=== PATIENT | male | born 1960 | race Caucasian/White ===

== ENCOUNTER 2016-11-15 15:05 | Inpatient (IN) | payer BC ==
[~2016-11-15] VITALS: Ht 182.9 cm; Wt 81.5 kg
[2016-11-15] MEDS: PCA - TOTAL MG MORPHINE DELIVERED PER SHIFT SCH (00:55)
[~2016-11-15 15:05] MED LIST: CALTTAB PO; FINA5TAB2 PO; FLUC100T2 PO; LACT10SO PO; LACTATED RINGER'S 1000 ML INJ 1,000 ML IV ONE; LORA-373 PO; MORP1TAB25 PO; MORP1TAB26 PO; MSIR15 PO; MULT-135 PO; ONDANSETRON HCL 4 MG/2 ML VIAL IV PUSH ONE; POTA10TA2 PO; PRED10 PO; PROBCAP11 PO; PROPOFOL 200 MG/20 ML AMP IV ONE; SENO8.6T5 PO; TAMS0.4C4 PO; [UNRECOGNIZED DRUG - OTHER] PO
[2016-11-15] MEDS ORDERED: MIRTA15 PO (16:02)
[2016-11-15] MEDS ORDERED: OXYC1CAP PO (16:02)
[2016-11-15 16:13] VITALS: BP 121/82; PULSE 108; RESP 18; TEMP 99.1; O2SAT 100
[2016-11-15] MEDS ORDERED: METOPROLOL TARTRATE 25 MG TAB PO PRN (16:15)
[2016-11-15] MEDS ORDERED: LACTATED RINGER'S 1000 ML IV SCH (16:15)
[2016-11-15] MEDS ORDERED: INSULIN HUMAN REGULAR 1,000 UNITS/10 ML VIAL SQ PRN (16:15)
[2016-11-15] MEDS ORDERED: SODIUM CHLORID 0.9% 500 ML IV SCH (16:15)
[2016-11-15 16:26] LABS: AUTOMATED NEUTROPHIL # 3.1 TH/MM3 (1.8-7.7); BASOPHIL % 0.2 % (0.0-2.0); EOSINOPHIL % 0.9 % (0.0-4.0); HEMATOCRIT 32.6 % (39.0-51.0); HEMO FLAGS DIFF FINAL; LYMPH % 12.1 % (9.0-44.0); LYMPHOCYTE # 0.5 TH/MM3 (1.0-4.8); MEAN CELL VOLUME 88.3 FL (80.0-100.0); MEAN CORPUSCULAR HEMOGLOBIN 29.8 PG (27.0-34.0); MEAN CORPUSCULAR HGB CONC 33.8 % (32.0-36.0); MONO % 9.1 % (0.0-8.0); NEUT % 77.7 % (16.0-70.0); PLATELET COUNT 156 TH/MM3 (150-450); RED BLOOD COUNT 3.69 MIL/MM3 (4.50-5.90); RED CELL DISTRIBUTION WIDTH 17.3 % (11.6-17.2)
[2016-11-15 16:55] LABS: ALT (GPT) 57 U/L (12-78); ANION GAP 12 MEQ/L (5-15); AST (GOT) 38 U/L (15-37); BICARBONATE 23.3 MEQ/L (21.0-32.0); BLOOD UREA NITROGEN 7 MG/DL (7-18); CHLORIDE 103 MEQ/L (98-107); GLOMERULAR FILTRATION RATE 125 ML/MIN (>89); POTASSIUM 3.2 MEQ/L (3.5-5.1); SODIUM (NA) 138 MEQ/L (136-145)
[2016-11-15 16:57] LABS: ALKALINE PHOSPHATASE 125 U/L (45-117); TOTAL BILIRUBIN ADULT 0.5 MG/DL (0.2-1.0)
[2016-11-15] MEDS ORDERED: LIDOCAINE 1%/EPINEPHrine 1:100,000 SOLN 20 ML VIAL ONE (17:52)
[2016-11-15] MEDS ORDERED: BUPIVACAINE/EPINEPHRINE 0.5% 50 ML VIAL ONE ×2 (17:52→17:58)
[2016-11-15] MEDS ORDERED: LIDOCAINE 0.5%/EPINEPHrine 1:200,000 SOLN 50 ML VIAL ONE (17:52)
[2016-11-15] MEDS ORDERED: SUGAMMADEX SODIUM 200 MG/2 ML VIAL IV PUSH ONE ×2 (18:08)
[2016-11-15] MEDS ORDERED: HYDROmorphone HCL PF 2 MG/ML VIAL ONE (18:40)
[2016-11-15] MEDS ORDERED: fentaNYL CITRATE 250 MCG/5 ML AMP ONE (19:10)
[2016-11-15] MEDS ORDERED: MORPHINE SULFATE 8 MG/ML INJ ONE ×2 (19:13→19:26)
[2016-11-15] MEDS ORDERED: *MEPERIDINE 25 MG INJ VIAL PERIprocedural Use ONLY ONE (19:14)
--- NOTE | 2016-11-15 19:23 | MH ---
cc: TERRA,FLORENTIN NATARAJAN,CANDICE RAMEY DATE OF ADMISSION 11/15/2016 CHIEF COMPLAINT Rectal pain, possible ischiorectal abscess. HISTORY OF PRESENT ILLNESS This patient is well-known to me. I saw him originally in April of this past year, 2015. At that time he had a large bulky rectal cancer circumferential, quite low in the rectum, and we did a metastatic workup showing metastases in his bone and his liver. For this reason, we recommended radiation therapy, chemotherapy as palliation. Dr. Peerz has been following him from the oncology standpoint and Dr. Thor Wood from the radiation standpoint. He was given some radiation to his bone in the lumbar region which helped him with his increasing back pain. The patient has complained of intractable pain really since diagnosis of this rectal cancer. We offered initially to give him a diverting colostomy and he wanted to try to get through the chemo without the colostomy. Radiation was not given because it was felt that it was a palliative situation and radiation would not be helpful in the long run. Nevertheless, I did not hear from the patient again until Dr. Perez contacted me sometime I believe in late July or August of last year. He said the patient was having obstructive symptoms with his cancer and either needed diversion or radiation and I did not see the patient at that time. He did not come to my office. However, they began giving him radiation therapy to his rectum. I am not certain that anybody actually examined him at that time to see if there was any residual tumor. CT scan showed thickening of the rectum only. Nevertheless, he received radiation treatment and then he ended up in the hospital in early September of last year. I was consulted, but by the time I saw the patient he had been discharged from the hospital. He was admitted at that time with rectal pain. He then got readmitted with severe rectal pain and Dr. Perez called me and felt that he was obstructed and that he would require diversion. I saw him a couple of days before [place] and he had severe rectal pain. I saw him in the office. He was basically wailing with pain and I was able to do a rectal exam on him and the tumor was no longer palpable, although his rectum was fibrotic. I was able to do a flexible sigmoidoscopy and the tumor had shrunken away to where the rectum was wide open. I looked up into the sigmoid colon. There was a significant amount of stool present, certainly no abscess at that time, and I surmised that he was just simply having rectal pain and tenesmus from the tumor radiation and chemotherapy. I suggested that we give him a break and, at that time, we were considering a colostomy but decided since there was no obstructive symptoms that colostomy may or may not help his pain situation very much. He then apparently continued to have pain and it is now about 3 or [address] Perez called me and said he did a CT scan on him again showing some air around the left side of the anal canal consistent with an abscess. Rather than try to examine him in the office, I just admitted him to the hospital for exam under anesthesia and incision and drainage of any abscess that might be present as well as a sigmoidoscopy. I suspect that his tumor has eroded into his ischiorectal fossa. PAST MEDICAL HISTORY, SOCIAL HISTORY, FAMILY HISTORY AND REVIEW OF SYSTEMS Negative except for above. PHYSICAL EXAMINATION GENERAL: Well-developed, well-nourished male in acute distress with anal pain. SKIN: Warm and dry. HEENT: Extraocular muscles intact. NECK: Supple. CHEST: Clear. S1-S2 is heard. ABDOMEN: Soft, nontender. No masses. RECTAL: Exam was not done as we are going to examine him under anesthesia. EXTREMITIES: Range of motion within normal limits. NEUROLOGIC: Grossly normal. IMPRESSION 1. Previous low rectal cancer circumferential in nature, status post chemotherapy and then radiation starting in August. He has really had severe rectal pain all through his treatment and when I saw him in September, he was having severe rectal pain but was on large quantities of narcotics. For this reason, I urged and to wean off. I told that we would not divert him at that time at least because he was not obstructed, but we could try to divert him for pain purposes. He now comes in with this air around the perianal region consistent with an abscess. PLAN I am going to examine him under anesthesia, do a sigmoidoscopy examination and drain any abscess that may be present. MD JUN Chau/ /6:53 PM 7:07 PM
[2016-11-15] MEDS ORDERED: POTASSIUM CHLOR 20 MEQ PREMIX 100 ML IV PRN (19:30)
[2016-11-15] MEDS ORDERED: BENZOCAINE 6 MG/MENTHOL 10 MG LOZENGE SUCK-ON PRN (19:30)
[2016-11-15] MEDS ORDERED: NALOXONE HCL 0.4 MG/ML AMP IV PRN (19:30)
[2016-11-15] MEDS ORDERED: Post-op Orders (for Pharmacy) MISC XX ONE (19:30)
[2016-11-15] MEDS ORDERED: ENALAPRILAT 1.25 MG/ML VIAL IV PRN (19:30)
[2016-11-15] MEDS ORDERED: SODIUM CHLORIDE 0.9% FLUSH 5 ML FLUSH IVF PRN (19:30)
[2016-11-15] MEDS ORDERED: POTASSIUM CHLOR 40 MEQ PREMIX 100 ML IV PRN (19:30)
[2016-11-15] MEDS ORDERED: oxyCODONE/ACETAMINOPHEN 5 MG/325 MG TAB PO PRN ×2 (19:30)
[2016-11-15] MEDS ORDERED: *morphine SULFATE 8 MG/ML PERIprocedure ONLY ONE (19:56)
[2016-11-15] MEDS ORDERED: LEVOFLOXACIN 500 MG PREMIX INJ 100 ML IV SCH (20:00)
[2016-11-15] MEDS: D5-LR + KCL 20 MEQ INJ 1,000 ML IV SCH (20:00)
[2016-11-15] MEDS ORDERED: DO NOT ADM ANY ANTICOAGULANT DRUGS XX PRN (20:45)
[2016-11-15] MEDS ORDERED: metroNIDAZOLE 500 MG INJ 100 ML IV SCH (21:00)
[2016-11-15] MEDS: SODIUM CHLORIDE 0.9% FLUSH 5 ML FLUSH IVF SCH (21:00)
[2016-11-15] MEDS: MORPHINE SULFATE 30 MG/30 ML PCA IV SCH (21:42)
[2016-11-15] MEDS: metroNIDAZOLE 500 MG INJ 100 ML IV SCH (22:00)
[2016-11-15] MEDS: MIRTAZAPINE 15 MG TAB PO SCH (22:30)
[2016-11-15] MEDS: TAMSULOSIN HCL 0.4 MG CAP PO SCH (22:30)
[2016-11-15] MEDS: LEVOFLOXACIN 500 MG PREMIX INJ 100 ML IV SCH (23:33)
[2016-11-16] VITALS: BP_SYST 104; BP_SYST 120; BP_DIAS 64; BP_DIAS 65; PULSE 53; PULSE 99; RESP 18; TEMP 97; TEMP 97.5; O2SAT 96; O2SAT 99
[2016-11-16] MEDS: MORPHINE SULFATE 30 MG/30 ML PCA IV SCH ×5 (00:55→23:25)
[2016-11-16] MEDS: METOCLOPRAMIDE HCL 10 MG/2 ML VIAL IVS SCH ×5 (00:57→22:54)
[2016-11-16] MEDS: D5-LR + KCL 20 MEQ INJ 1,000 ML IV SCH ×2 (02:14→11:02)
[2016-11-16 04:00] VITALS: BP 149/68; PULSE 88; RESP 18; TEMP 98.2; O2SAT 94
[2016-11-16] MEDS: metroNIDAZOLE 500 MG INJ 100 ML IV SCH ×4 (05:03→21:42)
[2016-11-16 05:45] LABS: AUTOMATED NEUTROPHIL # 2.3 TH/MM3 (1.8-7.7); BASOPHIL % 0.2 % (0.0-2.0); EOSINOPHIL % 1.1 % (0.0-4.0); HEMATOCRIT 24.7 % (39.0-51.0); HEMO FLAGS DIFF FINAL; LYMPH % 9.5 % (9.0-44.0); LYMPHOCYTE # 0.3 TH/MM3 (1.0-4.8); MEAN CELL VOLUME 88.3 FL (80.0-100.0); MEAN CORPUSCULAR HEMOGLOBIN 30.5 PG (27.0-34.0); MEAN CORPUSCULAR HGB CONC 34.5 % (32.0-36.0); MONO % 12.7 % (0.0-8.0); NEUT % 76.5 % (16.0-70.0); PLATELET COUNT 118 TH/MM3 (150-450); RED CELL DISTRIBUTION WIDTH 17.4 % (11.6-17.2); WHITE BLOOD COUNT 3.1 TH/MM3 (4.0-11.0)
[2016-11-16] MEDS: PCA - TOTAL MG MORPHINE DELIVERED PER SHIFT SCH ×3 (06:00→21:42)
[2016-11-16 06:11] LABS: BICARBONATE 25.9 MEQ/L (21.0-32.0); POTASSIUM 3.3 MEQ/L (3.5-5.1)
--- NOTE | 2016-11-16 08:55 | HHI.PR ---
Subjective Remarks Pt says pain much improved post drainage but he is on a large dose IV Morphine. Objective Vital Signs Date Time Temp Pulse Resp B/P Pulse Ox O2 Delivery O2 Flow Rate FiO2 11/16/16 06:29 16 11/16/16 06:00 16 11/16/16 04:00 98.2 88 18 149/68 94 11/16/16 00:55 14 11/16/16 00:00 97.5 99 18 104/64 96 11/15/16 23:00 99.2 92 14 109/72 99 Nasal Cannula 3 11/15/16 22:00 95 14 126/72 99 Nasal Cannula 3 11/15/16 21:42 14 11/15/16 21:00 103 15 125/71 95 Nasal Cannula 3 11/15/16 20:30 100 16 131/76 96 Nasal Cannula 3 11/15/16 20:00 99.5 109 14 140/82 99 Nasal Cannula 3 11/15/16 19:35 108 15 140/85 99 Nasal Cannula 3 11/15/16 19:05 100.6 120 12 154/89 98 Nasal Cannula 3 11/15/16 16:13 99.1 108 18 121/82 100 I/O 11/15/16 11/15/16 11/15/16 11/16/16 11/16/16 11/16/16 07:00 15:00 23:00 07:00 15:00 23:00 Intake Total 1000 ml 2670 ml Output Total 50 ml 600 ml Balance 950 ml 2070 ml Intake Oral 0 ml 360 ml IV Total 1810 ml Autotransfusion 0 ml 0 ml Other 1000 ml 500 ml Output Urine Total 600 ml Estimated Blood Loss 50 ml 0 ml Result Diagram: 11/16/16 0455 11/16/16 0455 Objective Remarks VS-S Abd: benign Rectal: dressing dry Labs and I&Os - OK Assessment and Plan Assessment and Plan POD#1-Abscess drainage. D/W pt and his . Option for diverting colostomy to relieve pain from stool passing through rectum. Other option is for APR if Colostomy alone is unsuccessful in relieving pain. Can address liver met at that time. Will plan diverting colostomy tomorrow afternoon. Clyde Gannon MD Nov 16, 2016 08:55
[2016-11-16 09:00] VITALS: BP 111/75; PULSE 85; RESP 18; TEMP 97; O2SAT 100
[2016-11-16] MEDS: FINASTERIDE 5 MG TAB PO SCH (09:24)
[2016-11-16] MEDS: PANTOPRAZOLE SODIUM 40 MG VIAL IVP SCH (09:24)
[2016-11-16] MEDS: FLUCONAZOLE 100 MG TAB PO SCH (09:24)
[2016-11-16] MEDS: SODIUM CHLORIDE 0.9% FLUSH 5 ML FLUSH IVF SCH ×2 (09:25→21:00)
[2016-11-16 13:00] VITALS: BP 113/65; PULSE 84; RESP 20; TEMP 99.4; O2SAT 99
[2016-11-16] MEDS: ONDANSETRON HCL 4 MG/2 ML VIAL IV PRN (16:54)
[2016-11-16 17:29] VITALS: O2SAT 99
[2016-11-16 20:00] VITALS: BP 119/67; PULSE 107; RESP 18; TEMP 100.5; O2SAT 97
--- NOTE | 2016-11-16 21:15 | EKG ---
Date Performed: 11/15/2016 Time Performed: 15:35:54 PTAGE: 56 years EKG: SINUS TACHYCARDIA ABNORMAL RHYTHM ECG PREVIOUS TRACING : 06/29/2010 17.27 DOCTOR: Vic Childress Interpretating Date/Time 11/16/2016 21:07:21
[2016-11-16] MEDS: MIRTAZAPINE 15 MG TAB PO SCH (21:36)
[2016-11-16] MEDS: TAMSULOSIN HCL 0.4 MG CAP PO SCH (21:36)
--- NOTE | 2016-11-16 22:06 | MB ---
cc: CANDICE BRADY MD Corrected Copy: 11/17/16 DATE OF CONSULTATION 11/16/16 DATE OF 1960 REASON FOR CONSULTATION The patient with a history of stage IV rectal adenocarcinoma who presents with perianal pain, has rectal abscess. CHIEF COMPLAINT Rectal pain. HISTORY OF PRESENT ILLNESS Mr. Mckeon is a 55-year-old gentleman who has a diagnosis of stage IV colon adenocarcinoma. He was diagnosed with this cancer in April of 2016. He has stage IV disease and was found to have metastatic disease to his liver as well as to the bone at diagnosis. He began treatment with FOLFOX chemotherapy up front. He also received two cycles of bevacizumab. He developed severe lower back pain corresponding to the sites of metastatic disease in the L5 area. Additionally he had metastatic disease to the T2 vertebral body. He has received radiation treatment to the vertebral lesion. Most recently he was getting treatments to the rectal mass. He has ongoing issues with significant pain. The patient is somewhat noncompliant to the instructions being given to him during his clinic visits. He has abruptly started and stopped his pain medication as well as other medications including antidepressants that were prescribed to him in the past. Most recently he presented to my clinic with exacerbation of his rectal pain. Additionally there was new perirectal pain and on physical exam his perirectal area was exquisitely tender. An MRI of the left hip for the pain which revealed a left perianal soft tissue enhancement concerning for perianal fistula abscess. The collection was approximately 4.2 x 1.7 cm. The case was discussed with Dr. Gannon and the patient was admitted. The patient has undergone surgery for drainage of the abscess by Dr. Gannon postoperative day #1. The patient is extremely drowsy at this time. He has a morphine pump. He is requiring a lot morphine to control his pain. His is present at bedside. I had a long conversation with his . She is frustrated and she states that all she wants is to have her be comfortable. I have also discussed this case with Dr. Gannon. He is planning to do a diverting colostomy tomorrow morning. This case was also discussed with Dr. Mcrae. REVIEW OF SYSTEMS The patient is very drowsy. He is comfortable at this time. He is not able to answer questions and appears to be very sleepy. PAST MEDICAL HISTORY stage IV rectal adenocarcinoma, chronic pain. PAST SURGICAL HISTORY 1. Colonoscopy in 2016 2. biopsy of the colon mass in 2016. MEDICATIONS 1. Pantoprazole 40 mg daily 2. Proscar 5 mg one tablet p.o. daily 3. Diflucan 100 mg p.o. daily, 4. Reglan 10 mg IV q.6 h, 5. Levofloxacin q.24 h 6. Flagyl q.6 h 7. Mirtazapine 15 mg p.o. q.h.s. 8. Tamsulosin 0.4 mg p.o. q.h.s. 9. Percocet 5/325 1 tablet p.o. q.4 h p.r.n. 10. Zofran 4 mg IV q.6 h p.r.n. 11. Ambien 5 mg one tablet p.o. q.h.s. 12. Currently on morphine 13. Ativan 0.5 mg 1 tablet p.o. q.8 h p.r.n. ALLERGIES He does not have any known drug allergies. FAMILY HISTORY Reviewed is noncontributory to this admission. SOCIAL HISTORY . He does not smoke cigarettes. He does not drink alcohol. No illicit drug use. VSS--Reviewed GEN: sleepy, nad HEENT: op clear NECK: supple, no JVD CARDIAC: S1/s2, rrr CHEST: CTAB ABDO: soft/nt/nd/bs present EXT: no e//e/c SKIN: no lesions PSYCH: sleepu NEURO: no focal deficits NO LAD PORT CLEAN/no erythema/discharge/non-tender LABORATORY DATA WBC 3.1, hemoglobin is 8.5, MCV is 88.3, platelet count is 118. Serum chemistries show sodium of 139, potassium 3.3, chloride 103, BUN five, creatinine is 0.57, GFR 148, glucose is 113, calcium 7.8, total bilirubin is 0.5, AST 38, ALT is 57, alk phos is 125. IMAGING STUDIES Reviewed. ASSESSMENT/PLAN This is a 55-year-old male with a diagnosis of stage IV colon adenocarcinoma who has received FOLFOX chemotherapy treatments. He has also received radiation treatments to the vertebral spine and also to the rectal mass. He was admitted with perirectal pain and, on imaging, he was found to have a rectal abscess. He has undergone drainage of the rectal abscess. 1. Rectal pain/rectal abscess. The patient is postoperative day #1 after surgical drainage of the rectal abscess. I have discussed this case with Dr. Gannon. I think it would be reasonable to proceed with a diverting colostomy since this patient has been in significant amount of pain and this might help benefit him from a palliative standpoint. He may end up requiring an extensive surgery such as an APR. In that case, it would be reasonable to resect his residual liver lesion. I had a long conversation with the patient's . I explained to her that his pain is related to his cancer and that he will require some form of pain medication to control his pain in the [facility]. She is very concerned about him being addicted to the pain medications. I explained to her that generally this is not an issue for patients with cancer related pain. I also discussed the results of his most recent scan which shows significant reduction in the disease. His liver lesion is 0.7 cm. Based on my conversation with Dr. Gannon as well as review of the imaging his rectal mass has mostly disappeared. There is some rectal thickening in the area. The patient is currently on morphine TPA requiring significant amount of morphine. There are plans for surgery tomorrow a.m. 2. Stage IV rectal adenocarcinoma. As stated above. I have discussed this case with Dr. Mcrae as well. We will stop further radiation treatments at this point. Further treatment with chemotherapy will be undertaken outpatient once the patient has recovered from his surgery. This will be discussed further with the patient in the outpatient setting. 3. Anemia. I agree with packed red blood cell blood transfusion. Thank you for allowing me to participate in the care of this patient. I will continue to follow this patient along. MD MOHAN Acosta/ /8:26 PM /8:57 AM CHIP
[2016-11-16] MEDS: LEVOFLOXACIN 500 MG PREMIX INJ 100 ML IV SCH (22:52)
[2016-11-17] VITALS: BP 104/56; PULSE 115; RESP 17; TEMP 99.6; O2SAT 97
[2016-11-17 04:00] VITALS: BP 115/72; PULSE 106; RESP 18; TEMP 97.8; O2SAT 97
[2016-11-17] MEDS: MORPHINE SULFATE 30 MG/30 ML PCA IV SCH ×3 (05:02→23:42)
[2016-11-17] MEDS: METOCLOPRAMIDE HCL 10 MG/2 ML VIAL IVS SCH ×4 (05:02→23:20)
[2016-11-17] MEDS: metroNIDAZOLE 500 MG INJ 100 ML IV SCH ×4 (05:03→22:16)
[2016-11-17] MEDS: D5-LR + KCL 20 MEQ INJ 1,000 ML IV SCH ×2 (05:09→16:00)
[2016-11-17] MEDS: PCA - TOTAL MG MORPHINE DELIVERED PER SHIFT SCH ×3 (05:10→22:00)
[2016-11-17 05:58] LABS: AUTOMATED NEUTROPHIL # 2.3 TH/MM3 (1.8-7.7); BASOPHIL % 0.2 % (0.0-2.0); EOSINOPHIL % 1.4 % (0.0-4.0); HEMATOCRIT 26.2 % (39.0-51.0); HEMO FLAGS DIFF FINAL; LYMPH % 12.7 % (9.0-44.0); LYMPHOCYTE # 0.4 TH/MM3 (1.0-4.8); MEAN CELL VOLUME 88.8 FL (80.0-100.0); MEAN CORPUSCULAR HEMOGLOBIN 30.4 PG (27.0-34.0); MEAN CORPUSCULAR HGB CONC 34.3 % (32.0-36.0); MONO % 15.1 % (0.0-8.0); NEUT % 70.6 % (16.0-70.0); PLATELET COUNT 115 TH/MM3 (150-450); RED BLOOD COUNT 2.95 MIL/MM3 (4.50-5.90); RED CELL DISTRIBUTION WIDTH 17.4 % (11.6-17.2); WHITE BLOOD COUNT 3.2 TH/MM3 (4.0-11.0)
[2016-11-17 06:22] LABS: BICARBONATE 26.7 MEQ/L (21.0-32.0); POTASSIUM 3.4 MEQ/L (3.5-5.1)
[2016-11-17 07:30] VITALS: BP 112/68; PULSE 97; RESP 20; TEMP 99.5; O2SAT 95
[2016-11-17] MEDS: FINASTERIDE 5 MG TAB PO SCH (09:00)
[2016-11-17] MEDS: FLUCONAZOLE 100 MG TAB PO SCH (09:00)
[2016-11-17] MEDS: SODIUM CHLORIDE 0.9% FLUSH 5 ML FLUSH IVF SCH ×2 (09:00→20:05)
[2016-11-17] MEDS: PANTOPRAZOLE SODIUM 40 MG VIAL IVP SCH (10:36)
[2016-11-17 11:00] VITALS: BP 117/64; PULSE 90; RESP 20; TEMP 98.9; O2SAT 95
[2016-11-17] MEDS ORDERED: LACTATED RINGER'S 1000 ML INJ 2,000 ML IV ONE (12:00)
[2016-11-17] MEDS ORDERED: NEOSTIGMINE 3 MG/3 ML SYR IV ONE (12:00)
[2016-11-17] MEDS ORDERED: PROPOFOL 200 MG/20 ML AMP IV ONE (12:00)
[2016-11-17] MEDS ORDERED: ONDANSETRON HCL 4 MG/2 ML VIAL IV PUSH ONE (12:00)
--- NOTE | 2016-11-17 12:41 | PD.ONC.PN ---
Subjective Subjective Remarks Tmax 100.5 overnight. patient states he is comfortable on pain pump. Pain improved with pain pump. States he is hungry, as he is NPO for surgery this afternoon. Objective Data Date Time Temp Pulse Resp B/P Pulse Ox O2 Delivery O2 Flow Rate FiO2 11/17/16 07:30 99.5 97 20 112/68 95 11/17/16 05:57 20 11/17/16 05:10 20 11/17/16 05:02 20 11/17/16 04:00 97.8 106 18 115/72 97 11/17/16 00:00 99.6 115 17 104/56 97 11/16/16 23:25 20 11/16/16 21:42 20 11/16/16 20:00 100.5 107 18 119/67 97 11/16/16 19:18 16 11/16/16 17:29 99 21 11/16/16 14:09 14 11/16/16 13:00 99.4 84 20 113/65 99 11/17/16 11/17/16 11/17/16 07:00 15:00 23:00 Intake Total 645 ml Output Total 450 ml Balance 195 ml Result Diagram: 11/17/16 0510 11/17/16 0510 Laboratory Results Laboratory Tests Test 11/16/16 11/16/16 11/17/16 13:36 15:24 05:10 Blood Type O POSITIVE O POSITIVE Antibody Screen NEGATIVE Crossmatch Leukocyte-Reduced Red Blood Cells Blood Bank Comment White Blood Count 3.2 TH/MM3 Red Blood Count 2.95 MIL/MM3 Hemoglobin 9.0 GM/DL Hematocrit 26.2 % Mean Corpuscular Volume 88.8 FL Mean Corpuscular Hemoglobin 30.4 PG Mean Corpuscular Hemoglobin 34.3 % Concent Red Cell Distribution Width 17.4 % Platelet Count 115 TH/MM3 Mean Platelet Volume 7.7 FL Neutrophils (%) (Auto) 70.6 % Lymphocytes (%) (Auto) 12.7 % Monocytes (%) (Auto) 15.1 % Eosinophils (%) (Auto) 1.4 % Basophils (%) (Auto) 0.2 % Neutrophils # (Auto) 2.3 TH/MM3 Lymphocytes # (Auto) 0.4 TH/MM3 Monocytes # (Auto) 0.5 TH/MM3 Eosinophils # (Auto) 0.0 TH/MM3 Basophils # (Auto) 0.0 TH/MM3 CBC Comment DIFF FINAL Differential Comment Sodium Level 139 MEQ/L Potassium Level 3.4 MEQ/L Chloride Level 103 MEQ/L Carbon Dioxide Level 26.7 MEQ/L Anion Gap 9 MEQ/L Blood Urea Nitrogen 4 MG/DL Creatinine 0.59 MG/DL Estimat Glomerular Filtration 142 ML/MIN Rate Random Glucose 89 MG/DL Calcium Level 7.6 MG/DL Administered Medications Medications (Trade) Dose Ordered Sig/Jason Route PRN Reason Start Time Stop Time Status Last Admin Dose Admin Potassium Cl/ Dextrose/Lact Ringer's (D5-Lr + KCl 20 Meq Inj) 1,000 ml @ 50 mls/hr Q20H IV 11/15/16 19:19 11/17/16 05:09 IV Flush (NS Flush) 2 ml BID IVF 11/15/16 21:00 11/16/16 09:25 Pantoprazole Sodium (Protonix Inj) 40 mg DAILY IVP 11/16/16 09:00 11/17/16 10:36 Metoclopramide HCl (Reglan Inj) 10 mg Q6HR IVS 11/16/16 00:00 11/17/16 05:02 Ondansetron HCl (Zofran Inj) 4 mg Q6H PRN IV NAUSEA 11/15/16 19:30 11/16/16 16:54 Morphine Sulfate (Morphine 1 Mg/ ml ACCOUNTING AUDITOR) 30 mg UNSCH IV 11/15/16 19:30 11/17/16 05:02 ACCOUNTING AUDITOR Dosage Infused (Pha) 1 Q8HR .XX 11/15/16 22:00 11/17/16 05:10 Finasteride (Proscar) 5 mg DAILY PO 11/16/16 09:00 11/16/16 09:24 Fluconazole (Diflucan) 100 mg DAILY PO 11/16/16 09:00 11/16/16 09:24 Mirtazapine (Remeron) 15 mg HS PO 11/15/16 21:00 11/16/16 21:36 Tamsulosin HCl 0.4 mg 0.4 mg HS PO 11/15/16 21:00 11/16/16 21:36 Metronidazole 100 ml @ 100 mls/hr Q6H IV 11/15/16 22:00 11/17/16 10:35 Levofloxacin/ Dextrose (Levaquin 500 Mg Premix Inj) 100 ml @ 100 mls/hr Q24H IV 11/16/16 00:00 11/16/16 22:52 Objective Remarks GENERAL: Middle aged male, lying in bed, watching TV. SKIN: Warm and dry. HEAD: Normocephalic. EYES: No injection or drainage. NECK: Supple, trachea midline. CARDIOVASCULAR: Regular rate and rhythm RESPIRATORY: Breath sounds equal bilaterally. No accessory muscle use. GASTROINTESTINAL: Abdomen soft, mildly tender to palpation, nondistended. EXTREMITIES: No cyanosis NEUROLOGICAL: No obvious focal deficit. Awake, alert, and oriented x3. Assessment/Plan Problem List: (1) Rectal cancer metastasized to bone Status: Acute Plan: plan for outpatient follow up upon discharge to resume chemotherapy once recovered from surgery --s/p FOLFOX chemotherapy treatments. --s/p radiation treatments to the vertebral spine and also to the rectal mass. --will stop further radiation treatments at this point. Further treatment with chemotherapy will be undertaken outpatient once the patient has recovered from his surgery. (2) Rectal abscess Status: Acute Plan: --s/p drainage of rectal abscess --POD #2. --Jagdeep plans diverting colostomy this afternoon (3) Normocytic anemia Status: Acute Plan: --monitor and transfuse as needed Assessment 55y/o male with stage IV colon cancer, adenocarcinoma type, admitted for rectal pain/abscess + anemia. Plan 1. monitor CBC 2. diverting colostomy this afternoon with Dr. Gannon 3. continue Morphine ACCOUNTING AUDITOR for pain. Attending Statement The exam, history, and the medical decision-making described in the above note were completed with the assistance of the mid-level provider. I reviewed and agree with the findings presented. I attest that I had a [id number] encounter with the patient on the same day, and personally performed and documented my assessment and findings in the medical record. Paige Serrano Nov 17, 2016 12:41 El Perez MD Nov 18, 2016 01:07
[2016-11-17] MEDS ORDERED: MIDAZOLAM HCL 2 MG/2 ML VIAL ONE (14:09)
[2016-11-17] MEDS ORDERED: HYDROmorphone HCL PF 2 MG/ML VIAL ONE (14:09)
[2016-11-17] MEDS ORDERED: FAMOTIDINE 20 MG/2 ML VIAL ONE (14:14)
[2016-11-17] MEDS ORDERED: NALOXONE HCL 0.4 MG/ML AMP IV PRN (15:30)
[2016-11-17] MEDS ORDERED: POTASSIUM CHLOR 20 MEQ PREMIX 100 ML IV PRN (15:30)
[2016-11-17] MEDS ORDERED: POTASSIUM CHLOR 40 MEQ PREMIX 100 ML IV PRN (15:30)
[2016-11-17] MEDS ORDERED: Post-op Orders (for Pharmacy) MISC XX ONE (15:30)
[2016-11-17] MEDS ORDERED: DO NOT ADM ANY ANTICOAGULANT DRUGS XX PRN (15:35)
[2016-11-17] MEDS ORDERED: fentaNYL CITRATE 250 MCG/5 ML AMP ONE (15:48)
[2016-11-17] MEDS ORDERED: MORPHINE SULFATE 8 MG/ML INJ ONE (15:53)
[2016-11-17] MEDS ORDERED: *morphine SULFATE 8 MG/ML PERIprocedure ONLY ONE ×2 (15:57→16:02)
[2016-11-17] MEDS ORDERED: *HYDROmorphone PF 1 MG VIAL PERIprocedural Use ONLY ONE ×2 (16:13→16:23)
[2016-11-17 16:14] LABS: AUTOMATED NEUTROPHIL # 1.6 TH/MM3 (1.8-7.7); BASOPHIL % 0.2 % (0.0-2.0); EOSINOPHIL % 1.6 % (0.0-4.0); HEMATOCRIT 26.1 % (39.0-51.0); LYMPH % 24.4 % (9.0-44.0); LYMPHOCYTE # 0.7 TH/MM3 (1.0-4.8); MEAN CELL VOLUME 89.6 FL (80.0-100.0); MEAN CORPUSCULAR HEMOGLOBIN 30.2 PG (27.0-34.0); MEAN CORPUSCULAR HGB CONC 33.7 % (32.0-36.0); MONO % 15.9 % (0.0-8.0); NEUT % 57.9 % (16.0-70.0); PLATELET COUNT 97 TH/MM3 (150-450); RED BLOOD COUNT 2.91 MIL/MM3 (4.50-5.90); RED CELL DISTRIBUTION WIDTH 17.5 % (11.6-17.2); WHITE BLOOD COUNT 2.8 TH/MM3 (4.0-11.0)
[2016-11-17 16:30] VITALS: BP 116/70; PULSE 70; RESP 20; TEMP 96.8; O2SAT 100
[2016-11-17 16:35] LABS: BICARBONATE 24.2 MEQ/L (21.0-32.0); POTASSIUM 3.4 MEQ/L (3.5-5.1)
[2016-11-17 16:46] LABS: HEMO FLAGS AUTO DIFF
[2016-11-17 20:00] VITALS: BP 108/65; PULSE 81; RESP 18; TEMP 97.4; O2SAT 99
[2016-11-17] MEDS: TAMSULOSIN HCL 0.4 MG CAP PO SCH (20:04)
[2016-11-17] MEDS: MIRTAZAPINE 15 MG TAB PO SCH (20:04)
[2016-11-17 20:57] LABS: PLATELET ESTIMATE SMEAR LOW (NORMAL); SCAN/DIFF AUTO DIFF CONFIRMED
[2016-11-17] MEDS: LEVOFLOXACIN 500 MG PREMIX INJ 100 ML IV SCH (23:20)
[2016-11-18] VITALS (7 sets, daily range): BP systolic 101–121; BP diastolic 61–71; PULSE 84–100; RESP 16–20; TEMP 97.6–98.7; O2SAT 94–100
[2016-11-18] MEDS: D5-LR + KCL 20 MEQ INJ 1,000 ML IV SCH ×2 (02:00→21:49)
[2016-11-18] MEDS: METOCLOPRAMIDE HCL 10 MG/2 ML VIAL IVS SCH ×3 (04:20→18:46)
[2016-11-18] MEDS: metroNIDAZOLE 500 MG INJ 100 ML IV SCH ×4 (04:21→21:53)
[2016-11-18] MEDS: MORPHINE SULFATE 30 MG/30 ML PCA IV SCH ×3 (04:32→19:50)
[2016-11-18] MEDS: PCA - TOTAL MG MORPHINE DELIVERED PER SHIFT SCH ×3 (06:00→21:53)
[2016-11-18 06:34] LABS: BICARBONATE 26.8 MEQ/L (21.0-32.0); POTASSIUM 3.5 MEQ/L (3.5-5.1)
[2016-11-18 08:06] LABS: AUTOMATED NEUTROPHIL # 1.9 TH/MM3 (1.8-7.7); BASOPHIL % 0.4 % (0.0-2.0); EOSINOPHIL # 0.1 TH/MM3 (0-0.4); EOSINOPHIL % 2.1 % (0.0-4.0); HEMATOCRIT 26.4 % (39.0-51.0); HEMO FLAGS DIFF FINAL; LYMPH % 11.8 % (9.0-44.0); LYMPHOCYTE # 0.3 TH/MM3 (1.0-4.8); MEAN CELL VOLUME 89.7 FL (80.0-100.0); MEAN CORPUSCULAR HEMOGLOBIN 30.2 PG (27.0-34.0); MEAN CORPUSCULAR HGB CONC 33.7 % (32.0-36.0); MONO % 14.2 % (0.0-8.0); NEUT % 71.5 % (16.0-70.0); PLATELET COUNT 107 TH/MM3 (150-450); RED BLOOD COUNT 2.94 MIL/MM3 (4.50-5.90); RED CELL DISTRIBUTION WIDTH 17.7 % (11.6-17.2); WHITE BLOOD COUNT 2.7 TH/MM3 (4.0-11.0)
--- NOTE | 2016-11-18 09:02 | HHI.PR ---
Subjective Remarks POD#1 s/p diverting colostomy reports pain, no nausea Objective Vital Signs Date Time Temp Pulse Resp B/P Pulse Ox O2 Delivery O2 Flow Rate FiO2 11/18/16 06:00 18 11/18/16 04:59 19 11/18/16 04:32 19 11/18/16 04:00 98.6 92 17 111/71 97 11/18/16 00:28 94 Nasal Cannula 11/18/16 00:00 97.6 84 17 104/66 100 11/17/16 23:42 18 11/17/16 22:00 19 11/17/16 20:00 97.4 81 18 108/65 99 11/17/16 17:36 16 11/17/16 16:30 96.8 70 20 116/70 100 11/17/16 16:15 77 14 125/73 95 Nasal Cannula 4 11/17/16 16:00 82 14 127/70 96 Nasal Cannula 4 11/17/16 15:45 87 14 134/76 94 Nasal Cannula 4 11/17/16 15:36 97.7 95 14 131/76 99 Nasal Cannula 4 11/17/16 13:44 18 11/17/16 11:00 98.9 90 20 117/64 95 I/O 11/17/16 11/17/16 11/17/16 11/18/16 11/18/16 11/18/16 07:00 15:00 23:00 07:00 15:00 23:00 Intake Total 645 ml 0 ml 4477 ml 716 ml Output Total 450 ml 350 ml 975 ml Balance 195 ml -350 ml 3502 ml 716 ml Intake Oral 240 ml 0 ml 240 ml IV Total 405 ml 1437 ml 716 ml Other 2800 ml Output Urine Total 450 ml 350 ml 700 ml Estimated Blood Loss 25 ml Other 250 ml # Bowel Movements 0 0 Result Diagram: 11/18/16 04311/18/16 043 Objective Remarks Abdomen soft, mild distension Colostomy pink, mild edema Joy Cueva MD Nov 18, 2016 09:02
[2016-11-18] MEDS: FINASTERIDE 5 MG TAB PO SCH (09:22)
[2016-11-18] MEDS: FLUCONAZOLE 100 MG TAB PO SCH (09:22)
[2016-11-18] MEDS: PANTOPRAZOLE SODIUM 40 MG VIAL IVP SCH (09:22)
[2016-11-18] MEDS: SODIUM CHLORIDE 0.9% FLUSH 5 ML FLUSH IVF SCH ×2 (09:23→21:00)
[2016-11-18] MEDS: ONDANSETRON HCL 4 MG/2 ML VIAL IV PRN (10:29)
--- NOTE | 2016-11-18 14:59 | PD.ONC.PN ---
Subjective Subjective Remarks Afebrile overnight. Patient states he feels like he is doing well. He has a minimal amount of pain that is controlled with his morphine MILK DELIVERER pump. He denies shortness of breath. He had some nausea this morning after eating yogurt. Objective Data Date Time Temp Pulse Resp B/P Pulse Ox O2 Delivery O2 Flow Rate FiO2 11/18/16 14:31 16 11/18/16 14:29 16 11/18/16 12:00 98.3 94 20 102/70 97 11/18/16 08:00 98.6 100 16 121/67 96 11/18/16 06:00 18 11/18/16 04:59 19 11/18/16 04:32 19 11/18/16 04:00 98.6 92 17 111/71 97 11/18/16 00:28 94 Nasal Cannula 11/18/16 00:00 97.6 84 17 104/66 100 11/17/16 23:42 18 11/17/16 22:00 19 11/17/16 20:00 97.4 81 18 108/65 99 11/17/16 17:36 16 11/17/16 16:30 96.8 70 20 116/70 100 11/17/16 16:15 77 14 125/73 95 Nasal Cannula 4 11/17/16 16:00 82 14 127/70 96 Nasal Cannula 4 11/17/16 15:45 87 14 134/76 94 Nasal Cannula 4 11/17/16 15:36 97.7 95 14 131/76 99 Nasal Cannula 4 11/18/16 11/18/16 11/18/16 07:00 15:00 23:00 Intake Total 716 ml 480 ml Output Total 1750 ml Balance 716 ml -1270 ml Result Diagram: 11/18/16 0430 11/18/16 0430 Laboratory Results Laboratory Tests Test 11/17/16 11/18/16 15:50 04:30 White Blood Count 2.8 TH/MM3 2.7 TH/MM3 Red Blood Count 2.91 MIL/MM3 2.94 MIL/MM3 Hemoglobin 8.8 GM/DL 8.9 GM/DL Hematocrit 26.1 % 26.4 % Mean Corpuscular Volume 89.6 FL 89.7 FL Mean Corpuscular Hemoglobin 30.2 PG 30.2 PG Mean Corpuscular Hemoglobin 33.7 % 33.7 % Concent Red Cell Distribution Width 17.5 % 17.7 % Platelet Count 97 TH/MM3 107 TH/MM3 Mean Platelet Volume 8.3 FL 8.2 FL Neutrophils (%) (Auto) 57.9 % 71.5 % Lymphocytes (%) (Auto) 24.4 % 11.8 % Monocytes (%) (Auto) 15.9 % 14.2 % Eosinophils (%) (Auto) 1.6 % 2.1 % Basophils (%) (Auto) 0.2 % 0.4 % Neutrophils # (Auto) 1.6 TH/MM3 1.9 TH/MM3 Lymphocytes # (Auto) 0.7 TH/MM3 0.3 TH/MM3 Monocytes # (Auto) 0.5 TH/MM3 0.4 TH/MM3 Eosinophils # (Auto) 0.0 TH/MM3 0.1 TH/MM3 Basophils # (Auto) 0.0 TH/MM3 0.0 TH/MM3 CBC Comment AUTO DIFF DIFF FINAL Differential Comment AUTO DIFF CONFIRMED Platelet Estimate LOW Sodium Level 137 MEQ/L 137 MEQ/L Potassium Level 3.4 MEQ/L 3.5 MEQ/L Chloride Level 104 MEQ/L 104 MEQ/L Carbon Dioxide Level 24.2 MEQ/L 26.8 MEQ/L Anion Gap 9 MEQ/L 6 MEQ/L Blood Urea Nitrogen 3 MG/DL 2 MG/DL Creatinine 0.52 MG/DL 0.44 MG/DL Estimat Glomerular Filtration 164 ML/MIN 199 ML/MIN Rate Random Glucose 95 MG/DL 104 MG/DL Calcium Level 7.7 MG/DL 7.9 MG/DL Administered Medications Medications (Trade) Dose Ordered Sig/Jason Route PRN Reason Start Time Stop Time Status Last Admin Dose Admin Pantoprazole Sodium (Protonix Inj) 40 mg DAILY IVP 11/16/16 09:00 11/18/16 09:22 Metoclopramide HCl (Reglan Inj) 10 mg Q6HR IVS 11/16/16 00:00 11/18/16 12:00 Ondansetron HCl (Zofran Inj) 4 mg Q6H PRN IV NAUSEA 11/15/16 19:30 11/18/16 10:29 Morphine Sulfate (Morphine 1 Mg/ ml MILK DELIVERER) 30 mg UNSCH IV 11/15/16 19:30 11/18/16 14:29 Finasteride (Proscar) 5 mg DAILY PO 11/16/16 09:00 11/18/16 09:22 Fluconazole (Diflucan) 100 mg DAILY PO 11/16/16 09:00 11/18/16 09:22 Mirtazapine (Remeron) 15 mg HS PO 11/15/16 21:00 11/17/16 20:04 Tamsulosin HCl 0.4 mg 0.4 mg HS PO 11/15/16 21:00 11/17/16 20:04 Metronidazole 100 ml @ 100 mls/hr Q6H IV 11/15/16 22:00 11/18/16 09:23 Levofloxacin/ Dextrose 100 ml @ 100 mls/hr Q24H IV 11/16/16 00:00 11/17/16 23:20 Potassium Cl/ Dextrose/Lact Ringer's (D5-Lr + KCl 20 Meq Inj) 1,000 ml @ 70 mls/hr [id number] IV 11/17/16 16:00 11/18/16 02:00 IV Flush (NS Flush) 2 ml BID IVF 11/17/16 21:00 11/18/16 09:23 MILK DELIVERER Dosage Infused (Pha) 1 Q8HR .XX 11/17/16 22:00 11/18/16 14:31 Objective Remarks GENERAL: Middle aged male, lying in bed, watching TV. SKIN: Warm and dry. HEAD: Normocephalic. EYES: No injection or drainage. NECK: Supple, trachea midline. CARDIOVASCULAR: Regular rate and rhythm RESPIRATORY: Breath sounds equal bilaterally. No accessory muscle use. GASTROINTESTINAL: New colostomy bag in place to left side of abdomen. No bleeding. EXTREMITIES: No cyanosis NEUROLOGICAL: No obvious focal deficit. Awake, alert, and oriented x3. Assessment/Plan Problem List: (1) Rectal cancer metastasized to bone Status: Acute Plan: plan for outpatient follow up upon discharge to resume chemotherapy once recovered from surgery --s/p FOLFOX chemotherapy treatments. --s/p radiation treatments to the vertebral spine and also to the rectal mass. --will stop further radiation treatments at this point. Further treatment with chemotherapy will be undertaken outpatient once the patient has recovered from his surgery. (2) Rectal abscess Status: Acute Plan: --s/p drainage of rectal abscess --POD #2. --Jagdeep plans diverting colostomy this afternoon (3) Normocytic anemia Status: Acute Plan: --monitor and transfuse as needed Assessment 55y/o male with stage IV colon cancer, adenocarcinoma type, admitted for rectal pain/abscess + anemia. Plan 1. monitor CBC 2. Colostomy site without bleeding. 3. continue Morphine MILK DELIVERER for pain. 4. Physical therapy to work with patient. 5. He will follow-up as an outpatient once discharged. Attending Statement The exam, history, and the medical decision-making described in the above note were completed with the assistance of the mid-level provider. I reviewed and agree with the findings presented. I attest that I had a [id number] encounter with the patient on the same day, and personally performed and documented my assessment and findings in the medical record. s/p diverting colostomy. pain under control. On Morphine MILK DELIVERER. On clear liquids, diet slowly advanced. PT in AM Mild leukopenia-- will continue to monitor Acute Post op Anemia--Will transfuse pRBC if Hb <8 Mild thrombocytopenia--continue to monitor Tina Brambila Nov 18, 2016 14:59 El Perez MD Nov 19, 2016 00:32
[2016-11-18] MEDS: TAMSULOSIN HCL 0.4 MG CAP PO SCH (19:47)
[2016-11-18] MEDS: MIRTAZAPINE 15 MG TAB PO SCH (21:51)
[2016-11-19] VITALS (7 sets, daily range): BP systolic 101–116; BP diastolic 64–79; PULSE 88–111; RESP 16–20; TEMP 96.9–98.9; O2SAT 96–99
[2016-11-19] MEDS: LEVOFLOXACIN 500 MG PREMIX INJ 100 ML IV SCH (00:01)
[2016-11-19] MEDS: METOCLOPRAMIDE HCL 10 MG/2 ML VIAL IVS SCH ×5 (00:01→23:57)
[2016-11-19] MEDS: metroNIDAZOLE 500 MG INJ 100 ML IV SCH ×4 (05:42→21:18)
[2016-11-19] MEDS: PCA - TOTAL MG MORPHINE DELIVERED PER SHIFT SCH (05:57)
[2016-11-19 06:42] LABS: POTASSIUM 3.5 MEQ/L (3.5-5.1)
[2016-11-19 06:52] LABS: AUTOMATED NEUTROPHIL # 0.8 TH/MM3 (1.8-7.7); BASOPHIL % 0.2 % (0.0-2.0); EOSINOPHIL # 0.1 TH/MM3 (0-0.4); EOSINOPHIL % 4.8 % (0.0-4.0); HEMATOCRIT 26.3 % (39.0-51.0); LYMPH % 17.8 % (9.0-44.0); LYMPHOCYTE # 0.3 TH/MM3 (1.0-4.8); MEAN CELL VOLUME 89.5 FL (80.0-100.0); MEAN CORPUSCULAR HGB CONC 33.5 % (32.0-36.0); MONO % 27.4 % (0.0-8.0); NEUT % 49.8 % (16.0-70.0); PLATELET COUNT 99 TH/MM3 (150-450); RED BLOOD COUNT 2.94 MIL/MM3 (4.50-5.90); RED CELL DISTRIBUTION WIDTH 16.9 % (11.6-17.2); WHITE BLOOD COUNT 1.6 TH/MM3 (4.0-11.0)
[2016-11-19 06:54] LABS: HEMO FLAGS AUTO DIFF
[2016-11-19 09:08] LABS: BANDS 2 % (0-6); EOSINOPHILS 4 % (0-4); OVALOCYTES 1+ (NORMAL); PLATELET ESTIMATE SMEAR LOW (NORMAL); PLATELET MORPHOLOGY NORMAL (NORMAL); POLYS (SEG NEUTROPHILS) 60 % (16-70); SCAN/DIFF FINAL DIFF MANUAL; TEARDROP RBCS 1+ (NORMAL); WBC DIFF SAMPLE 100
[2016-11-19] MEDS: FLUCONAZOLE 100 MG TAB PO SCH (09:24)
[2016-11-19] MEDS: FINASTERIDE 5 MG TAB PO SCH (09:24)
[2016-11-19] MEDS: SODIUM CHLORIDE 0.9% FLUSH 5 ML FLUSH IVF SCH ×2 (09:24→21:10)
[2016-11-19] MEDS: PANTOPRAZOLE SODIUM 40 MG VIAL IVP SCH (09:24)
--- NOTE | 2016-11-19 11:52 | PD.ONC.PN ---
Subjective Subjective Remarks Afebrile overnight. Patient resting in bed with eyes closed. He awakens to verbal stimuli. He states he feels really "out of it" today. He describes this as feeling weak and he just wants to sleep. He has not used his CLASSIFIED ADVERTISING MANAGER pump since early am. He describes his pain as a /10. He has no headache, SOB or chest pain. Objective Data Date Time Temp Pulse Resp B/P Pulse Ox O2 Delivery O2 Flow Rate FiO2 11/19/16 10:53 88 106/76 11/19/16 08:00 96.9 90 20 115/75 96 11/19/16 06:00 98.0 91 17 108/68 98 11/19/16 05:57 19 11/19/16 00:00 98.6 96 17 101/64 96 11/18/16 21:53 19 11/18/16 20:00 20 11/18/16 19:50 19 11/18/16 19:24 97.9 99 18 109/68 100 11/18/16 16:00 98.7 88 20 101/61 97 11/18/16 14:31 16 11/18/16 14:29 16 11/18/16 12:00 98.3 94 20 102/70 97 Result Diagram: 11/19/16 0550 11/19/16 0550 Laboratory Results Laboratory Tests Test 11/19/16 05:50 White Blood Count 1.6 TH/MM3 Red Blood Count 2.94 MIL/MM3 Hemoglobin 8.8 GM/DL Hematocrit 26.3 % Mean Corpuscular Volume 89.5 FL Mean Corpuscular Hemoglobin 30.0 PG Mean Corpuscular Hemoglobin 33.5 % Concent Red Cell Distribution Width 16.9 % Platelet Count 99 TH/MM3 Mean Platelet Volume 7.7 FL Neutrophils (%) (Auto) 49.8 % Lymphocytes (%) (Auto) 17.8 % Monocytes (%) (Auto) 27.4 % Eosinophils (%) (Auto) 4.8 % Basophils (%) (Auto) 0.2 % Neutrophils # (Auto) 0.8 TH/MM3 Lymphocytes # (Auto) 0.3 TH/MM3 Monocytes # (Auto) 0.5 TH/MM3 Eosinophils # (Auto) 0.1 TH/MM3 Basophils # (Auto) 0.0 TH/MM3 CBC Comment AUTO DIFF Differential Total Cells 100 Counted Neutrophils % (Manual) 60 % Band Neutrophils % 2 % Lymphocytes % 14 % Monocytes % 20 % Eosinophils % 4 % Neutrophils # (Manual) 1.0 TH/MM3 Differential Comment FINAL DIFF MANUAL Platelet Estimate LOW Platelet Morphology Comment NORMAL Tear Drop Cells 1+ Ovalocytes 1+ Sodium Level 139 MEQ/L Potassium Level 3.5 MEQ/L Chloride Level 106 MEQ/L Carbon Dioxide Level 27.0 MEQ/L Anion Gap 6 MEQ/L Blood Urea Nitrogen 1 MG/DL Creatinine 0.51 MG/DL Estimat Glomerular Filtration 168 ML/MIN Rate Random Glucose 102 MG/DL Calcium Level 7.7 MG/DL Administered Medications Medications (Trade) Dose Ordered Sig/Jason Route PRN Reason Start Time Stop Time Status Last Admin Dose Admin Pantoprazole Sodium (Protonix Inj) 40 mg DAILY IVP 11/16/16 09:00 11/19/16 09:24 Metoclopramide HCl (Reglan Inj) 10 mg Q6HR IVS 11/16/16 00:00 11/19/16 05:44 Ondansetron HCl (Zofran Inj) 4 mg Q6H PRN IV NAUSEA 11/15/16 19:30 11/18/16 10:29 Morphine Sulfate (Morphine 1 Mg/ ml CLASSIFIED ADVERTISING MANAGER) 30 mg UNSCH IV 11/15/16 19:30 11/18/16 19:50 Finasteride (Proscar) 5 mg DAILY PO 11/16/16 09:00 11/19/16 09:24 Fluconazole (Diflucan) 100 mg DAILY PO 11/16/16 09:00 11/19/16 09:24 Mirtazapine (Remeron) 15 mg HS PO 11/15/16 21:00 11/18/16 21:51 Tamsulosin HCl 0.4 mg 0.4 mg HS PO 11/15/16 21:00 11/18/16 19:47 Metronidazole 100 ml @ 100 mls/hr Q6H IV 11/15/16 22:00 11/19/16 09:24 Levofloxacin/ Dextrose 100 ml @ 100 mls/hr Q24H IV 11/16/16 00:00 11/19/16 00:01 Potassium Cl/ Dextrose/Lact Ringer's (D5-Lr + KCl 20 Meq Inj) 1,000 ml @ 70 mls/hr [id number] IV 11/17/16 16:00 11/18/16 21:49 IV Flush (NS Flush) 2 ml BID IVF 11/17/16 21:00 11/19/16 09:24 CLASSIFIED ADVERTISING MANAGER Dosage Infused (Pha) 1 Q8HR .XX 11/17/16 22:00 11/19/16 05:57 Objective Remarks GENERAL: Middle aged male, lying in bed. Easily arousable but sleepy. SKIN: Warm and dry. HEAD: Normocephalic. EYES: No injection or drainage. NECK: Supple, trachea midline. CARDIOVASCULAR: Regular rate and rhythm without murmurs. RESPIRATORY: Breath sounds equal bilaterally. No accessory muscle use. GASTROINTESTINAL: Abdomen soft, non-tender. Colostomy in place to L abdomen. EXTREMITIES: No edema. MUSCULOSKELETAL: Generalized weakness. NEUROLOGICAL: Awake but sleepy. Equal director of dance strengths. PERRLA. Oriented x3. Assessment/Plan Problem List: (1) Rectal cancer metastasized to bone Status: Acute Plan: plan for outpatient follow up upon discharge to resume chemotherapy once recovered from surgery --s/p FOLFOX chemotherapy treatments. --s/p radiation treatments to the vertebral spine and also to the rectal mass. --will stop further radiation treatments at this point. Further treatment with chemotherapy will be undertaken outpatient once the patient has recovered from his surgery. (2) Rectal abscess Status: Acute Plan: --s/p drainage of rectal abscess --POD #3. --Dr Gannon placed diverting colostomy. (3) Normocytic anemia Status: Acute Plan: --monitor and transfuse as needed Assessment 55y/o male with stage IV colon cancer, adenocarcinoma type, admitted for rectal pain/abscess + anemia. Plan 1. Neutrophil count today is 1000 per manual count. Monitor CBC closely. 2. Colostomy site without bleeding. 3. Pt drowsy today. CLASSIFIED ADVERTISING MANAGER disconnected for now as he has minimal pain to see if he becomes more alert. Complete neuro exam intact. 4. PT seeing pt. 5. He will follow-up as an outpatient once discharged. Attending Statement The exam, history, and the medical decision-making described in the above note were completed with the assistance of the mid-level provider. I reviewed and agree with the findings presented. I attest that I had a [id number] encounter with the patient on the same day, and personally performed and documented my assessment and findings in the medical record. Denies any pain. Not using the Morphine CLASSIFIED ADVERTISING MANAGER D/C CLASSIFIED ADVERTISING MANAGER pump Leukopenic. ANC still >1000 check CBC with diff in AM discussed future treatment plans with patient. Had numerous questions about further chemotherapy. I will hold off any treatment for at-least 3-4 weeks to give time for recovery. No further XRT at this Explained to patient and his that all interventions are palliative in nature. He has stage IV disease and there is no curative option. Goals of the treatment is to control disease and bring it to some sort of remission. Minimize treatment toxicity and preserve quality of life. Spent approximately 40 minutes with the patient and his discussed with Tina Nuno Nov 19, 2016 11:52 El Perez MD Nov 20, 2016 00:17
--- NOTE | 2016-11-19 13:18 | HHI.PR ---
Subjective Remarks POD#2 s/p diverting colostomy fairly comfortable Objective Vital Signs Date Time Temp Pulse Resp B/P Pulse Ox O2 Delivery O2 Flow Rate FiO2 11/19/16 10:53 88 106/76 11/19/16 08:00 96.9 90 20 115/75 96 11/19/16 06:00 98.0 91 17 108/68 98 11/19/16 05:57 19 11/19/16 00:00 98.6 96 17 101/64 96 11/18/16 21:53 19 11/18/16 20:00 20 11/18/16 19:50 19 11/18/16 19:24 97.9 99 18 109/68 100 11/18/16 16:00 98.7 88 20 101/61 97 11/18/16 14:31 16 11/18/16 14:29 16 I/O 11/18/16 11/18/16 11/18/16 11/19/16 11/19/16 11/19/16 07:00 15:00 23:00 07:00 15:00 23:00 Intake Total 716 ml 480 ml 1432 ml 603 ml Output Total 1750 ml 600 ml 850 ml Balance 716 ml -1270 ml 832 ml -247 ml Intake Oral 480 ml 240 ml IV Total 716 ml 1192 ml 603 ml Output Urine Total 1750 ml 600 ml 850 ml # Bowel Movements 0 Result Diagram: 11/19/16 0550 11/19/16 0550 Objective Remarks Abdomen soft, mild distension Colostomy pink, mild edema Assessment and Plan Assessment and Plan Advance diet HL IV D/C MACHINE CAGE MAKER Joy Cueva MD Nov 19, 2016 13:18
[2016-11-19] MEDS: TAMSULOSIN HCL 0.4 MG CAP PO SCH (21:09)
[2016-11-19] MEDS: MIRTAZAPINE 15 MG TAB PO SCH (21:10)
[2016-11-19] MEDS: ZOLPIDEM TARTRATE 5 MG TAB PO PRN (21:12)
[2016-11-20] VITALS: BP 116/79; PULSE 110; RESP 18; TEMP 97; O2SAT 98
[2016-11-20] MEDS: SODIUM CHLORIDE 0.9% FLUSH 5 ML FLUSH IVF PRN ×2 (00:01→03:48)
[2016-11-20] MEDS: LEVOFLOXACIN 500 MG PREMIX INJ 100 ML IV SCH (00:02)
[2016-11-20] MEDS: metroNIDAZOLE 500 MG INJ 100 ML IV SCH ×4 (03:47→21:09)
[2016-11-20 04:00] VITALS: BP 116/72; PULSE 102; RESP 18; TEMP 98.1; O2SAT 98
[2016-11-20] MEDS ORDERED: Infusaport/Implanted VAD PRN NS Lock Flush IVF (04:15)
[2016-11-20] MEDS: METOCLOPRAMIDE HCL 10 MG/2 ML VIAL IVS SCH ×3 (05:21→17:31)
[2016-11-20 06:17] LABS: AUTOMATED NEUTROPHIL # 0.6 TH/MM3 (1.8-7.7); BASOPHIL % 0.3 % (0.0-2.0); EOSINOPHIL # 0.1 TH/MM3 (0-0.4); EOSINOPHIL % 4.1 % (0.0-4.0); HEMATOCRIT 27.7 % (39.0-51.0); LYMPH % 22.2 % (9.0-44.0); LYMPHOCYTE # 0.3 TH/MM3 (1.0-4.8); MEAN CELL VOLUME 88.5 FL (80.0-100.0); MEAN CORPUSCULAR HEMOGLOBIN 30.2 PG (27.0-34.0); MEAN CORPUSCULAR HGB CONC 34.2 % (32.0-36.0); MONO % 30.6 % (0.0-8.0); NEUT % 42.8 % (16.0-70.0); PLATELET COUNT 113 TH/MM3 (150-450); RED BLOOD COUNT 3.14 MIL/MM3 (4.50-5.90); RED CELL DISTRIBUTION WIDTH 17.5 % (11.6-17.2); WHITE BLOOD COUNT 1.5 TH/MM3 (4.0-11.0)
[2016-11-20 06:29] LABS: HEMO FLAGS AUTO DIFF
[2016-11-20 06:38] LABS: ANION GAP 7 MEQ/L (5-15); BLOOD UREA NITROGEN 3 MG/DL (7-18); CHLORIDE 109 MEQ/L (98-107); GLOMERULAR FILTRATION RATE 157 ML/MIN (>89); POTASSIUM 3.5 MEQ/L (3.5-5.1); SODIUM (NA) 142 MEQ/L (136-145); TRANSFERRIN IRON PROFILE 158 MG/DL (200-360)
[2016-11-20 07:58] LABS: EOSINOPHILS 5 % (0-4); NEUTROPHIL # MANUAL DIFF 0.8 TH/MM3 (1.8-7.7); PLATELET ESTIMATE SMEAR LOW (NORMAL); POLYS (SEG NEUTROPHILS) 51 % (16-70); WBC DIFF SAMPLE 100
[2016-11-20 07:59] LABS: OVALOCYTES 1+ (NORMAL); PLATELET MORPHOLOGY NORMAL (NORMAL); SCAN/DIFF FINAL DIFF MANUAL
[2016-11-20 08:00] VITALS: BP 126/78; PULSE 98; RESP 18; TEMP 97.8; O2SAT 97
--- NOTE | 2016-11-20 09:28 | HHI.FF ---
Face to Face Verification Diagnosis: (1) Colon cancer (2) Rectal cancer metastasized to bone Home Health Nursing Order: Medical education Signs/symptoms of disease process Wound care and dressing changes Nursing assessment with vital signs Instructions: ostomy care I have seen patient Kayode Mckeon on 11/20/16. My clinical findings support the need for the requested home health care services because: Ltd mobility - disease progression Limited ability to care for self I certify that my clinical findings support that this patient is homebound because: Post-op weakness Paige Serrano Nov 20, 2016 09:28 El Perez MD Nov 29, 2016 00:51
[2016-11-20] MEDS: SODIUM CHLORIDE 0.9% FLUSH 5 ML FLUSH IVF SCH ×2 (10:19→21:00)
[2016-11-20] MEDS: PANTOPRAZOLE SODIUM 40 MG VIAL IVP SCH (10:23)
--- NOTE | 2016-11-20 10:59 | HHI.PR ---
Subjective Remarks Pt is comfortable. Walked in hallway yesterday.Tolerating diet. Flatus in bag. Small stool. No pain. No pain med use for 1 day. Objective Vital Signs Date Time Temp Pulse Resp B/P Pulse Ox O2 Delivery O2 Flow Rate FiO2 11/20/16 08:00 97.8 98 18 126/78 97 11/20/16 04:00 98.1 102 18 116/72 98 11/20/16 00:00 97.0 110 18 116/79 98 11/19/16 20:00 98.4 111 17 116/79 97 11/19/16 16:00 98.9 107 16 109/72 99 11/19/16 12:00 97.9 94 18 112/78 97 11/19/16 10:53 88 106/76 I/O 11/19/16 11/19/16 11/19/16 11/20/16 11/20/16 11/20/16 07:00 15:00 23:00 07:00 15:00 23:00 Intake Total 603 ml 480 ml 1410 ml Output Total 850 ml 600 ml 300 ml Balance -247 ml -120 ml 1110 ml Intake Oral 480 ml 240 ml IV Total 603 ml 1170 ml Output Urine Total 850 ml 600 ml 300 ml Result Diagram: 11/20/16 0340 11/20/16 0340 Objective Remarks VS-S Abd: benign,stoma pink,large flatus.Small stool. WBC still decreasing.- 1,500 this AM Assessment and Plan Assessment and Plan POD#5-Abscess drainage.POD#3-Diverting colostomy/rectal washout Denies pain Plan: Needs D/C planning and Colostomy teaching. Colostomy bar to be removed in 1 more week. Await resolution Leukopenia before D/C Clyde Gannon MD Nov 20, 2016 10:59
[2016-11-20 12:00] VITALS: BP 112/75; PULSE 110; RESP 18; TEMP 98.9; O2SAT 97
[2016-11-20] MEDS: FLUCONAZOLE 100 MG TAB PO SCH (13:03)
[2016-11-20] MEDS: FINASTERIDE 5 MG TAB PO SCH (13:03)
[2016-11-20] MEDS: LORazepam 0.5 MG TAB PO PRN (14:27)
--- NOTE | 2016-11-20 14:50 | PD.ONC.PN ---
Subjective Subjective Remarks Afebrile overnight. Feeling fatigued. Pain controlled. Objective Data Date Time Temp Pulse Resp B/P Pulse Ox O2 Delivery O2 Flow Rate FiO2 11/20/16 12:00 98.9 110 18 112/75 97 11/20/16 08:00 97.8 98 18 126/78 97 11/20/16 04:00 98.1 102 18 116/72 98 11/20/16 00:00 97.0 110 18 116/79 98 11/19/16 20:00 98.4 111 17 116/79 97 11/19/16 16:00 98.9 107 16 109/72 99 Result Diagram: 11/20/16 0340 11/20/16 0340 Laboratory Results Laboratory Tests Test 11/20/16 03:40 White Blood Count 1.5 TH/MM3 Red Blood Count 3.14 MIL/MM3 Hemoglobin 9.5 GM/DL Hematocrit 27.7 % Mean Corpuscular Volume 88.5 FL Mean Corpuscular Hemoglobin 30.2 PG Mean Corpuscular Hemoglobin 34.2 % Concent Red Cell Distribution Width 17.5 % Platelet Count 113 TH/MM3 Mean Platelet Volume 8.7 FL Neutrophils (%) (Auto) 42.8 % Lymphocytes (%) (Auto) 22.2 % Monocytes (%) (Auto) 30.6 % Eosinophils (%) (Auto) 4.1 % Basophils (%) (Auto) 0.3 % Neutrophils # (Auto) 0.6 TH/MM3 Lymphocytes # (Auto) 0.3 TH/MM3 Monocytes # (Auto) 0.4 TH/MM3 Eosinophils # (Auto) 0.1 TH/MM3 Basophils # (Auto) 0.0 TH/MM3 CBC Comment AUTO DIFF Differential Total Cells 100 Counted Neutrophils % (Manual) 51 % Lymphocytes % 20 % Monocytes % 24 % Eosinophils % 5 % Neutrophils # (Manual) 0.8 TH/MM3 Differential Comment FINAL DIFF MANUAL Platelet Estimate LOW Platelet Morphology Comment NORMAL Ovalocytes 1+ Sodium Level 142 MEQ/L Potassium Level 3.5 MEQ/L Chloride Level 109 MEQ/L Carbon Dioxide Level 26.0 MEQ/L Anion Gap 7 MEQ/L Blood Urea Nitrogen 3 MG/DL Creatinine 0.54 MG/DL Estimat Glomerular Filtration 157 ML/MIN Rate Random Glucose 105 MG/DL Calcium Level 8.0 MG/DL Iron Level 67 MCG/DL Total Iron Binding Capacity 221 MCG/DL Percent Iron Saturation 30.3 % Transferrin 158 MG/DL Vitamin B12 Level 543 PG/ML Administered Medications Medications (Trade) Dose Ordered Sig/Jason Route PRN Reason Start Time Stop Time Status Last Admin Dose Admin Pantoprazole Sodium (Protonix Inj) 40 mg DAILY IVP 11/16/16 09:00 11/20/16 10:23 Metoclopramide HCl (Reglan Inj) 10 mg Q6HR IVS 11/16/16 00:00 11/20/16 13:03 Ondansetron HCl (Zofran Inj) 4 mg Q6H PRN IV NAUSEA 11/15/16 19:30 11/18/16 10:29 Zolpidem Tartrate (Ambien) 5 mg HS PRN PO INSOMNIA 11/15/16 19:30 11/19/16 21:12 Finasteride (Proscar) 5 mg DAILY PO 11/16/16 09:00 11/20/16 13:03 Fluconazole (Diflucan) 100 mg DAILY PO 11/16/16 09:00 11/20/16 13:03 Lorazepam (Ativan) 0.5 mg Q8H PRN PO ANXIETY 11/15/16 19:30 11/20/16 14:27 Mirtazapine (Remeron) 15 mg HS PO 11/15/16 21:00 11/19/16 21:10 Tamsulosin HCl 0.4 mg 0.4 mg HS PO 11/15/16 21:00 11/19/16 21:09 Metronidazole 100 ml @ 100 mls/hr Q6H IV 11/15/16 22:00 11/20/16 10:17 Levofloxacin/ Dextrose (Levaquin 500 Mg Premix Inj) 100 ml @ 100 mls/hr Q24H IV 11/16/16 00:00 11/20/16 00:02 IV Flush (NS Flush) 2 ml UNSCH PRN IVF FLUSH AFTER USING IV ACCESS 11/17/16 15:30 11/20/16 03:48 IV Flush (NS Flush) 2 ml BID IVF 11/17/16 21:00 11/20/16 10:19 Objective Remarks GENERAL: Middle aged male, sitting up in bed in nad. SKIN: Warm and dry. HEAD: Normocephalic. EYES: No injection or drainage. NECK: Supple, trachea midline. CARDIOVASCULAR: Regular rate and rhythm without murmurs. RESPIRATORY: Breath sounds equal bilaterally. No accessory muscle use. GASTROINTESTINAL: Abdomen soft, non-tender. Colostomy in place to L abdomen. EXTREMITIES: No edema. MUSCULOSKELETAL: Generalized weakness. NEUROLOGICAL: awake and alert. normal speech Assessment/Plan Problem List: (1) Rectal cancer metastasized to bone Status: Acute Plan: outpatient follow up upon discharge to resume chemotherapy once recovered from surgery --s/p FOLFOX chemotherapy treatments. --s/p radiation treatments to the vertebral spine and also to the rectal mass. --will stop further radiation treatments at this point. Further treatment with chemotherapy will be undertaken outpatient once the patient has recovered from his surgery. (2) Rectal abscess Status: Acute Plan: --s/p drainage of rectal abscess --Dr Gannon placed diverting colostomy. (3) Pancytopenia Status: Acute Assessment 55y/o male with stage IV colon cancer, adenocarcinoma type, admitted for rectal pain/abscess + anemia. Plan 1. face to face documented so CM can arrange for colostomy care at home 2. monitor counts 3. no transfusion today Attending Statement The exam, history, and the medical decision-making described in the above note were completed with the assistance of the mid-level provider. I reviewed and agree with the findings presented. I attest that I had a [id number] encounter with the patient on the same day, and personally performed and documented my assessment and findings in the medical record. Leukopenic but ANC > 500. continue to monitor. Will need blood cultures if spikes a fever. No need for Neupogen at this time unless ANC falls below 500. continue PT/supportive care Paige Serrano Nov 20, 2016 14:50 El Perez MD Nov 20, 2016 23:08
[2016-11-20 16:00] VITALS: BP 115/72; PULSE 109; RESP 16; TEMP 98.5; O2SAT 99
[2016-11-20 20:00] VITALS: BP 116/83; PULSE 109; RESP 18; TEMP 97.9; O2SAT 98
[2016-11-20] MEDS: ZOLPIDEM TARTRATE 5 MG TAB PO PRN (20:58)
[2016-11-20] MEDS: TAMSULOSIN HCL 0.4 MG CAP PO SCH (20:58)
[2016-11-20] MEDS: MIRTAZAPINE 15 MG TAB PO SCH (20:58)
[2016-11-21] VITALS: BP 117/78; PULSE 99; RESP 18; TEMP 97.9; O2SAT 98
[2016-11-21] MEDS: LORazepam 0.5 MG TAB PO PRN ×2 (00:11→20:22)
[2016-11-21] MEDS: METOCLOPRAMIDE HCL 10 MG/2 ML VIAL IVS SCH ×4 (00:12→17:47)
[2016-11-21] MEDS: LEVOFLOXACIN 500 MG PREMIX INJ 100 ML IV SCH (00:13)
[2016-11-21] MEDS: SODIUM CHLORIDE 0.9% FLUSH 5 ML FLUSH IVF PRN (03:38)
[2016-11-21] MEDS: metroNIDAZOLE 500 MG INJ 100 ML IV SCH ×3 (03:45→16:34)
[2016-11-21 04:00] VITALS: BP 110/67; PULSE 93; RESP 16; TEMP 97.7; O2SAT 98
[2016-11-21 04:17] LABS: AUTOMATED NEUTROPHIL # 0.6 TH/MM3 (1.8-7.7); BASOPHIL % 0.3 % (0.0-2.0); EOSINOPHIL # 0.1 TH/MM3 (0-0.4); EOSINOPHIL % 3.9 % (0.0-4.0); HEMATOCRIT 27.2 % (39.0-51.0); LYMPH % 25.8 % (9.0-44.0); LYMPHOCYTE # 0.4 TH/MM3 (1.0-4.8); MEAN CELL VOLUME 88.9 FL (80.0-100.0); MEAN CORPUSCULAR HGB CONC 33.7 % (32.0-36.0); PLATELET COUNT 122 TH/MM3 (150-450); RED BLOOD COUNT 3.06 MIL/MM3 (4.50-5.90); RED CELL DISTRIBUTION WIDTH 18.1 % (11.6-17.2); WHITE BLOOD COUNT 1.5 TH/MM3 (4.0-11.0)
[2016-11-21 04:31] LABS: BICARBONATE 25.7 MEQ/L (21.0-32.0); POTASSIUM 3.5 MEQ/L (3.5-5.1)
[2016-11-21 04:33] LABS: HEMO FLAGS AUTO DIFF
[2016-11-21 08:00] VITALS: BP 119/78; PULSE 94; RESP 20; TEMP 96.4; O2SAT 96
[2016-11-21 08:38] LABS: BANDS 1 % (0-6); EOSINOPHILS 4 % (0-4); MYELOCYTES 1 % (0-0); POLYS (SEG NEUTROPHILS) 29 % (16-70); WBC DIFF SAMPLE 100
[2016-11-21 08:39] LABS: NEUTROPHIL # MANUAL DIFF 0.5 TH/MM3 (1.8-7.7)
[2016-11-21 08:40] LABS: KERATOCYTES OCC (NORMAL); OVALOCYTES 1+ (NORMAL); PLATELET ESTIMATE SMEAR LOW (NORMAL); PLATELET MORPHOLOGY NORMAL (NORMAL); SCAN/DIFF FINAL DIFF MANUAL; TEARDROP RBCS 1+ (NORMAL)
[2016-11-21] MEDS: SODIUM CHLORIDE 0.9% FLUSH 5 ML FLUSH IVF SCH ×2 (10:16→20:28)
[2016-11-21] MEDS: PANTOPRAZOLE SODIUM 40 MG VIAL IVP SCH (10:16)
[2016-11-21] MEDS: FLUCONAZOLE 100 MG TAB PO SCH (10:22)
[2016-11-21] MEDS: FINASTERIDE 5 MG TAB PO SCH (10:22)
[2016-11-21 12:00] VITALS: BP 115/81; PULSE 99; RESP 20; TEMP 96.9; O2SAT 95
--- NOTE | 2016-11-21 15:22 | PD.ONC.PN ---
Subjective Subjective Remarks Afebrile overnight. Patient resting comfortably without complaint. Denies cough. Passing flatus. Objective Data Date Time Temp Pulse Resp B/P Pulse Ox O2 Delivery O2 Flow Rate FiO2 11/21/16 14:35 16 11/21/16 12:00 96.9 99 20 115/81 95 11/21/16 08:00 96.4 94 20 119/78 96 11/21/16 04:00 97.7 93 16 110/67 98 11/21/16 00:00 97.9 99 18 117/78 98 11/20/16 20:00 97.9 109 18 116/83 98 11/20/16 19:38 16 11/20/16 16:00 98.5 109 16 115/72 99 11/21/16 11/21/16 11/21/16 07:00 15:00 23:00 Intake Total 360 ml Output Total 200 ml Balance 160 ml Result Diagram: 11/21/16 0340 11/21/16 0340 Laboratory Results Laboratory Tests Test 11/21/16 03:40 White Blood Count 1.5 TH/MM3 Red Blood Count 3.06 MIL/MM3 Hemoglobin 9.2 GM/DL Hematocrit 27.2 % Mean Corpuscular Volume 88.9 FL Mean Corpuscular Hemoglobin 30.0 PG Mean Corpuscular Hemoglobin 33.7 % Concent Red Cell Distribution Width 18.1 % Platelet Count 122 TH/MM3 Mean Platelet Volume 8.8 FL Neutrophils (%) (Auto) 38.0 % Lymphocytes (%) (Auto) 25.8 % Monocytes (%) (Auto) 32.0 % Eosinophils (%) (Auto) 3.9 % Basophils (%) (Auto) 0.3 % Neutrophils # (Auto) 0.6 TH/MM3 Lymphocytes # (Auto) 0.4 TH/MM3 Monocytes # (Auto) 0.5 TH/MM3 Eosinophils # (Auto) 0.1 TH/MM3 Basophils # (Auto) 0.0 TH/MM3 CBC Comment AUTO DIFF Differential Total Cells 100 Counted Neutrophils % (Manual) 29 % Band Neutrophils % 1 % Lymphocytes % 32 % Monocytes % 33 % Eosinophils % 4 % Neutrophils # (Manual) 0.5 TH/MM3 Myelocytes 1 % Differential Comment FINAL DIFF MANUAL Platelet Estimate LOW Platelet Morphology Comment NORMAL Tear Drop Cells 1+ Ovalocytes 1+ Keratocytes OCC Sodium Level 143 MEQ/L Potassium Level 3.5 MEQ/L Chloride Level 110 MEQ/L Carbon Dioxide Level 25.7 MEQ/L Anion Gap 7 MEQ/L Blood Urea Nitrogen 3 MG/DL Creatinine 0.53 MG/DL Estimat Glomerular Filtration 161 ML/MIN Rate Random Glucose 93 MG/DL Calcium Level 8.0 MG/DL Administered Medications Medications (Trade) Dose Ordered Sig/Jason Route PRN Reason Start Time Stop Time Status Last Admin Dose Admin Oxycodone/ Acetaminophen (Percocet 5-325 Mg) 1 tab Q4H PRN PO PAIN SCALE 1 TO 5 11/15/16 19:30 11/20/16 18:35 Oxycodone/ Acetaminophen (Percocet 5-325 Mg) 2 tab Q6H PRN PO PAIN SCALE 6 TO 10 11/15/16 19:30 11/21/16 12:40 Pantoprazole Sodium (Protonix Inj) 40 mg DAILY IVP 11/16/16 09:00 11/21/16 10:16 Metoclopramide HCl (Reglan Inj) 10 mg Q6HR IVS 11/16/16 00:00 11/21/16 12:40 Ondansetron HCl (Zofran Inj) 4 mg Q6H PRN IV NAUSEA 11/15/16 19:30 11/18/16 10:29 Zolpidem Tartrate (Ambien) 5 mg HS PRN PO INSOMNIA 11/15/16 19:30 11/20/16 20:58 Finasteride (Proscar) 5 mg DAILY PO 11/16/16 09:00 11/21/16 10:22 Fluconazole (Diflucan) 100 mg DAILY PO 11/16/16 09:00 11/21/16 10:22 Lorazepam (Ativan) 0.5 mg Q8H PRN PO ANXIETY 11/15/16 19:30 11/21/16 00:11 Mirtazapine (Remeron) 15 mg HS PO 11/15/16 21:00 11/20/16 20:58 Tamsulosin HCl 0.4 mg 0.4 mg HS PO 11/15/16 21:00 11/20/16 20:58 Metronidazole 100 ml @ 100 mls/hr Q6H IV 11/15/16 22:00 11/21/16 10:16 Levofloxacin/ Dextrose (Levaquin 500 Mg Premix Inj) 100 ml @ 100 mls/hr Q24H IV 11/16/16 00:00 11/21/16 00:13 IV Flush (NS Flush) 2 ml UNSCH PRN IVF FLUSH AFTER USING IV ACCESS 11/17/16 15:30 11/21/16 03:38 IV Flush (NS Flush) 2 ml BID IVF 11/17/16 21:00 11/21/16 10:16 IV Flush (NS Flush) 5 ml UNSCH PRN IVF SEE PROTOCOL TABLE 11/20/16 04:15 11/21/16 03:38 Objective Remarks GENERAL: Middle aged male, lying in bed, at bedside. SKIN: Warm and dry. HEAD: Normocephalic. EYES: No injection or drainage. NECK: Supple, trachea midline. CARDIOVASCULAR: Regular rate and rhythm without murmurs. RESPIRATORY: Breath sounds equal bilaterally. No accessory muscle use. GASTROINTESTINAL: Abdomen soft, non-tender. Colostomy bag, L abdomen. EXTREMITIES: No edema. NEUROLOGICAL: AO x 3. normal speech. moving all extremities. Assessment/Plan Problem List: (1) Rectal cancer metastasized to bone Status: Acute Plan: --s/p FOLFOX chemotherapy treatments. --s/p radiation treatments to the vertebral spine and also to the rectal mass. --will stop further radiation treatments at this point. Further treatment with chemotherapy will be undertaken outpatient once the patient has recovered from his surgery. (2) Rectal abscess Status: Acute Plan: --s/p drainage of rectal abscess --Dr Gannon placed diverting colostomy. (3) Pancytopenia Status: Acute Assessment 55y/o male with stage IV colon cancer, adenocarcinoma type, admitted for rectal pain/abscess + anemia. Plan 1. monitor CBC, start Neupogen 2. monitor for fever Attending Statement The exam, history, and the medical decision-making described in the above note were completed with the assistance of the mid-level provider. I reviewed and agree with the findings presented. I attest that I had a [id number] encounter with the patient on the same day, and personally performed and documented my assessment and findings in the medical record. ANC approx 500 today. Start Neupogen. No fevers or evidence of infection. Will see tomorrow trend of neutrophils, if going up the he can be discharged home with oral cipro. Will check labs on Sunday in clinic . Follow-up with me in clinic next week. Discussed with patient in detail. He complains of grade 1 neuropathy on b/l feet. mostly tingling and increased pressure sensation. Will start gabapentin 100mg PO TID. Paige Serrano Nov 21, 2016 15:22 El Perez MD Nov 21, 2016 22:11
[2016-11-21] MEDS ORDERED: FILGRASTIM 480 MCG/1.6 ML VIAL SQ ONE (17:00)
--- NOTE | 2016-11-21 17:33 | MP ---
cc: FLORENTIN ELLISON MD,YVES NASCIMENTO M.D. DATE OF SURGERY 11/15/2016 PREOPERATIVE DIAGNOSES 1. Previous rectal cancer status post treatment with radiation therapy, chemotherapy. 2. Intractable rectal pain. 3. Possible ischiorectal abscess. POSTOPERATIVE DIAGNOSES 1. Previously drained ischiorectal abscess. 2. Previous rectal cancer. SURGEON Dr. Gannon ANESTHESIA General endotracheal. ESTIMATED BLOOD LOSS Minimal. OPERATIVE FINDINGS This patient has a long history starting in April being diagnosed with a bulky circumferential rectal cancer that was quite low. He was having a lot of pain at that time but the cancer was not obstructing and he was found to have metastatic disease in his bone and his liver and therefore underwent chemotherapy with Dr. Perez. All during that time apparently the patient had a lot of pain and was treated with high-dose narcotics up. Sometime in September he was admitted to the hospital with pain. I was asked to see him but he was discharged before I saw him in the hospital. He then came to my office in late September after Dr. Perez called me saying that he felt that he might be obstructed and would need diversion. The patient was started on radiation therapy sometime in September for the same reasons, although it is not clear whether he actually had any cancer still present at that time. Nevertheless, when I saw him in September I did a flexible sigmoidoscopy in the office and the tumor had shrunken away markedly and I really could not see any lesion. I could do a gentle digital exam at that time but he was squirming with a lot of pain and all I could feel was fibrosis with no definite carcinoma. He was admitted to the hospital today with a CAT scan that showed air around the rectum, 3 cm in size on the left side. At surgery he was found to have a very distal previously self-drained abscess in the left anterior position just below the dentate line anteriorly and on the left side. There was a large amount of stool in this. It was about 3-4 cm in diameter. As I said, it was really self-drained; it was just a pocket where he had an abscess from perforation of this previous cancer. Of note, digital exam revealed only fibrosis of the rectum and no definite cancer, although I would assume that there is still cancer in the wall of the bowel. Rigid sigmoidoscopy was done. I was able to easily go through this fibrotic area, up into the sigmoid colon and no obvious carcinoma was seen. He certainly is not obstructed. He had diarrheal stool coming down through his colon and through his rectum. I went ahead and further opened this abscess cavity anteriorly on the skin to allow for adequate drainage. OPERATIVE TECHNIQUE The patient was placed on the table in the prone position after adequate general endotracheal anesthesia and the buttocks was taped apart. He was prepped and draped in the usual manner and a digital exam was done demonstrating fibrosis of his rectum but it was opened, non-obstructing but somewhat scarred and rigid. Anteriorly on the left side he had a pocket of an abscess that had gotten under the skin right at the dentate line in the anoderm region. This is clearly an abscess that occurred and drained on its own. Stool was accumulated in there; it was about 3-4 cm in diameter. I went ahead and used the electrocautery and opened the roof of this to fully allow this thing to stay drained so it did not pocket any stool. The left ischiorectal fossa region all appeared normal. I did not break into that area and I did do a rigid sigmoidoscopy examination first and I was easily able to go through the rectum with the rigid sigmoidoscope. The rectum was fibrotic but there was no obvious carcinoma, although I would presume that there is carcinoma in the wall of the bowel since it was a large bulky lesion and is quite scarred. This area where the abscess was form appeared to be ischemic or due to radiation therapy anteriorly with ulceration anteriorly. Once the area was unroofed, the area was packed loosely with 4x4 gauzes and dressing was applied. Sponge, needle and a counts were reported as correct. Estimated blood loss was minimal. The patient tolerated the procedure well and left the operating room in good condition. MD JUN Chau/SHIVA /7:00 PM /5:22 PM
--- NOTE | 2016-11-21 17:50 | HHI.PR ---
Subjective . Pt seen earlier today. Feels well. Not much pain. Drainage from rectum. Objective . VS-S Abd: soft,flat. Stoma pink WBC-1500 Assessment/Plan . Stable. Leulopenia Possible D/C tomorrow. Clyde Gannon MD Nov 21, 2016 17:50
[2016-11-21] MEDS: GABAPENTIN 100 MG CAP PO SCH (18:46)
[2016-11-21 20:00] VITALS: BP 130/80; PULSE 110; RESP 18; TEMP 98.1; O2SAT 98
[2016-11-21] MEDS: MIRTAZAPINE 15 MG TAB PO SCH (20:18)
[2016-11-21] MEDS: TAMSULOSIN HCL 0.4 MG CAP PO SCH (20:18)
[2016-11-21] MEDS: ZOLPIDEM TARTRATE 5 MG TAB PO PRN (20:19)
[2016-11-22 05:00] VITALS: BP 132/76; PULSE 93; RESP 16; TEMP 97.7; O2SAT 97
[2016-11-22] MEDS: METOCLOPRAMIDE HCL 10 MG/2 ML VIAL IVS SCH ×3 (05:57→12:41)
--- NOTE | 2016-11-22 08:21 | MP ---
cc: FLORENTIN ELLISON MD,YVES NASCIMENTO M.D. DATE OF SURGERY: 11/17/2016 PREOPERATIVE DIAGNOSIS Rectal cancer with perirectal abscess and intractable pain. POSTOPERATIVE DIAGNOSIS Rectal cancer with perirectal abscess and intractable pain. PROCEDURE Diverting loop sigmoid colostomy with rectal washout. ANESTHESIA General endotracheal. SURGEON Dr. Gannon ESTIMATED BLOOD LOSS Minimal. OPERATIVE FINDINGS This patient had a large bulky rectal cancer right down to his dentate line. He suffered with intractable pain for six months. He has received chemotherapy and radiation therapy and has no obstructive symptoms. He then developed an abscess recently in the perianal region. Because of all this pain, fecal diversion was recommended and we planned a diverting loop sigmoid colostomy and this was done with full diversion and rectal washout. OPERATIVE TECHNIQUE The patient was placed on the table in the supine position. After adequate general endotracheal anesthesia the legs were placed in the perineal lithotomy position and the abdomen and perineum were prepped and draped in the usual manner. A circular skin incision was made in the left lower quadrant in the midportion of the rectus muscle and the anterior fascia was incised and the rectus muscle was split. The posterior fascia was opened and the peritoneal cavity was entered with the above-mentioned findings. The sigmoid colon was readily identified and was able to be brought up to the wound without too much difficulty. The lateral reflection was incised slightly and the mesentery was opened under the sigmoid colon. I was pretty certain which side was distal but the assistant professor of art nurse did proctosigmoidoscopy insufflation of the rectum with air in the distal rectum. The distal rectum was stapled closed on the distal end of the colostomy site with a TX 60 blue staple height stapler. Next, the 70 mm bar was placed under the sigmoid colon and the colostomy was matured with interrupted 3-0 Vicryl sutures. Next, a 70 mm appliance was applied. The rectum was then the washed out from below with a red rubber catheter irrigating out very little amount of stool. Sponge, needle and instrument counts were reported as correct. The estimated blood loss was minimal. The patient procedure well the procedure well and left the operating room in good condition. MD JUN Chau/JUSTO /4:05 PM /8:06 AM
[2016-11-22] MEDS: FINASTERIDE 5 MG TAB PO SCH (09:02)
[2016-11-22] MEDS: PANTOPRAZOLE SODIUM 40 MG VIAL IVP SCH (09:02)
[2016-11-22] MEDS: FLUCONAZOLE 100 MG TAB PO SCH (09:02)
[2016-11-22] MEDS: GABAPENTIN 100 MG CAP PO SCH ×2 (09:02→12:42)
[2016-11-22] MEDS: SODIUM CHLORIDE 0.9% FLUSH 5 ML FLUSH IVF SCH (09:04)
--- NOTE | 2016-11-22 09:04 | HHI.PR ---
Subjective . Much less pain without stooling. No N or V. Having large BMs thru colostomy. Objective . VS-S Abd: Flat,soft, cannot see stoma but large stool and flatus Rectal: Wound clean and open. Labs pending Assessment/Plan . Stable. Await resolution leukopenia. D/C anytime. Colostomy bar to be removed by [facility] nurses anytime between 11/24 and 11/27/16 when changing appliance. Appt with me in about 2 weeks. Clyde Gannon MD Nov 22, 2016 09:04
[2016-11-22] MEDS ORDERED: ALTEPLASE RECOMBINANT 2 MG VIAL INTRACATH ONE (12:00)
[2016-11-22 12:14] LABS: HEMATOCRIT 32.8 % (39.0-51.0); MEAN CELL VOLUME 90.1 FL (80.0-100.0); MEAN CORPUSCULAR HEMOGLOBIN 29.7 PG (27.0-34.0); PLATELET COUNT 158 TH/MM3 (150-450); RED BLOOD COUNT 3.64 MIL/MM3 (4.50-5.90); RED CELL DISTRIBUTION WIDTH 18.8 % (11.6-17.2); REVIEW FLAG FINAL; WHITE BLOOD COUNT 5.3 TH/MM3 (4.0-11.0)
[2016-11-22 12:25] LABS: ALT (GPT) 26 U/L (12-78); ANION GAP 10 MEQ/L (5-15); AST (GOT) 31 U/L (15-37); BICARBONATE 22.9 MEQ/L (21.0-32.0); BLOOD UREA NITROGEN 4 MG/DL (7-18); CHLORIDE 110 MEQ/L (98-107); GLOMERULAR FILTRATION RATE 121 ML/MIN (>89); POTASSIUM 3.8 MEQ/L (3.5-5.1); SODIUM (NA) 143 MEQ/L (136-145)
[2016-11-22 12:28] LABS: ALKALINE PHOSPHATASE 82 U/L (45-117); TOTAL BILIRUBIN ADULT 0.3 MG/DL (0.2-1.0)
[2016-11-22 12:57] VITALS: BP 117/73; PULSE 98; RESP 18; TEMP 97; O2SAT 98
[2016-11-22] MEDS ORDERED: FILGRASTIM 480 MCG/1.6 ML VIAL SQ SCH (14:00)
--- NOTE | 2016-12-24 08:07 | MD ---
cc: CANDICE PEREZ JOHN T. M.D. ALVAREZ-FARINETTI, ALVARO ADMISSION DATE: 11/16/2016 DISCHARGE DATE: 11/22/2016 ADMISSION DIAGNOSIS Rectal pain, possible ischiorectal abscess. DISCHARGE DIAGNOSIS Rectal pain due to large rectal cancer with previous partially drained ischiorectal abscess. OPERATIVE PROCEDURE 11/16/2016 Examination under anesthesia with further incision and drainage of rectal abscess. 11/17/2016 Diverting loop sigmoid colostomy with rectal washout. HISTORY: This patient was well-known to me. I saw him originally in April 2016. At that time he had a large bulky rectal cancer which was circumferential quite low in the rectum and we did a metastatic workup showing metastasis in his bone and his liver. For this reason we recommended radiation therapy and chemotherapy as palliation, and Dr. Candice Perez has been following him from the oncology standpoint, and Dr. Garcia from the radiation oncology standpoint. He was given some radiation to his bone in the lumbar region which helped him with his increasing back pain. The patient is complaining of intractable pain really since his diagnosis of his rectal cancer. We offered initially to give him a diverting colostomy and he wanted to try to get through the chemotherapy without the colostomy. Radiation was not given because it was felt that it was a palliative situation and radiation would not be helpful in the long run. Nevertheless I did not hear from the patient again until Dr. Perez contacted me sometime I believe in late July or August of last year. He said the patient was having obstructive symptoms with his cancer and needed diversion of radiation. I did not see the patient at that time. He was discharged from the hospital prior to me seeing him. He did not come to my office, however, they began giving him radiation therapy to his rectum around that time period. I am not certain that anybody actually saw his rectum at that time, so I do not know the amount of residual tumor that was present then. CT scan showed thickening of the rectum only. Nevertheless he received radiation treatment and then ended up in the hospital in early September of last year. Dr. Perez contacted me and felt that he was obstructed and would require diversion. I saw him a couple of days before [place] in 2015. At that time he had severe rectal pain. I saw him in the office. At that time I was able to do a rectal exam on him and the tumor was no longer palpable although his rectum was scarred and fibrotic, I was able to do a flexible sigmoidoscopy and the tumor had shrunken away to where the rectum was wide open. There was no obstruction present. I did look up in the sigmoid colon at that time. There was a significant amount of stool present, certainly no abscess at that time and I surmise he was simply having rectal pain and tenesmus from the tumor, the radiation and the chemotherapy. I suggested at that time that we give him a break and since he had no obstructive symptoms we did not do a diverting colostomy. He then apparently continued to have a lot of pain and at this time Dr. Perez called me and said that he did a CT scan on him again showing some air around the left side of the anal canal consistent with a possible abscess. Rather than try to examine the patient in the office, I just admitted him to the hospital for examination under anesthesia, and incision and drainage of the abscess, and possible diverting colostomy. HOSPITAL COURSE: The patient was admitted to the hospital and examination under anesthesia was done. A rigid sigmoidoscopy was done showing that the rectum was not obstructed but he did have a lot of fibrosis consistent with this previous radiation and chemotherapy. He did have a previously drained abscess and I unroofed further to improve the drainage and discomfort of the patient. Postoperatively the patient felt better with this, however, still had a lot of rectal pain. For this reason we discussed the diversion once again as well as abdominal perineal resection which I counseled against given the amount of disease that the patient has had and the metastatic disease in the bone. We went ahead and proceeded with a diverting loop sigmoid colostomy on November 17 and the patient did quite well postoperatively with very little in the way of rectal pain after that. Of course he has a normal postoperative incisional pain from the limited colostomy incision, however, he was able to advance his diet readily and was discharged from the hospital on 11/22/2016 with instructions to follow up with me in the office in about one weeks' time and to call me with any problems. MD JUN Chau/CHRISTIANO /9:13 AM 7:47 AM
== END 2016-11-22 16:14 | disposition home or self-care (01) | DRG 330 ==
LOC: HSDC 15:05 → HOCB 11-16 00:15
PROVIDERS: ADMIT Colon & Rectal Surgery; ATTEND Colon & Rectal Surgery
PROC: 0D9P3ZZ Drainage of Rectum, Percutaneous Approach (ICD-10-PCS; 2016-11-15)
PROC: 0DJD8ZZ Inspection of Lower Intestinal Tract, Via Natural or Artificial Opening Endoscopic (ICD-10-PCS; 2016-11-15)
PROC: 3E1H78Z Irrigation of Lower GI using Irrigating Substance, Via Natural or Artificial Opening (ICD-10-PCS; 2016-11-17)
PROC: 0DJD8ZZ Inspection of Lower Intestinal Tract, Via Natural or Artificial Opening Endoscopic (ICD-10-PCS; 2016-11-17)
PROC: 0D1N0Z4 Bypass Sigmoid Colon to Cutaneous, Open Approach (ICD-10-PCS; principal; 2016-11-17 14:28)
DX: K61.3 Ischiorectal abscess (principal); C20 Malignant neoplasm of rectum; D61.818 Other pancytopenia; C79.51 Secondary malignant neoplasm of bone; C78.7 Secondary malignant neoplasm of liver and intrahepatic bile duct; K62.89 Other specified diseases of anus and rectum; K21.9 Gastro-esophageal reflux disease without esophagitis; Z92.3 Personal history of irradiation; Z87.891 Personal history of nicotine dependence; Z91.19 Patient's noncompliance with other medical treatment and regimen; Z92.21 Personal history of antineoplastic chemotherapy
CPT/HCPCS: 80048; 80053; 82607; 82747; 83540; 83550; 84466; 85007; 85025; 85027; 86850; 86900; 86901; 86920; 93005; 94150; C9113; J1170; J1442; J1956; J2175; J2250; J2270; J2405; J2710; J2765; J2997; J3010; J3480; J7120

== ENCOUNTER 2017-09-13 13:09 | Inpatient (IN) | payer BC ==
[~2017-09-13] VITALS: Ht 182.9 cm; Wt 112.1 kg
[~2017-09-13 13:09] MED LIST changes: -CALTTAB PO; -FINA5TAB2 PO; -FLUC100T2 PO; -LACT10SO PO; -LACTATED RINGER'S 1000 ML INJ 1,000 ML IV ONE; -LORA-373 PO; -MORP1TAB25 PO; -MORP1TAB26 PO; -MSIR15 PO; -MULT-135 PO; -ONDANSETRON HCL 4 MG/2 ML VIAL IV PUSH ONE; -POTA10TA2 PO; -PRED10 PO; -PROBCAP11 PO; -PROPOFOL 200 MG/20 ML AMP IV ONE; -SENO8.6T5 PO; -[UNRECOGNIZED DRUG - OTHER] PO
[2017-09-13 13:19] VITALS: BP 134/76; PULSE 67; RESP 18; TEMP 98.2; O2SAT 97
--- NOTE | 2017-09-13 13:51 | PD ---
HPI Chief Complaint: Headache Time Seen by Provider: 13:36 Travel History International Travel<30 days: No Contact w/Intl Traveler<30days: No Traveled to known affect area: No History of Present Illness HPI Patient is a 56-year-old male with a history of adenocarcinoma of the colon with metastases presents emergency Department with intractable headaches for about the last week. Apparently he was about to have a resection of tumor of his belly today but because of the headaches he was sent for an MRI yesterday and was found to have new mass in the skull as well as suprasellar area. Patient is been complaining of headache since then he did receive a dose of Dilaudid prior to coming over to the emergency department, he also complaints of double vision particularly worse in his right eye. Denies any fever denies any bloody stool denies any head injury. PFSH Past Medical History Cancer: Yes (SPINAL L4-L5, RECTAL, LIVER) Cardiovascular Problems: No Chemotherapy: Yes Diabetes: No Diminished Hearing: No Endocrine: No Genitourinary: Yes (urinary retention BPH) Hepatitis: No Hiatal Hernia: No Immune Disorder: No Musculoskeletal: No Neurologic: No Psychiatric: No Reproductive: No Respiratory: No Radiation Therapy: Yes Thyroid Disease: No Past Surgical History Abdominal Surgery: No AICD: No Body Medical Devices: INFUSA PORT TO RIGHT UPPER CHEST Cardiac Surgery: No Ear Surgery: No Endocrine Surgery: No Eye Surgery: No Genitourinary Surgery: Yes Gynecologic Surgery: No Joint Replacement: No Neurologic Surgery: No Oral Surgery: No Pacemaker: No Thoracic Surgery: No Other Surgery: Yes (implanted port) Social History Alcohol Use: No Tobacco Use: No Substance Use: No Allergies-Medications (Allergen,Severity, Reaction): Coded Allergies: No Known Allergies (Verified , 11/15/16) Reported Meds & Prescriptions Reported Meds & Active Scripts Active Reported Tylenol-Codeine #3 (Acetaminophen-Codeine) 300-30 mg Tab 1 Tab PO Q4H PRN Tamsulosin (Tamsulosin HCl) 0.4 Mg Cap 0.4 Mg PO HS Review of Systems Except as stated in HPI: all other systems reviewed are Neg Physical Exam Narrative GENERAL: Well-developed well-nourished, uncomfortable appearance. SKIN: Focused skin assessment warm/dry. HEAD: Atraumatic. Normocephalic. EYES: Pupils equal and round. No scleral icterus. No injection or drainage. ENT: No nasal bleeding or discharge. Mucous membranes pink and moist. NECK: Trachea midline. No JVD. CARDIOVASCULAR: Regular rate and rhythm. No murmur appreciated. RESPIRATORY: No accessory muscle use. Clear to auscultation. Breath sounds equal bilaterally. GASTROINTESTINAL: Abdomen soft, non-tender, nondistended. Hepatic and splenic margins not palpable. There is left-sided colostomy bag. Abdomen is benign otherwise. MUSCULOSKELETAL: No obvious deformities. No clubbing. No cyanosis. No edema. NEUROLOGICAL: Awake and alert. No cranial nerves II-12 are grossly intact and nonfocal, 5 out of 5 strength in all 4 extremity's, extra ocular movements normal, pupils equal round and reactive to light and accommodation.. PSYCHIATRIC: Appropriate mood and affect; insight and judgment normal. Data Data Last Documented VS Vital Signs Date Time Temp Pulse Resp B/P (MAP) Pulse Ox O2 Delivery O2 Flow Rate FiO2 09/13/17 16:36 73 18 145/77 (99) 98 Room Air 09/13/17 14:23 98.2 Orders Orders Basic Metabolic Panel (Bmp) (09/13/17 13:50) Complete Blood Count With Diff (09/13/17 13:50) Iv Access Insert/Monitor (09/13/17 13:50) Ecg Monitoring (09/13/17 13:50) Oximetry (09/13/17 13:50) Sodium Chloride 0.9% Flush (Ns Flush) (09/13/17 14:00) Hydromorphone Pf Inj (Dilaudid Pf Inj) (09/13/17 14:00) Thyroid Stimulating Hormone (09/13/17 14:35) Free T3 (09/13/17 14:35) Free Thyroxine (T4) (09/13/17 14:35) Consult Neurosurgery (09/13/17 ) Consult Colorectal Surgery (09/13/17 ) Hydromorphone Pf Inj (Dilaudid Pf Inj) (09/13/17 16:30) Admit Order (Ed Use Only) (09/13/17 ) Labs Laboratory Tests Test 09/13/17 14:31 White Blood Count 6.4 TH/MM3 Red Blood Count 4.39 MIL/MM3 Hemoglobin 14.1 GM/DL Hematocrit 40.7 % Mean Corpuscular Volume 92.8 FL Mean Corpuscular Hemoglobin 32.1 PG Mean Corpuscular Hemoglobin Concent 34.6 % Red Cell Distribution Width 14.0 % Platelet Count 195 TH/MM3 Mean Platelet Volume 8.8 FL Neutrophils (%) (Auto) 59.4 % Lymphocytes (%) (Auto) 14.9 % Monocytes (%) (Auto) 9.9 % Eosinophils (%) (Auto) 15.3 % Basophils (%) (Auto) 0.5 % Neutrophils # (Auto) 3.8 TH/MM3 Lymphocytes # (Auto) 0.9 TH/MM3 Monocytes # (Auto) 0.6 TH/MM3 Eosinophils # (Auto) 1.0 TH/MM3 Basophils # (Auto) 0.0 TH/MM3 CBC Comment DIFF FINAL Differential Comment Blood Urea Nitrogen 9 MG/DL Creatinine 0.69 MG/DL Random Glucose 88 MG/DL Calcium Level 8.4 MG/DL Sodium Level 142 MEQ/L Potassium Level 3.8 MEQ/L Chloride Level 108 MEQ/L Carbon Dioxide Level 26.2 MEQ/L Anion Gap 8 MEQ/L Estimat Glomerular Filtration Rate 119 ML/MIN [facility] Medical Decision Making Medical Screen Exam Complete: Yes Emergency Medical Condition: Yes Differential Diagnosis Brain mass, metastatic disease, intractable headache. Narrative Course Patient was discussed with Dr. Colbert who recommends admission to the hospital for intractable headache as well as neurosurgery consultation and colorectal surgery consultation. Apparently the patient also had a rectal abscess they were going to drain today. Patient's colorectal surgeon was Dr. Loco Patient was also discussed with Dr. Potter of neurosurgery who has reviewed the imaging studies and states the patient may benefit more from radiation therapy and from surgery. Diagnosis Primary Impression: Intractable pain Additional Impressions: Headache Colon cancer Rectal abscess Admitting Information Admitting Physician Requests: Observation Condition: Stable Ronald Proctor MD Sep 13, 2017 13:50
[2017-09-13] MEDS ORDERED: HYDROmorphone HCL PF 1 MG/ML VIAL IVS ONE (14:00)
[2017-09-13] MEDS ORDERED: SODIUM CHLORIDE 0.9% FLUSH 10 ML FLUSH IV FLUSH PRN ×2 (14:00→17:15)
[2017-09-13] MEDS ORDERED: TYLETAB34 PO (14:15)
[2017-09-13 14:23] VITALS: BP 138/80; PULSE 66; RESP 18; TEMP 98.2; O2SAT 95; O2SAT 96
[2017-09-13 14:41] LABS: AUTOMATED NEUTROPHIL # 3.8 TH/MM3 (1.8-7.7); BASOPHIL % 0.5 % (0.0-2.0); EOSINOPHIL % 15.3 % (0.0-4.0); HEMATOCRIT 40.7 % (39.0-51.0); HEMO FLAGS DIFF FINAL; LYMPH % 14.9 % (9.0-44.0); LYMPHOCYTE # 0.9 TH/MM3 (1.0-4.8); MEAN CELL VOLUME 92.8 FL (80.0-100.0); MEAN CORPUSCULAR HEMOGLOBIN 32.1 PG (27.0-34.0); MEAN CORPUSCULAR HGB CONC 34.6 % (32.0-36.0); MONO % 9.9 % (0.0-8.0); NEUT % 59.4 % (16.0-70.0); PLATELET COUNT 195 TH/MM3 (150-450); RED BLOOD COUNT 4.39 MIL/MM3 (4.50-5.90); WHITE BLOOD COUNT 6.4 TH/MM3 (4.0-11.0)
[2017-09-13 15:10] LABS: BICARBONATE 26.2 MEQ/L (21.0-32.0); POTASSIUM 3.8 MEQ/L (3.5-5.1)
[2017-09-13] MEDS ORDERED: HYDROmorphone HCL PF 2 MG/ML VIAL IV PUSH ONE (16:30)
[2017-09-13 16:36] VITALS: BP 145/77; PULSE 73; RESP 18; O2SAT 98
[2017-09-13] MEDS ORDERED: NALOXONE HCL 0.4 MG/ML AMP IV PUSH PRN (17:15)
[2017-09-13] MEDS ORDERED: MAGNESIUM HYDROXIDE SUSP 30 ML CUP PO PRN (17:15)
[2017-09-13] MEDS ORDERED: SENNOSIDES 8.6 MG TAB PO PRN (17:15)
[2017-09-13] MEDS ORDERED: LACTULOSE SYRUP 20 GM/30 ML CUP PO PRN (17:15)
[2017-09-13] MEDS ORDERED: BISACODYL 10 MG SUPP RECTAL PRN (17:15)
--- NOTE | 2017-09-13 17:28 | HHI.HP ---
HPI Service [facility] Primary Care Physician No Primary Care Physician Admission Diagnosis Intractible Headache, Brain mass Diagnoses: Chief Complaint: headache and outpatient MRI showed Travel History International Travel<30 Days: No Contact w/Intl Traveler <30 Da: No Traveled to Known Affected Are: No History of Present Illness Written by Maria Luisa Whaley, acting as scribe for Dr. Mix on 09/13/17 at 17:49. Mr. 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 Patient follows with Dr. Perez for oncology chemotherapy is currently on hold for pending colorectal surgery. Patient follows with Dr. Gannon colorectal surgery and was planning to have surgery today for resection of tumor which was put on hold due to headache and outpatient MRI which showed new mass in the skull as well as suprasellar area. Patient reports double vision and severe global headache worsening over 1 week. Patient also reports rectal pain similar to when he had rectal abscess in the past. Patient endorses rectal pain, rectal bleeding, rectal leakage and has been unable to sit due to the rectal pain. Patient denies N/V, fevers, chills, chest pain or shortness fo breath. 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 Past Surgical History Colonoscopy in 2015 Port placement in 2015 Vasectomy in 1988 Knee surgery right in 1986 Tonsillectomy in 1963 Reported Medications Tylenol-Codeine #3 (Acetaminophen-Codeine) 300-30 mg Tab 1 Tab PO Q4H PRN Tamsulosin (Tamsulosin HCl) 0.4 Mg Cap 0.4 Mg PO HS Allergies: Coded Allergies: No Known Allergies (Verified , 11/15/16) Active Ordered Medications Current Medications Medications (Trade) Dose Ordered Sig/Jason Route Start Time Stop Time Status Last Admin (NS Flush) 2 ml UNSCH PRN IV FLUSH 09/13/17 14:00 (NS Flush) 2 ml UNSCH PRN IV FLUSH 09/13/17 17:15 UNV (NS Flush) 2 ml BID IV FLUSH 09/13/17 21:00 UNV (Zofran Inj) 4 mg Q6H PRN IVP 09/13/17 17:15 UNV (Narcan Inj) 0.4 mg UNSCH PRN IV PUSH 09/13/17 17:15 UNV (Mendy-Colace) 1 tab BID PO 09/13/17 21:00 UNV (Milk Of Magnesia Liq) 30 ml Q12H PRN PO 09/13/17 17:15 UNV (Senokot) 17.2 mg Q12H PRN PO 09/13/17 17:15 UNV (Dulcolax Supp) 10 mg DAILY PRN RECTAL 09/13/17 17:15 UNV (Lactulose Liq) 30 ml DAILY PRN PO 09/13/17 17:15 UNV (Percocet 10-325 Mg) 1 tab Q4H PRN PO 09/13/17 17:30 UNV (Percocet 5-325 Mg) 1 tab Q4H PRN PO 09/13/17 17:30 UNV (Dilaudid Pf Inj) 0.5 mg Q4H PRN IV PUSH 09/13/17 17:30 UNV (Decadron Inj) 10 mg ONCE ONCE IM 09/13/17 17:30 09/13/17 17:31 UNV (Decadron Inj) 4 mg Q6HR IV PUSH 09/13/17 18:00 UNV (Lovenox Inj) 40 mg Q24H SQ 09/13/17 17:30 UNV Family History Mother had lung Ca Social History Quit smoking 23 years ago denies ETOH use Physical Exam Vital Signs Vital Signs Date Time Temp Pulse Resp B/P (MAP) Pulse Ox O2 Delivery O2 Flow Rate FiO2 09/13/17 16:36 73 18 145/77 (99) 98 Room Air 09/13/17 14:23 68 18 95 Room Air 09/13/17 14:23 98.2 66 18 138/80 (99) 96 Room Air 09/13/17 14:23 18 95 Room Air 09/13/17 13:19 98.2 67 18 134/76 (95) 97 Physical Exam GENERAL: This is a well-nourished, well-developed patient drowsy after receiving Dilaudid SKIN: No rashes, ecchymoses or lesions. Cool and dry. HEAD: Atraumatic. Normocephalic. No temporal or scalp tenderness. EYES: Extraocular motions intact. No scleral icterus. No injection or drainage. CARDIOVASCULAR: Regular rate and rhythm without murmurs, gallops, or rubs. RESPIRATORY: Clear to auscultation. Breath sounds equal bilaterally. No wheezes , rales, or rhonchi. GASTROINTESTINAL: Abdomen soft, non-tender, nondistended. colostomy present MUSCULOSKELETAL: Extremities without clubbing, cyanosis, or edema. No joint tenderness, effusion, or edema noted. No calf tenderness. Negative Homans sign bilaterally. NEUROLOGICAL: Drowsy able to awake. Motor and sensory grossly within normal limits. Five out of 5 muscle strength in all muscle groups. Normal speech. Laboratory Laboratory Tests Test 09/13/17 14:31 White Blood Count 6.4 Red Blood Count 4.39 Hemoglobin 14.1 Hematocrit 40.7 Mean Corpuscular Volume 92.8 Mean Corpuscular Hemoglobin 32.1 Mean Corpuscular Hemoglobin Concent 34.6 Red Cell Distribution Width 14.0 Platelet Count 195 Mean Platelet Volume 8.8 Neutrophils (%) (Auto) 59.4 Lymphocytes (%) (Auto) 14.9 Monocytes (%) (Auto) 9.9 Eosinophils (%) (Auto) 15.3 Basophils (%) (Auto) 0.5 Neutrophils # (Auto) 3.8 Lymphocytes # (Auto) 0.9 Monocytes # (Auto) 0.6 Eosinophils # (Auto) 1.0 Basophils # (Auto) 0.0 CBC Comment DIFF FINAL Differential Comment Blood Urea Nitrogen 9 Creatinine 0.69 Random Glucose 88 Calcium Level 8.4 Sodium Level 142 Potassium Level 3.8 Chloride Level 108 Carbon Dioxide Level 26.2 Anion Gap 8 Estimat Glomerular Filtration Rate 119 Result Diagram: 09/13/17 1431 09/13/17 1431 Caprini VTE Risk Assessment Caprini VTE Risk Assessment: Mod/High Risk (score >= 2) Caprini Risk Assessment Model Point Value = 1 Point Value = 2 Point Value = 3 Point Value = 5 Age 41-60 Minor surgery BMI > 25 kg/m2 Swollen legs Varicose veins or History of unexplained or recurrent spontaneous Oral contraceptives or hormone replacement Sepsis (< 1 month) Serious lung disease, including pneumonia (< 1 month) Abnormal pulmonary function Acute myocardial infarction Congestive heart failure (< 1 month) History of inflammatory bowel disease Medical patient at bed rest Age 61-74 Arthroscopic surgery Major open surgery (> 45 min) Laparoscopic surgery (> 45 min) Malignancy Confined to bed (> 72 hours) Immobilizing plaster cast Central venous access Age >= 75 History of VTE Family history of VTE Factor V Leiden Prothrombin [id number] Lupus anticoagulant Anticardiolipin antibodies Elevated serum homocysteine Heparin-induced thrombocytopenia Other congenital or acquired thrombophilia Stroke (< 1 month) Elective arthroplasty Hip, pelvis, or leg fracture Acute spinal cord injury (< 1 month) Prophylaxis Regimen Total Risk Factor Score Risk Level Prophylaxis Regimen 0-1 Low Early ambulation 2 Moderate Order ONE of the following: *Sequential Compression Device (SCD) *Heparin 5000 units SQ BID 3-4 Higher Order ONE of the following medications: *Heparin 5000 units SQ TID *Enoxaparin/Lovenox 40 mg SQ daily (WT < 150 kg, CrCl > 30 mL/min) *Enoxaparin/Lovenox 30 mg SQ daily (WT < 150 kg, CrCl > 10-29 mL/min) *Enoxaparin/Lovenox 30 mg SQ BID (WT < 150 kg, CrCl > 30 mL/min) AND/OR *Sequential Compression Device (SCD) 5 or more Highest Order ONE of the following medications: *Heparin 5000 units SQ TID (Preferred with Epidurals) *Enoxaparin/Lovenox 40 mg SQ daily (WT < 150 kg, CrCl > 30 mL/min) *Enoxaparin/Lovenox 30 mg SQ daily (WT < 150 kg, CrCl > 10-29 mL/min) *Enoxaparin/Lovenox 30 mg SQ BID (WT < 150 kg, CrCl > 30 mL/min) AND *Sequential Compression Device (SCD) Assessment and Plan Problem List: (1) Headache ICD Code: R51 - Headache (2) Colon cancer ICD Code: C18.9 - Malignant neoplasm of colon, unspecified Status: Acute (3) Intractable pain ICD Code: R52 - Pain, unspecified Status: Acute Assessment and Plan Mr. 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 Patient follows with Dr. Perez for oncology chemotherapy is currently on hold for pending colorectal surgery. Patient follows with Dr. Gannon colorectal surgery and was planning to have surgery today which was put on hold due to headache and outpatient MRI which showed possible metastatic disease. Patient reports double vision and severe global headache worsening over 1 week. Headache intractable pain outpatient MRI revealed mass in brain concern for mets Decadron Percocet and IV Dilaudid neurosurgery consultation placed, they mentioned radiation therapy as chosen treatment for now consult palliative care Colorectal cancer with mets rectal abscess Chemo therapy on hold Consult to colorectal surgery, I discussed with Dr. Camarena the colorectal surgeon, he recommended Painting catheter for possible urinary retention due to the mass, and starting broad-spectrum antibiotics for the rectal abscess, he don 't think he will go with any surgical intervention at this point, he recommended a palliative care consult. DCT prophylaxis with Lovenox Discussed Condition With Patient patient, ED physician, and and daughter, and the colorectal surgeon Physician Certification 2 Midnight Certification Type: Admission for Inpatient Services Order for Inpatient Services The services are ordered in accordance with Medicare regulations or non- Medicare payer requirements, as applicable. In the case of services not specified as inpatient-only, they are appropriately provided as inpatient services in accordance with the 2-midnight benchmark. Estimated LOS (days): 3 days is the estimated time the patient will need to remain in the hospital, assuming treatment plan goals are met and no additional complications. Post-Hospital Plan: Not yet determined Maria Luisa Whaley Sep 13, 2017 17:28 Hanny Mix MD Sep 13, 2017 17:30
[2017-09-13] MEDS ORDERED: oxyCODONE/ACETAMINOPHEN 5 MG/325 MG TAB PO PRN (17:30)
[2017-09-13 17:59] VITALS: PULSE 86
--- NOTE | 2017-09-13 18:06 | PD.CONS ---
Consult Service Palliative Care . Consult Requested By Dr. Mix . Primary Care Physician No Primary Care Physician . Reason for Consultation a. To assist with evaluation and management of symptoms including: Pain, weakness b. To assist medical decision maker(s) with: better understanding of current medical conditions; weighing benefits/burdens of medical treatment options; making medical treatment decisions. . HPI History of Present Illness Mr. Jimenez is a 56 -year-old male with a diagnosis of stage IV colorectal adenocarcinoma with bony metastatic disease status post chemotherapy and radiation. Based on a recent sigmoidoscopy in May,, the patient has residual disease in his colon. The family states the patient was scheduled for an abdominoperineal resection today, but this surgery was put on hold due to severe headaches that started several weeks ago. An outpatient MRI showed a mass in the skull concerning for metastatic disease. The patient reported double vision and severe global headaches that had progressively worsened 1 week. Patient complains of rectal pain, rectal bleeding, rectal leakage and pain that is similar to the pain he experienced when he had a rectal abscess in the past. The patient is unable to sit secondary to see rectal pain. WBC: 6.4, hemoglobin 14.1, hematocrit 40.7, platelets 195, neutrophils 59.4% Sodium: 142, potassium 3.8, chloride 108, carbon dioxide 26.2, glucose 88, calcium 8.4 BUN: 9, creatinine 0.69, GFR 119 Patient was discussed with Dr. Perez, oncology who recommended the patient be admitted secondary to intractable pain. Neurosurgery and colorectal surgery has been consulted. Dr. Potter (neurosurgery) reviewed previous imaging and feels the patient may benefit from further radiation therapy and surgery. Palliative Care was consulted to assist with symptom management and to discuss with the family the benefits and burdens of her current illnesses and the options regarding future care. . Function/Cognitive Trajectory Patient is a 56-year-old who was first diagnosed with colorectal cancer and 2015 status post diverting colostomy in October,. Patient has received radiation treatments to the spine as well as cecal lesion in the past; he continues to receive chemotherapy. Patient continues to work. His appetite is good and he has gained weight. His ECOG performance status is 0. . Review of Systems ROS Limitations: Clinical Condition Constitutional: COMPLAINS OF: Pain (rectal pain), DENIES: Fever Eyes: COMPLAINS OF: Diplopia Respiratory: DENIES: Shortness of breath Cardiovascular: DENIES: Chest pain Gastrointestinal: COMPLAINS OF: Bloody stools (rectal bleeding), DENIES: Nausea , Vomiting Neurologic: COMPLAINS OF: Headache Past Family Social History Coded Allergies: No Known Allergies (Verified , 11/15/16) Past Medical History Rectal adenocarcinoma Colon cancer in 2016 Hemorrhoids Erectile dysfunction . Past Surgical History Colonoscopy in 2016 Vasectomy - 1988 Knee surgery - 1986 Tonsillectomy - 1963 . Reported Medications Tylenol-Codeine #3 (Acetaminophen-Codeine) 300-30 mg Tab 1 Tab PO Q4H PRN Tamsulosin (Tamsulosin HCl) 0.4 Mg Cap 0.4 Mg PO HS . Current Medications Medications (Trade) Dose Ordered Sig/Jason Route Start Time Stop Time Status Last Admin (NS Flush) 2 ml UNSCH PRN IV FLUSH 09/13/17 14:00 (NS Flush) 2 ml UNSCH PRN IV FLUSH 09/13/17 17:15 UNV (NS Flush) 2 ml BID IV FLUSH 09/13/17 21:00 UNV (Zofran Inj) 4 mg Q6H PRN IVP 09/13/17 17:15 UNV (Narcan Inj) 0.4 mg UNSCH PRN IV PUSH 09/13/17 17:15 UNV (Mendy-Colace) 1 tab BID PO 09/13/17 21:00 UNV (Milk Of Magnesia Liq) 30 ml Q12H PRN PO 09/13/17 17:15 UNV (Senokot) 17.2 mg Q12H PRN PO 09/13/17 17:15 UNV (Dulcolax Supp) 10 mg DAILY PRN RECTAL 09/13/17 17:15 UNV (Lactulose Liq) 30 ml DAILY PRN PO 09/13/17 17:15 UNV (Percocet 10-325 Mg) 1 tab Q4H PRN PO 09/13/17 17:30 UNV (Percocet 5-325 Mg) 1 tab Q4H PRN PO 09/13/17 17:30 UNV (Dilaudid Pf Inj) 0.5 mg Q4H PRN IV PUSH 09/13/17 17:30 UNV (Decadron Inj) 10 mg ONCE ONCE IM 09/13/17 17:30 09/13/17 17:31 UNV (Decadron Inj) 4 mg Q6HR IV PUSH 09/13/17 18:00 UNV (Lovenox Inj) 40 mg Q24H SQ 09/13/17 17:30 UNV . Family History Mother at the age of 76 from lung cancer. Father is alive with diabetes and dementia. Mr. Mckeon's maternal grandmother had dementia; paternal grandfather from cancer. . Substance Use Tobacco: Previous smoker; quit 23 years ago Alcohol: Denies EtOH consumption Prescription med abuse: None known Illicits: None known . Psychosocial History Patient is originally from [place]. He has been to his (Colleen ) for a "long time". This is a second marriage for both of them. The patient has a son and daughter who live in [place] but they are estranged. The patient's has 2 daughters (Katiana and Raisa). Raisa lives in [place]. Katiana lives locally. 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 . Spiritual/Cultural Factors Anabaptist alok-embalmer apprentice visit requested . Health Care Surrogate: Copy in medical record Durable Power of Geographic Analyst: Copy in medical record Date completed: 08/14/2016 . Health Care Surrogate(s): Patient's , Linn Mckeon, is designated as the patient's health care surrogate decision maker. Daughter, Katiana Jade, is designated as the alternate health care surrogate. . Documented care wishes: Dural of DURABLE POWER OF METAL TRADES INSTRUCTOR and healthcare surrogate designation were completed 08/14/2016 . Today's verbally stated goals: Current goals remain aggressive . Family/friends goals: Current goals remain aggressive . Ethical and Legal Issues No known ethical legal issues at this time. . Physical Exam Vital Signs Date Time Temp Pulse Resp B/P (MAP) Pulse Ox O2 Delivery O2 Flow Rate FiO2 09/13/17 16:36 73 18 145/77 (99) 98 Room Air 09/13/17 14:23 68 18 95 Room Air 09/13/17 14:23 98.2 66 18 138/80 (99) 96 Room Air 09/13/17 14:23 18 95 Room Air 09/13/17 13:19 98.2 67 18 134/76 (95) 97 . Exam CONSTITUTIONAL/GENERAL: This is an adequately nourished patient who appears to be in moderate pain TUBES/LINES/DRAINS: Colostomy, [id number] SKIN: No jaundice, rashes, or lesions. No wounds seen anteriorly. Skin temperature appropriate. Not diaphoretic. HEAD: Atraumatic. Normocephalic. EYES: Extraocular motions intact. No scleral icterus. No injection or drainage. Fundi not examined. ENT: Hearing grossly normal. Nose without bleeding or purulent drainage. Throat without visible erythema, exudates, masses, or lesions. NECK: Trachea midline. Supple, nontender. No palpable thyroid enlargement or nodularity. CARDIOVASCULAR: Regular rate and rhythm without murmurs, gallops, or rubs. No JVD. Peripheral pulses symmetric. RESPIRATORY/CHEST: Symmetric, unlabored respirations. Clear to auscultation. Breath sounds equal bilaterally. No wheezes, rales, or rhonchi. GASTROINTESTINAL: Abdomen soft, non-tender, nondistended. Colostomy present GENITOURINARY: Without palpable bladder distension. MUSCULOSKELETAL: Extremities without clubbing, cyanosis, or edema. No mottling or clubbing. No obvious deformities NEUROLOGICAL: Arouses to verbal stimuli. Normal speech. Follows commands. Cognitively sharp. PSYCHIATRIC: No obvious anxiety/depression. no apparent hallucinations or other psychotic thought process. . Diagnostic Tests Laboratory Laboratory Tests Test 09/13/17 14:31 White Blood Count 6.4 TH/MM3 (4.0-11.0) Red Blood Count 4.39 MIL/MM3 (4.50-5.90) Hemoglobin 14.1 GM/DL (13.0-17.0) Hematocrit 40.7 % (39.0-51.0) Mean Corpuscular Volume 92.8 FL (80.0-100.0) Mean Corpuscular Hemoglobin 32.1 PG (27.0-34.0) Mean Corpuscular Hemoglobin Concent 34.6 % (32.0-36.0) Red Cell Distribution Width 14.0 % (11.6-17.2) Platelet Count 195 TH/MM3 (150-450) Mean Platelet Volume 8.8 FL (7.0-11.0) Neutrophils (%) (Auto) 59.4 % (16.0-70.0) Lymphocytes (%) (Auto) 14.9 % (9.0-44.0) Monocytes (%) (Auto) 9.9 % (0.0-8.0) Eosinophils (%) (Auto) 15.3 % (0.0-4.0) Basophils (%) (Auto) 0.5 % (0.0-2.0) Neutrophils # (Auto) 3.8 TH/MM3 (1.8-7.7) Lymphocytes # (Auto) 0.9 TH/MM3 (1.0-4.8) Monocytes # (Auto) 0.6 TH/MM3 (0-0.9) Eosinophils # (Auto) 1.0 TH/MM3 (0-0.4) Basophils # (Auto) 0.0 TH/MM3 (0-0.2) CBC Comment DIFF FINAL Differential Comment Blood Urea Nitrogen 9 MG/DL (7-18) Creatinine 0.69 MG/DL (0.60-1.30) Random Glucose 88 MG/DL (74-106) Calcium Level 8.4 MG/DL (8.5-10.1) Sodium Level 142 MEQ/L (136-145) Potassium Level 3.8 MEQ/L (3.5-5.1) Chloride Level 108 MEQ/L (98-107) Carbon Dioxide Level 26.2 MEQ/L (21.0-32.0) Anion Gap 8 MEQ/L (5-15) Estimat Glomerular Filtration Rate 119 ML/MIN (>89) . Result Diagram: 09/13/17 1431 09/13/17 1431 Patient/Family Conference Present at Family Conference: Met with patient's (Colleen) and daughter (Katiana) at bedside. . Family Conference Location: Bedside Issues Discussed: * Palliative care role, purpose, approach * Additional medical, psychosocial, and spiritual history * Patients general health, functional status, and cognitive changes in the months leading up to the current hospitalization * Patient/family understanding of the current medical problems * Patient/family understanding of prognosis * Patients goals of care as best understood from advance directives and/or conversations and/or values * Current medical treatment options and benefits/burdens of those options * Likely scenarios comparing ongoing aggressive care with a transition to comfort measures only * Questions answered to the best of my ability * Palliative care contact information provided . Assessment and Plan Disease Oriented Problem List: (1) Rectal cancer metastasized to bone (2) Headache (3) Rectal abscess (4) Intractable pain Symptom Scale: (1) Pain (2) Weakness Pertinent Non-Medical Issues Psychosocial: Patient is originally from [place]. He has been to his (Colleen) for a "long time". This is a second marriage for both of them. The patient has a son and daughter who live in [place] but they are estranged. The patient's has 2 daughters (Katiana and Raisa). Raisa lives in [place]. Katiana lives locally. 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 Daughter, Katiana Jade, is designated as the alternate health care surrogate. Ethical issues impacting care: No known ethical issues impacting care at this time. . Important Contacts Colleen Mckeon, : [phone] Katiana Jade, daughter: [phone] . Prognosis Mr. lee is a 56-year-old male with a diagnosis of stage IV colorectal adenocarcinoma with metastatic disease and there is no curative options. All offered treatments such as surgery, radiation and chemotherapy are palliative. Overall prognosis is poor. . Plan * FULL CODE * Decision-making: Patient currently has good insight and judgment related to his current medical condition and various treatment options. His , Apla Mckeon, is the designated as the patient's health care surrogate decision maker. Daughter, Katiana Jade, is designated as the alternate health care surrogate. * AGGRESSIVE GOALS * Symptom management-pain: Is reporting rectal pain and severe global headaches that had progressively worsened 1 week. A recent outpatient MRI showed a mass in the skull concerning for metastatic disease. Patient received a total of 3 mg Dilaudid while in the ED. PRN Dilaudid and Percocet are available. Patient is also on on dexamethasone 4 mg IV every 6 hours. Will need to monitor PRN requirements and make adjustments as appropriate. * Marine Scientist consult pending * Palliative care contact information provided to the patient's . * Of care will continue to follow this patient throughout his hospitalization to establish trust, assist with symptom management and clarification of medical treatment goals. . Thank you for the opportunity to participate in the care of Mr. Mckeon. Brina Catalan Sep 13, 2017 18:06
[2017-09-13] MEDS: ONDANSETRON HCL 4 MG/2 ML VIAL IVP PRN (18:23)
[2017-09-13] MEDS ORDERED: DEXAMETHASONE SOD PHOS 20 MG/5 ML VIAL IV ONE (18:30)
[2017-09-13] MEDS: ENOXAPARIN SODIUM 40 MG/0.4 ML SYRINGE SQ SCH (18:55)
[2017-09-13] MEDS ORDERED: DEXAMETHASONE INJ 10 MG in SODIUM CHLORIDE 0.9% INJ 50 ML IV ONE ×2 (19:00)
[2017-09-13] MEDS: PIPERACIL-TAZO 4.5 GM PREMIX 100 ML IV SCH (19:16)
[2017-09-13] MEDS: DOCUSATE SODIUM 50 MG/SENNA 8.6 MG TAB PO SCH (20:10)
[2017-09-13] MEDS: SODIUM CHLORIDE 0.9% FLUSH 10 ML FLUSH IV FLUSH SCH (20:14)
--- NOTE | 2017-09-13 20:23 | MB ---
cc: YVES NATARAJAN M.D. DATE OF CONSULTATION 09/13/17 CHIEF COMPLAINT Headache and rectal pain. HISTORY OF PRESENT ILLNESS This patient is well-known to me. About a year and a half ago he developed a rectal cancer and was referred for radiation therapy/chemotherapy. All during the radiation therapy/chemotherapy he had a lot of rectal pain, had very minimal shrinkage of his rectal cancer. The rectal cancer was quite large at the end of last year. For this reason, he was brought into the hospital and a diverting loop colostomy was done giving him pain relief. At that time, he was also found to have an abscess around his rectal cancer and ischiorectal drainage was done. Since that time, he has been on chemotherapy for about a year and has had very good response to both the primary cancer and the metastatic lesions he had in his bone and his hip and lumbar region. The rectal cancer continued to shrink on the chemotherapy and his lumen was much more open. While there was still residual rectal cancer present, although the metastatic disease seemed to be controlled. For this reason Dr. Perez sent him back to me for evaluation of abdominal perineal resection. I saw him a month ago and scheduled him for surgery for today. However, he developed some headaches apparently over the past several weeks and Dr. Perez ordered an MRI of the brain and it showed what appeared to be metastasis in the clivus bone. He also has a lesion near the jakob. This appeared to be metastatic disease so certainly we cancelled the surgery for today. In talking to him last night and cancelling the surgery, he said he has been having more and more rectal pain over the last week or so. He says he is having more liquid drainage. Because of his headaches, he was instructed to come to the emergency department today and he is being admitted now for evaluation with neurosurgery, oncology. The patient says that his headaches have become more intense and his rectal pain is also present, but it is not as severe as his headaches. PAST MEDICAL HISTORY significant as above. PHYSICAL EXAMINATION GENERAL: A well-developed, well-nourished male who has gained a fair amount of weight with his treatment over the last year. SKIN: Warm and dry. HEENT: Extraocular muscles intact. NECK: Supple. ABDOMEN: Soft, nontender. No masses. He does have a left lower quadrant loop colostomy. However, the loop is fully diverting and the distal end is stapled closed RECTAL: Inspection is within normal limits. There is no ischiorectal abscess, but his lumen is almost closed. I cannot do a full digital rectal examination because of the bulky tumor nearly closing his lumen. IMPRESSION 1. Rectal pain and urinary retention due to increasing size of bulky rectal tumor. 2. 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 We will put him on antibiotics for his rectum in case he has an impending abscess and he may require exam under anesthesia and dilation of this rectal tumor in order to decompress his distal sigmoid and rectum. If need be, and he can undergo the procedure, we can probably open his distal limb of his colostomy in order to allow mucous to egress proximally out of this distal limb. I will follow along with you. MD JUN Chau/ /6:07 PM /8:14 PM MTDKareen
[2017-09-13 21:26] VITALS: BP 143/70; PULSE 65; RESP 18; TEMP 98; O2SAT 99
[2017-09-13 22:13] VITALS: PULSE 73
[2017-09-13 23:43] LABS: FREE T3 2.39 PG/ML (2.18-3.98); FREE T4 0.73 NG/DL (0.76-1.46)
[2017-09-14] VITALS (7 sets, daily range): BP systolic 114–137; BP diastolic 55–78; PULSE 68–78; RESP 18–20; TEMP 97.3–98.7; O2SAT 95–98
[2017-09-14] MEDS: ONDANSETRON HCL 4 MG/2 ML VIAL IVP PRN (00:22)
[2017-09-14] MEDS: PIPERACIL-TAZO 4.5 GM PREMIX 100 ML IV SCH ×4 (00:23→18:46)
[2017-09-14] MEDS: oxyCODONE/ACETAMINOPHEN 10 MG/325 MG TAB PO PRN ×6 (00:23→19:53)
[2017-09-14 07:31] LABS: BASOPHIL % 0.2 % (0.0-2.0); EOSINOPHIL % 0.2 % (0.0-4.0); HEMATOCRIT 39.8 % (39.0-51.0); HEMO FLAGS DIFF FINAL; LYMPH % 4.9 % (9.0-44.0); LYMPHOCYTE # 0.4 TH/MM3 (1.0-4.8); MEAN CORPUSCULAR HEMOGLOBIN 32.1 PG (27.0-34.0); MEAN CORPUSCULAR HGB CONC 34.8 % (32.0-36.0); MONO % 2.6 % (0.0-8.0); NEUT % 92.1 % (16.0-70.0); PLATELET COUNT 217 TH/MM3 (150-450); RED BLOOD COUNT 4.32 MIL/MM3 (4.50-5.90); RED CELL DISTRIBUTION WIDTH 13.6 % (11.6-17.2); WHITE BLOOD COUNT 7.6 TH/MM3 (4.0-11.0)
--- NOTE | 2017-09-14 08:02 | HHI.PR ---
Subjective Remarks Still with double vision and headache this AM. Still has copious mucous drainage from rectum. Objective Vital Signs Date Time Temp Pulse Resp B/P (MAP) Pulse Ox O2 Delivery O2 Flow Rate FiO2 09/14/17 06:10 98.0 78 18 114/55 (74) 98 09/14/17 01:18 97.3 71 18 137/78 (97) 98 09/13/17 22:13 73 09/13/17 21:26 98.0 65 18 143/70 (94) 99 09/13/17 20:10 Room Air 09/13/17 16:36 73 18 145/77 (99) 98 Room Air 09/13/17 14:23 68 18 95 Room Air 09/13/17 14:23 98.2 66 18 138/80 (99) 96 Room Air 09/13/17 14:23 18 95 Room Air 09/13/17 13:19 98.2 67 18 134/76 (95) 97 I/O 09/13/17 09/13/17 09/13/17 09/14/17 09/14/17 09/14/17 07:00 15:00 23:00 07:00 15:00 23:00 Intake Total 152.5 ml 100 ml Balance 152.5 ml 100 ml Intake IV Total 152.5 ml 100 ml Result Diagram: 09/14/17 0645 09/13/17 1431 Objective Remarks VS-S Abd: benign Assessment and Plan Assessment and Plan Rectal pain with increased size of rectal cancer and obstruction. Colostomy proximal to cancer is closed. Plan: observe for now and start tx for cranial metastasis and maybe chemo will again shrink Rectal Cancer. May need dilation or flex sig eventually Clyde Gannon MD Sep 14, 2017 08:02
[2017-09-14] MEDS: DEXAMETHASONE SOD PHOS 4 MG/ML VIAL IV PUSH SCH ×3 (08:10→19:54)
[2017-09-14] MEDS: DOCUSATE SODIUM 50 MG/SENNA 8.6 MG TAB PO SCH ×2 (08:11→21:00)
[2017-09-14] MEDS: SODIUM CHLORIDE 0.9% FLUSH 10 ML FLUSH IV FLUSH SCH ×2 (08:11→21:00)
[2017-09-14 08:37] LABS: BICARBONATE 20.5 MEQ/L (21.0-32.0); POTASSIUM 3.1 MEQ/L (3.5-5.1)
[2017-09-14 09:13] LABS: CALCIUM-PROTEIN CORRECTED 7.1 MG/DL (8.5-10.1)
[2017-09-14] MEDS ORDERED: POTASSIUM CHLORIDE 10 MEQ CONTROLLED RELEASE TAB PO ONE (09:15)
--- NOTE | 2017-09-14 09:17 | HHI.PR ---
Subjective Remarks In some distress due to headaches, no improvements patient deficits on his left eye. Was nauseated last night however did not vomit. Not eating much. Denies fever or chills. Feels very tired. No nausea, vomiting, diarrhea or constipation at this time. no rectal pain. Has mucous discharge. Objective Vitals Vital Signs Date Time Temp Pulse Resp B/P (MAP) Pulse Ox O2 Delivery O2 Flow Rate FiO2 09/14/17 06:10 98.0 78 18 114/55 (74) 98 09/14/17 01:18 97.3 71 18 137/78 (97) 98 09/13/17 22:13 73 09/13/17 21:26 98.0 65 18 143/70 (94) 99 09/13/17 20:10 Room Air 09/13/17 16:36 73 18 145/77 (99) 98 Room Air 09/13/17 14:23 68 18 95 Room Air 09/13/17 14:23 98.2 66 18 138/80 (99) 96 Room Air 09/13/17 14:23 18 95 Room Air 09/13/17 13:19 98.2 67 18 134/76 (95) 97 I/O 09/13/17 09/13/17 09/13/17 09/14/17 09/14/17 09/14/17 07:00 15:00 23:00 07:00 15:00 23:00 Intake Total 152.5 ml 100 ml Balance 152.5 ml 100 ml Intake IV Total 152.5 ml 100 ml Result Diagram: 09/14/17 0645 09/14/17 0645 Objective Remarks GENERAL: This is a well-nourished, well-developed patient drowsy after receiving Dilaudid CARDIOVASCULAR: Regular rate and rhythm without murmurs, gallops, or rubs. RESPIRATORY: Clear to auscultation. Breath sounds equal bilaterally. No wheezes , rales, or rhonchi. GASTROINTESTINAL: Abdomen soft, non-tender, nondistended. colostomy present MUSCULOSKELETAL: Extremities without clubbing, cyanosis, or edema. No joint tenderness, effusion, or edema noted. No calf tenderness. Negative Homans sign bilaterally. NEUROLOGICAL: Drowsy able to awake. Motor and sensory grossly within normal limits. Five out of 5 muscle strength in all muscle groups. Normal speech. A/P Problem List: (1) Headache ICD Code: R51 - Headache (2) Colon cancer ICD Code: C18.9 - Malignant neoplasm of colon, unspecified Status: Acute (3) Intractable pain ICD Code: R52 - Pain, unspecified Status: Acute Assessment and Plan Mr. 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 Patient follows with Dr. Perez for oncology chemotherapy is currently on hold for pending colorectal surgery. Patient follows with Dr. Gannon colorectal surgery and was planning to have surgery today which was put on hold due to headache and outpatient MRI which showed possible metastatic disease. Patient reports double vision and severe global headache worsening over 1 week. Headache Intractable pain Outpatient MRI revealed mass in brain concern for mets Decadron Percocet and IV Dilaudid neurosurgery consultation placed, they mentioned radiation therapy as chosen treatment for now consult palliative care Colorectal cancer with mets Rectal abscess Chemo therapy on hold Consult to colorectal surgery, per Dr. Camarena the colorectal surgeon, he recommended Painting catheter for possible urinary retention due to the mass, and starting broad-spectrum antibiotics for the rectal abscess. Plan to start tx for cranial metastasis and maybe chemo again to shrink Rectal Cancer. May need dilation or flex sig eventually he recommended a palliative care consult. Consult palliative care, ff DCT prophylaxis with Lovenox Discussed Condition With Patient, nurse, family at bedside Lesa Hurley MD Sep 14, 2017 09:17
[2017-09-14] MEDS ORDERED: POTASSIUM BICARBONATE 25 MEQ EFFERVESCENT TAB PO ONE (10:00)
[2017-09-14] MEDS ORDERED: CALCIUM GLUCONATE INJ 2 GM in DEXTROSE 5% IN WATER 100ML INJ 100 ML IV ONE ×2 (10:30)
--- NOTE | 2017-09-14 10:48 | HHI.HCPN ---
Reason for visit a. To assist with evaluation and management of symptoms including: Pain, weakness b. To assist medical decision maker(s) with: better understanding of current medical conditions; weighing benefits/burdens of medical treatment options; making medical treatment decisions. . Subjective/Interval History INTERVAL NOTE: The patient continues to complain about head pain, but he says that the Percocet does help. He has basically been receiving the Percocet 10/325 every 4 -5 hours. He prefers to lie with his eyes covered because he says the light causes more pain. He does note diplopia if he tries to look to the left. He denies other pain at this time, and the patient and have not noticed any confusion. . Family/friend interactions Patient's is present in the room. I was also present for a visit from Dr. Mcrae and for the first part of the visit from Dr. Potter. . Advance Directives Health Care Surrogate: Copy in medical record Durable Power of Load Haul Dump Operator: Copy in medical record Advance Directive Specifics Date completed: 08/14/2016 . Health Care Surrogate(s): Patient's , Linn Mckeon, is designated as the patient's health care surrogate decision maker. Daughter, Katiana Jade, is designated as the alternate health care surrogate. . Documented care wishes: Dural of DURABLE POWER OF HUMAN SERVICE TECHNICIAN and healthcare surrogate designation were completed 08/14/2016 . Objective Vital Signs Date Time Temp Pulse Resp B/P (MAP) Pulse Ox O2 Delivery O2 Flow Rate FiO2 09/14/17 08:00 98.2 76 18 128/67 (87) 97 09/14/17 06:10 98.0 78 18 114/55 (74) 98 09/14/17 01:18 97.3 71 18 137/78 (97) 98 09/13/17 22:13 73 09/13/17 21:26 98.0 65 18 143/70 (94) 99 09/13/17 20:10 Room Air 09/13/17 16:36 73 18 145/77 (99) 98 Room Air 09/13/17 14:23 68 18 95 Room Air 09/13/17 14:23 98.2 66 18 138/80 (99) 96 Room Air 09/13/17 14:23 18 95 Room Air 09/13/17 13:19 98.2 67 18 134/76 (95) 97 Intake & Output 09/14/17 09/14/17 07:00 19:00 Intake Total 252.5 ml Balance 252.5 ml Intake IV Total 252.5 ml Physical Exam CONSTITUTIONAL/GENERAL: This is an adequately nourished patient who still appears to be in some pain TUBES/LINES/DRAINS: Colostomy, [id number]-b-[id number] EYES: Extraocular motions intact, and I do not see any disconjugate gaze ENT: Hearing grossly normal. Nose without bleeding or purulent drainage. Throat without visible erythema, exudates, masses, or lesions. CARDIOVASCULAR: Regular rate and rhythm without murmurs, gallops, or rubs. No JVD. Peripheral pulses symmetric. RESPIRATORY/CHEST: Symmetric, unlabored respirations. Clear to auscultation. Breath sounds equal bilaterally. No wheezes, rales, or rhonchi. GASTROINTESTINAL: Abdomen soft, non-tender, nondistended. Colostomy present MUSCULOSKELETAL: Extremities without clubbing, cyanosis, or edema. No mottling or clubbing. No obvious deformities NEUROLOGICAL: Awake and alert. Normal speech. Follows commands. Cognitively sharp. PSYCHIATRIC: No obvious anxiety/depression. no apparent hallucinations or other psychotic thought process. . Diagnostic Tests Laboratory Laboratory Tests Test 09/13/17 14:31 09/14/17 06:45 White Blood Count 6.4 TH/MM3 (4.0-11.0) 7.6 TH/MM3 (4.0-11.0) Red Blood Count 4.39 MIL/MM3 (4.50-5.90) 4.32 MIL/MM3 (4.50-5.90) Hemoglobin 14.1 GM/DL (13.0-17.0) 13.9 GM/DL (13.0-17.0) Hematocrit 40.7 % (39.0-51.0) 39.8 % (39.0-51.0) Mean Corpuscular Volume 92.8 FL (80.0-100.0) 92.0 FL (80.0-100.0) Mean Corpuscular Hemoglobin 32.1 PG (27.0-34.0) 32.1 PG (27.0-34.0) Mean Corpuscular Hemoglobin Concent 34.6 % (32.0-36.0) 34.8 % (32.0-36.0) Red Cell Distribution Width 14.0 % (11.6-17.2) 13.6 % (11.6-17.2) Platelet Count 195 TH/MM3 (150-450) 217 TH/MM3 (150-450) Mean Platelet Volume 8.8 FL (7.0-11.0) 9.3 FL (7.0-11.0) Neutrophils (%) (Auto) 59.4 % (16.0-70.0) 92.1 % (16.0-70.0) Lymphocytes (%) (Auto) 14.9 % (9.0-44.0) 4.9 % (9.0-44.0) Monocytes (%) (Auto) 9.9 % (0.0-8.0) 2.6 % (0.0-8.0) Eosinophils (%) (Auto) 15.3 % (0.0-4.0) 0.2 % (0.0-4.0) Basophils (%) (Auto) 0.5 % (0.0-2.0) 0.2 % (0.0-2.0) Neutrophils # (Auto) 3.8 TH/MM3 (1.8-7.7) 7.0 TH/MM3 (1.8-7.7) Lymphocytes # (Auto) 0.9 TH/MM3 (1.0-4.8) 0.4 TH/MM3 (1.0-4.8) Monocytes # (Auto) 0.6 TH/MM3 (0-0.9) 0.2 TH/MM3 (0-0.9) Eosinophils # (Auto) 1.0 TH/MM3 (0-0.4) 0.0 TH/MM3 (0-0.4) Basophils # (Auto) 0.0 TH/MM3 (0-0.2) 0.0 TH/MM3 (0-0.2) CBC Comment DIFF FINAL DIFF FINAL Differential Comment Blood Urea Nitrogen 9 MG/DL (7-18) 8 MG/DL (7-18) Creatinine 0.69 MG/DL (0.60-1.30) 0.54 MG/DL (0.60-1.30) Random Glucose 88 MG/DL (74-106) 99 MG/DL (74-106) Calcium Level 8.4 MG/DL (8.5-10.1) 6.2 MG/DL (8.5-10.1) Sodium Level 142 MEQ/L (136-145) 145 MEQ/L (136-145) Potassium Level 3.8 MEQ/L (3.5-5.1) 3.1 MEQ/L (3.5-5.1) Chloride Level 108 MEQ/L (98-107) 116 MEQ/L (98-107) Carbon Dioxide Level 26.2 MEQ/L (21.0-32.0) 20.5 MEQ/L (21.0-32.0) Anion Gap 8 MEQ/L (5-15) 9 MEQ/L (5-15) Estimat Glomerular Filtration Rate 119 ML/MIN (>89) 157 ML/MIN (>89) Free Thyroxine 0.73 NG/DL (0.76-1.46) Free Triiodothyronine (T3) pg/dL 2.39 PG/ML (2.18-3.98) Thyroid Stimulating Hormone 3rd Gen 0.997 uIU/ML (0.358-3.740) Total Protein 5.1 GM/DL (6.4-8.2) Protein Corrected Calcium 7.1 MG/DL (8.5-10.1) Result Diagram: 09/14/1764409/14/17644 Assessment and Plan Disease Oriented Problem List: (1) Rectal cancer metastasized to bone (2) Headache Comment: Secondary to metastatic disease to the clivus and some surrounding soft tissue (3) Rectal abscess Comment: In association with large tumor mass (4) Intractable pain Symptom Scale: (1) Pain 0-10 Scale: 2 (still a level II after Percocet) (2) Weakness 0-10 Scale: 1 Pertinent Non-Medical Issues Psychosocial: Patient is originally from [place]. He has been to his (Colleen) for a "long time". This is a second marriage for both of them. The patient has a son and daughter who live in [place] but they are estranged. The patient's has 2 daughters (Katiana and Raisa). Raisa lives in [place]. Katiana lives locally. 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 Spiritual: Mandaen alok Legal:Patient's , Linn Mckeon, is designated as the patient's health care surrogate decision maker. Daughter, Katiana Jade, is designated as the alternate health care surrogate. Ethical issues impacting care: No known ethical issues impacting care at this time. . Important Contacts Colleen Mckeon, : [phone] Katiana Jade, daughter: [phone] . Prognosis Mr. lee is a 56-year-old male with a diagnosis of stage IV colorectal adenocarcinoma with metastatic disease and there is no curative options. All offered treatments such as surgery, radiation and chemotherapy are palliative. Overall prognosis is poor. . Code Status: Full Code Plan * FULL CODE * DECISION-MAKING: Patient currently has good insight and judgment related to his current medical condition and various treatment options. His , Colleen Mckeon, is designated as the patient's health care surrogate decision maker. Daughter, Katiana Jade, is designated as the alternate health care surrogate. * GOALS: The goals continue to be aggressive, and now radiation is planned to begin later today for the newly discovered metastatic disease, with a high likelihood of improving the patient's pain situation. * SYMPTOMS: pain: Is reporting rectal pain and severe global headaches that had progressively worsened 2 weeks. 5 doses of radiation are planned to begin today. Will need to monitor PRN requirements and make adjustments as appropriate. Hopefully, the Decadron and Percocet8 the pain tolerable as the radiation is given a chance to help. * Palliative Care will continue to follow the patient during this hospitalization. . Time Spent Total Floor Time (mins): 41 Face to Face Time (mins): 32 >50% Counseling/Coord of Care: Yes Attestation To help prompt me to consider important information that might be impacting today's encounter and assessment, information from prior notes written by myself or my colleagues may have been "brought forward" into today's note. My signature on this note, however, is an attestation that I personally performed the exam, history, and/or decision-making noted today, and, unless otherwise indicated, the interactions with patient, family, and staff as well as the review of records all occurred today. I also attest that the listed assessment and stated plan reflect my best clinical judgment today based on the combination of historical information, prior notes, and today's exam/ interactions. When time spent is documented, it refers only to time spent today by the signer, or if indicated, combined time spent today by collaborating physician/nurse practitioner. Megan Brunner MD Sep 14, 2017 10:48
[2017-09-14] MEDS ORDERED: MAGNESIUM OXIDE 400 MG TAB PO ONE (12:00)
[2017-09-14] MEDS ORDERED: DIATRIZOATE MEGLUM/DIATRIZOATE SOD 9 ML CUP PO ONE (12:30)
--- NOTE | 2017-09-14 15:17 | MB ---
cc: FLORENTIN ELLISON MD, ROHIT K. M.D. KHAN, AWAIS TOLLAND, JOHN T. M.D. DATE OF CONSULTATION: 09/14/2017 REASON FOR CONSULTATION: Sellar, clivus mass. HISTORY OF PRESENT ILLNESS 56-year-old gentleman with a history of stage IV colon adenocarcinoma with metastasis to the bone and liver. He has had a diverting colostomy for his colorectal cancer along with ongoing chemotherapy. He relates that the chemotherapy has lead to numbness in his hands and feet from peripheral neuropathy. For the past four months he has had intermittent headaches along with some double and blurred vision which has progressed over the last week or two. He also noted some urinary retention and but with this initiation of Flomax. He says this has resolved. Complains of rectal pain and was scheduled to have colorectal surgery and possible drainage of rectal abscess but given his complaints of headaches and further workup with an MRI scan of the brain obtained prior to this admission the outpatient setting revealing call sellar mass as well as involving the clivus he was sent to the emergency room for further management. I reviewed the MRI scan with and without contrast from 09/12/2017 reveals sellar mass with some suprasellar extension and involvement of the clivus and invasion of the left cavernous sinus on the lateral aspect of the internal carotid artery. Maximum size is about 1.9 cm. There is there is no compression on the optic chiasm although does appear to be approaching it. There is also involvement of the clivus from what appears be metastases. PAST MEDICAL HISTORY 1. Stage IV colon wall colon adenocarcinoma with metastasis bone and liver. 2. Status post diverting colostomy 3. Rectal abscess 4. Wjbxlw-L-[id number] placement 5. Chemotherapy 6. peripheral neuropathy in the upper and lower extremities. 7. Right knee surgery. 8. Tonsillectomy. 9. Vasectomy. MEDICATIONS PRIOR TO ADMISSION Include 1. Tylenol with codeine q.4 h p.r.n. 2. Flovent. 3. Flomax 0.4 mg q.h.s. ALLERGIES NO KNOWN DRUG ALLERGIES. SOCIAL HISTORY He is she is . His is here with him. He is car cell span is a former smoker. Denies alcohol use. FAMILY HISTORY Positive for lung cancer in his mother. REVIEW OF SYSTEMS Pertinent positives as mentioned a history present illness otherwise negative. LABORATORY FINDINGS White blood cell count 7.6, hemoglobin 13.9, platelet count 217, sodium 145, potassium 3.1, BUN is 88 creatinine 0.54, glucose 99. EXAMINATION VITAL SIGNS: Temperature 98.2, pulse is 76, respiratory rate 15 blood pressure 128/67, oxygen saturation 97% on room air. IN GENERAL: This is a middle-aged gentleman who is lying in bed, in mild distress related to his headache and rectal pain. HEAD: Normocephalic, atraumatic with no Weir's or raccoon sign. NECK: He has good range of motion with no guarding or rigidity EYES: No injection or icterus although he does complain of bright light sensitive to bright light and double vision on left lateral gaze. CHEST: Clear to incision bilaterally. HEART: Regular rate rhythm, normal S9-S2. No murmurs. ABDOMEN: Soft, nontender. Positive bowel sounds. No guarding or rigidity. He has a colostomy in place. SKIN: No rashes or ecchymosis or breakdown. MUSCULOSKELETAL: No deformities, clubbing or cyanosis or edema. NEUROLOGIC: He is awake, alert. Pupils equal, reactive. Extraocular muscles are intact although he does complain of diplopia left lateral gaze. Face is symmetric tongue is midline. Motor strength in upper lower extremities 5/5. Negative Babinski. Light touch sensation intact. Speech is fluent. IMPRESSION 1. Sellar / suprasellar mass with and invasion of the clivus consistent with a metastasis. 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 He does have invasion of the left cavernous sinus and likely diplopia associated with this although no visual deficits are noted. 2. Colorectal cancer with diverting colostomy and metastasis. 3. Peripheral neuropathy from chemotherapy. PLAN At this time best treatment for his clivus and sellar mass or invasion of left cavernous sinus as radiation therapy and I have discussed this with a radiation oncologist who is planning on initiating this today. Would recommend pain control and symptomatic to management as well as Decadron along with gastrointestinal stress ulcer prophylaxis and DVT prophylaxis. Recommend that his diet and activity status be increased as tolerated. The sellar / suprasellar mass continues to grow despite to radiation treatment and if symptoms progress with may need to entertain surgical intervention. Possibly through a transforaminal approach, but the resection of the cavernous sinus would not be very feasible given high risk for cranial nerve injuries and or nerve or vascular injury. I have discussed with the patient and his who at this time would prefer nonsurgical management also. Accordingly, we will defer further treatment of the radiation and medical oncologist and be available if needed in the future. MD DERRICK [place]/sharad /1:28 PM /2:41 PM
[2017-09-14] MEDS ORDERED: LORazepam 2 MG TAB PO ONE (16:30)
[2017-09-14] MEDS ORDERED: LORazepam 2 MG/ML VIAL IV ONE (16:30)
[2017-09-14] MEDS: ENOXAPARIN SODIUM 40 MG/0.4 ML SYRINGE SQ SCH (16:50)
[2017-09-14] MEDS ORDERED: LORazepam 2 MG/ML VIAL IV PUSH PRN (17:00)
[2017-09-14] MEDS ORDERED: IOHEXOL 350 MG/ML 10 ML VIAL (for RAD DIAG) IVCONTRAST ONE (20:50)
--- NOTE | 2017-09-14 22:15 | RADRPT ---
EXAM DATE/TIME: 09/14/2017 20:43 [facility] COMPARISON: CT ABDOMEN & PELVIS W CONTRAST, October 03, 2016, 21:40. INDICATIONS : Brain mass; evaluate for metastases. IV CONTRAST: 100 cc Omnipaque 350 (iohexol) IV ; Cumulative dose for multiple exams. ORAL CONTRAST: No oral contrast ingested. RADIATION DOSE: 19.29 CTDIvol (mGy) ; Combined studies - Thorax/Abdomen/Pelvis MEDICAL HISTORY : Carcinoma, colon. spine and liver metastatic disease SURGICAL HISTORY : Colon resection. ENCOUNTER: Initial ACUITY: 1 day PAIN SCALE: 0/10 LOCATION: abdomen TECHNIQUE: Volumetric scanning of the abdomen and pelvis was performed. Using automated exposure control and ad justment of the mA and/or kV according to patient size, radiation dose was kept as low as reasonably achievable to obtain optimal diagnostic quality images. DICOM format image data is available electro nically for review and comparison. FINDINGS: LOWER LUNGS: The visualized lower lungs are clear. LIVER: There is decreased density to the liver. There is a enhancing mass at the posterior aspect of the rig ht lobe of the liver measuring 1.4 cm likely related to a hemangioma although it is nonspecific. Smal l calcifications are seen the gallbladder likely representing small gallstones. SPLEEN: Normal size without lesion. PANCREAS: Within normal limits. KIDNEYS: There is cystic change in the central left kidney likely related to parapelvic cysts versus a moderat austen dilated collecting system. Both kidneys demonstrate normal enhancement. No renal stones are seen. ADRENAL GLANDS: Within normal limits. VASCULAR: There is no aortic aneurysm. BOWEL/MESENTERY: There is a colostomy in the left lower quadrant. There some minimal induration in the fat in the left lower quadrant. The appendix is normal. There is diffuse thickening of the lower rectum and anus. ABDOMINAL WALL: Within normal limits. RETROPERITONEUM: There is no lymphadenopathy. BLADDER: No wall thickening or mass. REPRODUCTIVE: Within normal limits. INGUINAL: There is no lymphadenopathy or hernia. MUSCULOSKELETAL: There are multiple sclerotic bone lesions including at the posterior right T12 vertebral body, the T4 vertebral body, and the iliac bones bilaterally. The these were present previously. CONCLUSION: 1. Left diverting colostomy with some minimal surrounding induration. 2. Hepatic steatosis. 3. Multiple sclerotic bone lesions. 4. Persistent circumferential thickening of the inferior rectum and anus. 5. Small gallstones. 6. Cystic change in the central left kidney representing parapelvic cysts or moderate dilatation of t he collecting system. Clyde Kelly MD on September 14, 2017 at 22:02 Board Certified Radiologist. This report was verified electronically.
--- NOTE | 2017-09-14 22:20 | RADRPT ---
EXAM DATE/TIME: 09/14/2017 20:43 [facility] COMPARISON: No previous studies available for comparison. INDICATIONS : Brain mass; rule out lung metastatic disease. IV CONTRAST: 100 cc Omnipaque 350 (iohexol) IV ; Cumulative dose for multiple exams. RADIATION DOSE: 19.29 CTDIvol (mGy) ; Combined studies - Thorax/Abdomen/Pelvis MEDICAL HISTORY : Carcinoma, colon. liver and spine metastatic disease SURGICAL HISTORY : Colon resection. ENCOUNTER: Initial ACUITY: 1 day PAIN SCALE: 0/10 LOCATION: chest TECHNIQUE: Volumetric scanning of the chest was performed. Using automated exposure control and adjustment of t he mA and/or kV according to patient size, radiation dose was kept as low as reasonably achievable to obtain optimal diagnostic quality images. DICOM format image data is available electronically for review and comparison. Follow-up recommendations for detected pulmonary nodules are based at a minimum on nodule size and pa tient risk factors according to Fleischner Society Guidelines. FINDINGS: LUNGS: There is a calcified granuloma in the left upper lung. PLEURA: There is no pleural thickening or pleural effusion. MEDIASTINUM: The heart and great vessels demonstrate no acute abnormality. There is no mediastinal or hilar lymph adenopathy. The left vertebral artery arises directly from the aortic arch. This is a normal variant. There is a right-sided [id number] in place. AXILLAE: Within normal limits. No lymphadenopathy. SKELETAL: There is a focal sclerotic bone lesion at the posterior right lateral T12 vertebral body. MISCELLANEOUS: The patient is to have a CT of the abdomen and pelvis to follow. CONCLUSION: 1. Sclerotic lesion at T12. 2. Calcified granuloma left upper lobe. Clyde Kelly MD on September 14, 2017 at 22:14 Board Certified Radiologist. This report was verified electronically.
--- NOTE | 2017-09-14 22:53 | RC ---
cc: WILI KHALIL M.D., AWAIS ALVAREZ-FARINETTI,FLORENTIN NATARAJAN,YVES Ling M.D. DATE OF SERVICE: 09/14/2017. DIAGNOSIS: Metastatic colon carcinoma. STAGE: Stage IV CHIEF COMPLAINT: Intractable headaches, double vision. REASON FOR VISIT: The patient is being evaluated for palliative radiotherapeutic treatment options. HISTORY OF PRESENT ILLNESS: This is a 56-year white male known to me as I treated him with concomitant chemoradiotherapy to the pelvis for a rectal mass. The patient also has been treated for palliation of pain in the lumbar spine. The patient states that for a few weeks he has started to have headaches, which have been increasing in nature. It got to the point that he could not take them any more and he came to the hospital. Imaging studies were performed which had detected a clivus mass. There was also some soft tissue component. As a result of this, Dr. Perez called me to see if I could evaluate the patient for palliative treatment options. I discussed this case today with Dr. Perez as well as with Dr. Khalil, who stated that there are no surgical options for the patient at the present time. Also, I have discussed this case with Dr. Brunner from hospice care. He was present in the room during my discussion with the patient and the family. PAST MEDICAL HISTORY: 1. History of pelvic surgery. 2. History of knee surgery in 1986. 3. Tonsillectomy in 1963. 4. Vasectomy in 1988. 5. Finger surgery in 1994. MEDICATIONS: 1. Magnesium oxide. 2. Potassium bicarbonate. 3. Dexamethasone. 4. Sodium chloride. 5. Senna. 6. Piperacillin. 7. Hydromorphone. 8. Oxycodone. 9. Acetaminophen. 10. Naloxone. 11. Ondansetron. ALLERGIES: NO KNOWN DRUG ALLERGIES. FAMILY HISTORY: Family history is as recorded in the electronic medical record. SOCIAL HISTORY: As previous recorded in the electronic medical record. REVIEW OF SYSTEMS: CONSTITUTIONAL: The patient states that he has no decrease in appetite or loss of weight. He just has general malaise due to the present condition and he is very uncomfortable. ALLERGIES: The patient has not had a major allergic reaction recently. EYES: Double vision on the right. Pain in the right eye. ENT: Unremarkable. NECK: Unremarkable. INTEGUMENTARY: Unremarkable. CARDIOVASCULAR: Unremarkable. The patient denies any chest pain. RESPIRATORY: Unremarkable. The patient denies any hemoptysis. GASTROINTESTINAL: Unremarkable. The patient denies any bleeding. GENITOURINARY: Unremarkable. The patient denies any hematuria or painful urination. MUSCULOSKELETAL: The patient denies any muscle pain. He admits to pain in the head, which is intolerable. PSYCHIATRIC: Unremarkable. ENDOCRINE: Unremarkable. HEMATOLOGIC: Unremarkable. DERMATOLOGIC: Unremarkable. PHYSICAL EXAMINATION: GENERAL: The patient is oriented times three and in distress and discomfort due to his present condition. PAIN SCALE: The patient rates his pain as a 10/10. VITAL SIGNS: Temperature 98.2, pulse is 76, respiratory rate 18, blood pressure 128/67, pulse oximetry 97% on room air. BACK: To deep palpation and percussion of the posterior back, no pain was elicited. LUNGS: Bilateral lungs were clear to auscultation with appropriate ventilatory respiratory effort. HEART: Regular in rate and rhythm. No murmurs. NECK: Palpation of the neck and bilateral supraclavicular areas are free. EYES: There is photophobia. The patient also has double vision in the right eye. Ocular movements are intact. ABDOMEN: To palpation of the abdominal cavity there is no hepatosplenomegaly and no pain elicited. EXTREMITIES: Negative. NEUROLOGIC: Double vision, otherwise no motor function deficits. No cognitive function deficits. No other positive findings. IMAGING STUDIES: MRI of the brain 09/12/2017, IMPRESSION: Abnormal marrow most characteristic of metastatic bone disease. There may be some extension of tumor into the soft tissues posterior and superior to the clivus and anterior to the jakob but without compression. Abnormal soft tissue mass measuring 1.5 x 1.1 x 1.5 cm. The differential diagnosis includes metastasis of the entire mass. MRI of the pelvis on 07/23/2017, IMPRESSION: Multiple scattered bony lesions in the pelvis indicating bony metastatic disease. No significant interval change since 11/14/2015. PET scan 07/18/2017, IMPRESSION: Sclerotic lesions in the left iliac bone and L4 vertebral body highly suspicious for metastatic disease even though they did not demonstrate any abnormal FDG uptake, could be further characterized with whole body scan or pelvic/lumbar MRI with intravenous contrast if indicated clinically. ASSESSMENT: A 56-year-old white male diagnosed with metastatic colon carcinoma. The patient now with metastasis to the clivus with double vision and symptomatic. The patient is being evaluated for palliative radiotherapeutic treatment options. PLAN: As above. I discussed this case today with Dr. Potter and Dr. Khalil from neurosurgery as well as the palliative physician. I have reviewed Dr. Perez's note from 09/06/2017. I have advised the patient of doing palliative radiation therapy to his clivus and soft tissue component. I would prefer to have used radiosurgery but this will take at least two weeks before I can deliver the radiation therapy and he is in a lot of discomfort at this point is not time so I do not think it would be appropriate to wait. In this case, I have recommended for the patient to consider radiation therapy for palliation to the clivus using pulsed laterals. He understands that this might prevent me from coming back or hinder the ability of coming back and doing more radiation therapy if I need to in the future. At this point, I think it is appropriate due to the discomfort and the symptoms that the patient is having. I advised him of the side effects and complications of treatment to include but not be limited to weakness and fatigue, decreased blood counts, edema of the skin, necrosis of the skin, loss of hair which may be permanent, decreased vision, loss of vision, difficulty and pain with swallowing, nausea and vomiting. After a thorough discussion, he understood everything that was explained. He wants to move forward with treatment so the patient is to return today for simulation and treatment today. He will continue treatments on Sunday and hopefully complete it by Sunday. The patient is to come down for consent. All of his questions were answered. The patient was advised that if I can be of any further assistance to please let me know otherwise we will proceed as above. Dr. Perez, thank you very much for placing this consult and for allowing me to participate in this patient's care. Should you have any further questions or concerns, please do not hesitate to contact me. Florentin Garcia MD Radiation Oncologist KACY/AURELIANO /10:43 AM /10:23 PM
--- NOTE | 2017-09-14 23:17 | MB ---
cc: CANDICE BRADY DATE OF CONSULTATION 09/14/17 DATE OF 1960. REASON FOR CONSULTATION Patient with a diagnosis of stage IV colon colorectal adenocarcinoma who is being admitted with severe headaches. HISTORY OF PRESENT ILLNESS Mr. Mckeon is a 56-year-old male who has a past medical history of colorectal adenocarcinoma which was diagnosed in May of 2017. He had presented with GI symptoms and he underwent sigmoidoscopy. He was having abdominal pain and rectal bleeding. Colonoscopy revealed a 7 cm long circumferential mass in the lower cecum starting at the dentate line. Biopsy confirmed invasive adenocarcinoma. Unfortunately, the patient had metastatic disease on presentation. There were two lesions in the right lower lobe of the liver. CT scan confirmed a focal lesion in the right lobe of the liver which was hypermetabolic with an SUV of 15.3. He also had increased activity in the lower sacral area in the distal sigmoid colon which was hypermetabolic and there was also diffuse metabolic activity along the spine in the right ischium. He underwent MRI of his lumbar spine which showed intense activity at the lateral aspect of the T2 and the posterior aspect of the L4-5 vertebral body. He has received radiation treatments to the spine as well as to the cecal lesion. The patient has undergone multiple lines of treatment including initial treatment with FOLFOX followed by Xeloda and irinotecan and then he was on single-agent swollen. He developed side effects from Xeloda including lower extremity swelling and he preferred to be treated with single-agent 5-FU infusions instead. He was on 5-FU infusions for some time. The patient was also being followed by Dr. Gannon. He had good treatment response with resolution of his lesions in the liver as well as no evidence of hypermetabolic lesions in the spine. He underwent sigmoidoscopy and there was an area of inflammation in the sigmoid colon. This was biopsied which was confirmed to be adenocarcinoma. Since he had limited disease and he was having symptoms of rectal pain an APR resection was planned. However, he developed severe headache and MRI of the brain was obtained which unfortunately shows metastatic disease to the clivus bone. There is also a mass in the sella. The patient has been having excruciating headaches and he had double vision in his left eye. He was sent to the emergency room and has been admitted to the hospital. He has been started on IV steroids and pain control. His pain has been controlled with Percocet. He has been seen by Dr. Gannon. The patient has been having significant rectal pain. There has been more liquid drainage. There is concern for impending abscess. He has been starting on antibiotics. The plans are to decompress his distal sigmoid and rectum for palliative reasons. His ECOG performance status is zero. REVIEW OF SYSTEMS A comprehensive 14-point review of systems was completed which is negative except as described in the HPI. PAST MEDICAL HISTORY 1. Colorectal cancer, 2. Benign prostatic hypertrophy 3. Peripheral neuropathy. 4. Intermittent bilateral lower extremity swelling. PAST SURGICAL HISTORY 1. Multiple colonoscopies and sigmoidoscopies 2. Biopsy of the colon lesion 3. Diverting colostomy. MEDICATIONS 1. Ativan p.r.n. 2. Dexamethasone 4 mg IV q.6 h 3. Senna Docusate 1 tablet p.o. b.i.d. 4. Zosyn q.6 h IV 5. Dilaudid 0.5 mg IV q.4 h p.r.n. 6. Lovenox 40 mg subcu 24 hours 7. Percocet 10/325 1 tablet p.o. q.4 h p.r.n. 8. Zofran 4 mg IV q.6 h p.r.n. 9. Milk of magnesia 10. Senna 11. 12. Lactulose ALLERGIES No allergies FAMILY HISTORY Noncontributory to this admission. SOCIAL HISTORY He is . He does not smoke cigarettes. He does not drink alcohol. No illicit drug use. PHYSICAL EXAMINATION VITAL SIGNS: Blood pressure is 128/67, pulse is in the 70s, temperature is 98.2. GENERAL: Well-developed, well-nourished male who appears to be in mild distress. He is photophobic. His eyes are covered. HEENT: Pupils are equal, round, reactive to light. EOMI. No thrush. No oral lesions. NECK: Supple. No JVD, no bruits. No lymphadenopathy. CHEST: Clear to auscultation bilaterally. CARDIAC: S1-S2 regular rate and rhythm. ABDOMEN: Soft, nontender, nondistended. Bowel sounds are present. EXTREMITIES: Without any edema, erythema or cyanosis. SKIN: Without any petechiae, lesion or bruises. NEUROLOGIC: No focal deficits. PSYCHIATRIC: Mood and affect is appropriate. LABORATORY DATA WBC is 7.6, hemoglobin is 13.9, platelet count is 217. Serum chemistries show sodium of 145, potassium 3.1, chloride 116, CO2 20.5, anion gap is nine, BUN is 8, creatinine is 0.54, GFR is 157, calcium is 6.2, total protein is 5.1, TSH is normal at 0.997. Coags - PT is 11.4, INR 1.1, PTT 30.7. IMAGING STUDIES Brain MRI was reviewed. ASSESSMENT AND PLAN This is a 56-year-old male who has a diagnosis of stage IV colorectal cancer who presents to the emergency department with severe headaches. 1. 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 There is also a sellar/suprasellar mass. The clivus bone lesions appear to be metastatic cancer with likely primary colon. The sellar lesion does not appear to be atypical colon cancer mats. 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 I have discussed this case with Dr. Mcrae, radiation oncology. We will consider SRS treatments to the clivus bone. I has also asked Dr. Potter with neurosurgery to see this patient. I do not think the clivus bone lesions are resectable, but if the pituitary adenoma is causing the headaches, we would ask neurosurgery opinion about possible resection. I agree with continued IV steroids, pain control, antiemetics and IV hydration. 2. Hypokalemia, replace potassium. 3. Hypocalcemia. Replace calcium. 4. Stage IV colorectal cancer with possible rectal abscess. Dr. Gannon plans to perform surgery next week for palliative reasons and to drain the possible abscess. I will discuss further systemic therapy outpatient. 5. Continue supportive care over the weekend. Thank you for allowing me to participate in the care of this patient. I will continue to follow this patient along. MD MOHAN Acosta/ /10:12 PM /10:43 PM
[2017-09-15] VITALS (9 sets, daily range): BP systolic 107–152; BP diastolic 53–72; PULSE 62–77; RESP 18–20; TEMP 97.3–98.5; O2SAT 93–97
[2017-09-15] MEDS: oxyCODONE/ACETAMINOPHEN 10 MG/325 MG TAB PO PRN ×6 (03:52→20:18)
[2017-09-15] MEDS: DEXAMETHASONE SOD PHOS 4 MG/ML VIAL IV PUSH SCH ×4 (03:53→20:15)
[2017-09-15] MEDS: PIPERACIL-TAZO 4.5 GM PREMIX 100 ML IV SCH ×4 (06:14→17:45)
[2017-09-15] MEDS: SODIUM CHLORIDE 0.9% FLUSH 10 ML FLUSH IV FLUSH SCH ×2 (08:19→21:00)
[2017-09-15] MEDS: DOCUSATE SODIUM 50 MG/SENNA 8.6 MG TAB PO SCH ×2 (08:23→21:00)
--- NOTE | 2017-09-15 09:18 | HHI.PR ---
Subjective Remarks Still with headaches and patient deficit. No fever or chills. No focal deficit. Has rectal discharge, says at times he has some bleeding. Associated at times however tolerating full. Objective Vitals Vital Signs Date Time Temp Pulse Resp B/P (MAP) Pulse Ox O2 Delivery O2 Flow Rate FiO2 09/15/17 04:19 98.1 75 20 121/67 (85) 97 09/15/17 00:42 98.3 77 20 113/58 (76) 95 09/14/17 21:25 77 09/14/17 20:41 98.1 69 20 127/72 (90) 95 09/14/17 19:50 Room Air 09/14/17 16:00 98.7 76 18 131/60 (83) 98 09/14/17 14:31 68 I/O 09/14/17 09/14/17 09/14/17 09/15/17 09/15/17 09/15/17 07:00 15:00 23:00 07:00 15:00 23:00 Intake Total 100 ml 100 ml Output Total 350 ml 875 ml 700 ml Balance 100 ml -250 ml -875 ml -700 ml Intake IV Total 100 ml 100 ml Output Urine Total 350 ml 875 ml 700 ml Result Diagram: 09/14/17 0645 09/14/17 0645 Imaging Last Impressions Chest CT 09/14/17 0000 Signed Impressions: Service Date/Time: Thursday, September 14, 2017 20:43 - CONCLUSION: 1. Sclerotic lesion at T12. 2. Calcified granuloma left upper lobe. Clyde Kelly MD Abdomen/Pelvis CT 09/14/17 0000 Signed Impressions: Service Date/Time: Thursday, September 14, 2017 20:43 - CONCLUSION: 1. Left diverting colostomy with some minimal surrounding induration. 2. Hepatic steatosis. 3. Multiple sclerotic bone lesions. 4. Persistent circumferential thickening of the inferior rectum and anus. 5. Small gallstones. 6. Cystic change in the central left kidney representing parapelvic cysts or moderate dilatation of the collecting system. Clyde Kelly MD Objective Remarks GENERAL: This is a well-nourished, well-developed patient drowsy after receiving Dilaudid CARDIOVASCULAR: Regular rate and rhythm without murmurs, gallops, or rubs. RESPIRATORY: Clear to auscultation. Breath sounds equal bilaterally. No wheezes , rales, or rhonchi. GASTROINTESTINAL: Abdomen soft, non-tender, nondistended. colostomy present MUSCULOSKELETAL: Extremities without clubbing, cyanosis, or edema. No joint tenderness, effusion, or edema noted. No calf tenderness. Negative Homans sign bilaterally. NEUROLOGICAL: Drowsy able to awake. Motor and sensory grossly within normal limits. Five out of 5 muscle strength in all muscle groups. Normal speech. A/P Problem List: (1) Headache ICD Code: R51 - Headache (2) Colon cancer ICD Code: C18.9 - Malignant neoplasm of colon, unspecified Status: Acute (3) Intractable pain ICD Code: R52 - Pain, unspecified Status: Acute Assessment and Plan Mr. 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 Patient follows with Dr. Perez for oncology chemotherapy is currently on hold for pending colorectal surgery. Patient follows with Dr. Gannon colorectal surgery and was planning to have surgery today which was put on hold due to headache and outpatient MRI which showed possible metastatic disease. Patient reports double vision and severe global headache worsening over 1 week. Headache Intractable pain Outpatient MRI revealed mass in brain concern for mets Decadron Percocet and IV Dilaudid for pain management. Monitor VS closely while on narcotics. neurosurgery consultation, appreciate recommendations, patient to have radiation therapy as chosen treatment for now, might consider surgical intervention however with risk Radiation oncology following with radiation treatment will probably finish radiation treatment on Sunday09/19/17 consult palliative care ff Colorectal cancer with mets Rectal abscess Chemo therapy on hold Consult to colorectal surgery, per Dr. Camarena the colorectal surgeon, he recommended Painting catheter for possible urinary retention due to the mass, and starting broad-spectrum antibiotics for the rectal abscess. Starte Rx for cranial metastasis and chemo again to shrink Rectal Cancer. May need dilation or flex sig eventually by Dr Gannon Also recommended consult palliative care, ff. Patient/family wants aggressive Rx at this time DCT prophylaxis with Lovenox Discussed Condition With Patient, nurse, family at bedside Lesa Hurley MD Sep 15, 2017 09:18
[2017-09-15] MEDS ORDERED: ACETAMINOPHEN 325 MG TAB PO PRN (14:15)
[2017-09-15] MEDS: ENOXAPARIN SODIUM 40 MG/0.4 ML SYRINGE SQ SCH (17:44)
[2017-09-15 18:45] LABS: BICARBONATE 28.2 MEQ/L (21.0-32.0); POTASSIUM 3.9 MEQ/L (3.5-5.1)
[2017-09-16] MEDS: oxyCODONE/ACETAMINOPHEN 10 MG/325 MG TAB PO PRN ×6 (00:23→20:30)
[2017-09-16] MEDS: PIPERACIL-TAZO 4.5 GM PREMIX 100 ML IV SCH ×4 (00:30→18:16)
[2017-09-16 04:00] VITALS: BP 131/70; PULSE 50; RESP 20; TEMP 97.6; O2SAT 98
[2017-09-16] MEDS: DEXAMETHASONE SOD PHOS 4 MG/ML VIAL IV PUSH SCH ×4 (04:37→20:34)
[2017-09-16 07:13] LABS: AUTOMATED NEUTROPHIL # 8.7 TH/MM3 (1.8-7.7); BASOPHIL % 0.1 % (0.0-2.0); HEMATOCRIT 39.9 % (39.0-51.0); HEMO FLAGS DIFF FINAL; LYMPH % 4.4 % (9.0-44.0); LYMPHOCYTE # 0.4 TH/MM3 (1.0-4.8); MEAN CELL VOLUME 92.5 FL (80.0-100.0); MEAN CORPUSCULAR HEMOGLOBIN 31.7 PG (27.0-34.0); MEAN CORPUSCULAR HGB CONC 34.3 % (32.0-36.0); NEUT % 89.5 % (16.0-70.0); PLATELET COUNT 219 TH/MM3 (150-450); RED BLOOD COUNT 4.32 MIL/MM3 (4.50-5.90); RED CELL DISTRIBUTION WIDTH 13.4 % (11.6-17.2); WHITE BLOOD COUNT 9.7 TH/MM3 (4.0-11.0)
[2017-09-16 08:00] VITALS: BP 123/66; PULSE 55; RESP 18; TEMP 98.2; O2SAT 98
[2017-09-16] MEDS: DOCUSATE SODIUM 50 MG/SENNA 8.6 MG TAB PO SCH ×2 (08:36→20:33)
[2017-09-16] MEDS: SODIUM CHLORIDE 0.9% FLUSH 10 ML FLUSH IV FLUSH SCH ×2 (08:39→20:34)
--- NOTE | 2017-09-16 10:26 | HHI.PR ---
Subjective Remarks In bed appears in distress due to headaches. With vision deficit. Had projectile vomiting last night. Was not able to eat much in the morning. Plan for MRI today. No new motor deficit. Objective Vitals Vital Signs Date Time Temp Pulse Resp B/P (MAP) Pulse Ox O2 Delivery O2 Flow Rate FiO2 09/16/17 08:00 98.2 55 18 123/66 (85) 98 09/16/17 04:00 97.6 50 20 131/70 (90) 98 09/15/17 23:58 98.3 62 20 112/55 (74) 97 09/15/17 21:25 68 09/15/17 20:22 Room Air 09/15/17 20:00 98.3 67 20 118/60 (79) 97 09/15/17 16:00 97.7 66 18 137/72 (93) 96 09/15/17 12:00 98.5 67 18 107/53 (71) 97 I/O 09/15/17 09/15/17 09/15/17 09/16/17 09/16/17 09/16/17 07:00 15:00 23:00 07:00 15:00 23:00 Intake Total 100 ml 240 ml Output Total 700 ml Balance -700 ml 100 ml 240 ml Intake Oral 240 ml IV Total 100 ml Output Urine Total 700 ml # Voids 1 1 Result Diagram: 09/16/17 0630 09/16/17 0630 Imaging Last Impressions Chest CT 09/14/17 0000 Signed Impressions: Service Date/Time: Thursday, September 14, 2017 20:43 - CONCLUSION: 1. Sclerotic lesion at T12. 2. Calcified granuloma left upper lobe. Clyde Kelly MD Abdomen/Pelvis CT 09/14/17 0000 Signed Impressions: Service Date/Time: Thursday, September 14, 2017 20:43 - CONCLUSION: 1. Left diverting colostomy with some minimal surrounding induration. 2. Hepatic steatosis. 3. Multiple sclerotic bone lesions. 4. Persistent circumferential thickening of the inferior rectum and anus. 5. Small gallstones. 6. Cystic change in the central left kidney representing parapelvic cysts or moderate dilatation of the collecting system. Clyde Kelly MD Objective Remarks GENERAL: This is a well-nourished, well-developed patient drowsy after receiving Dilaudid CARDIOVASCULAR: Regular rate and rhythm without murmurs, gallops, or rubs. RESPIRATORY: Clear to auscultation. Breath sounds equal bilaterally. No wheezes , rales, or rhonchi. GASTROINTESTINAL: Abdomen soft, non-tender, nondistended. colostomy present MUSCULOSKELETAL: Extremities without clubbing, cyanosis, or edema. No joint tenderness, effusion, or edema noted. No calf tenderness. Negative Homans sign bilaterally. NEUROLOGICAL: Drowsy able to awake. Motor and sensory grossly within normal limits. Five out of 5 muscle strength in all muscle groups. Normal speech. A/P Problem List: (1) Headache ICD Code: R51 - Headache (2) Colon cancer ICD Code: C18.9 - Malignant neoplasm of colon, unspecified Status: Acute (3) Intractable pain ICD Code: R52 - Pain, unspecified Status: Acute Assessment and Plan Mr. 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 Patient follows with Dr. Perez for oncology chemotherapy is currently on hold for pending colorectal surgery. Patient follows with Dr. Gannon colorectal surgery and was planning to have surgery today which was put on hold due to headache and outpatient MRI which showed possible metastatic disease. Patient reports double vision and severe global headache worsening over 1 week. Headache Intractable pain Outpatient MRI revealed mass in brain concern for mets Decadron Percocet and IV Dilaudid for pain management. Monitor VS closely while on narcotics. neurosurgery consultation, appreciate recommendations, patient to have radiation therapy as chosen treatment for now, might consider surgical intervention however with risk Radiation oncology following with radiation treatment will probably finish radiation treatment on Sunday09/19/17 consult palliative care ff Colorectal adenocarcinoma with mets Rectal abscess Chemo therapy on hold Consult to colorectal surgery, per Dr. Camarena the colorectal surgeon, he recommended Painting catheter for possible urinary retention due to the mass, and starting broad-spectrum antibiotics for the rectal abscess. Starte Rx for cranial metastasis and chemo again to shrink Rectal Cancer. May need dilation or flex sig eventually by Dr Gannon Also recommended consult palliative care, ff. Patient/family wants aggressive Rx at this time Plan for MRI spine/pelvic today. Plan for simulation 09/17 DCT prophylaxis with Lovenox Discussed Condition With Patient, nurse, family at bedside Lesa Hurley MD Sep 16, 2017 10:26
--- NOTE | 2017-09-16 10:38 | PD.ONC.PN ---
Subjective Subjective Remarks Afebrile overnight. Patient resting in bed. Continues to have pain in eyes with light, so he has been keeping a cloth over his eyes. Also complaining of back pain present for the last several weeks. Yesterday he had some "hallucinations" out of the corner of his left eye for a few hours. Objective Data Date Time Temp Pulse Resp B/P (MAP) Pulse Ox O2 Delivery O2 Flow Rate FiO2 09/16/17 08:00 98.2 55 18 123/66 (85) 98 09/16/17 04:00 97.6 50 20 131/70 (90) 98 09/15/17 23:58 98.3 62 20 112/55 (74) 97 09/15/17 21:25 68 09/15/17 20:22 Room Air 09/15/17 20:00 98.3 67 20 118/60 (79) 97 09/15/17 16:00 97.7 66 18 137/72 (93) 96 09/15/17 12:00 98.5 67 18 107/53 (71) 97 Result Diagram: 09/16/17 0630 09/16/17 0630 Laboratory Results Laboratory Tests Test 09/15/17 18:15 09/16/17 06:30 Blood Urea Nitrogen 16 MG/DL 16 MG/DL Creatinine 0.98 MG/DL 0.94 MG/DL Random Glucose 135 MG/DL 103 MG/DL Calcium Level 8.8 MG/DL 8.5 MG/DL Sodium Level 141 MEQ/L 139 MEQ/L Potassium Level 3.9 MEQ/L 4.0 MEQ/L Chloride Level 104 MEQ/L 105 MEQ/L Carbon Dioxide Level 28.2 MEQ/L 27.0 MEQ/L Anion Gap 9 MEQ/L 7 MEQ/L Estimat Glomerular Filtration Rate 79 ML/MIN 83 ML/MIN White Blood Count 9.7 TH/MM3 Red Blood Count 4.32 MIL/MM3 Hemoglobin 13.7 GM/DL Hematocrit 39.9 % Mean Corpuscular Volume 92.5 FL Mean Corpuscular Hemoglobin 31.7 PG Mean Corpuscular Hemoglobin Concent 34.3 % Red Cell Distribution Width 13.4 % Platelet Count 219 TH/MM3 Mean Platelet Volume 9.0 FL Neutrophils (%) (Auto) 89.5 % Lymphocytes (%) (Auto) 4.4 % Monocytes (%) (Auto) 6.0 % Eosinophils (%) (Auto) 0.0 % Basophils (%) (Auto) 0.1 % Neutrophils # (Auto) 8.7 TH/MM3 Lymphocytes # (Auto) 0.4 TH/MM3 Monocytes # (Auto) 0.6 TH/MM3 Eosinophils # (Auto) 0.0 TH/MM3 Basophils # (Auto) 0.0 TH/MM3 CBC Comment DIFF FINAL Differential Comment Administered Medications Medications (Trade) Dose Ordered Sig/Ajson Route PRN Reason Start Time Stop Time Status Last Admin Dose Admin Sodium Chloride (NS Flush) 2 ml BID IV FLUSH 09/13/17 21:00 09/16/17 08:39 Ondansetron HCl (Zofran Inj) 4 mg Q6H PRN IVP NAUSEA OR VOMITING 09/13/17 17:15 09/14/17 00:22 Senna/Docusate Sodium (Mendy-Colace) 1 tab BID PO 09/13/17 21:00 09/13/17 20:10 Oxycodone/ Acetaminophen (Percocet 10-325 Mg) 1 tab Q4H PRN PO pain 6-10 09/13/17 17:30 09/16/17 08:34 Dexamethasone Sodium Phosphate (Decadron Inj) 4 mg Q6H IV PUSH 09/14/17 09:00 09/16/17 08:35 Enoxaparin Sodium (Lovenox Inj) 40 mg Q24H SQ 09/13/17 18:00 09/15/17 17:44 Piperacillin Sod/ Tazobactam Sod 100 ml @ 200 mls/hr Q6H IV 09/13/17 18:45 09/16/17 06:32 Acetaminophen (Tylenol) 650 mg Q4H PRN PO FEVER/HEADACHE/PAIN 1-2 09/15/17 14:15 09/15/17 15:02 Objective Remarks GENERAL: Chronically ill appearing male supine in bed with cloth over his eyes in a dark room. SKIN: Warm and dry. HEAD: Normocephalic. EYES: No injection or drainage. NECK: Supple, trachea midline. CARDIOVASCULAR: Regular rate and rhythm RESPIRATORY: anterior narayan clear. GASTROINTESTINAL: Abdomen distended. ostomy bag in place, empty. EXTREMITIES: No cyanosis NEUROLOGICAL: awake and alert, normal speech. Assessment/Plan Problem List: (1) Brain metastases ICD Codes: C79.31 - Secondary malignant neoplasm of brain Plan: ++Metastatic disease to the brain involving the clivus bone. There is also a sellar/suprasellar mass. The clivus bone lesions appear to be metastatic cancer with likely primary colon. The sellar lesion does not appear to be atypical colon cancer mats. --radiation oncology following and plans to simulate next week. (2) Colon cancer ICD Codes: C18.9 - Malignant neoplasm of colon, unspecified Status: Acute Plan: History: --diagnosed in May of 2017. presented with GI symptoms and he underwent sigmoidoscopy revealed a 7 cm long circumferential mass in the lower cecum starting at the dentate line. Biopsy confirmed invasive adenocarcinoma. Unfortunately, the patient had metastatic disease on presentation.++two lesions in the right lower lobe of the liver. also had increased activity in the lower sacral area in the distal sigmoid colon which was hypermetabolic and there was also diffuse metabolic activity along the spine in the right ischium. --MRI of his lumbar spine showed intense activity at the lateral aspect of the T2 and the posterior aspect of the L4-5 vertebral body. --has received radiation treatments to the spine as well as to the cecal lesion. --has undergone multiple lines of treatment including initial treatment with FOLFOX followed by Xeloda and irinotecan and then he was on single-agent xeloda , then single-agent 5-FU --had good treatment response with resolution of his lesions in the liver as well as no evidence of hypermetabolic lesions in the spine. --underwent sigmoidoscopy and there was an area of inflammation in the sigmoid colon. This was biopsied which was confirmed to be adenocarcinoma. --Since he had limited disease and he was having symptoms of rectal pain an APR resection was planned. However, he developed severe headache and MRI of the brain was obtained which unfortunately shows metastatic disease to the clivus bone. There is also a mass in the sella. The patient has been having excruciating headaches and he had double vision in his left eye. (3) Rectal abscess ICD Codes: K61.1 - Rectal abscess Status: Acute Plan: --has been increased liquid drainage. --concern for impending abscess. --on antibiotics. --The plans are to decompress his distal sigmoid and rectum for palliative reasons. Assessment 56y/o male with stage IV colon colorectal adenocarcinoma who is being admitted with severe headaches. Plan 1. obtain MRI T, L, Sacrum spine re: pain, mets 2. simulation tomorrow 3. continue antibiotics, supportive care. Attending Statement The exam, history, and the medical decision-making described in the above note were completed with the assistance of the mid-level provider. I reviewed and agree with the findings presented. I attest that I had a teyx-dw-haes encounter with the patient on the same day, and personally performed and documented my assessment and findings in the medical record. Pleasant man, covering eyes to avoid the visual impulses. Now resolved. s/p MRI, pending results. Comfortable, family members at bedside. No new complaints. Paige Serrano Sep 16, 2017 10:38 Anne Marie Lawler MD Sep 16, 2017 14:36
[2017-09-16 11:07] VITALS: O2SAT 98
[2017-09-16 12:00] VITALS: BP 128/67; PULSE 62; RESP 18; TEMP 98.4; O2SAT 98
[2017-09-16] MEDS ORDERED: ACETAMINOPHEN/HYDROcodone 325 MG/5 MG TAB PO ONE (13:00)
[2017-09-16] MEDS ORDERED: GADODIAMIDE PF 287 MG/ML 20 ML VIAL (for RAD MRI) IVCONTRAST ONE (13:36)
--- NOTE | 2017-09-16 14:51 | RADRPT ---
EXAM DATE/TIME: 09/16/2017 13:04 [facility] COMPARISON: No previous studies available for comparison. INDICATIONS : Metastatic disease. CONTRAST: 20 cc Omniscan (gadodiamide) IV MEDICAL HISTORY : Metastatic, liver. Carcinoma, colon. Metastatic, bone. SURGICAL HISTORY : Colon resection. Orthopedic. ENCOUNTER: Initial ACUITY: 1 month PAIN SCORE: 5/10 LOCATION: [facility] TECHNIQUE: Screening MRI of the entire spinal axis was performed in the sagittal and axial planes. FINDINGS: Numerous scattered rounded foci of bone marrow signal abnormality are seen throughout the cervical, t horacic, and lumbar spine, also involving the sacrum. The abnormalities involve every level of the sp ine. Vertebral body height and shape within normal limits. No evidence of fracture. Left-sided disc osteophyte complex at C6-7 resulting in mild central canal narrowing with effacement of the CSF anteriorly. Posteriorly CSF remains visible. Left lateral disc protrusion at C3-4 resultin g in moderate left neural foraminal narrowing. Central canal diameter is within normal limits at all other levels. Spinal cord signal within normal limits. CONCLUSION: 1. Diffuse bony metastatic disease of the spine. No extension of metastatic disease into the central canal identified. 2. Degenerative findings of the cervical spine at C3-4 and C6-7 with mild central canal narrowing at C6-7. Moderate left neural foraminal narrowing at C3-4. Robbi Chavez MD on September 16, 2017 at 14:44 Board Certified Radiologist. This report was verified electronically.
[2017-09-16 16:00] VITALS: BP 132/69; PULSE 61; RESP 18; TEMP 98.4; O2SAT 96
[2017-09-16] MEDS: ENOXAPARIN SODIUM 40 MG/0.4 ML SYRINGE SQ SCH (18:05)
[2017-09-16 20:00] VITALS: BP 122/59; PULSE 62; RESP 20; TEMP 97.9; O2SAT 97
[2017-09-17] VITALS (8 sets, daily range): BP systolic 113–150; BP diastolic 56–84; PULSE 60–90; RESP 18–20; TEMP 97.8–98.5; O2SAT 96–98
[2017-09-17] MEDS: oxyCODONE/ACETAMINOPHEN 10 MG/325 MG TAB PO PRN ×6 (00:40→21:51)
[2017-09-17] MEDS: PIPERACIL-TAZO 4.5 GM PREMIX 100 ML IV SCH ×3 (00:40→11:30)
[2017-09-17] MEDS: DEXAMETHASONE SOD PHOS 4 MG/ML VIAL IV PUSH SCH ×3 (04:27→13:12)
[2017-09-17] MEDS: LORazepam 2 MG TAB PO PRN ×3 (07:28→21:50)
[2017-09-17] MEDS: SODIUM CHLORIDE 0.9% FLUSH 10 ML FLUSH IV FLUSH SCH ×2 (07:29→21:50)
[2017-09-17] MEDS: DOCUSATE SODIUM 50 MG/SENNA 8.6 MG TAB PO SCH ×2 (07:33→21:00)
--- NOTE | 2017-09-17 11:09 | HHI.PR ---
Subjective Remarks Patient sleeping at this time. The patient was sen later. He did not have a good night sleep. However he is more awake, family and daughters at bedside. Patient appears happy and has a tremendous family support. Discussed MRI findings. Patient says she has headache and he is anxious. However he is refusing any other pain meds says he feels nauseated with dilaudid. Discussed with Palliative care will also give ativan for anxiety. Patient also complaints of back pain. No more nausea, able to tolerate food. Objective Vitals Vital Signs Date Time Temp Pulse Resp B/P (MAP) Pulse Ox O2 Delivery O2 Flow Rate FiO2 09/17/17 09:31 97 09/17/17 09:02 98.2 64 18 113/62 (79) 97 09/17/17 08:49 18 09/17/17 08:00 90 09/17/17 07:00 97 Room Air 09/17/17 04:00 97.8 83 20 136/56 (82) 98 09/16/17 20:00 97.9 62 20 122/59 (80) 97 09/16/17 20:00 96 Room Air 09/16/17 16:00 98.4 61 18 132/69 (90) 96 09/16/17 12:00 98.4 62 18 128/67 (87) 98 I/O 09/16/17 09/16/17 09/16/17 09/17/17 09/17/17 09/17/17 07:00 15:00 23:00 07:00 15:00 23:00 Intake Total 100 ml 100 ml Balance 100 ml 100 ml IV Total 100 ml 100 ml # Voids 1 1 Result Diagram: 09/16/17 0630 09/16/17 0630 Imaging Last Impressions Entire Spine MRI 09/16/17 0000 Signed Impressions: Service Date/Time: Saturday, September 16, 2017 13:04 - CONCLUSION: 1. Diffuse bony metastatic disease of the spine. No extension of metastatic disease into the central canal identified. 2. Degenerative findings of the cervical spine at C3-4 and C6-7 with mild central canal narrowing at C6-7. Moderate left neural foraminal narrowing at C3-4. Robbi Chavez MD Chest CT 09/14/17 0000 Signed Impressions: Service Date/Time: Thursday, September 14, 2017 20:43 - CONCLUSION: 1. Sclerotic lesion at T12. 2. Calcified granuloma left upper lobe. Clyde Kelly MD Abdomen/Pelvis CT 09/14/17 0000 Signed Impressions: Service Date/Time: Thursday, September 14, 2017 20:43 - CONCLUSION: 1. Left diverting colostomy with some minimal surrounding induration. 2. Hepatic steatosis. 3. Multiple sclerotic bone lesions. 4. Persistent circumferential thickening of the inferior rectum and anus. 5. Small gallstones. 6. Cystic change in the central left kidney representing parapelvic cysts or moderate dilatation of the collecting system. Clyde Kelly MD Objective Remarks GENERAL: This is a well-nourished, well-developed patient drowsy after receiving Dilaudid CARDIOVASCULAR: Regular rate and rhythm without murmurs, gallops, or rubs. RESPIRATORY: Clear to auscultation. Breath sounds equal bilaterally. No wheezes , rales, or rhonchi. GASTROINTESTINAL: Abdomen soft, non-tender, nondistended. colostomy present MUSCULOSKELETAL: Extremities without clubbing, cyanosis, or edema. No joint tenderness, effusion, or edema noted. No calf tenderness. Negative Homans sign bilaterally. NEUROLOGICAL: Drowsy able to awake. Motor and sensory grossly within normal limits. Five out of 5 muscle strength in all muscle groups. Normal speech. A/P Problem List: (1) Headache ICD Code: R51 - Headache (2) Colon cancer ICD Code: C18.9 - Malignant neoplasm of colon, unspecified Status: Acute (3) Intractable pain ICD Code: R52 - Pain, unspecified Status: Acute Assessment and Plan Mr. 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 Patient follows with Dr. Perez for oncology chemotherapy is currently on hold for pending colorectal surgery. Patient follows with Dr. Gannon colorectal surgery and was planning to have surgery today which was put on hold due to headache and outpatient MRI which showed possible metastatic disease. Patient reports double vision and severe global headache worsening over 1 week. Headache Intractable pain Outpatient MRI revealed mass in brain concern for mets Decadron Percocet and IV Dilaudid for pain management. Add ativan for anxiety. Monitor VS closely while on narcotics. neurosurgery consultation, appreciate recommendations, patient to have radiation therapy as chosen treatment for now, might consider surgical intervention however with risk Radiation oncology following with radiation treatment will probably finish radiation treatment on Sunday09/19/17 consult palliative care ff Colorectal adenocarcinoma with mets Rectal abscess Chemo therapy on hold Consult to colorectal surgery, per Dr. Camarena the colorectal surgeon, he recommended Painting catheter for possible urinary retention due to the mass, and starting broad-spectrum antibiotics for the rectal abscess. Starte Rx for cranial metastasis and chemo again to shrink Rectal Cancer. May need dilation or flex sig eventually by Dr Gannon Also recommended consult palliative care, ff. Patient/family wants aggressive Rx at this time MRI spine/pelvic reviewed with mets. Plan for simulation 09/17 DCT prophylaxis with Lovenox Discussed Condition With Patient, nurse, family at bedside Lesa Hurley MD Sep 17, 2017 11:09
--- NOTE | 2017-09-17 11:50 | HHI.PR ---
Subjective Remarks Pt in darkened room with eye covering due to photophobia. Wondering about MRI findings of Spine. Has not seen his other MDs today yet. CT shows no rectal abscess just infiltration of tumor probably accounting for pain. Objective Vital Signs Date Time Temp Pulse Resp B/P (MAP) Pulse Ox O2 Delivery O2 Flow Rate FiO2 09/17/17 09:31 97 09/17/17 09:02 98.2 64 18 113/62 (79) 97 09/17/17 08:49 18 09/17/17 08:00 90 09/17/17 07:00 97 Room Air 09/17/17 04:00 97.8 83 20 136/56 (82) 98 09/16/17 20:00 97.9 62 20 122/59 (80) 97 09/16/17 20:00 96 Room Air 09/16/17 16:00 98.4 61 18 132/69 (90) 96 09/16/17 12:00 98.4 62 18 128/67 (87) 98 I/O 09/16/17 09/16/17 09/16/17 09/17/17 09/17/17 09/17/17 07:00 15:00 23:00 07:00 15:00 23:00 Intake Total 100 ml 100 ml Balance 100 ml 100 ml IV Total 100 ml 100 ml # Voids 1 1 Result Diagram: 09/16/1762909/16/17 0630 Objective Remarks VS-S Abd: benign,stoma working Assessment and Plan Assessment and Plan Rectal pain severe with increased size of rectal cancer Plan: Discussed with Dr El Perez. He will plan on restarting chemo at some point. I will do EUA,Flex sig under MAC in GI lab on Sunday AM. Doubt if it will be revealing other than already noted significant enlargement of Rectal cancer over last 4-6 weeks while off Chemo. Clyde Gannon MD Sep 17, 2017 11:50
--- NOTE | 2017-09-17 14:14 | PD.ONC.PN ---
Subjective Subjective Remarks Afebrile overnight. Patient resting in bed, very fatigued today. Did not sleep well last night and has been more fatigued since XRT was started. Still having pain in tailbone/low back area. Improved with percocet. Objective Data Date Time Temp Pulse Resp B/P (MAP) Pulse Ox O2 Delivery O2 Flow Rate FiO2 09/17/17 13:06 98.1 71 18 135/66 (89) 97 09/17/17 12:36 16 09/17/17 09:31 97 09/17/17 09:02 98.2 64 18 113/62 (79) 97 09/17/17 08:00 90 09/17/17 07:00 97 Room Air 09/17/17 04:00 97.8 83 20 136/56 (82) 98 09/16/17 20:00 97.9 62 20 122/59 (80) 97 09/16/17 20:00 96 Room Air 09/16/17 16:00 98.4 61 18 132/69 (90) 96 09/17/17 09/17/17 09/17/17 07:00 15:00 23:00 Intake Total 100 ml Balance 100 ml Result Diagram: 09/16/17 0630 09/16/17 0630 Administered Medications Medications (Trade) Dose Ordered Sig/Jason Route PRN Reason Start Time Stop Time Status Last Admin Dose Admin Sodium Chloride (NS Flush) 2 ml BID IV FLUSH 09/13/17 21:00 09/17/17 07:29 Ondansetron HCl (Zofran Inj) 4 mg Q6H PRN IVP NAUSEA OR VOMITING 09/13/17 17:15 09/14/17 00:22 Senna/Docusate Sodium (Mendy-Colace) 1 tab BID PO 09/13/17 21:00 09/13/17 20:10 Oxycodone/ Acetaminophen (Percocet 10-325 Mg) 1 tab Q4H PRN PO pain 6-10 09/13/17 17:30 09/17/17 11:30 Dexamethasone Sodium Phosphate (Decadron Inj) 4 mg Q6H IV PUSH 09/14/17 09:00 09/17/17 13:12 Enoxaparin Sodium (Lovenox Inj) 40 mg Q24H SQ 09/13/17 18:00 09/16/17 18:05 Lorazepam (Ativan) 2 mg UNSCH PRN PO SEE LABEL COMMENTS 09/14/17 17:00 09/17/17 07:28 Acetaminophen (Tylenol) 650 mg Q4H PRN PO FEVER/HEADACHE/PAIN 1-2 09/15/17 14:15 09/15/17 15:02 Objective Remarks GENERAL: Middle aged male lying in bed sleeping on approach. SKIN: Warm and dry. HEAD: Normocephalic. EYES: No injection or drainage. NECK: Supple, trachea midline. CARDIOVASCULAR: Regular rate and rhythm RESPIRATORY: Breath sounds equal bilaterally. No accessory muscle use. GASTROINTESTINAL: Abdomen soft, non-tender, nondistended. +ostomy bag in place. EXTREMITIES: No cyanosis NEUROLOGICAL: fatigued. awakens to gentle physical touch. alert and oriented to self, place and time. able to move extremities. Assessment/Plan Problem List: (1) Brain metastases ICD Codes: C79.31 - Secondary malignant neoplasm of brain Plan: ++Metastatic disease to the brain involving the clivus bone. There is also a sellar/suprasellar mass. The clivus bone lesions appear to be metastatic cancer with likely primary colon. The sellar lesion does not appear to be atypical colon cancer mats. --radiation oncology following, receiving XRT. (2) Colon cancer ICD Codes: C18.9 - Malignant neoplasm of colon, unspecified Status: Acute Plan: --plan for further chemotherapy outpatient --screening MRI shows widespread bony disease History: --diagnosed in May of 2017. presented with GI symptoms and he underwent sigmoidoscopy revealed a 7 cm long circumferential mass in the lower cecum starting at the dentate line. Biopsy confirmed invasive adenocarcinoma. Unfortunately, the patient had metastatic disease on presentation.++two lesions in the right lower lobe of the liver. also had increased activity in the lower sacral area in the distal sigmoid colon which was hypermetabolic and there was also diffuse metabolic activity along the spine in the right ischium. --MRI of his lumbar spine showed intense activity at the lateral aspect of the T2 and the posterior aspect of the L4-5 vertebral body. --has received radiation treatments to the spine as well as to the cecal lesion. --has undergone multiple lines of treatment including initial treatment with FOLFOX followed by Xeloda and irinotecan and then he was on single-agent xeloda , then single-agent 5-FU --had good treatment response with resolution of his lesions in the liver as well as no evidence of hypermetabolic lesions in the spine. --underwent sigmoidoscopy and there was an area of inflammation in the sigmoid colon. This was biopsied which was confirmed to be adenocarcinoma. --Since he had limited disease and he was having symptoms of rectal pain an APR resection was planned. However, he developed severe headache and MRI of the brain was obtained which unfortunately shows metastatic disease to the clivus bone. There is also a mass in the sella. The patient has been having excruciating headaches and he had double vision in his left eye. (3) Rectal abscess ICD Codes: K61.1 - Rectal abscess Status: Acute Plan: --has been increased liquid drainage. --Dr. Gannon planning to do EUA,Flex sig under MAC in GI lab on Sunday AM Assessment 56y/o male with stage IV colon colorectal adenocarcinoma who is being admitted with severe headaches. Plan 1. continue pain management, supportive care 2. He is hoping to be home for [facility]-->once completed radiation and cleared by Dr. Gannon patient could be discharged. He will need to follow up in clinic next week. 3. will transition steroids to PO. Attending Statement The exam, history, and the medical decision-making described in the above note were completed with the assistance of the mid-level provider. I reviewed and agree with the findings presented. I attest that I had a [id number] encounter with the patient on the same day, and personally performed and documented my assessment and findings in the medical record MRI spine reviewed with the patient has diffused mets He has been resistant to continued chemotherapy in the past Disease progressed after he insisted to be off therapy before surgery KRAS wild type tumor. He will benefit from Panitumumab. Will likely give irinotecan with it He can also benefit from anti-VEGF treatment in the future Will continue to receive bone directed treatments Long discussion with the patient his daughter was present during the conversation continue pain control XRT treatments to brain lesions ongoing Dr. Gannon to take him to OR on Sunday--discussed with him any palliative measures would be okay--even consideration of resection if needed Patient has good PFS and many lines of treatment options are available. Very likely that patient will be alive beyond one year. d/w rn o/n events reviewed Paige Serrano Sep 17, 2017 14:14 El Perez MD Sep 17, 2017 21:27
[2017-09-17] MEDS: PANTOPRAZOLE SOD 20 MG DELAYED RELEASE TAB PO SCH (14:54)
--- NOTE | 2017-09-17 16:51 | HHI.HCPN ---
Reason for visit a. To assist with evaluation and management of symptoms including: Pain, weakness, anxiety b. To assist medical decision maker(s) with: better understanding of current medical conditions; weighing benefits/burdens of medical treatment options; making medical treatment decisions. . Subjective/Interval History Follow up visit for symptom management and clarification of goals. Patient seen in his room status post radiation treatment; his eyes are covered and the room is darkened secondary to photophobia. Also present (Colleen) and daughter (Raisa); daughter ( Katiana) and grand-daughter later arrived. Patient follows Dr. Perez (oncology); they decided to put chemotherapy an hold pending colorectal surgery with Dr. Gannon on 09/14/17. However, the surgery had to be cancelled when an outpatient MRI showed possible metastatic disease. Inpatient MRI of the spine on 09/16/17 showed numerous scattered rounded foci of bone marrow signal abnormality were seen throughout the cervical, thoracic and lumbar spine, as involving the sacrum. The abnormalities involve every level of the spine. The patient reports rectal pain and global headaches that have progressively worsened. The pain is described as severe aching and pressure with associated restlessness. The patient states he feels anxious and is having difficulty sleeping at night because there is "so much talk in my head." PRN Dilaudid IV and oxycodone/acetaminophen are available every 4 hours for breakthrough pain. Patient has 6 doses of oxycodone/acetaminophen (10-326mg tablet) over the past 24 hours. Lorazepam 2mg IV is available PRN prior to radiation treatment. Patient/ states the pain has been poorly managed over the past 24 hours. We discussed various treatment options but the patient did not want to make any changes to his current orders; he was agreeable to scheduling a small dose of scheduled lorazepam for anxiety and insomnia. Initiated 5 doses of palliative radiation on 09/14/17 for the newly discovered metastatic disease with a high likelihood of improving the patient's severe pain. . Advance Directives Health Care Surrogate: Copy in medical record Durable Power of Environmental Services Floor Tech: Copy in medical record Advance Directive Specifics Date completed: 08/14/2016 . Health Care Surrogate(s): Patient's , Linn Mckeon, is designated as the patient's health care surrogate decision maker. Daughter, Katiana Jade, is designated as the alternate health care surrogate. . Documented care wishes: Dural of DURABLE POWER OF FILTER TANK TENDER and healthcare surrogate designation were completed 08/14/2016 . Objective Vital Signs Date Time Temp Pulse Resp B/P (MAP) Pulse Ox O2 Delivery O2 Flow Rate FiO2 09/17/17 13:06 98.1 71 18 135/66 (89) 97 09/17/17 12:36 16 09/17/17 09:31 97 09/17/17 09:02 98.2 64 18 113/62 (79) 97 09/17/17 08:00 90 09/17/17 07:00 97 Room Air 09/17/17 04:00 97.8 83 20 136/56 (82) 98 09/16/17 20:00 97.9 62 20 122/59 (80) 97 09/16/17 20:00 96 Room Air Intake & Output 09/17/17 09/17/17 07:00 19:00 Intake Total 100 ml Balance 100 ml IV Total 100 ml # Voids 1 . Physical Exam CONSTITUTIONAL/GENERAL: This is an adequately nourished patient with a washcloth on his face in a darkened room secondary to photophobia. TUBES/LINES/DRAINS: Colostomy, [id number] EYES: Extraocular motions intact, and I do not see any disconjugate gaze ENT: Hearing grossly normal. Nose without bleeding or purulent drainage. CARDIOVASCULAR: Regular rate and rhythm without murmurs, gallops, or rubs. No JVD. Peripheral pulses symmetric. RESPIRATORY/CHEST: Symmetric, unlabored respirations. Lungs CTA. No wheezes, rales, or rhonchi. GASTROINTESTINAL: Abdomen soft, non-tender, nondistended. Ostomy bag in place MUSCULOSKELETAL: Extremities without clubbing, cyanosis, or edema. NEUROLOGICAL: Fatigue. Patient arouses to verbal stimuli and gentle touch. He is able to answer questions, follow commands. PSYCHIATRIC: No obvious anxiety/depression. No apparent hallucinations or other psychotic thought process. . Diagnostic Tests Laboratory Laboratory Tests Test 09/15/17 06:15 09/15/17 18:15 09/16/17 06:30 Carcinoembryonic Antigen 14.0 NG/ML (0.2-5.0) Blood Urea Nitrogen 16 MG/DL (7-18) 16 MG/DL (7-18) Creatinine 0.98 MG/DL (0.60-1.30) 0.94 MG/DL (0.60-1.30) Random Glucose 135 MG/DL (74-106) 103 MG/DL (74-106) Calcium Level 8.8 MG/DL (8.5-10.1) 8.5 MG/DL (8.5-10.1) Sodium Level 141 MEQ/L (136-145) 139 MEQ/L (136-145) Potassium Level 3.9 MEQ/L (3.5-5.1) 4.0 MEQ/L (3.5-5.1) Chloride Level 104 MEQ/L (98-107) 105 MEQ/L (98-107) Carbon Dioxide Level 28.2 MEQ/L (21.0-32.0) 27.0 MEQ/L (21.0-32.0) Anion Gap 9 MEQ/L (5-15) 7 MEQ/L (5-15) Estimat Glomerular Filtration Rate 79 ML/MIN (>89) 83 ML/MIN (>89) White Blood Count 9.7 TH/MM3 (4.0-11.0) Red Blood Count 4.32 MIL/MM3 (4.50-5.90) Hemoglobin 13.7 GM/DL (13.0-17.0) Hematocrit 39.9 % (39.0-51.0) Mean Corpuscular Volume 92.5 FL (80.0-100.0) Mean Corpuscular Hemoglobin 31.7 PG (27.0-34.0) Mean Corpuscular Hemoglobin Concent 34.3 % (32.0-36.0) Red Cell Distribution Width 13.4 % (11.6-17.2) Platelet Count 219 TH/MM3 (150-450) Mean Platelet Volume 9.0 FL (7.0-11.0) Neutrophils (%) (Auto) 89.5 % (16.0-70.0) Lymphocytes (%) (Auto) 4.4 % (9.0-44.0) Monocytes (%) (Auto) 6.0 % (0.0-8.0) Eosinophils (%) (Auto) 0.0 % (0.0-4.0) Basophils (%) (Auto) 0.1 % (0.0-2.0) Neutrophils # (Auto) 8.7 TH/MM3 (1.8-7.7) Lymphocytes # (Auto) 0.4 TH/MM3 (1.0-4.8) Monocytes # (Auto) 0.6 TH/MM3 (0-0.9) Eosinophils # (Auto) 0.0 TH/MM3 (0-0.4) Basophils # (Auto) 0.0 TH/MM3 (0-0.2) CBC Comment DIFF FINAL Differential Comment . Result Diagram: 09/16/17 0630 09/16/17 0630 Imaging Last 72 hours Impressions Entire Spine MRI 09/16/17 0000 Signed Impressions: Service Date/Time: Saturday, September 16, 2017 13:04 - CONCLUSION: 1. Diffuse bony metastatic disease of the spine. No extension of metastatic disease into the central canal identified. 2. Degenerative findings of the cervical spine at C3-4 and C6-7 with mild central canal narrowing at C6-7. Moderate left neural foraminal narrowing at C3-4. Robbi Chavez MD . 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 He has been to his (Colleen) for a "long time". This is a second marriage for both of them. The patient has a son and daughter who live in [place] but they are estranged. The patient's has 2 daughters (Katiana and Raisa). Raisa lives in [place]. Katiana lives locally. 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 Spiritual: Anabaptist alok Legal:Patient's , Linn Mckeon, is designated as the patient's health care surrogate decision maker. Daughter, Katiana Jade, is designated as the alternate health care surrogate. Ethical issues impacting care: No known ethical issues impacting care at this time. . Important Contacts Colleen Mckeon, : [phone] Katiana Jade, daughter: [phone] . Prognosis Mr. lee is a 56-year-old male with a diagnosis of stage IV colorectal adenocarcinoma with metastatic disease and there is no curative options. All offered treatments such as surgery, radiation and chemotherapy are palliative. Overall prognosis is poor. . Code Status: Full Code Plan * FULL CODE * DECISION-MAKING: Patient currently has good insight and judgment related to his current medical condition and various treatment options. His , Colleen Mckeon, is designated as the patient's health care surrogate decision maker. Daughter, Katiana Jade, is designated as the alternate health care surrogate. * GOALS: The goals continue to be aggressive, initiated on 5 doses of palliative radiation for the newly discovered metastatic disease with a high likelihood of improving the patient's severe pain. * Discussed with patient's nurse in Dr. Hurley * SYMPTOMS: ==Pain: Patient reporting rectal pain and severe global headaches that had progressively worsened 2 weeks; having palliative radiation. The pain is described as severe aching and pressure with associated restlessness. PRN Dilaudid IV and oxycodone/acetaminophen are available every 4 hours for breakthrough pain. Patient has 6 doses of oxycodone/acetaminophen (10 -326mg tablet) over the past 24 hours. Lorazepam 2mg IV is available PRN prior to radiation treatment. Patient/ states the pain has been poorly managed over the past 24 hours. We discussed various treatment options but the patient did not want to make any changes to his current orders. == Anxiety: The patient states he feels anxious and is having difficulty sleeping at night because there is "so much talk in my head." He was agreeable to ordering PRN lorazepam 1mg q6 hours for anxiety and insomnia. * Palliative Care will continue to follow the patient during this hospitalization. . Attestation To help prompt me to consider important information that might be impacting today's encounter and assessment, information from prior notes written by myself or my colleagues may have been "brought forward" into today's note. My signature on this note, however, is an attestation that I personally performed the exam, history, and/or decision-making noted today, and, unless otherwise indicated, the interactions with patient, family, and staff as well as the review of records all occurred today. I also attest that the listed assessment and stated plan reflect my best clinical judgment today based on the combination of historical information, prior notes, and today's exam/ interactions. When time spent is documented, it refers only to time spent today by the signer, or if indicated, combined time spent today by collaborating physician/nurse practitioner. . Brina Catalan Sep 17, 2017 16:51
[2017-09-17] MEDS: DEXAMETHASONE 4 MG TAB PO SCH (17:11)
[2017-09-17] MEDS: ENOXAPARIN SODIUM 40 MG/0.4 ML SYRINGE SQ SCH (17:11)
[2017-09-18] VITALS (8 sets, daily range): BP systolic 130–157; BP diastolic 62–81; PULSE 62–85; RESP 20; TEMP 97.5–98.4; O2SAT 96–98
[2017-09-18] MEDS: DEXAMETHASONE 4 MG TAB PO SCH ×4 (00:45→17:27)
[2017-09-18] MEDS: oxyCODONE/ACETAMINOPHEN 10 MG/325 MG TAB PO PRN ×5 (02:06→18:24)
[2017-09-18] MEDS: DOCUSATE SODIUM 50 MG/SENNA 8.6 MG TAB PO SCH ×2 (07:17→20:46)
[2017-09-18] MEDS: PANTOPRAZOLE SOD 20 MG DELAYED RELEASE TAB PO SCH (07:41)
[2017-09-18] MEDS: SODIUM CHLORIDE 0.9% FLUSH 10 ML FLUSH IV FLUSH SCH ×2 (07:41→20:46)
[2017-09-18] MEDS: LORazepam 2 MG TAB PO PRN (09:20)
[2017-09-18] MEDS ORDERED: DO NOT ADM ANY ANTICOAGULANT DRUGS PRN (13:02)
--- NOTE | 2017-09-18 13:45 | HHI.PR ---
Subjective Remarks He is in bed appears in distress with photophobia, and headaches. He also complains of back pain. No more nausea or vomiting. Able to tolerate some food. No diarrhea or constipation. Denies fever or chills. Zosyn discontinued. Plan for radiation today and colonoscopy tomorrow. Objective Vitals Vital Signs Date Time Temp Pulse Resp B/P (MAP) Pulse Ox O2 Delivery O2 Flow Rate FiO2 09/18/17 13:07 97.0 68 16 138/73 (94) 97 09/18/17 12:20 98.4 73 20 130/69 (89) 97 09/18/17 08:00 98.0 74 20 149/81 (103) 97 09/18/17 07:34 63 09/18/17 04:00 97.5 62 20 157/77 (103) 97 09/18/17 00:00 98.4 77 20 137/66 (89) 96 09/17/17 20:00 98.5 60 20 150/77 (101) 96 09/17/17 19:11 18 09/17/17 19:00 Room Air 09/17/17 16:59 97.9 75 20 146/84 (104) 96 I/O 09/17/17 09/17/17 09/17/17 09/18/17 09/18/17 09/18/17 07:00 15:00 23:00 07:00 15:00 23:00 Intake Total 100 ml 480 ml 240 ml 550 ml Output Total 200 ml Balance 100 ml 480 ml 240 ml 350 ml Intake Oral 480 ml 240 ml IV Total 100 ml Other 550 ml Output Urine Total 200 ml # Voids 1 1 Result Diagram: 09/16/17 0630 09/16/17 0630 Imaging Last Impressions Entire Spine MRI 09/16/17 0000 Signed Impressions: Service Date/Time: Saturday, September 16, 2017 13:04 - CONCLUSION: 1. Diffuse bony metastatic disease of the spine. No extension of metastatic disease into the central canal identified. 2. Degenerative findings of the cervical spine at C3-4 and C6-7 with mild central canal narrowing at C6-7. Moderate left neural foraminal narrowing at C3-4. Robbi Chavez MD Chest CT 09/14/17 0000 Signed Impressions: Service Date/Time: Thursday, September 14, 2017 20:43 - CONCLUSION: 1. Sclerotic lesion at T12. 2. Calcified granuloma left upper lobe. Clyde Kelly MD Abdomen/Pelvis CT 09/14/17 0000 Signed Impressions: Service Date/Time: Thursday, September 14, 2017 20:43 - CONCLUSION: 1. Left diverting colostomy with some minimal surrounding induration. 2. Hepatic steatosis. 3. Multiple sclerotic bone lesions. 4. Persistent circumferential thickening of the inferior rectum and anus. 5. Small gallstones. 6. Cystic change in the central left kidney representing parapelvic cysts or moderate dilatation of the collecting system. Clyde Kelly MD Objective Remarks GENERAL: This is a well-nourished, well-developed patient drowsy after receiving Dilaudid CARDIOVASCULAR: Regular rate and rhythm without murmurs, gallops, or rubs. RESPIRATORY: Clear to auscultation. Breath sounds equal bilaterally. No wheezes , rales, or rhonchi. GASTROINTESTINAL: Abdomen soft, non-tender, nondistended. colostomy present MUSCULOSKELETAL: Extremities without clubbing, cyanosis, or edema. No joint tenderness, effusion, or edema noted. No calf tenderness. Negative Homans sign bilaterally. NEUROLOGICAL: Drowsy able to awake. Motor and sensory grossly within normal limits. Five out of 5 muscle strength in all muscle groups. Normal speech. A/P Problem List: (1) Headache ICD Code: R51 - Headache (2) Colon cancer ICD Code: C18.9 - Malignant neoplasm of colon, unspecified Status: Acute (3) Intractable pain ICD Code: R52 - Pain, unspecified Status: Acute Assessment and Plan Mr. 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 Patient follows with Dr. Perez for oncology chemotherapy is currently on hold for pending colorectal surgery. Patient follows with Dr. Gannon colorectal surgery and was planning to have surgery today which was put on hold due to headache and outpatient MRI which showed possible metastatic disease. Patient reports double vision and severe global headache worsening over 1 week. Headache Intractable pain Outpatient MRI revealed mass in brain concern for mets Decadron Percocet and IV Dilaudid for pain management. Add ativan for anxiety. Monitor VS closely while on narcotics. neurosurgery consultation, appreciate recommendations, patient to have radiation therapy as chosen treatment for now, might consider surgical intervention however with risk Radiation oncology following with radiation treatment will probably finish radiation treatment on Sunday09/19/17 consult palliative care ff Colorectal adenocarcinoma with mets Rectal abscess Chemo therapy on hold Consult to colorectal surgery, per Dr. Camarena the colorectal surgeon, he recommended Painting catheter for possible urinary retention due to the mass, and starting broad-spectrum antibiotics for the rectal abscess. Starte Rx for cranial metastasis and chemo again to shrink Rectal Cancer. May need dilation or flex sig eventually by Dr Gannon Also recommended consult palliative care, ff. Patient/family wants aggressive Rx at this time MRI spine/pelvic reviewed with mets. Went for simulation 09/17 Plan for EUA,Flex sig under MAC in GI lab on Sunday AM per Dr Shannon colorectal surgery DCT prophylaxis with Lovenox Discussed Condition With Patient, nurse, family at bedside Lesa Hurley MD Sep 18, 2017 13:45
[2017-09-18] MEDS: LORazepam 2 MG/ML VIAL IV PUSH PRN ×2 (13:48→22:28)
--- NOTE | 2017-09-18 14:04 | PD.ONC.PN ---
Subjective Subjective Remarks Afebrile overnight Patient reports his headache is somewhere between the same and slightly improved Going down for procedure with Dr. Gannon today. One more radiation treatment to go Objective Data Date Time Temp Pulse Resp B/P (MAP) Pulse Ox O2 Delivery O2 Flow Rate FiO2 09/18/17 13:07 97.0 68 16 138/73 (94) 97 09/18/17 12:20 98.4 73 20 130/69 (89) 97 09/18/17 08:00 98.0 74 20 149/81 (103) 97 09/18/17 07:34 63 09/18/17 04:00 97.5 62 20 157/77 (103) 97 09/18/17 00:00 98.4 77 20 137/66 (89) 96 09/17/17 20:00 98.5 60 20 150/77 (101) 96 09/17/17 19:11 18 09/17/17 19:00 Room Air 09/17/17 16:59 97.9 75 20 146/84 (104) 96 09/18/17 09/18/17 09/18/17 07:00 15:00 23:00 Intake Total 550 ml Output Total 200 ml Balance 350 ml Result Diagram: 09/16/1730 09/16/17 0630 Administered Medications Medications (Trade) Dose Ordered Sig/Jason Route PRN Reason Start Time Stop Time Status Last Admin Dose Admin Sodium Chloride (NS Flush) 2 ml BID IV FLUSH 09/13/17 21:00 09/18/17 07:41 Ondansetron HCl (Zofran Inj) 4 mg Q6H PRN IVP NAUSEA OR VOMITING 09/13/17 17:15 09/14/17 00:22 Senna/Docusate Sodium (Mendy-Colace) 1 tab BID PO 09/13/17 21:00 09/13/17 20:10 Oxycodone/ Acetaminophen (Percocet 10-325 Mg) 1 tab Q4H PRN PO pain 6-10 09/13/17 17:30 09/18/17 05:44 Enoxaparin Sodium (Lovenox Inj) 40 mg Q24H SQ 09/13/17 18:00 09/17/17 17:11 Lorazepam (Ativan) 2 mg UNSCH PRN PO SEE LABEL COMMENTS 09/14/17 17:00 09/18/17 09:20 Acetaminophen (Tylenol) 650 mg Q4H PRN PO FEVER/HEADACHE/PAIN 1-2 09/15/17 14:15 09/15/17 15:02 Dexamethasone (Decadron) 4 mg Q6HR PO 09/17/17 18:00 09/18/17 05:43 Pantoprazole Sodium (Protonix) 20 mg DAILY PO 09/17/17 15:00 09/18/17 07:41 Lorazepam (Ativan Inj) 1 mg Q6H PRN IV PUSH ANXIETY AND/OR INSOMNIA 09/17/17 16:15 09/18/17 13:48 Objective Remarks GENERAL: Middle aged male lying on stretcher getting ready to go for procedure SKIN: Warm and dry. HEAD: Normocephalic. EYES: No injection or drainage. NECK: Supple, trachea midline. CARDIOVASCULAR: Regular rate and rhythm RESPIRATORY: Breath sounds equal bilaterally. No accessory muscle use. GASTROINTESTINAL: Abdomen soft, non-tender, nondistended. +ostomy bag in place. EXTREMITIES: No cyanosis. No edema. NEUROLOGICAL: Normal speech. Moving all extremities. Complaining of headache Assessment/Plan Problem List: (1) Brain metastases ICD Codes: C79.31 - Secondary malignant neoplasm of brain Plan: ++Metastatic disease to the brain involving the clivus bone. There is also a sellar/suprasellar mass. The clivus bone lesions appear to be metastatic cancer with likely primary colon. The sellar lesion does not appear to be atypical colon cancer mats. --radiation oncology following, receiving XRT. (2) Colon cancer ICD Codes: C18.9 - Malignant neoplasm of colon, unspecified Status: Acute Plan: --plan for further chemotherapy outpatient --screening MRI shows widespread bony disease History: --diagnosed in May of 2017. presented with GI symptoms and he underwent sigmoidoscopy revealed a 7 cm long circumferential mass in the lower cecum starting at the dentate line. Biopsy confirmed invasive adenocarcinoma. Unfortunately, the patient had metastatic disease on presentation.++two lesions in the right lower lobe of the liver. also had increased activity in the lower sacral area in the distal sigmoid colon which was hypermetabolic and there was also diffuse metabolic activity along the spine in the right ischium. --MRI of his lumbar spine showed intense activity at the lateral aspect of the T2 and the posterior aspect of the L4-5 vertebral body. --has received radiation treatments to the spine as well as to the cecal lesion. --has undergone multiple lines of treatment including initial treatment with FOLFOX followed by Xeloda and irinotecan and then he was on single-agent xeloda , then single-agent 5-FU --had good treatment response with resolution of his lesions in the liver as well as no evidence of hypermetabolic lesions in the spine. --underwent sigmoidoscopy and there was an area of inflammation in the sigmoid colon. This was biopsied which was confirmed to be adenocarcinoma. --Since he had limited disease and he was having symptoms of rectal pain an APR resection was planned. However, he developed severe headache and MRI of the brain was obtained which unfortunately shows metastatic disease to the clivus bone. There is also a mass in the sella. The patient has been having excruciating headaches and he had double vision in his left eye. (3) Rectal abscess ICD Codes: K61.1 - Rectal abscess Status: Acute Plan: --has been increased liquid drainage. --Dr. Gannon planning to do EUA,Flex sig under MAC in GI lab on Sunday AM Assessment 56y/o male with stage IV colon colorectal adenocarcinoma who is being admitted with severe headaches. Plan 1. Headache slightly improved; continue Decadron. 2. Having EUA and flexible sigmoidoscopy with Dr Gannon today. 3. OK for discharge tomorrow after last day of XRT. 4. Supportive care; followup in clinic next week. Attending Statement The exam, history, and the medical decision-making described in the above note were completed with the assistance of the mid-level provider. I reviewed and agree with the findings presented. I attest that I had a [id number] encounter with the patient on the same day, and personally performed and documented my assessment and findings in the medical record no significant obstruction per Dr. Gannon able to pass stools tumor likely pushing on the prostate Tamsulosin started says that he was able to urinate twice in the past 4-5 hours if he is able to void tomorrow then should be able to go home last XRT to brain tomorrow pain better controlled wants to go home tomorrow discussed with Dr. Gannon d/w rn o/n events reviewed Patient's and daughter was present during this conversation Tina Brambila Sep 18, 2017 14:04 El Perez MD Sep 18, 2017 23:03
[2017-09-18] MEDS: TAMSULOSIN HCL 0.4 MG CAP PO SCH (14:16)
[2017-09-18] MEDS: ENOXAPARIN SODIUM 40 MG/0.4 ML SYRINGE SQ SCH (14:50)
--- NOTE | 2017-09-18 16:19 | HHI.HCPN ---
Reason for visit a. To assist with evaluation and management of symptoms including: Pain, weakness, anxiety b. To assist medical decision maker(s) with: better understanding of current medical conditions; weighing benefits/burdens of medical treatment options; making medical treatment decisions. . Subjective/Interval History Mr. Mckeon is a 56 year old male with stage IV metastatic colorectal adenocarcinoma who was admitted for symptom management of severe headaches after an outpatient MRI of the brain showed metastatic disease to clivus bone and a mass in sella. Follow up visit for symptom management and clarification of goals. Patient seen in his room status post EUA and sigmoidoscopy with Dr. Gannon. Patient was tearful and anxious upon returning to his room. Received 1mg PRN lorazepam with positive effect. Patient continues to report ongoing rectal pain and global headaches. He states the severity of his headaches are relatively the same, possibly slightly improved. He continues to have photophobia, keeping the room dark and covering his eyes with a cloth. Patient remains on dexamethasone 4mg by mouth 4 times a day. PRN Dilaudid IV and oxycodone/acetaminophen are available every 4 hours for breakthrough pain and PRN lorazepam 1 mg IV is available every 6 hours for anxiety/insomnia. Lorazepam 2mg IV is available PRN prior to radiation treatment. Patient continues to require significant PRN medication for pain. He has had 5 doses of oxycodone/acetaminophen (10-326mg tablet) over the past 24 hours and one dose of lorazepam. We discussed the risks vs.benefits of using opioids and benzodiazepines for symptom management. Patient states he does not like the way the pain medication makes him feel. He indicates he would rather tolerate some degree of pain than increase his pain meds, but he did not identify at tolerable pain level. Palliative radiation was initiated on 09/14/17 for the newly discovered metastatic disease in an attempt to prove his severe pain. Patient has one more radiation treatment tomorrow and he can be discharged home per oncology. Plan for follow-up in the clinical sometime next week. . Advance Directives Health Care Surrogate: Copy in medical record Durable Power of Forensic Analyst: Copy in medical record Advance Directive Specifics Date completed: 08/14/2016 . Health Care Surrogate(s): Patient's , Linn Mckeon, is designated as the patient's health care surrogate decision maker. Daughter, Katiana Jade, is designated as the alternate health care surrogate. . Documented care wishes: Dural of DURABLE POWER OF [employer]UCK [employer]IVER and healthcare surrogate designation were completed 08/14/2016 . Objective Vital Signs Date Time Temp Pulse Resp B/P (MAP) Pulse Ox O2 Delivery O2 Flow Rate FiO2 09/18/17 13:07 97.0 68 16 138/73 (94) 97 09/18/17 12:20 98.4 73 20 130/69 (89) 97 09/18/17 08:00 98.0 74 20 149/81 (103) 97 09/18/17 07:34 63 09/18/17 04:00 97.5 62 20 157/77 (103) 97 09/18/17 00:00 98.4 77 20 137/66 (89) 96 09/17/17 20:00 98.5 60 20 150/77 (101) 96 09/17/17 19:11 18 09/17/17 19:00 Room Air 09/17/17 16:59 97.9 75 20 146/84 (104) 96 Intake & Output 09/18/17 09/18/17 07:00 19:00 Intake Total 240 ml 550 ml Output Total 200 ml Balance 240 ml 350 ml Intake Oral 240 ml Other 550 ml Output Urine Total 200 ml # Voids 2 Physical Exam CONSTITUTIONAL/GENERAL: This is an adequately nourished patient with a washcloth on his face in a darkened room secondary to photophobia. TUBES/LINES/DRAINS: Colostomy, [id number]-[id number] EYES: Extraocular motions intact. No scleral icterus. No injection or drainage. ENT: Hearing grossly normal. Nose without bleeding or purulent drainage. CARDIOVASCULAR: Regular rate and rhythm without murmurs, gallops, or rubs. No JVD. Peripheral pulses symmetric. RESPIRATORY/CHEST: Symmetric, unlabored respirations. Lungs CTA. No wheezes, rales, or rhonchi. GASTROINTESTINAL: Abdomen soft, non-tender, nondistended. Ostomy bag in place MUSCULOSKELETAL: Extremities without clubbing, cyanosis, or edema. NEUROLOGICAL: Fatigue. Patient arouses to verbal stimuli and gentle touch. He is able to answer questions, follow commands. PSYCHIATRIC: + Anxiety. No apparent hallucinations or other psychotic thought process. . Diagnostic Tests Laboratory Laboratory Tests Test 09/15/17 18:15 11/19/17 06:30 Blood Urea Nitrogen 16 MG/DL (7-18) 16 MG/DL (7-18) Creatinine 0.98 MG/DL (0.60-1.30) 0.94 MG/DL (0.60-1.30) Random Glucose 135 MG/DL (74-106) 103 MG/DL (74-106) Calcium Level 8.8 MG/DL (8.5-10.1) 8.5 MG/DL (8.5-10.1) Sodium Level 141 MEQ/L (136-145) 139 MEQ/L (136-145) Potassium Level 3.9 MEQ/L (3.5-5.1) 4.0 MEQ/L (3.5-5.1) Chloride Level 104 MEQ/L (98-107) 105 MEQ/L (98-107) Carbon Dioxide Level 28.2 MEQ/L (21.0-32.0) 27.0 MEQ/L (21.0-32.0) Anion Gap 9 MEQ/L (5-15) 7 MEQ/L (5-15) Estimat Glomerular Filtration Rate 79 ML/MIN (>89) 83 ML/MIN (>89) White Blood Count 9.7 TH/MM3 (4.0-11.0) Red Blood Count 4.32 MIL/MM3 (4.50-5.90) Hemoglobin 13.7 GM/DL (13.0-17.0) Hematocrit 39.9 % (39.0-51.0) Mean Corpuscular Volume 92.5 FL (80.0-100.0) Mean Corpuscular Hemoglobin 31.7 PG (27.0-34.0) Mean Corpuscular Hemoglobin Concent 34.3 % (32.0-36.0) Red Cell Distribution Width 13.4 % (11.6-17.2) Platelet Count 219 TH/MM3 (150-450) Mean Platelet Volume 9.0 FL (7.0-11.0) Neutrophils (%) (Auto) 89.5 % (16.0-70.0) Lymphocytes (%) (Auto) 4.4 % (9.0-44.0) Monocytes (%) (Auto) 6.0 % (0.0-8.0) Eosinophils (%) (Auto) 0.0 % (0.0-4.0) Basophils (%) (Auto) 0.1 % (0.0-2.0) Neutrophils # (Auto) 8.7 TH/MM3 (1.8-7.7) Lymphocytes # (Auto) 0.4 TH/MM3 (1.0-4.8) Monocytes # (Auto) 0.6 TH/MM3 (0-0.9) Eosinophils # (Auto) 0.0 TH/MM3 (0-0.4) Basophils # (Auto) 0.0 TH/MM3 (0-0.2) CBC Comment DIFF FINAL Differential Comment Result Diagram: 09/16/1762909/16/17629 Assessment and Plan Disease Oriented Problem List: (1) 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 He has been to his (Colleen) for a "long time". This is a second marriage for both of them. The patient has a son and daughter who live in [place] but they are estranged. The patient's has 2 daughters (Katiana and Raisa). Raisa lives in [place]. Katiana lives locally. 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 Spiritual: Cong[employer] alok Legal:Patient's , Linn Mckeon, is designated as the patient's health care surrogate decision maker. Daughter, Katiana Jade, is designated as the alternate health care surrogate. Ethical issues impacting care: No known ethical issues impacting care at this time. . Important Contacts Colleen Mckeon, : [phone] Katiana Jade, daughter: [phone] . Prognosis Mr. lee is a 56-year-old male with a diagnosis of stage IV colorectal adenocarcinoma with metastatic disease and there is no curative options. All offered treatments such as surgery, radiation and chemotherapy are palliative. Overall prognosis is poor. . Code Status: Full Code Plan * FULL CODE * DECISION-MAKING: Patient currently has good insight and judgment related to his current medical condition and various treatment options. His , Colleen Mckeon, is designated as the patient's health care surrogate decision maker. Daughter, Katiana Jade, is designated as the alternate health care surrogate. * AGGRESSIVE GOALS. Palliative radiation was initiated on 09/14/17 for the newly discovered metastatic disease in an attempt to prove his severe pain. Patient has one more radiation treatment tomorrow and he can be discharged home per oncology. Plan for follow-up in the clinical sometime next week. * SYMPTOMS: ==Pain:Patient continues to report ongoing rectal pain and global headaches. He states the severity of his headaches are relatively the same, possibly slightly improved. He continues to have photophobia, keeping the room dark and covering his eyes with a cloth. Patient remains on dexamethasone 4mg by mouth 4 times a day. PRN Dilaudid IV and oxycodone/ acetaminophen are available every 4 hours for breakthrough pain and PRN lorazepam 1 mg IV is available every 6 hours for anxiety/insomnia. Lorazepam 2mg IV is available PRN prior to radiation treatment. Patient continues to require significant PRN medication for pain. He has had 5 doses of oxycodone/ acetaminophen (10-326mg tablet) over the past 24 hours and one dose of lorazepam. We discussed the risks vs.benefits of using opioids and benzodiazepines for symptom management. Patient states he does not like the way the pain medication makes him feel. He indicates he would rather tolerate some degree of pain than increase his pain meds, but he did not identify at tolerable pain level.We discussed various treatment options but the patient did not want to make any changes to his current orders. == Anxiety: The patient states he feels anxious and is having difficulty sleeping at night because there is "so much talk in my head." PRN lorazepam 1mg q6 hours for anxiety and insomnia was started on 09/17/17. Patient seen in his room status post EUA and sigmoidoscopy with Dr. Gannon. Patient was tearful and anxious upon returning to his room. Received 1mg PRN lorazepam with positive effect. * Palliative Care will continue to follow the patient during this hospitalization to establish trust, assist with symptom management and clarification of medical treatment goals. . Attestation To help prompt me to consider important information that might be impacting today's encounter and assessment, information from prior notes written by myself or my colleagues may have been "brought forward" into today's note. My signature on this note, however, is an attestation that I personally performed the exam, history, and/or decision-making noted today, and, unless otherwise indicated, the interactions with patient, family, and staff as well as the review of records all occurred today. I also attest that the listed assessment and stated plan reflect my best clinical judgment today based on the combination of historical information, prior notes, and today's exam/ interactions. When time spent is documented, it refers only to time spent today by the signer, or if indicated, combined time spent today by collaborating physician/nurse practitioner. . Brina Catalan Sep 18, 2017 16:19
--- NOTE | 2017-09-18 17:56 | MR ---
cc: NATALIE BAER MIRELA MD KHAN,CANDICE GANNON,REYNALDO SEBASTIAN,CARRILLO Reinoso M.D. DATE: 09/18/2017 PREOPERATIVE DIAGNOSIS: Anal and rectal pain in a patient with large rectal cancer. POSTOPERATIVE DIAGNOSIS: Anal and rectal pain in a patient with large rectal cancer. PROCEDURE: Flexible sigmoidoscopy. ANESTHESIA Monitored anesthesia care SURGEON Dr. Gannon OPERATIVE FINDINGS This patient is well-known to me. About a year ago he was diagnosed with a large rectal cancer, underwent radiation therapy, chemotherapy, eventually underwent a colostomy diversion for pain and difficulty moving his bowels. The patient's cancer shrunk markedly with chemotherapy as did his bone metastases in his lumbar spine, iliac and liver. He has been off his chemo for about six weeks and he has noted over the last two weeks he is having a lot more pain in the rectal area and drainage. On attempt at digital rectal examination, when he was admitted, I really could not do one because of his severe stenosis due to this cancer. He has a metastasis in his clivus bone, in his skull and he is having radiation therapy for that for headaches and photophobia. We planned on doing a sigmoidoscopy to ensure that he had no evidence of any abscess or true obstruction since he has a fully diverting colostomy with the colostomy being closed above. At sigmoidoscopy he had a very stenotic rectal cancer that has closed down markedly over the last four weeks since I saw him last. It is a circumferential lesion. I went ahead and did a digital examination and dilated the rectal cancer. I was able to put the flexible sigmoidoscope up through the area into the sigmoid colon and that all appeared normal. I believe that this is simply an infiltrative process as seen on the CT scan recently. OPERATIVE TECHNIQUE The patient was placed on the table in the left lateral position, given intravenous monitored anesthesia care and the digital exam was done as described above and then the flexible sigmoidoscope was placed in the rectum and taken up into the sigmoid about 25 cm. It was normal above the very narrowed circumferential rectal cancer. At the termination of the procedure there was some oozing from the rectal cancer, some gauzes were placed in the buttocks region and the scope had been previously removed. The patient tolerated the procedure well and left the GI lab in good condition. MD JUN Chau/CHRISTIANO /1:06 PM /5:37 PM
[2017-09-18] MEDS: ONDANSETRON HCL 4 MG/2 ML VIAL IVP PRN (20:45)
[2017-09-18] MEDS: HYDROmorphone HCL PF 0.5 MG/0.5 ML SYRINGE IV PUSH PRN (20:46)
[2017-09-19] VITALS: BP 129/72; PULSE 76; RESP 20; TEMP 98.6; O2SAT 98
[2017-09-19] MEDS: oxyCODONE/ACETAMINOPHEN 10 MG/325 MG TAB PO PRN ×4 (00:11→13:42)
[2017-09-19] MEDS: DEXAMETHASONE 4 MG TAB PO SCH ×3 (00:11→11:56)
[2017-09-19] MEDS: ONDANSETRON HCL 4 MG/2 ML VIAL IVP PRN (02:27)
[2017-09-19] MEDS: HYDROmorphone HCL PF 0.5 MG/0.5 ML SYRINGE IV PUSH PRN (02:27)
[2017-09-19 03:01] VITALS: PULSE 77
[2017-09-19 04:00] VITALS: BP 141/76; PULSE 64; RESP 20; TEMP 98.2; O2SAT 97
[2017-09-19] MEDS: LORazepam 2 MG TAB PO PRN (07:45)
[2017-09-19] MEDS: DOCUSATE SODIUM 50 MG/SENNA 8.6 MG TAB PO SCH (07:45)
[2017-09-19] MEDS: PANTOPRAZOLE SOD 20 MG DELAYED RELEASE TAB PO SCH (07:45)
[2017-09-19] MEDS: TAMSULOSIN HCL 0.4 MG CAP PO SCH (07:45)
[2017-09-19] MEDS: SODIUM CHLORIDE 0.9% FLUSH 10 ML FLUSH IV FLUSH SCH (07:46)
--- NOTE | 2017-09-19 08:16 | HHI.PR ---
Subjective Remarks Pt not in room this AM. D/W Dr Ophelia Perez last evening. No rectal obstruction or abscess. Pain is from enlarging infiltrative Rectal cancer. Stable from CRS standpoint. Restart Chemo when able. I will see in 6 weeks or PRN Objective Vital Signs Date Time Temp Pulse Resp B/P (MAP) Pulse Ox O2 Delivery O2 Flow Rate FiO2 09/19/17 04:00 98.2 64 20 141/76 (97) 97 09/19/17 03:01 77 09/19/17 00:00 98.6 76 20 129/72 (91) 98 09/18/17 22:34 98 09/18/17 20:00 98.1 78 20 142/74 (96) 97 09/18/17 16:45 97.6 85 20 133/62 (85) 97 09/18/17 13:07 97.0 68 16 138/73 (94) 97 09/18/17 12:20 98.4 73 20 130/69 (89) 97 I/O 09/18/17 09/18/17 09/18/17 09/19/17 09/19/17 09/19/17 07:00 15:00 23:00 07:00 15:00 23:00 Intake Total 550 ml 720 ml Output Total 200 ml Balance 350 ml 720 ml Intake Oral 720 ml Other 550 ml Output Urine Total 200 ml # Voids 1 2 4 # Bowel Movements 1 Result Diagram: 09/16/1762909/16/17629 Clyde Gannon MD Sep 19, 2017 08:16
[2017-09-19 08:48] VITALS: PULSE 64
--- NOTE | 2017-09-19 09:07 | HHI.PR ---
Subjective Remarks Going for radiation. Had colonoscopy yesterday. 30 cc improving. Patient improved some. No new motor deficits and placed to the bathroom. No chest pain or shortness of breath. No nausea or vomiting no diarrhea or constipation. Has some mucus discharge. No bleeding. Cleared by consultants was discharged to be follow-up as outpatient Objective Vitals Vital Signs Date Time Temp Pulse Resp B/P (MAP) Pulse Ox O2 Delivery O2 Flow Rate FiO2 09/19/17 08:48 64 09/19/17 04:00 98.2 64 20 141/76 (97) 97 09/19/17 03:01 77 09/19/17 00:00 98.6 76 20 129/72 (91) 98 09/18/17 22:34 98 09/18/17 20:00 98.1 78 20 142/74 (96) 97 09/18/17 16:45 97.6 85 20 133/62 (85) 97 09/18/17 13:07 97.0 68 16 138/73 (94) 97 09/18/17 12:20 98.4 73 20 130/69 (89) 97 I/O 09/18/17 09/18/17 09/18/17 09/19/17 09/19/17 09/19/17 07:00 15:00 23:00 07:00 15:00 23:00 Intake Total 550 ml 720 ml Output Total 200 ml Balance 350 ml 720 ml Intake Oral 720 ml Other 550 ml Output Urine Total 200 ml # Voids 1 2 4 # Bowel Movements 1 Result Diagram: 09/16/17 0630 09/16/17 0630 Imaging Last Impressions Entire Spine MRI 09/16/17 0000 Signed Impressions: Service Date/Time: Saturday, September 16, 2017 13:04 - CONCLUSION: 1. Diffuse bony metastatic disease of the spine. No extension of metastatic disease into the central canal identified. 2. Degenerative findings of the cervical spine at C3-4 and C6-7 with mild central canal narrowing at C6-7. Moderate left neural foraminal narrowing at C3-4. Robbi Chavez MD Chest CT 09/14/17 0000 Signed Impressions: Service Date/Time: Thursday, September 14, 2017 20:43 - CONCLUSION: 1. Sclerotic lesion at T12. 2. Calcified granuloma left upper lobe. Clyde Kelly MD Abdomen/Pelvis CT 09/14/17 0000 Signed Impressions: Service Date/Time: Thursday, September 14, 2017 20:43 - CONCLUSION: 1. Left diverting colostomy with some minimal surrounding induration. 2. Hepatic steatosis. 3. Multiple sclerotic bone lesions. 4. Persistent circumferential thickening of the inferior rectum and anus. 5. Small gallstones. 6. Cystic change in the central left kidney representing parapelvic cysts or moderate dilatation of the collecting system. Clyde Kelly MD Objective Remarks GENERAL: This is a well-nourished, well-developed patient drowsy after receiving Dilaudid CARDIOVASCULAR: Regular rate and rhythm without murmurs, gallops, or rubs. RESPIRATORY: Clear to auscultation. Breath sounds equal bilaterally. No wheezes , rales, or rhonchi. GASTROINTESTINAL: Abdomen soft, non-tender, nondistended. colostomy present MUSCULOSKELETAL: Extremities without clubbing, cyanosis, or edema. No joint tenderness, effusion, or edema noted. No calf tenderness. Negative Homans sign bilaterally. NEUROLOGICAL: Drowsy able to awake. Motor and sensory grossly within normal limits. Five out of 5 muscle strength in all muscle groups. Normal speech. A/P Problem List: (1) Headache ICD Code: R51 - Headache (2) Colon cancer ICD Code: C18.9 - Malignant neoplasm of colon, unspecified Status: Acute (3) Intractable pain ICD Code: R52 - Pain, unspecified Status: Acute Assessment and Plan Mr. 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 Patient follows with Dr. Perez for oncology chemotherapy is currently on hold for pending colorectal surgery. Patient follows with Dr. Gannon colorectal surgery and was planning to have surgery today which was put on hold due to headache and outpatient MRI which showed possible metastatic disease. Patient reports double vision and severe global headache worsening over 1 week prior to admission. Outpatient MRI revealed mass in brain concern for mets. Palliative care was consulted, family / patient wants aggressive measures. Patient was evaluated bu Dr Potter neurosurgery, Dr Gannon colorectal surgery and hem/onc Dr Perez, radiation oncology. Patient was started on steroids, pain meds, radiation while inpatient , plan for chemo by Dr Perez oncology as OP. Has a colonoscopy by Dr Gannon while inpatient. Headache improved. Cleared by consultants for DC To follow up as OP with PCP and consultants. Headache Intractable pain Outpatient MRI revealed mass in brain concern for mets Decadron Percocet and IV Dilaudid for pain management. Patient wants only percocet. Refused dilaudid or other pain meds. . Add ativan for anxiety. Monitor VS closely while on narcotics. neurosurgery consultation, appreciate recommendations, patient to have radiation therapy as chosen treatment for now, might consider surgical intervention however with risk Radiation oncology following with radiation treatment will probably finish radiation treatment on Sunday09/19/17 Consult palliative care ff Colorectal adenocarcinoma with mets Rectal abscess Chemo therapy on hold, to resume chemo as OP with Dr Perez oncology. Has a follow up on Sunday. Consult to colorectal surgery, per Dr. Camarena the colorectal surgeon, he recommended Painting catheter for possible urinary retention due to the mass, and starting broad-spectrum antibiotics for the rectal abscess. initially. DC antibiotics. Started Rx for cranial metastasis and chemo again to shrink Rectal Cancer. Had colonoscopy by Dr Gannon Also recommended consult palliative care, ff. Patient/family wants aggressive Rx at this time MRI spine/pelvic reviewed with mets. Went for simulation 09/[address] Shannon colorectal surgery. BPH: continue flomax. DCT prophylaxis with Lovenox Discussed Condition With Patient, nurse, family at bedside Discharge plan. Cleared by consultants for discharge today to follow-up as outpatient with physical consultants. Lesa Hurlye MD Sep 19, 2017 09:06
[2017-09-19 10:53] VITALS: BP 114/58; PULSE 58; RESP 16; TEMP 97.7; O2SAT 94
--- NOTE | 2017-09-19 13:34 | PD.ONC.PN ---
Subjective Subjective Remarks Afebrile Pt headaches much improved Hoping to go home today Tolerated colonoscopy OK yesterday No problem with urination Objective Data Date Time Temp Pulse Resp B/P (MAP) Pulse Ox O2 Delivery O2 Flow Rate FiO2 09/19/17 10:53 97.7 58 16 114/58 (76) 94 09/19/17 08:48 64 09/19/17 04:00 98.2 64 20 141/76 (97) 97 09/19/17 03:01 77 09/19/17 00:00 98.6 76 20 129/72 (91) 98 09/18/17 22:34 98 09/18/17 20:00 98.1 78 20 142/74 (96) 97 09/18/17 16:45 97.6 85 20 133/62 (85) 97 09/19/17 09/19/17 09/19/17 07:00 15:00 23:00 Intake Total 720 ml Balance 720 ml Result Diagram: 09/16/1762909/16/17 0630 Administered Medications Medications (Trade) Dose Ordered Sig/Jason Route PRN Reason Start Time Stop Time Status Last Admin Dose Admin Sodium Chloride (NS Flush) 2 ml BID IV FLUSH 09/13/17 21:00 09/19/17 07:46 Ondansetron HCl (Zofran Inj) 4 mg Q6H PRN IVP NAUSEA OR VOMITING 09/13/17 17:15 09/19/17 02:27 Senna/Docusate Sodium (Mendy-Colace) 1 tab BID PO 09/13/17 21:00 09/13/17 20:10 Oxycodone/ Acetaminophen (Percocet 10-325 Mg) 1 tab Q4H PRN PO pain 6-10 09/13/17 17:30 09/19/17 09:40 Hydromorphone HCl (Dilaudid Pf Inj) 0.5 mg Q4H PRN IV PUSH BREAKTHROUGH PAIN 09/13/17 18:30 09/19/17 02:27 Enoxaparin Sodium (Lovenox Inj) 40 mg Q24H SQ 09/13/17 18:00 Future Hold 09/17/17 17:11 Lorazepam (Ativan) 2 mg UNSCH PRN PO SEE LABEL COMMENTS 09/14/17 17:00 09/19/17 07:45 Acetaminophen (Tylenol) 650 mg Q4H PRN PO FEVER/HEADACHE/PAIN 1-2 09/15/17 14:15 09/15/17 15:02 Dexamethasone (Decadron) 4 mg Q6HR PO 09/17/17 18:00 09/19/17 11:56 Pantoprazole Sodium (Protonix) 20 mg DAILY PO 09/17/17 15:00 09/19/17 07:45 Lorazepam (Ativan Inj) 1 mg Q6H PRN IV PUSH ANXIETY AND/OR INSOMNIA 09/17/17 16:15 09/18/17 22:28 Tamsulosin HCl (Flomax) 0.4 mg DAILY PO 09/18/17 14:00 09/19/17 07:45 Objective Remarks GENERAL: Middle aged male asleep in bed in no acute distress SKIN: Warm and dry. HEAD: Normocephalic. EYES: No injection or drainage. Diplopia NECK: Supple, trachea midline. CARDIOVASCULAR: Regular rate and rhythm RESPIRATORY: Breath sounds equal bilaterally. No accessory muscle use. GASTROINTESTINAL: Abdomen soft, non-tender, nondistended. +ostomy bag in place. EXTREMITIES: No cyanosis. No edema. NEUROLOGICAL: Moving all extremities. Headache improved. Still with some diplopia. Assessment/Plan Problem List: (1) Brain metastases ICD Codes: C79.31 - Secondary malignant neoplasm of brain Plan: ++Metastatic disease to the brain involving the clivus bone. There is also a sellar/suprasellar mass. The clivus bone lesions appear to be metastatic cancer with likely primary colon. The sellar lesion does not appear to be atypical colon cancer mats. --radiation oncology following, receiving XRT. (2) Colon cancer ICD Codes: C18.9 - Malignant neoplasm of colon, unspecified Status: Acute Plan: --plan for further chemotherapy outpatient --screening MRI shows widespread bony disease History: --diagnosed in May of 2017. presented with GI symptoms and he underwent sigmoidoscopy revealed a 7 cm long circumferential mass in the lower cecum starting at the dentate line. Biopsy confirmed invasive adenocarcinoma. Unfortunately, the patient had metastatic disease on presentation.++two lesions in the right lower lobe of the liver. also had increased activity in the lower sacral area in the distal sigmoid colon which was hypermetabolic and there was also diffuse metabolic activity along the spine in the right ischium. --MRI of his lumbar spine showed intense activity at the lateral aspect of the T2 and the posterior aspect of the L4-5 vertebral body. --has received radiation treatments to the spine as well as to the cecal lesion. --has undergone multiple lines of treatment including initial treatment with FOLFOX followed by Xeloda and irinotecan and then he was on single-agent xeloda , then single-agent 5-FU --had good treatment response with resolution of his lesions in the liver as well as no evidence of hypermetabolic lesions in the spine. --underwent sigmoidoscopy and there was an area of inflammation in the sigmoid colon. This was biopsied which was confirmed to be adenocarcinoma. --Since he had limited disease and he was having symptoms of rectal pain an APR resection was planned. However, he developed severe headache and MRI of the brain was obtained which unfortunately shows metastatic disease to the clivus bone. There is also a mass in the sella. The patient has been having excruciating headaches and he had double vision in his left eye. (3) Rectal abscess ICD Codes: K61.1 - Rectal abscess Status: Acute Plan: --has been increased liquid drainage. --Dr. Gannon did EUA,Flex sig under MAC in GI lab yesterday Assessment 56y/o male with stage IV colon colorectal adenocarcinoma who is being admitted with severe headaches. Plan 1. OK for discharge from oncology standpoint 2. Finished XRT this morning. Will slowly wean off steroids. 3. Pt has an appt on Sunday in clinic for followup. 4. Supportive care. Discussed with Dr Hurley Attending Statement The exam, history, and the medical decision-making described in the above note were completed with the assistance of the mid-level provider. I reviewed and agree with the findings presented. I attest that I had a [id number] encounter with the patient on the same day, and personally performed and documented my assessment and findings in the medical record Tina Brambila Sep 19, 2017 13:34 El Perez MD Sep 19, 2017 23:44
--- NOTE | 2017-09-19 14:26 | HHI.DS ---
Discharge Summary Admission Date Sep 13, 2017 at 17:17 Discharge Date: Sep 19, 2017 Admitting Diagnosis Intractible Headache, Brain mass (1) Headache ICD Code: R51 - Headache (2) Colon cancer ICD Code: C18.9 - Malignant neoplasm of colon, unspecified Status: Acute (3) Intractable pain ICD Code: R52 - Pain, unspecified Status: Acute Procedures flex sig by Dr Gannon 09/18/17 Brief History - From Admission Written by Maria Luisa Whaley, acting as scribe for Dr. Mix on 09/13/17 at 17:49. Mr. 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 Patient follows with Dr. Perez for oncology chemotherapy is currently on hold for pending colorectal surgery. Patient follows with Dr. Gannon colorectal surgery and was planning to have surgery today for resection of tumor which was put on hold due to headache and outpatient MRI which showed new mass in the skull as well as suprasellar area. Patient reports double vision and severe global headache worsening over 1 week. Patient also reports rectal pain similar to when he had rectal abscess in the past. Patient endorses rectal pain, rectal bleeding, rectal leakage and has been unable to sit due to the rectal pain. Patient denies N/V, fevers, chills, chest pain or shortness fo breath. CBC/BMP: 09/16/17 0630 09/16/17 0630 Imaging Last Impressions Entire Spine MRI 09/16/17 0000 Signed Impressions: Service Date/Time: Saturday, September 16, 2017 13:04 - CONCLUSION: 1. Diffuse bony metastatic disease of the spine. No extension of metastatic disease into the central canal identified. 2. Degenerative findings of the cervical spine at C3-4 and C6-7 with mild central canal narrowing at C6-7. Moderate left neural foraminal narrowing at C3-4. Robbi Chavez MD Chest CT 09/14/17 0000 Signed Impressions: Service Date/Time: Thursday, September 14, 2017 20:43 - CONCLUSION: 1. Sclerotic lesion at T12. 2. Calcified granuloma left upper lobe. Clyde Kelly MD Abdomen/Pelvis CT 09/14/17 0000 Signed Impressions: Service Date/Time: Thursday, September 14, 2017 20:43 - CONCLUSION: 1. Left diverting colostomy with some minimal surrounding induration. 2. Hepatic steatosis. 3. Multiple sclerotic bone lesions. 4. Persistent circumferential thickening of the inferior rectum and anus. 5. Small gallstones. 6. Cystic change in the central left kidney representing parapelvic cysts or moderate dilatation of the collecting system. Clyde Kelly MD PE at Discharge GENERAL: This is a well-nourished, well-developed patient drowsy after receiving Dilaudid CARDIOVASCULAR: Regular rate and rhythm without murmurs, gallops, or rubs. RESPIRATORY: Clear to auscultation. Breath sounds equal bilaterally. No wheezes , rales, or rhonchi. GASTROINTESTINAL: Abdomen soft, non-tender, nondistended. colostomy present MUSCULOSKELETAL: Extremities without clubbing, cyanosis, or edema. No joint tenderness, effusion, or edema noted. No calf tenderness. Negative Homans sign bilaterally. NEUROLOGICAL: Drowsy able to awake. Motor and sensory grossly within normal limits. Five out of 5 muscle strength in all muscle groups. Normal speech. Hospital Course Mr. 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 Patient follows with Dr. Perez for oncology chemotherapy is currently on hold for pending colorectal surgery. Patient follows with Dr. Gannon colorectal surgery and was planning to have surgery today which was put on hold due to headache and outpatient MRI which showed possible metastatic disease. Patient reports double vision and severe global headache worsening over 1 week prior to admission. Outpatient MRI revealed mass in brain concern for mets. Palliative care was consulted, family / patient wants aggressive measures. Patient was evaluated bu Dr Potter neurosurgery, Dr Gannon colorectal surgery and hem/onc Dr Perez, radiation oncology. Patient was started on steroids, pain meds, radiation while inpatient , plan for chemo by Dr Perez oncology as OP. Has a colonoscopy by Dr Gannon while inpatient. Headache improved. Cleared by consultants for DC To follow up as OP with PCP and consultants. Headache Intractable pain Outpatient MRI revealed mass in brain concern for mets Decadron Percocet and IV Dilaudid for pain management. Patient wants only percocet. Refused dilaudid or other pain meds. . Add ativan for anxiety. Monitor VS closely while on narcotics. neurosurgery consultation, appreciate recommendations, patient to have radiation therapy as chosen treatment for now, might consider surgical intervention however with risk Radiation oncology following with radiation treatment will probably finish radiation treatment on Sunday09/19/17 Consult palliative care ff Colorectal adenocarcinoma with mets Rectal abscess Chemo therapy on hold, to resume chemo as OP with Dr Perez oncology. Has a follow up on Sunday. Consult to colorectal surgery, per Dr. Camarena the colorectal surgeon, he recommended Painting catheter for possible urinary retention due to the mass, and starting broad-spectrum antibiotics for the rectal abscess. initially. DC antibiotics. Started Rx for cranial metastasis and chemo again to shrink Rectal Cancer. Had colonoscopy by Dr Gannon Also recommended consult palliative care, ff. Patient/family wants aggressive Rx at this time MRI spine/pelvic reviewed with mets. Went for simulation 09/[address] Shannon colorectal surgery. BPH: continue flomax. DCT prophylaxis with Lovenox Discussed Condition With Patient, nurse, family at bedside Discharge plan. Cleared by consultants for discharge today to follow-up as outpatient with physical consultants. Pt Condition on Discharge: Stable Discharge Disposition: Disch w/ Home Health Serv Discharge Time: > 30 minutes Discharge Instructions DIET: Follow Instructions for: Heart Healthy Diet Activities you can perform: Regular-No Restrictions Follow up Referrals: Colorectal Surgery - 1 Week with Clyde Gannon MD Neurosurgery - 1 Week with Eduard Potter MD PCP Follow-up - 2-3 Days PCP Follow-up Surgical New Medications: Dexamethasone (Dexamethasone) 4 Mg Tab 4 MG PO Q8HR for headache, #30 TAB Lorazepam (Ativan) 2 Mg Tab 2 MG PO Q8HR PRN for SEE LABEL COMMENTS, #60 TAB Oxycodone HCl/Acetaminophen (Oxycodone-Acetaminophen 10-325) 10 Mg-325 Mg Tablet 1 TAB PO Q4H PRN for pain 6-10, #60 MG Pantoprazole (Protonix) 20 Mg Tab 20 MG PO DAILY for Dyspepsia, #30 TAB Sennosides-Docusate Sodium (Gnp Senna Plus 8.6-50 mg) 8.6 Mg-50 Mg Tab 1 TAB PO BID for Constipation, #60 TAB Continued Medications: Acetaminophen-Codeine (Tylenol-Codeine #3) 300-30 mg Tab 1 TAB PO Q4H PRN for PAIN, TAB 0 Refills Tamsulosin (Tamsulosin) 0.4 Mg Cap 0.4 MG PO HS for Manage Prostate Problems, #30 CAP 0 Refills (This prescription has been renewed) Lesa Hurley MD Sep 19, 2017 14:26
--- NOTE | 2017-09-19 14:27 | HHI.FF ---
Face to Face Verification Diagnosis: (1) Brain metastases (2) Rectal cancer metastasized to bone (3) Weakness (4) Intractable pain (5) Rectal abscess (6) Colon cancer (7) Headache Physical Therapy Order: Evaluate and Treat Home Health Nursing Order: Medical education Signs/symptoms of disease process Medication education-adverse effect Nursing assessment with vital signs I have seen patient Kayode Mckeon on 09/19/17. My clinical findings support the need for the requested home health care services because: Ltd mobility - disease progression I certify that my clinical findings support that this patient is homebound because: Post-op weakness Unsteady gait/balance Lesa Hurley MD Sep 19, 2017 14:27
[2017-09-19] MEDS ORDERED: PERI PO (14:49)
[2017-09-19] MEDS ORDERED: TAMS0.4C4 PO (14:49)
[2017-09-19] MEDS ORDERED: DEXA4TAB PO (14:49)
[2017-09-19] MEDS ORDERED: OXYC1TAB36 PO (14:49)
[2017-09-19] MEDS ORDERED: LORA-475 PO (14:49)
[2017-09-19] MEDS ORDERED: PANT20 PO (14:49)
--- NOTE | 2017-09-20 15:28 | PQ ---
Physician Query Response Document PATIENT: ELLA ARCOS : 1960 ADMIT DATE: 09/13/2017 5:17 PM DISCH DATE: 09/19/2017 4:14 PM RESPONDING PROVIDER #: suman QUERY TEXT: Acuity Specificity Based on your medical judgment, can you further clarify which, if any, of the following this condit ion is intended to indicate: ? Brain Herniation ? Compression of the brain ? Cerebral edema ? Other (*please specify) ? Unable to determine (*please explain) The patient's Clinical Indicators include: Documentation indicates headache and outpatient MRI which showed possible metastatic disease. Patien t reports double vision and severe global headache worsening over 1 week. Treatment with Decadron Query created by: Annabella Trejo on 09/19/2017 12:00 AM RESPONSE TEXT: Acute brain herniation patient with severe headache as well Electronically signed by: Lesa Hurley MD 09/20/2017 3:25 PM
== END 2017-09-19 16:14 | disposition home health service (06) | DRG 542 ==
LOC: NEPC 13:09 → NEDA 16:38 → OBSVTOIN 17:17 → N05A 18:20
PROVIDERS: ADMIT Hospitalist; ATTEND Hospitalist
PROC: DPY Radiation Therapy, Musculoskeletal System, Other Radiation (ICD-10-PCS; 2017-09-14)
PROC: 0DJD8ZZ Inspection of Lower Intestinal Tract, Via Natural or Artificial Opening Endoscopic (ICD-10-PCS; principal; 2017-09-18 12:37)
DX: C79.51 Secondary malignant neoplasm of bone (principal); G93.5 Compression of brain; C78.7 Secondary malignant neoplasm of liver and intrahepatic bile duct; E83.51 Hypocalcemia; C79.31 Secondary malignant neoplasm of brain; K61.1 Rectal abscess; C19 Malignant neoplasm of rectosigmoid junction; G62.0 Drug-induced polyneuropathy; G89.3 Neoplasm related pain (acute) (chronic); H53.2 Diplopia; K64.9 Unspecified hemorrhoids; R33.8 Other retention of urine; N40.1 Benign prostatic hyperplasia with lower urinary tract symptoms; E87.6 Hypokalemia; T45.1X5A Adverse effect of antineoplastic and immunosuppressive drugs, initial encounter; D35.2 Benign neoplasm of pituitary gland; R11.12 Projectile vomiting; R44.1 Visual hallucinations; N52.9 Male erectile dysfunction, unspecified; F41.9 Anxiety disorder, unspecified; Z53.09 Procedure and treatment not carried out because of other contraindication; Z80.1 Family history of malignant neoplasm of trachea, bronchus and lung; Z85.048 Personal history of other malignant neoplasm of rectum, rectosigmoid junction, and anus; Z87.891 Personal history of nicotine dependence; Z92.3 Personal history of irradiation; Z93.3 Colostomy status
CPT/HCPCS: 71260; 72156; 72158; 74177; 77295; 77300; 77334; 77336; 77387; 77412; 77427; 80048; 82378; 82948; 84155; 84439; 84443; 84481; 85025; 96374; 96376; J1170; A9579; J0610; J1100; J1642; J1650; J2060; J2405; J2543; J8540; Q9963; Q9967

== ENCOUNTER 2017-10-18 07:49 | Day surgery (SDC) | payer BC ==
[~2017-10-18] VITALS: Ht 182.9 cm; Wt 106.8 kg
[~2017-10-18 07:49] MED LIST changes: +DEXA4TAB PO; +LORA-475 PO; +OXYC1TAB36 PO; +PANT20 PO; +PERI PO; +TYLETAB34 PO
[2017-10-18 08:21] VITALS: BP 126/103; PULSE 113; RESP 20; TEMP 98.3; O2SAT 98
[2017-10-18] MEDS ORDERED: FINA5TAB2 PO (08:39)
[2017-10-18] MEDS ORDERED: MORP1TAB25 PO (08:39)
[2017-10-18 09:15] LABS: AUTOMATED NEUTROPHIL # 1.4 TH/MM3 (1.8-7.7); BASOPHIL % 0.6 % (0.0-2.0); EOSINOPHIL # 0.1 TH/MM3 (0-0.4); EOSINOPHIL % 3.9 % (0.0-4.0); HEMATOCRIT 38.1 % (39.0-51.0); HEMO FLAGS DIFF FINAL; LYMPH % 10.3 % (9.0-44.0); LYMPHOCYTE # 0.2 TH/MM3 (1.0-4.8); MEAN CELL VOLUME 88.9 FL (80.0-100.0); MEAN CORPUSCULAR HEMOGLOBIN 30.6 PG (27.0-34.0); MEAN CORPUSCULAR HGB CONC 34.5 % (32.0-36.0); MONO % 19.2 % (0.0-8.0); PLATELET COUNT 200 TH/MM3 (150-450); RED BLOOD COUNT 4.28 MIL/MM3 (4.50-5.90); RED CELL DISTRIBUTION WIDTH 13.9 % (11.6-17.2); WHITE BLOOD COUNT 2.1 TH/MM3 (4.0-11.0)
[2017-10-18 09:23] LABS: APTT (PATIENT) 29.3 SEC (24.3-30.1); INTERNATIONAL NORMALIZED RATIO 1.1 RATIO; PROTHROMBIN TIME - PATIENT 11.6 SEC (9.8-11.6)
[2017-10-18] MEDS ORDERED: SODIUM CHLORIDE 0.9% FLUSH 10 ML FLUSH IV FLUSH PRN (10:00)
[2017-10-18] MEDS ORDERED: ALCOHOL, DEHYDRATED (ABSOLUTE) 5 ML VIAL ONE (11:45)
[2017-10-18] MEDS ORDERED: LIDOCAINE HCL 1% 20 ML VIAL ONE (11:47)
[2017-10-18] MEDS ORDERED: BUPIVACAINE HCL PF 0.75% 10 ML VIAL ONE (12:02)
[2017-10-18] MEDS ORDERED: HYDROmorphone HCL PF 2 MG/ML VIAL ONE (12:17)
--- NOTE | 2017-10-18 12:33 | PD.RAD ---
Post CT Procedure Prog Note Pre Procedure Diagnosis: (1) Colon cancer (2) Pain Post Procedure Diagnosis: (1) Pain (2) Colon cancer Procedure Date: Oct 18, 2017 Supervising Radiologist: Tc Andrade Anesthesia: Local Plan of Activity Patient to Unit: [facility] Patient Condition: Good See PACS Report for procedural detail/treatment Tc Andrade MD Oct 18, 2017 12:33
[2017-10-18 12:40] VITALS: BP 137/89; PULSE 98; RESP 20; TEMP 98.6; O2SAT 97
[2017-10-18 12:55] VITALS: BP 142/88; PULSE 99; RESP 20; O2SAT 98
[2017-10-18 13:25] VITALS: BP 156/86; PULSE 99; RESP 20; O2SAT 96
[2017-10-18 13:55] VITALS: BP 149/89; PULSE 110; RESP 18; O2SAT 95
--- NOTE | 2017-10-18 14:45 | RADRPT ---
EXAM DATE/TIME: 10/18/2017 11:55 [facility] COMPARISON: No previous studies available for comparison. INDICATIONS : 57-year-old male with history of colorectal CA and debilitating persistent rectal pain the requiring escalating significant narcotic medication or with persistent breakthrough pain. Patient presents for Impar ganglion block. DEVICE(S): 1.) 20 gauge Chiba needle RESPONSE: Pre-procedure pain level was 10 Pre-procedure pain level was 3 MEDICAL HISTORY : Carcinoma, colon. Metastatic, brain. Metastatic, bone. SURGICAL HISTORY : Right port placed, vasectomy. ENCOUNTER: Initial ACUITY: 1 day PAIN SCORE: 3/10 LOCATION: pelvis PROCEDURE : CT guided Impar ganglion block The risks, benefits and alternatives to the procedure were explained and verbal and written consent w as obtained. Using automated exposure control and adjustment of the mA and/or kV according to patien t size, radiation dose was kept as low as reasonably achievable to obtain optimal diagnostic quality images. The site was prepped in sterile fashion. Full sterile technique was used, including cap, ma sk, sterile gloves and gown and a large sterile sheet. Hand hygiene and 2% chlorhexidine and/or beta dine/alcohol prep was utilized per protocol for cutaneous antisepsis. The skin and subcutaneous tiss ues were infiltrated with local anesthetic solution. DICOM format image data is available electronic ally for review and comparison. Two 20 gauge Chiba needles were advanced under careful CT guidance just anterior to the sacrococcygea l junction. Position was confirmed with small amount of dilute contrast injection. There is no eviden ce of extravasation or other abnormality. Therefore, a test injection containing 2 cc of bupivacaine was injected through each needle. Patient reported pain relief without other symptoms. Therefore, a s olution containing 1 mL bupivacaine and 3 mL alcohol was injected through each needle and the needles were removed. Post procedural CT exam demonstrated no hematoma or other complication. Patient experienced significant pain relief following the procedure CONCLUSION: Uncomplicated CT-guided Impar Ganglion black, as above. Tc Andrade MD on October 18, 2017 at 14:37 Board Certified Radiologist. This report was verified electronically.
== END 2017-10-18 14:20 | disposition home or self-care (01) ==
LOC: HRAD 07:49 → HRIP 07:50 → HRAD 14:20
PROVIDERS: ATTEND Internal Medicine
DX: K62.89 Other specified diseases of anus and rectum (principal); G89.3 Neoplasm related pain (acute) (chronic); C79.51 Secondary malignant neoplasm of bone; C18.9 Malignant neoplasm of colon, unspecified; Z01.818 Encounter for other preprocedural examination
CPT/HCPCS: 62323; 77012; 85025; 85610; 85730; J1170; J1642

== ENCOUNTER 2017-11-27 11:03 | Emergency (ER) | payer BC ==
[~2017-11-27] VITALS: Ht 182.9 cm; Wt 98.0 kg
[~2017-11-27 11:03] MED LIST changes: -DEXA4TAB PO; +FINA5TAB2 PO; +MORP1TAB25 PO; -PANT20 PO; -PERI PO; -TYLETAB34 PO
[2017-11-27 11:09] VITALS: BP 118/64; PULSE 106; RESP 18; O2SAT 100
[2017-11-27 11:12] VITALS: TEMP 97.4
[2017-11-27] MEDS ORDERED: DILA2TAB4 PO (11:18)
[2017-11-27] MEDS ORDERED: LORazepam 2 MG/ML VIAL IV PUSH ONE (11:30)
[2017-11-27] MEDS ORDERED: SODIUM CHLOR 0.9% 1000 ML INJ 1,000 ML IV ONE ×3 (11:30→13:45)
[2017-11-27 12:06] LABS: AUTOMATED NEUTROPHIL # 1.7 TH/MM3 (1.8-7.7); BASOPHIL % 0.8 % (0.0-2.0); EOSINOPHIL # 0.1 TH/MM3 (0-0.4); EOSINOPHIL % 2.6 % (0.0-4.0); HEMATOCRIT 33.6 % (39.0-51.0); HEMOGLOBIN 11.3 GM/DL (13.0-17.0); LYMPH % 15.6 % (9.0-44.0); LYMPHOCYTE # 0.4 TH/MM3 (1.0-4.8); MEAN CELL VOLUME 85.7 FL (80.0-100.0); MEAN CORPUSCULAR HEMOGLOBIN 28.8 PG (27.0-34.0); MEAN CORPUSCULAR HGB CONC 33.6 % (32.0-36.0); MONO % 11.4 % (0.0-8.0); MONOCYTE # 0.3 TH/MM3 (0-0.9); NEUT % 69.6 % (16.0-70.0); PLATELET COUNT 269 TH/MM3 (150-450); RED BLOOD COUNT 3.92 MIL/MM3 (4.50-5.90); RED CELL DISTRIBUTION WIDTH 16.2 % (11.6-17.2); WHITE BLOOD COUNT 2.5 TH/MM3 (4.0-11.0)
[2017-11-27 12:25] LABS: ALT (GPT) 60 U/L (12-78); AST (GOT) 37 U/L (15-37); BICARBONATE 21.7 MEQ/L (21.0-32.0); BLOOD UREA NITROGEN 6 MG/DL (7-18); CALCIUM 8.2 MG/DL (8.5-10.1); CHLORIDE 101 MEQ/L (98-107); CREATININE 0.93 MG/DL (0.60-1.30); GLOMERULAR FILTRATION RATE 84 ML/MIN (>89); GLUCOSE,RANDOM 127 MG/DL (74-106); SODIUM (NA) 135 MEQ/L (136-145)
[2017-11-27 12:27] LABS: ALKALINE PHOSPHATASE 112 U/L (45-117); TOTAL BILIRUBIN ADULT 0.5 MG/DL (0.2-1.0); TOTAL PROTEIN 6.8 GM/DL (6.4-8.2)
[2017-11-27 12:36] LABS: OVALOCYTES 1+ (NORMAL)
[2017-11-27 12:37] LABS: TEARDROP RBCS 1+ (NORMAL)
[2017-11-27] MEDS ORDERED: PROMETHAZINE INJ 25 MG/ML VIAL IM ONE (14:30)
[2017-11-27] MEDS ORDERED: PROM25TA10 PO (15:55)
--- NOTE | 2017-11-27 15:55 | PD ---
HPI Chief Complaint: Pain: Acute or Chronic Time Seen by Provider: 11:14 Travel History International Travel<30 days: No Contact w/Intl Traveler<30days: No Traveled to known affect area: No History of Present Illness HPI Patient is a 57-year-old male with history of colorectal cancer, who comes in complaining of nausea vomiting and dehydration. Her , he has been vomiting for the past 3 weeks with the chemo. They have tried Zofran and Compazine without relief. Per , he only gets relief from Ativan. He is not complaining of any pain. They tried to go to the oncologist office today, but they did not have a bed for him to be hydrated in, and is too painful for him to sit due to the cancer. He has not had any fever or chills. He has a colostomy, that is producing diarrhea. There is been no blood. PFSH Past Medical History Anxiety: Yes Cancer: Yes (SPINAL L4-L5, RECTAL, LIVER) Cardiovascular Problems: No Chemotherapy: Yes Diabetes: No Diminished Hearing: No Endocrine: No Gastrointestinal Disorders: Yes (colorectal ca ) Genitourinary: Yes (urinary retention BPH) Hepatitis: No Hiatal Hernia: No Hypertension: No Immune Disorder: No Medical other: Yes (COLON CA WITH METS TO BRAIN AND SPINE) Musculoskeletal: Yes Neurologic: No Psychiatric: No Reproductive: No Respiratory: No Immunizations Current: No Migraines: Yes Radiation Therapy: Yes Thyroid Disease: No Past Surgical History Abdominal Surgery: Yes (COLOSTOMY, COLON RESECTION) AICD: No Body Medical Devices: INFUSA PORT TO RIGHT UPPER CHEST Cardiac Surgery: No Ear Surgery: No Endocrine Surgery: No Eye Surgery: No Genitourinary Surgery: Yes Gynecologic Surgery: No Joint Replacement: No Neurologic Surgery: No Oral Surgery: No Pacemaker: No Thoracic Surgery: No Other Surgery: Yes (implanted port) Social History Alcohol Use: No Tobacco Use: No Substance Use: No Allergies-Medications (Allergen,Severity, Reaction): Coded Allergies: No Known Allergies (Verified Allergy, Unknown, 10/18/17) Reported Meds & Prescriptions Reported Meds & Active Scripts Active Phenergan (Promethazine HCl) 25 Mg Tablet 25 Mg PO Q6H PRN Ativan (Lorazepam) 2 Mg Tab 2 Mg PO Q8HR PRN Tamsulosin (Tamsulosin HCl) 0.4 Mg Cap 0.4 Mg PO HS Reported Dilaudid (Hydromorphone HCl) 2 Mg Tab 2 Mg PO Q5H PRN Morphine ER (Morphine Sulfate) 30 Mg Tab 45 Mg PO BID Finasteride 5 Mg Tab 5 Mg PO DAILY Do not crush. Review of Systems Except as stated in HPI: all other systems reviewed are Neg General / Constitutional: No: Fever, Chills HENT: No: Headaches, Lightheadedness Cardiovascular: No: Chest Pain or Discomfort Respiratory: No: Shortness of Breath Gastrointestinal: Positive: Nausea, Vomiting, Diarrhea, No: Abdominal Pain Genitourinary: No: Dysuria Musculoskeletal: No: Myalgias Skin: No Change in Pigmentation Neurologic: No: Weakness, Dizziness Physical Exam Narrative GENERAL: Awake and alert, no acute distress. SKIN: Focused skin assessment warm/dry. No wounds or signs of infection. HEAD: Atraumatic. Normocephalic. EYES: Pupils equal and round. No scleral icterus. ENT: No nasal bleeding or discharge. Mucous membranes pink and moist. NECK: Trachea midline. No JVD. CARDIOVASCULAR: Regular rate and rhythm. No murmur appreciated. RESPIRATORY: No accessory muscle use. Clear to auscultation. Breath sounds equal bilaterally. GASTROINTESTINAL: Abdomen soft, non-tender, nondistended. Colostomy is pink, producing stool. MUSCULOSKELETAL: No obvious deformities. No clubbing. No cyanosis. No edema. NEUROLOGICAL: Awake and alert. No obvious cranial nerve deficits. Motor grossly within normal limits. Normal speech. PSYCHIATRIC: Appropriate mood and affect; insight and judgment normal. Data Data Last Documented VS Vital Signs Date Time Temp Pulse Resp B/P (MAP) Pulse Ox O2 Delivery O2 Flow Rate FiO2 11/27/17 16:08 100 20 120/68 (85) 100 Room Air 11/27/17 11:12 97.4 Orders Orders Complete Blood Count With Diff (11/27/17 11:23) Comprehensive Metabolic Panel (11/27/17 11:23) Lactic Acid (11/27/17 11:23) Sodium Chlor 0.9% 1000 Ml Inj (Ns 1000 M (11/27/17 11:30) Lorazepam Inj (Ativan Inj) (11/27/17 11:30) Sodium Chlor 0.9% 1000 Ml Inj (Ns 1000 M (11/27/17 13:00) Sodium Chlor 0.9% 1000 Ml Inj (Ns 1000 M (11/27/17 13:45) Lactic Acid (11/27/17 14:26) Promethazine Inj (Phenergan Inj) (11/27/17 14:30) Ed Discharge Order (11/27/17 15:55) Heparin Central Flush (Heparin Central F (11/27/17 16:15) Labs Laboratory Tests Test 11/27/17 11:40 11/27/17 14:45 White Blood Count 2.5 TH/MM3 Red Blood Count 3.92 MIL/MM3 Hemoglobin 11.3 GM/DL Hematocrit 33.6 % Mean Corpuscular Volume 85.7 FL Mean Corpuscular Hemoglobin 28.8 PG Mean Corpuscular Hemoglobin Concent 33.6 % Red Cell Distribution Width 16.2 % Platelet Count 269 TH/MM3 Mean Platelet Volume 9.0 FL Neutrophils (%) (Auto) 69.6 % Lymphocytes (%) (Auto) 15.6 % Monocytes (%) (Auto) 11.4 % Eosinophils (%) (Auto) 2.6 % Basophils (%) (Auto) 0.8 % Neutrophils # (Auto) 1.7 TH/MM3 Lymphocytes # (Auto) 0.4 TH/MM3 Monocytes # (Auto) 0.3 TH/MM3 Eosinophils # (Auto) 0.1 TH/MM3 Basophils # (Auto) 0.0 TH/MM3 CBC Comment AUTO DIFF Differential Comment AUTO DIFF CONFIRMED Platelet Estimate NORMAL Platelet Morphology Comment ENLARGED Tear Drop Cells 1+ Ovalocytes 1+ Blood Urea Nitrogen 6 MG/DL Creatinine 0.93 MG/DL Random Glucose 127 MG/DL Total Protein 6.8 GM/DL Albumin 3.0 GM/DL Calcium Level 8.2 MG/DL Alkaline Phosphatase 112 U/L Aspartate Amino Transf (AST/SGOT) 37 U/L Alanine Aminotransferase (ALT/SGPT) 60 U/L Total Bilirubin 0.5 MG/DL Sodium Level 135 MEQ/L Potassium Level 3.5 MEQ/L Chloride Level 101 MEQ/L Carbon Dioxide Level 21.7 MEQ/L Anion Gap 12 MEQ/L Estimat Glomerular Filtration Rate 84 ML/MIN Lactic Acid Level 4.7 mmol/L 1.0 mmol/L [facility] Medical Decision Making Medical Screen Exam Complete: Yes Emergency Medical Condition: Yes Medical Record Reviewed: Yes Differential Diagnosis Dehydration versus obstruction versus electrolyte abnormality Narrative Course Patient is a 57-year-old male comes in complaining of nausea vomiting and diarrhea. Exam shows colostomy to be producing stool. IV established, labs sent. Labs show an elevated lactic acid, due to severe dehydration. Patient hydrated, given a dose of Ativan. Given a dose of Phenergan. After the Phenergan, he was able to tolerate fluids without vomiting. Patient offered admission, but he says he would like to go home. Lactic acid improved with fluids. He is advised to try and drink small sips of fluid several times to keep hydrated. Advised return anytime for any worsening symptoms. Given a prescription for Phenergan. Diagnosis Primary Impression: Dehydration Patient Instructions: Acute Nausea and Vomiting (ED), Dehydration (ED), General Instructions Additional Instructions: Tried to drink fluids regularly. Take Phenergan as needed for nausea, if it makes you too sleepy, try half a pill. Follow-up with your doctors. Return to the ED as needed for any worsening symptoms. Scripts Promethazine (Phenergan) 25 Mg Tablet 25 MG PO Q6H Y for NAUSEA OR VOMITING, #20 TAB 0 Refills Prov: Kajal Myers MD 11/27/17 Disposition: DISCHARGE HOME Condition: Stable Kajal Myers MD Nov 27, 2017 15:55
[2017-11-27 16:08] VITALS: BP 120/68; PULSE 100; RESP 20; O2SAT 100
== END 2017-11-27 16:23 | disposition home or self-care (01) ==
LOC: NEPE 11:03
DX: C19 Malignant neoplasm of rectosigmoid junction (principal); C79.31 Secondary malignant neoplasm of brain; C79.51 Secondary malignant neoplasm of bone; E86.0 Dehydration
CPT/HCPCS: 80053; 83605; 84132; 85025; 96361; 96372; 96374; 99283; J1642; J2060; J2550; J7030

== ENCOUNTER 2017-12-18 14:37 | Inpatient (IN) | payer BC ==
[~2017-12-18 14:37] MED LIST changes: +DILA2TAB4 PO; -OXYC1TAB36 PO; +PROM25TA10 PO
[2017-12-18 16:15] VITALS: BP 90/51; PULSE 99; RESP 20; O2SAT 95
[2017-12-18] MEDS ORDERED: DIATRIZOATE MEGLUM/DIATRIZOATE SOD 9 ML CUP PO ONE (16:45)
[2017-12-18] MEDS ORDERED: SODIUM CHLOR 0.9% 1000 ML INJ 1,000 ML IV SCH (18:00)
[2017-12-18 18:07] VITALS: TEMP 97.3
[2017-12-18] MEDS ORDERED: MORPHINE SULFATE 15 MG TAB PO PRN (18:15)
[2017-12-18 20:00] VITALS: BP 102/60; PULSE 66; RESP 16; TEMP 98.1; O2SAT 96
[2017-12-18] MEDS ORDERED: IOHEXOL 350 MG/ML 10 ML VIAL (for RAD DIAG) IVCONTRAST ONE (20:28)
[2017-12-18] MEDS: HYDROmorphone HCL PF 2 MG/ML VIAL IV PRN (20:50)
[2017-12-18] MEDS: NS + KCL 40 MEQ INJ 1,000 ML IV SCH (20:51)
--- NOTE | 2017-12-18 20:51 | RADRPT ---
EXAM DATE/TIME: 12/18/2017 20:22 [facility] COMPARISON: CT ABDOMEN & PELVIS W CONTRAST, September 14, 2017, 20:43. INDICATIONS : History of colon cancer, urinary obstruction. IV CONTRAST: 70 cc Omnipaque 350 (iohexol) IV ORAL CONTRAST: Prescribed oral contrast ingested. RADIATION DOSE: 11.65 CTDIvol (mGy) MEDICAL HISTORY : Carcinoma, colon. SURGICAL HISTORY : Colostomy. ENCOUNTER: Initial ACUITY: 1 day PAIN SCALE: 8/10 LOCATION: pelvis TECHNIQUE: Volumetric scanning of the abdomen and pelvis was performed. Using automated exposure control and ad justment of the mA and/or kV according to patient size, radiation dose was kept as low as reasonably achievable to obtain optimal diagnostic quality images. DICOM format image data is available electro nically for review and comparison. FINDINGS: LOWER LUNGS: Minimal bibasilar airspace disease, likely atelectasis. LIVER: Diffusely decreased hepatic density without significant volume loss, intrahepatic ductal dilatation o r focal mass. Small gallstones. SPLEEN: Normal size without lesion. PANCREAS: Within normal limits. KIDNEYS: Redemonstration of moderate bilateral hydronephrosis similar to prior exam. ADRENAL GLANDS: Within normal limits. VASCULAR: There is no aortic aneurysm. BOWEL/MESENTERY: Left lower quadrant colostomy. There is stable diffuse thickening of the rectum and anus. There is no evidence for bowel obstruction with oral contrast extending to the distal ileum. No drainable focal fluid collections or free fluid. No free air. ABDOMINAL WALL: Left lower quadrant colostomy. RETROPERITONEUM: There is no lymphadenopathy. BLADDER: Decompressed secondary to Painting catheter. REPRODUCTIVE: Within normal limits. INGUINAL: There is no lymphadenopathy or hernia. MUSCULOSKELETAL: Redemonstration of sclerotic bone lesions in T12, L4 and iliac bones. No definite new focal bony lesi ons. CONCLUSION: 1. Decompressed bladder secondary to Painting catheter with stable moderate bilateral hydroureteronephro sis. 2. Left lower quadrant diverting colostomy with stable circumferential thickening of the inferior rec yenny and anus, likely post radiation change. 3. Stable sclerotic bony lesions consistent with metastatic disease. 4. Stable anterior findings including hepatic steatosis and cholelithiasis. Tc Andrade MD on December 18, 2017 at 20:43 Board Certified Radiologist. This report was verified electronically.
[2017-12-18] MEDS: DOCUSATE SODIUM 100 MG CAP PO SCH (20:59)
[2017-12-18] MEDS ORDERED: SENNOSIDES 8.6 MG TAB PO SCH (21:00)
[2017-12-18] MEDS: ENOXAPARIN SODIUM 40 MG/0.4 ML SYRINGE SQ SCH (21:21)
--- NOTE | 2017-12-18 23:16 | MH ---
cc: CANDICE BRADY DATE OF ADMISSION: 12/18/2017 DATE OF : 1960. REASON FOR ADMISSION: Patient with a diagnosis of stage IV colorectal cancer. He is being admitted to the hospital with urinary retention, intractable rectal pain and electrolyte abnormalities. CHIEF COMPLAINT Unable to urinate for several days, rectal pain. HISTORY OF PRESENT ILLNESS Mr. Mckeon is a 57-year-old male who has a past medical history of stage IV colorectal cancer. He was diagnosed with this malignancy in May 2016. Unfortunately he had metastatic disease up front and his tumor was not resectable. He initially had metastatic disease to the bone. He was treated with systemic chemotherapy and he has undergone multiple lines of treatment. He now has progressive disease and recently was found to have mets to the clivus in the brain. Additionally he has metastatic disease in the vertebral spine and pelvic bones. The patient is currently being treated with Folfiri and Panitumumab. He has KRAS, wild type disease. The patient presented to the oncology clinic today for his scheduled treatment. He was in significant discomfort and stated that he has not had voided urine for several days. A Painting catheter was immediately placed and approximately 1200 cc of urine was drained. He then had additional liter and a half that was drained subsequently. He has been having intractable rectal pain. This is an ongoing issue and unfortunately numerous modalities had been used to control his pain but this is an ongoing issue for him. He takes Dilaudid and morphine to control his pain. The patient was admitted to the hospital to address urinary obstruction, intractable pain and he also had electrolyte abnormalities. He has not had any fever or chills. He has not had any bright red blood per rectum or melena. REVIEW OF SYSTEMS Comprehensive 14-point review of systems was completed which is negative except as described in the HPI. PAST MEDICAL HISTORY 1. Stage IV colorectal cancer with metastasis to the bone and liver. 2. Brain mass. 3. History of hemorrhoids. 4. History of peripheral neuropathy. 5. BPH. 6. Anxiety. PAST SURGICAL HISTORY: 1. Colonoscopy. 2. Port placement. 3. Vasectomy. 4. Knee surgery of the right in 1986. 5. Tonsillectomy in 1963. 6. Diverting colostomy. MEDICATIONS: 1. Dilaudid 2 mg tablet q.5 h p.r.n. 2. Morphine sulfate 30 mg q.12 h. 3. Multivitamins. 4. Potassium tablets. 5. Promethazine. 6. Lorazepam. 7. Flomax. 8. Caltrate ALLERGIES NO KNOWN DRUG ALLERGIES. FAMILY HISTORY Family history is significant for prostate cancer, pancreatic cancer, colon cancer and skin cancer. SOCIAL HISTORY: He is . He quit smoking 22 years ago. He smoked for 15 pack-years. He rarely drinks alcohol. No illicit drug use. 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 PHYSICAL EXAMINATION Vital signs: Blood pressure is 102/60, pulse is 66, temperature is 98.1. O2 sat 96% on room air. General: Chronically ill-appearing male who is in mild distress. He has been given IV Dilaudid, somewhat sedated. HEENT: Pupils are equal, round, reactive to light. EOMI. No thrush. No oral lesions. Neck: Supple. No JVD, no bruits. No lymphadenopathy. Chest: Clear to auscultation bilaterally. Cardiac: S1-S2 regular rate and rhythm. Abdomen: Soft, mildly distended. There is diffuse tenderness in the suprapubic area. No rebound or guarding. Bowel sounds are hyperactive. Extremities: Without any edema, erythema or cyanosis. Skin: Without any petechiae, lesions or bruises. Neuro: No focal deficits. Psychiatric: Mood and affect is appropriate. No lymphadenopathy on exam. Colostomy bag does not have any blood. There is no erythema or rash around the stoma. LABORATORY DATA WBC is 4.3, hemoglobin is 11.1, platelet count is 159. Serum chemistries show a sodium of 138, potassium 3.1, CO2 27.7, BUN is 11, creatinine is 0.6, GFR is 139, AST is 35, ALT 76, total bilirubin is 0.5, LDH is 316, albumin is 2.6. CEA is elevated to 152.9. ASSESSMENT/PLAN This is a 57-year-old male with a past medical history of stage IV colorectal cancer with metastasis to the brain involving the clivus, pelvic bones and vertebral spine. He also has mets to the liver in the past but the liver lesion has resolved. He was admitted to the hospital with urinary retention, intractable rectal pain and electrolyte abnormalities. 1. Abdominal distension and urinary retention. A Painting catheter was placed with a 2 liters of urine that was drained out. There is concern for progressive disease in the abdomen causing hydronephrosis or obstructing the ureters. He also has a history of enlarged prostate. He states that he has been regularly taking tamsulosin and finasteride. We need to obtain a CT of the abdomen and pelvis with contrast to assess for any disease that may cause urinary obstruction. We will ask urology to see this patient. We will obtain UA and urine cultures. 2. Intractable rectal pain secondary to malignancy. CT scans of the abdomen and pelvis as stated above. We will ask GI for a colonoscopy for examination of his rectum to assess for disease. The patient also see Dr. Gannon outpatient. He will be consulted. 3. Intractable pain. IV Dilaudid 1 mg q3-[address] him on short acting morphine 15 mg q. 6 hours p.r.n. pain. He will also be started on MS-Contin 30 milligrams p.o. b.i.d. This is his home regimen. 4. Stage IV colorectal cancer. He now has continued elevation of his CEA levels. I am concerned about disease progression. We will obtain scans and colonoscopy as stated above to assess his disease. He is currently receiving Folfiri and Panitumumab for KRAS wild type disease. 5. Hypokalemia. Will replace potassium. 6. Hypoalbuminemia. Encourage oral intake. Ensure t.i.d. with meals. Further recommendations will be made during the course of his admission. MD MOHAN Acosta/CHRISTIANO /10:25 PM /10:42 PM
[2017-12-18] MEDS: NYSTAT/DIPHENHY/LIDO MOUTHWASH (Adult) 120ML SWISH-SWAL SCH (23:32)
[2017-12-18] MEDS: TAMSULOSIN HCL 0.4 MG CAP PO SCH (23:32)
[2017-12-19] VITALS (7 sets, daily range): BP systolic 104–117; BP diastolic 58–69; PULSE 64–85; RESP 16–18; TEMP 97.3–98.8; O2SAT 97–99
[2017-12-19] MEDS: HYDROmorphone HCL PF 2 MG/ML VIAL IV PRN ×6 (00:38→20:49)
[2017-12-19] MEDS: NS + KCL 40 MEQ INJ 1,000 ML IV SCH ×2 (02:00→05:07)
[2017-12-19 06:41] LABS: BASOPHIL % 0.1 % (0.0-2.0); HEMATOCRIT 27.3 % (39.0-51.0); HEMOGLOBIN 9.1 GM/DL (13.0-17.0); LYMPH % 6.6 % (9.0-44.0); LYMPHOCYTE # 0.2 TH/MM3 (1.0-4.8); MEAN CELL VOLUME 88.4 FL (80.0-100.0); MEAN CORPUSCULAR HEMOGLOBIN 29.5 PG (27.0-34.0); MEAN CORPUSCULAR HGB CONC 33.3 % (32.0-36.0); MEAN PLATELET VOLUME 9.4 FL (7.0-11.0); MONO % 13.8 % (0.0-8.0); MONOCYTE # 0.4 TH/MM3 (0-0.9); NEUT % 79.5 % (16.0-70.0); PLATELET COUNT 118 TH/MM3 (150-450); RED BLOOD COUNT 3.09 MIL/MM3 (4.50-5.90); RED CELL DISTRIBUTION WIDTH 19.7 % (11.6-17.2); WHITE BLOOD COUNT 2.6 TH/MM3 (4.0-11.0)
[2017-12-19 07:10] LABS: ALBUMIN 2.2 GM/DL (3.4-5.0); ALKALINE PHOSPHATASE 105 U/L (45-117); ALT (GPT) 60 U/L (12-78); AST (GOT) 22 U/L (15-37); BICARBONATE 26.9 MEQ/L (21.0-32.0); BLOOD UREA NITROGEN 10 MG/DL (7-18); CALCIUM 7.6 MG/DL (8.5-10.1); CHLORIDE 103 MEQ/L (98-107); CREATININE 0.57 MG/DL (0.60-1.30); GLOMERULAR FILTRATION RATE 147 ML/MIN (>89); GLUCOSE,RANDOM 136 MG/DL (74-106); SODIUM (NA) 139 MEQ/L (136-145); TOTAL BILIRUBIN ADULT 0.3 MG/DL (0.2-1.0)
[2017-12-19] MEDS: DOCUSATE SODIUM 100 MG CAP PO SCH ×2 (08:55→20:54)
[2017-12-19] MEDS: DOCUSATE SODIUM 50 MG/SENNA 8.6 MG TAB PO SCH ×2 (08:55→20:54)
[2017-12-19] MEDS: NYSTAT/DIPHENHY/LIDO MOUTHWASH (Adult) 120ML SWISH-SWAL SCH ×4 (08:59→21:22)
[2017-12-19] MEDS: ENOXAPARIN SODIUM 40 MG/0.4 ML SYRINGE SQ SCH (09:00)
[2017-12-19] MEDS: TAMSULOSIN HCL 0.4 MG CAP PO SCH ×2 (09:00→20:53)
[2017-12-19] MEDS: FINASTERIDE 5 MG TAB PO SCH (09:00)
[2017-12-19 09:16] LABS: BANDS 4 % (0-6); LYMPHOCYTES 5 % (9-44); METAMYELOCYTES 1 % (0-1); MONOCYTES 7 % (0-8); NEUTROPHIL # MANUAL DIFF 2.3 TH/MM3 (1.8-7.7); POLYS (SEG NEUTROPHILS) 83 % (16-70)
[2017-12-19 09:17] LABS: OVALOCYTES 1+ (NORMAL); TEARDROP RBCS 1+ (NORMAL)
--- NOTE | 2017-12-19 10:38 | PD.CONS ---
HPI History of Present Illness This is a 57 year old male with stage IV metastatic colorectal Ca diagnosed in 2015 who presented to the hospital from his oncology appt for urinary retention and rectal pain. GI has been consulted for colonoscopy. He admits chronic rectal bleeding. Had Flex sig 08/[address] Gannon with finding large rectal cancer. His last complete colonoscopy was 03/[address] Gannon, whom he is known to. he has a colostomy. (Isabel Galeana) PFSH Past Medical History colorectal cancer with mets HTn Past Surgical History diverting loop colostomy (Isabel Galeana) Coded Allergies: No Known Allergies (Verified Allergy, Unknown, 10/18/17) Family History prostate ca pancreatic ca colon ca Social History former smoker rare etoh no illicit drug use (Isabel Galeana) Review of Systems Constitutional: DENIES: Fever Endocrine: DENIES: Polydipsia Eyes: DENIES: Blurred vision Ears, nose, mouth, throat: DENIES: Hearing loss Respiratory: DENIES: Cough Cardiovascular: DENIES: Chest pain Gastrointestinal: COMPLAINS OF: Abdominal pain, Bloody stools, DENIES: Nausea, Vomiting Genitourinary: COMPLAINS OF: Dysuria, DENIES: Hematuria Musculoskeletal: DENIES: Muscle aches Integumentary: DENIES: Abnormal pigmentation Neurologic: DENIES: Abnormal gait Psychiatric: DENIES: Confusion (Isabel Galeana) GI Exam Vitals I&O Vital Signs Date Time Temp Pulse Resp B/P (MAP) Pulse Ox O2 Delivery O2 Flow Rate FiO2 12/19/17 08:37 97.6 85 18 105/64 (78) 97 12/19/17 04:40 97.4 64 16 104/58 (73) 98 12/19/17 00:00 97.8 85 16 109/66 (80) 98 12/18/17 21:21 18 12/18/17 20:00 98.1 66 16 102/60 (74) 96 12/18/17 18:07 97.3 12/18/17 16:15 99 20 90/51 (64) 95 I/O 12/18/17 12/18/17 12/18/17 12/19/17 12/19/17 12/19/17 07:00 15:00 23:00 07:00 15:00 23:00 Output Total 1300 ml 1750 ml 1250 ml Balance -1300 ml -1750 ml -1250 ml Output Urine Total 1300 ml 1750 ml 1250 ml Imaging Last Impressions Abdomen/Pelvis CT 12/18/17 0000 Signed Impressions: Service Date/Time: Monday, December 18, 2017 20:22 - CONCLUSION: 1. Decompressed bladder secondary to Painting catheter with stable moderate bilateral hydroureteronephrosis. 2. Left lower quadrant diverting colostomy with stable circumferential thickening of the inferior rectum and anus, likely post radiation change. 3. Stable sclerotic bony lesions consistent with metastatic disease. 4. Stable anterior findings including hepatic steatosis and cholelithiasis. Tc Andrade MD Laboratory Test 12/19/17 06:07 White Blood Count 2.6 TH/MM3 Red Blood Count 3.09 MIL/MM3 Hemoglobin 9.1 GM/DL Hematocrit 27.3 % Mean Corpuscular Volume 88.4 FL Mean Corpuscular Hemoglobin 29.5 PG Mean Corpuscular Hemoglobin Concent 33.3 % Red Cell Distribution Width 19.7 % Platelet Count 118 TH/MM3 Mean Platelet Volume 9.4 FL Neutrophils (%) (Auto) 79.5 % Lymphocytes (%) (Auto) 6.6 % Monocytes (%) (Auto) 13.8 % Eosinophils (%) (Auto) 0.0 % Basophils (%) (Auto) 0.1 % Neutrophils # (Auto) 2.0 TH/MM3 Lymphocytes # (Auto) 0.2 TH/MM3 Monocytes # (Auto) 0.4 TH/MM3 Eosinophils # (Auto) 0.0 TH/MM3 Basophils # (Auto) 0.0 TH/MM3 CBC Comment AUTO DIFF Differential Total Cells Counted 100 Neutrophils % (Manual) 83 % Band Neutrophils % 4 % Lymphocytes % 5 % Monocytes % 7 % Neutrophils # (Manual) 2.3 TH/MM3 Metamyelocytes 1 % Differential Comment FINAL DIFF MANUAL Platelet Estimate LOW Platelet Morphology Comment NORMAL Basophilic Stippling FAINT Tear Drop Cells 1+ Ovalocytes 1+ Blood Urea Nitrogen 10 MG/DL Creatinine 0.57 MG/DL Random Glucose 136 MG/DL Total Protein 5.0 GM/DL Albumin 2.2 GM/DL Calcium Level 7.6 MG/DL Phosphorus Level 3.0 MG/DL Magnesium Level 2.0 MG/DL Alkaline Phosphatase 105 U/L Aspartate Amino Transf (AST/SGOT) 22 U/L Alanine Aminotransferase (ALT/SGPT) 60 U/L Total Bilirubin 0.3 MG/DL Sodium Level 139 MEQ/L Potassium Level 3.8 MEQ/L Chloride Level 103 MEQ/L Carbon Dioxide Level 26.9 MEQ/L Anion Gap 9 MEQ/L Estimat Glomerular Filtration Rate 147 ML/MIN Prostate Specific Antigen 0.13 NG/ML Physical Examination HEENT: PERRL; normocephalic; atraumatic; no jaundice. CHEST: CTA CARDIAC: RRR ABDOMEN: Soft, round, nontender; no hepatosplenomegaly; bowel sounds are present in all four quadrants. EXTREMITIES: No clubbing, cyanosis, or edema. SKIN: Normal; no rash; no jaundice. WEB DESIGN SPECIALIST: No focal deficits; alert and oriented times three. (Isabel Galeana) Assessment and Plan Plan ASSESSMENT - BRBPR, rectal pain - 2/[address] known to Dr Gannon, elevated CEA CRS has been consulted and seen the pt. - anemia - normocytic. hgb 9.1 PLAN - mgmt per CRS - supportive care - GI will sign off. please reconsult if needed pt seen by myself and Dr Marie and this note is written on his behalf (Isabel Galeana) Physician Comments Seen and examined with YOMAIRA, Has h/o rectal cancer followed by CRS. Admitted with urinary obstruction secondary to the tumor. Further management per Dr Gannon. GI will sign off. Discussed with pt. and family at bedside. Available as needed. thank you. (Heidi Marie MD) Isabel Galeana Dec 19, 2017 10:38 Heidi Marie MD Dec 19, 2017 13:37
[2017-12-19] MEDS ORDERED: LORazepam 2 MG TAB PO PRN (10:45)
[2017-12-19] MEDS ORDERED: LORazepam 1 MG TAB PO PRN (11:00)
--- NOTE | 2017-12-19 11:02 | MB ---
cc: KAYA DEL ANGEL M.D., AWAIS TOLLAND, JOHN T. M.D. DATE OF CONSULTATION 12/19/2017 CHIEF COMPLAINT Urinary retention. HISTORY OF PRESENT ILLNESS This patient is well-known to me. He was diagnosed with a large rectal cancer with metastases to bone back in mid 2015. Subsequently, in early 2016 he underwent a diverting sigmoid colostomy for obstruction due to his rectal cancer despite radiation therapy and chemotherapy. The patient at that time also had a large rectal abscess from tumor erosion that has subsequently healed. The patient responded markedly to chemotherapy and several months ago we entertained the thought of debulking this rectal cancer if possible as it seemed somewhat removable at that time. He then developed headaches and metastatic disease to the clivus bone in the brain and for this reason surgery was aborted. At that time he underwent exam by me under anesthesia and it revealed a large fixed rectal cancer that was not amenable to any sort of surgical intervention. I have had multiple discussions with the patient and his and with Dr. Perez regarding this. The patient does have severe pain and has been developing urinary retention over the last weeks. I talked to his about 2 weeks ago about this and recommended that he take a Painting catheter and his and daughter said that he is vehemently opposed to that. He finally came in for chemotherapy and had not voided his urine and for this reason a Painting catheter was placed and 2000 cc of urine drained. The patient apparently at that time was not fully obstructed because his BUN and creatinine were normal. I was asked to see the patient for any recommendations. PAST MEDICAL HISTORY, SOCIAL HISTORY, FAMILY HISTORY, REVIEW OF SYSTEMS: As above. PHYSICAL EXAMINATION GENERAL: A well-developed and nourished male, in no acute distress at this time, really having no pain. SKIN: Warm and dry. HEENT: Extraocular muscles intact. NECK: Supple. ABDOMEN: Soft, really nontender. No masses. RECTAL: Exam was not done as he is fully obstructed and really unable to tolerate any sort of rectal exam without anesthesia. IMPRESSION Large fixed obstructing rectal cancer with metastatic disease to the bone. PLAN If necessary I will examine him under anesthesia. He does not need a gastroenterology or a colonoscopy in my opinion as his prep will only prep his upper colon and will not give us a view of his rectum since he has a diverting sigmoid colostomy. If a rectal examination is needed to again confirm the presence of a large fixed rectal mass in the pelvis, I will be happy to do so under anesthesia. MD JUN Chau/JUSTO /9:26 AM /10:40 AM
[2017-12-19] MEDS ORDERED: PROMETHAZINE HCL 25 MG TAB PO PRN (12:00)
[2017-12-19] MEDS ORDERED: MORPHINE SULFATE 4 MG/ML INJ IV PUSH ONE (12:45)
[2017-12-19] MEDS ORDERED: LIDOCAINE 2% JELLY 5 ML TUBE TOPICAL ONE (12:45)
--- NOTE | 2017-12-19 13:12 | PD.CONS ---
[facility] Service Urology Consult Requested By Dr. Perez Reason for Consult Urinary retention Primary Care Physician Unknown Diagnosis: History of Present Illness 57-year-old gentleman diagnosed with metastatic colon cancer back in May 2016 and treated with diverting colostomy and chemotherapy. Patient has had progression of his disease and was recently discovered to have brain metastases in addition to metastases involving the spine and pelvic bones. Patient has noted an morphine for pain control. Patient presented to the emergency room complaining of inability to urinate for several days and had a Painting catheter placed with evacuation of 1200 cc clear yellow urine. Patient has been on both finasteride and Flomax. CT scan of the abdomen and pelvis demonstrated moderate bilateral hydroureteronephrosis that has remained stable in appearance in comparison to previous imaging studies. His BUN and creatinine levels have not been significantly elevated. At the time of consultation the patient reported significant improvement with the indwelling Painting catheter. He denied gross hematuria or flank pain. Review of Systems Constitutional: DENIES: Fever, Chills Gastrointestinal: COMPLAINS OF: Abdominal pain (Lower abdomen) Genitourinary: DENIES: Hematuria Except as stated in HPI: all other systems reviewed are Neg Past Family Social History Past Medical History Stage IV metastatic colon cancer BPH Peripheral neuropathy Anxiety Past Surgical History Status post diverting colostomy Status post vasectomy Status post tonsillectomy Reported Medications Refer to EMR Allergies: Coded Allergies: No Known Allergies (Verified Allergy, Unknown, 10/18/17) Active Ordered Medications Refer to EMR Family History Multiple cancers including prostate cancer, colon cancer, skin cancer and pancreatic cancer Social History Former smoker who quit 22 years ago Rare alcohol usage Physical Exam Vital Signs Date Time Temp Pulse Resp B/P (MAP) Pulse Ox O2 Delivery O2 Flow Rate FiO2 12/19/17 12:05 97.7 75 18 112/69 (83) 99 12/19/17 08:37 97.6 85 18 105/64 (78) 97 12/19/17 04:40 97.4 64 16 104/58 (73) 98 12/19/17 00:00 97.8 85 16 109/66 (80) 98 12/18/17 21:21 18 12/18/17 20:00 98.1 66 16 102/60 (74) 96 12/18/17 18:07 97.3 12/18/17 16:15 99 20 90/51 (64) 95 Physical Exam GENERAL: This is a well-nourished, well-developed patient, in no apparent distress. SKIN: No rashes, ecchymoses or lesions. Cool and dry. HEAD: Atraumatic. Normocephalic. No temporal or scalp tenderness. EYES: Pupils equal round and reactive. Extraocular motions intact. No scleral icterus. No injection or drainage. ENT: Nose without bleeding, purulent drainage or septal hematoma. Throat without erythema, tonsillar hypertrophy or exudate. Uvula midline. Airway patent. NECK: Trachea midline. No JVD or lymphadenopathy. Supple, nontender, no meningeal signs. GASTROINTESTINAL: Abdomen soft, non-tender, nondistended. Colostomy noted GENITOURINARY: No CVA tenderness, bladder not distended, Painting catheter draining clear yellow urine MUSCULOSKELETAL: Extremities without clubbing, cyanosis, or edema. No joint tenderness, effusion, or edema noted. No calf tenderness. Negative Homans sign bilaterally. NEUROLOGICAL: Awake and alert. Cranial nerves II through XII intact. Motor and sensory grossly within normal limits. Five out of 5 muscle strength in all muscle groups. Normal speech. Lab results reviewed: Yes Laboratory Tests Test 12/19/17 06:07 White Blood Count 2.6 Red Blood Count 3.09 Hemoglobin 9.1 Hematocrit 27.3 Mean Corpuscular Volume 88.4 Mean Corpuscular Hemoglobin 29.5 Mean Corpuscular Hemoglobin Concent 33.3 Red Cell Distribution Width 19.7 Platelet Count 118 Mean Platelet Volume 9.4 Neutrophils (%) (Auto) 79.5 Lymphocytes (%) (Auto) 6.6 Monocytes (%) (Auto) 13.8 Eosinophils (%) (Auto) 0.0 Basophils (%) (Auto) 0.1 Neutrophils # (Auto) 2.0 Lymphocytes # (Auto) 0.2 Monocytes # (Auto) 0.4 Eosinophils # (Auto) 0.0 Basophils # (Auto) 0.0 CBC Comment AUTO DIFF Differential Total Cells Counted 100 Neutrophils % (Manual) 83 Band Neutrophils % 4 Lymphocytes % 5 Monocytes % 7 Neutrophils # (Manual) 2.3 Metamyelocytes 1 Differential Comment FINAL DIFF MANUAL Platelet Estimate LOW Platelet Morphology Comment NORMAL Basophilic Stippling FAINT Tear Drop Cells 1+ Ovalocytes 1+ Blood Urea Nitrogen 10 Creatinine 0.57 Random Glucose 136 Total Protein 5.0 Albumin 2.2 Calcium Level 7.6 Phosphorus Level 3.0 Magnesium Level 2.0 Alkaline Phosphatase 105 Aspartate Amino Transf (AST/SGOT) 22 Alanine Aminotransferase (ALT/SGPT) 60 Total Bilirubin 0.3 Sodium Level 139 Potassium Level 3.8 Chloride Level 103 Carbon Dioxide Level 26.9 Anion Gap 9 Estimat Glomerular Filtration Rate 147 Prostate Specific Antigen 0.13 Result Diagram: 12/19/17 0607 12/19/17 0607 Personally reviewed images: Yes Imaging Last Impressions Abdomen/Pelvis CT 12/18/17 0000 Signed Impressions: Service Date/Time: Monday, December 18, 2017 20:22 - CONCLUSION: 1. Decompressed bladder secondary to Painting catheter with stable moderate bilateral hydroureteronephrosis. 2. Left lower quadrant diverting colostomy with stable circumferential thickening of the inferior rectum and anus, likely post radiation change. 3. Stable sclerotic bony lesions consistent with metastatic disease. 4. Stable anterior findings including hepatic steatosis and cholelithiasis. Tc Andrade MD Assessment and Plan Assessment and Plan Urologic impression: With progression of his metastatic colon cancer now with urinary retention. Recommendations: 1. Conservative management with an indwelling Painting catheter changed out every 3-4 weeks 2. Consider cystoscopy and urodynamics as an outpatient if there is significant improvement in the patient's overall medical condition 3. Will be available as needed during present hospitalization. Neil Schuster MD Dec 19, 2017 13:12
--- NOTE | 2017-12-19 16:05 | PD.ONC.PN ---
Subjective Subjective Remarks Afebrile She reports he still has pain around his rectum Also complaining of some discomfort at Muhammad catheter insertion site Objective Data Date Time Temp Pulse Resp B/P (MAP) Pulse Ox O2 Delivery O2 Flow Rate FiO2 12/19/17 13:37 105/65 (78) 12/19/17 12:05 97.7 75 18 112/69 (83) 99 12/19/17 08:37 97.6 85 18 105/64 (78) 97 12/19/17 04:40 97.4 64 16 104/58 (73) 98 12/19/17 00:00 97.8 85 16 109/66 (80) 98 12/18/17 21:21 18 12/18/17 20:00 98.1 66 16 102/60 (74) 96 12/18/17 18:07 97.3 12/18/17 16:15 99 20 90/51 (64) 95 12/19/17 12/19/17 12/19/17 07:00 15:00 23:00 Intake Total 1000 ml Output Total 1750 ml 2050 ml Balance -1750 ml -1050 ml Result Diagram: 12/19/17 0607 12/19/17 0607 Laboratory Results Laboratory Tests Test 12/19/17 06:07 White Blood Count 2.6 TH/MM3 Red Blood Count 3.09 MIL/MM3 Hemoglobin 9.1 GM/DL Hematocrit 27.3 % Mean Corpuscular Volume 88.4 FL Mean Corpuscular Hemoglobin 29.5 PG Mean Corpuscular Hemoglobin Concent 33.3 % Red Cell Distribution Width 19.7 % Platelet Count 118 TH/MM3 Mean Platelet Volume 9.4 FL Neutrophils (%) (Auto) 79.5 % Lymphocytes (%) (Auto) 6.6 % Monocytes (%) (Auto) 13.8 % Eosinophils (%) (Auto) 0.0 % Basophils (%) (Auto) 0.1 % Neutrophils # (Auto) 2.0 TH/MM3 Lymphocytes # (Auto) 0.2 TH/MM3 Monocytes # (Auto) 0.4 TH/MM3 Eosinophils # (Auto) 0.0 TH/MM3 Basophils # (Auto) 0.0 TH/MM3 CBC Comment AUTO DIFF Differential Total Cells Counted 100 Neutrophils % (Manual) 83 % Band Neutrophils % 4 % Lymphocytes % 5 % Monocytes % 7 % Neutrophils # (Manual) 2.3 TH/MM3 Metamyelocytes 1 % Differential Comment FINAL DIFF MANUAL Platelet Estimate LOW Platelet Morphology Comment NORMAL Basophilic Stippling FAINT Tear Drop Cells 1+ Ovalocytes 1+ Blood Urea Nitrogen 10 MG/DL Creatinine 0.57 MG/DL Random Glucose 136 MG/DL Total Protein 5.0 GM/DL Albumin 2.2 GM/DL Calcium Level 7.6 MG/DL Phosphorus Level 3.0 MG/DL Magnesium Level 2.0 MG/DL Alkaline Phosphatase 105 U/L Aspartate Amino Transf (AST/SGOT) 22 U/L Alanine Aminotransferase (ALT/SGPT) 60 U/L Total Bilirubin 0.3 MG/DL Sodium Level 139 MEQ/L Potassium Level 3.8 MEQ/L Chloride Level 103 MEQ/L Carbon Dioxide Level 26.9 MEQ/L Anion Gap 9 MEQ/L Estimat Glomerular Filtration Rate 147 ML/MIN Prostate Specific Antigen 0.13 NG/ML Administered Medications Medications (Trade) Dose Ordered Sig/Jason Route PRN Reason Start Time Stop Time Status Last Admin Dose Admin Enoxaparin Sodium (Lovenox Inj) 40 mg DAILY SQ 12/18/17 18:00 12/19/17 09:00 Potassium Chloride/Sodium Chloride 1,000 ml @ 125 mls/hr Q8H IV 12/18/17 18:00 12/19/17 05:07 Multi-Ingredient Mouthwash/Gargle (Magic Mouthwash Adult Liq) 5 ml QID SWISH-SWAL 12/18/17 23:00 12/19/17 12:49 Tamsulosin HCl (Flomax) 0.4 mg Q12HR PO 12/18/17 22:15 12/19/17 09:00 Finasteride (Proscar) 5 mg DAILY PO 12/19/17 09:00 12/19/17 09:00 Hydromorphone HCl (Dilaudid Pf Inj) 1 mg Q3HR PRN IV Breakthrough pain 1-10 12/19/17 12:45 12/19/17 13:39 Objective Remarks GENERAL: Older male resting in bed in no obvious distress SKIN: Warm and dry. HEAD: Normocephalic. EYES: No injection or drainage. NECK: Supple, trachea midline. No JVD or lymphadenopathy. CARDIOVASCULAR: Regular rate and rhythm without murmurs. RESPIRATORY: Breath sounds equal bilaterally. No accessory muscle use. GASTROINTESTINAL: Abdomen soft. Colostomy bag to left abdomen. EXTREMITIES: No cyanosis, or edema. MUSCULOSKELETAL: Adequate muscle tone. NEUROLOGICAL: No obvious focal deficit. Awake, alert, and oriented x3. 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 At the time of admission his cancer had metastasized to the bone. He has been on multiple lines of therapy and most recently his disease was found to be metastasized to the clivus in the brain. He is currently being treated outpatient with Folfiri and Panitumumab. (2) Urinary retention ICD Codes: R33.9 - Retention of urine, unspecified Plan: --1200 mL's of clear yellow urine when Muhammad catheter initially placed --CT abdomen pelvis showed stable bilateral hydroureteronephrosis. --Urology following (3) Intractable pain ICD Codes: R52 - Pain, unspecified Status: Acute Plan: -- Resume Oramorph 45 mg twice daily -- Patient also has prn Dilaudid for breakthrough pain Assessment 57 y/o male with metastatic colorectal cancer admitted with urinary retention Plan 1. Resume Oramorph 45 mg twice daily 2. Maintain Muhammad catheter 3. Monitor for bleeding Discussed with RN Attending Statement The exam, history, and the medical decision-making described in the above note were completed with the assistance of the mid-level provider. I reviewed and agree with the findings presented. I attest that I had a [id number] encounter with the patient on the same day, and personally performed and documented my assessment and findings in the medical record CT scan reviewed and discussed with patient and his . shows stable disease, however its is likely that rectal disease persists spoke with Dr. Gannon. Plan for sigmoidoscopy under anaesthesia to asses disease Urology saw patient will continue with muhammad catheter for now. outpatient eval continue pain control which fairly significant when he sits up supportives care 5FU pumps come-off tomorrow d/w rn o/n events reviewed Tina Brambila Dec 19, 2017 16:05 El Perez MD Dec 19, 2017 20:34
[2017-12-19] MEDS ORDERED: TAMSULOSIN HCL 0.4 MG CAP PO SCH (21:00)
[2017-12-19] MEDS: MORPHINE SULFATE 15 MG CONTROLLED RELEASE TAB PO SCH (21:22)
[2017-12-20 00:13] VITALS: BP 118/75; PULSE 95; RESP 16; TEMP 97.7; O2SAT 98
[2017-12-20] MEDS: HYDROmorphone HCL PF 2 MG/ML VIAL IV PRN ×6 (00:17→21:01)
[2017-12-20 03:39] VITALS: BP 127/76; PULSE 88; RESP 16; TEMP 98; O2SAT 98
[2017-12-20 06:22] LABS: BASOPHIL % 0.2 % (0.0-2.0); EOSINOPHIL % 0.7 % (0.0-4.0); HEMATOCRIT 34.7 % (39.0-51.0); HEMOGLOBIN 11.2 GM/DL (13.0-17.0); LYMPH % 10.8 % (9.0-44.0); LYMPHOCYTE # 0.3 TH/MM3 (1.0-4.8); MEAN CELL VOLUME 89.9 FL (80.0-100.0); MEAN CORPUSCULAR HEMOGLOBIN 28.9 PG (27.0-34.0); MEAN CORPUSCULAR HGB CONC 32.2 % (32.0-36.0); MEAN PLATELET VOLUME 8.9 FL (7.0-11.0); MONO % 7.3 % (0.0-8.0); MONOCYTE # 0.2 TH/MM3 (0-0.9); PLATELET COUNT 149 TH/MM3 (150-450); RED BLOOD COUNT 3.86 MIL/MM3 (4.50-5.90); RED CELL DISTRIBUTION WIDTH 19.6 % (11.6-17.2); WHITE BLOOD COUNT 2.5 TH/MM3 (4.0-11.0)
[2017-12-20 06:37] LABS: ALBUMIN 2.4 GM/DL (3.4-5.0); AST (GOT) 37 U/L (15-37); BICARBONATE 28.1 MEQ/L (21.0-32.0); BLOOD UREA NITROGEN 7 MG/DL (7-18); CALCIUM 7.9 MG/DL (8.5-10.1); CHLORIDE 109 MEQ/L (98-107); CREATININE 0.51 MG/DL (0.60-1.30); GLOMERULAR FILTRATION RATE 168 ML/MIN (>89); GLUCOSE,RANDOM 82 MG/DL (74-106); SODIUM (NA) 144 MEQ/L (136-145)
[2017-12-20 06:41] LABS: ALKALINE PHOSPHATASE 111 U/L (45-117); ALT (GPT) 80 U/L (12-78); TOTAL BILIRUBIN ADULT 0.5 MG/DL (0.2-1.0); TOTAL PROTEIN 5.8 GM/DL (6.4-8.2)
[2017-12-20] MEDS: DOCUSATE SODIUM 100 MG CAP PO SCH ×2 (07:22→20:54)
[2017-12-20] MEDS: DOCUSATE SODIUM 50 MG/SENNA 8.6 MG TAB PO SCH ×2 (07:22→20:54)
[2017-12-20 07:35] VITALS: BP 135/85; PULSE 90; RESP 18; TEMP 98; O2SAT 98
[2017-12-20] MEDS: MORPHINE SULFATE 15 MG CONTROLLED RELEASE TAB PO SCH ×2 (07:40→15:50)
[2017-12-20] MEDS: ENOXAPARIN SODIUM 40 MG/0.4 ML SYRINGE SQ SCH (07:40)
[2017-12-20] MEDS: TAMSULOSIN HCL 0.4 MG CAP PO SCH ×2 (07:40→20:55)
[2017-12-20] MEDS: FINASTERIDE 5 MG TAB PO SCH (07:40)
[2017-12-20] MEDS: NYSTAT/DIPHENHY/LIDO MOUTHWASH (Adult) 120ML SWISH-SWAL SCH ×4 (07:44→20:55)
[2017-12-20] MEDS ORDERED: FINASTERIDE 5 MG TAB PO SCH (09:00)
[2017-12-20 11:13] VITALS: BP 125/76; PULSE 99; RESP 18; TEMP 97.7; O2SAT 100
[2017-12-20] MEDS ORDERED: LIDOCAINE 2% JELLY 30 ML TUBE TOPICAL ONE (13:00)
[2017-12-20] MEDS: PANTOPRAZOLE SOD 40 MG DELAYED RELEASE TAB PO SCH (13:10)
--- NOTE | 2017-12-20 13:21 | PD.ONC.PN ---
Subjective Subjective Remarks Afebrile overnight. Patient still having severe rectal pain. pain goes to a ten after about three hours or if the patient moves too quickly. he states his pain improves to a 2-4 after receiving the Dilaudid. Objective Data Date Time Temp Pulse Resp B/P (MAP) Pulse Ox O2 Delivery O2 Flow Rate FiO2 12/20/17 11:13 97.7 99 18 125/76 (92) 100 12/20/17 07:35 98.0 90 18 135/85 (102) 98 12/20/17 03:39 98.0 88 16 127/76 (93) 98 12/20/17 00:13 97.7 95 16 118/75 (89) 98 12/19/17 19:41 97.3 70 16 107/62 (77) 99 12/19/17 16:16 98.8 69 18 117/64 (81) 99 12/19/17 13:37 105/65 (78) 12/20/17 12/20/17 12/20/17 07:00 15:00 23:00 Output Total 2750 ml Balance -2750 ml Result Diagram: 12/20/17 0539 12/20/17 0539 Laboratory Results Laboratory Tests Test 12/20/17 05:39 White Blood Count 2.5 TH/MM3 Red Blood Count 3.86 MIL/MM3 Hemoglobin 11.2 GM/DL Hematocrit 34.7 % Mean Corpuscular Volume 89.9 FL Mean Corpuscular Hemoglobin 28.9 PG Mean Corpuscular Hemoglobin Concent 32.2 % Red Cell Distribution Width 19.6 % Platelet Count 149 TH/MM3 Mean Platelet Volume 8.9 FL Neutrophils (%) (Auto) 81.0 % Lymphocytes (%) (Auto) 10.8 % Monocytes (%) (Auto) 7.3 % Eosinophils (%) (Auto) 0.7 % Basophils (%) (Auto) 0.2 % Neutrophils # (Auto) 2.0 TH/MM3 Lymphocytes # (Auto) 0.3 TH/MM3 Monocytes # (Auto) 0.2 TH/MM3 Eosinophils # (Auto) 0.0 TH/MM3 Basophils # (Auto) 0.0 TH/MM3 CBC Comment DIFF FINAL Differential Comment Blood Urea Nitrogen 7 MG/DL Creatinine 0.51 MG/DL Random Glucose 82 MG/DL Total Protein 5.8 GM/DL Albumin 2.4 GM/DL Calcium Level 7.9 MG/DL Alkaline Phosphatase 111 U/L Aspartate Amino Transf (AST/SGOT) 37 U/L Alanine Aminotransferase (ALT/SGPT) 80 U/L Total Bilirubin 0.5 MG/DL Sodium Level 144 MEQ/L Potassium Level 3.4 MEQ/L Chloride Level 109 MEQ/L Carbon Dioxide Level 28.1 MEQ/L Anion Gap 7 MEQ/L Estimat Glomerular Filtration Rate 168 ML/MIN Administered Medications Medications (Trade) Dose Ordered Sig/Jason Route PRN Reason Start Time Stop Time Status Last Admin Dose Admin Enoxaparin Sodium (Lovenox Inj) 40 mg DAILY SQ 12/18/17 18:00 12/20/17 07:40 Multi-Ingredient Mouthwash/Gargle (Magic Mouthwash Adult Liq) 5 ml QID SWISH-SWAL 12/18/17 23:00 12/20/17 07:44 Tamsulosin HCl (Flomax) 0.4 mg Q12HR PO 12/18/17 22:15 12/20/17 07:40 Finasteride (Proscar) 5 mg DAILY PO 12/19/17 09:00 12/20/17 07:40 Objective Remarks GENERAL: Pleasant middle aged male, lying in bed. he appears comfortable at present and in nad. SKIN: Warm and dry. HEAD: Normocephalic. EYES: No injection or drainage. NECK: Supple, trachea midline. CARDIOVASCULAR: Regular rate and rhythm RESPIRATORY: Breath sounds equal bilaterally. No accessory muscle use. GASTROINTESTINAL: Abdomen soft, non-tender, nondistended. ostomy bag in place. EXTREMITIES: No cyanosis. NEUROLOGICAL: awake and alert, normal speech. moving extremities. 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 Hx/Workup: Patient was diagnosed with metastatic K-ela positive colorectal cancer in May 2016. At the time of admission his cancer had metastasized to the bone. He has been on multiple lines of therapy and most recently his disease was found to be metastasized to the clivus in the brain. He is currently being treated outpatient with Folfiri and Panitumumab. (2) Urinary retention ICD Codes: R33.9 - Retention of urine, unspecified Plan: --1200 mL's of clear yellow urine when Muhammad catheter initially placed --CT abdomen pelvis showed stable bilateral hydroureteronephrosis. --Urology following, muhammad catheter in place. (3) Intractable pain ICD Codes: R52 - Pain, unspecified Status: Acute Plan: -- 12/20: increase Oramorph to 60mg PO q 8 hours, increase dilaudid to 1mg IV q 2 hours PRN pain 1-8, dilaudid 1.5mg IV q 2 hours PRN pain 9-10 Assessment 57 y/o male with metastatic colorectal cancer admitted with urinary retention Plan 1. increase Oramorph to 60mg PO q 8 hours 2. increase dilaudid to 1mg and 1.5mg IV q 2 hours PRN pain 3. continue Muhammad catheter Attending Statement The exam, history, and the medical decision-making described in the above note were completed with the assistance of the mid-level provider. I reviewed and agree with the findings presented. I attest that I had a [id number] encounter with the patient on the same day, and personally performed and documented my assessment and findings in the medical record Still with significant pain increasing long acting morphine urinary obstruction with Muhammad catheter plans for sigmoidoscopy by Dr. Gannon tomorrow-- appreciate assistance continue supportive care d/w rn o/n events reviewed Paige Serrano Dec 20, 2017 13:21 El Perez MD Dec 20, 2017 22:00
[2017-12-20] MEDS ORDERED: HYDROmorphone HCL PF 2 MG/ML VIAL IV PUSH PRN (14:15)
[2017-12-20 15:47] VITALS: BP 125/77; PULSE 95; RESP 18; TEMP 98.3; O2SAT 100
[2017-12-20] MEDS: DEXAMETHASONE 0.5 MG TAB PO SCH ×2 (15:50→20:55)
--- NOTE | 2017-12-20 17:55 | HHI.PR ---
Subjective Remarks D/W Dr Perez last PM. Will plan Exam under Anesthesia at 1400 tomorrow. Possible flex sig to assess Tx progress on rectal mass. Objective Vital Signs Date Time Temp Pulse Resp B/P (MAP) Pulse Ox O2 Delivery O2 Flow Rate FiO2 12/20/17 15:47 98.3 95 18 125/77 (93) 100 12/20/17 11:13 97.7 99 18 125/76 (92) 100 12/20/17 07:35 98.0 90 18 135/85 (102) 98 12/20/17 03:39 98.0 88 16 127/76 (93) 98 12/20/17 00:13 97.7 95 16 118/75 (89) 98 12/19/17 19:41 97.3 70 16 107/62 (77) 99 I/O 12/19/17 12/19/17 12/19/17 12/20/17 12/20/17 12/20/17 07:00 15:00 23:00 07:00 15:00 23:00 Intake Total 1000 ml 3600 ml Output Total 1750 ml 2050 ml 5150 ml 2750 ml Balance -1750 ml -1050 ml -1550 ml -2750 ml Intake Oral 3600 ml IV Total 1000 ml Output Urine Total 1750 ml 2050 ml 5150 ml 2750 ml Result Diagram: 12/20/17 0539 12/20/17 0539 Objective Remarks VS-S Abd: benign Assessment and Plan Assessment and Plan Stable rectal pain due to local invasion of Rectal cancer and urinary retention due to bladder neck compression due to Cancer relieved with muhammad catheter. Plan: EUA,possible flex sig tomorrow Clyde Gannon MD Dec 20, 2017 17:55
[2017-12-20 21:03] VITALS: BP 121/82; PULSE 106; RESP 16; TEMP 97.6; O2SAT 98
[2017-12-21 00:50] VITALS: BP 117/84; PULSE 104; RESP 18; TEMP 98.1; O2SAT 97
[2017-12-21] MEDS: MORPHINE SULFATE 15 MG CONTROLLED RELEASE TAB PO SCH ×3 (00:51→16:22)
[2017-12-21] MEDS: HYDROmorphone HCL PF 2 MG/ML VIAL IV PRN ×3 (00:52→15:12)
[2017-12-21 04:27] VITALS: BP 122/82; PULSE 92; RESP 18; TEMP 97.3; O2SAT 100
[2017-12-21 05:43] LABS: AUTOMATED NEUTROPHIL # 2.4 TH/MM3 (1.8-7.7); BASOPHIL % 0.2 % (0.0-2.0); EOSINOPHIL % 0.4 % (0.0-4.0); HEMOGLOBIN 10.5 GM/DL (13.0-17.0); LYMPH % 8.6 % (9.0-44.0); LYMPHOCYTE # 0.2 TH/MM3 (1.0-4.8); MEAN CELL VOLUME 88.5 FL (80.0-100.0); MEAN CORPUSCULAR HGB CONC 32.8 % (32.0-36.0); MONO % 2.6 % (0.0-8.0); MONOCYTE # 0.1 TH/MM3 (0-0.9); NEUT % 88.2 % (16.0-70.0); PLATELET COUNT 159 TH/MM3 (150-450); RED BLOOD COUNT 3.62 MIL/MM3 (4.50-5.90); RED CELL DISTRIBUTION WIDTH 20.1 % (11.6-17.2); WHITE BLOOD COUNT 2.8 TH/MM3 (4.0-11.0)
[2017-12-21 08:13] VITALS: BP 123/79; PULSE 94; RESP 18; TEMP 97.7; O2SAT 97
[2017-12-21] MEDS: ENOXAPARIN SODIUM 40 MG/0.4 ML SYRINGE SQ SCH (08:18)
[2017-12-21] MEDS: DOCUSATE SODIUM 50 MG/SENNA 8.6 MG TAB PO SCH ×2 (08:36→20:43)
[2017-12-21] MEDS: DOCUSATE SODIUM 100 MG CAP PO SCH ×2 (08:36→20:43)
[2017-12-21] MEDS: TAMSULOSIN HCL 0.4 MG CAP PO SCH ×2 (08:40→20:43)
[2017-12-21] MEDS: FINASTERIDE 5 MG TAB PO SCH (08:40)
[2017-12-21] MEDS: PANTOPRAZOLE SOD 40 MG DELAYED RELEASE TAB PO SCH (08:40)
[2017-12-21] MEDS: DEXAMETHASONE 0.5 MG TAB PO SCH ×2 (08:41→17:42)
[2017-12-21] MEDS: NYSTAT/DIPHENHY/LIDO MOUTHWASH (Adult) 120ML SWISH-SWAL SCH ×4 (08:41→20:43)
--- NOTE | 2017-12-21 09:48 | PD.ONC.PN ---
Subjective Subjective Remarks Afebrile overnight. Patient resting in bed in nad. states his average pain level has improved. he wants to take a shower today. he is hoping to go home tomorrow. Objective Data Date Time Temp Pulse Resp B/P (MAP) Pulse Ox O2 Delivery O2 Flow Rate FiO2 12/21/17 08:13 97.7 94 18 123/79 (94) 97 12/21/17 04:27 97.3 92 18 122/82 (95) 100 12/21/17 00:50 98.1 104 18 117/84 (95) 97 12/20/17 21:03 97.6 106 16 121/82 (95) 98 12/20/17 15:47 98.3 95 18 125/77 (93) 100 12/20/17 11:13 97.7 99 18 125/76 (92) 100 12/21/17 12/21/17 12/21/17 07:00 15:00 23:00 Output Total 3400 ml Balance -3400 ml Result Diagram: 12/21/17 0435 12/20/17 0539 Laboratory Results Laboratory Tests Test 12/21/17 04:35 White Blood Count 2.8 TH/MM3 Red Blood Count 3.62 MIL/MM3 Hemoglobin 10.5 GM/DL Hematocrit 32.0 % Mean Corpuscular Volume 88.5 FL Mean Corpuscular Hemoglobin 29.0 PG Mean Corpuscular Hemoglobin Concent 32.8 % Red Cell Distribution Width 20.1 % Platelet Count 159 TH/MM3 Mean Platelet Volume 9.0 FL Neutrophils (%) (Auto) 88.2 % Lymphocytes (%) (Auto) 8.6 % Monocytes (%) (Auto) 2.6 % Eosinophils (%) (Auto) 0.4 % Basophils (%) (Auto) 0.2 % Neutrophils # (Auto) 2.4 TH/MM3 Lymphocytes # (Auto) 0.2 TH/MM3 Monocytes # (Auto) 0.1 TH/MM3 Eosinophils # (Auto) 0.0 TH/MM3 Basophils # (Auto) 0.0 TH/MM3 CBC Comment DIFF FINAL Differential Comment Administered Medications Medications (Trade) Dose Ordered Sig/Jason Route PRN Reason Start Time Stop Time Status Last Admin Dose Admin Enoxaparin Sodium (Lovenox Inj) 40 mg DAILY SQ 12/18/17 18:00 12/20/17 07:40 Multi-Ingredient Mouthwash/Gargle (Magic Mouthwash Adult Liq) 5 ml QID SWISH-SWAL 12/18/17 23:00 12/20/17 13:10 Tamsulosin HCl (Flomax) 0.4 mg Q12HR PO 12/18/17 22:15 12/21/17 08:40 Finasteride (Proscar) 5 mg DAILY PO 12/19/17 09:00 12/21/17 08:40 Promethazine HCl (Phenergan) 25 mg Q6HR PRN PO NAUSEA OR VOMITING 12/19/17 12:00 12/21/17 08:41 Hydromorphone HCl (Dilaudid Pf Inj) 1 mg Q2HR PRN IV PAIN SCALE 9 TO 10 12/20/17 12:45 12/21/17 04:35 Morphine Sulfate (Oramorph Sr) 60 mg Q8H PO 12/20/17 16:00 12/21/17 08:41 Dexamethasone (Decadron) 2 mg Q12HR PO 12/20/17 12:45 12/21/17 08:41 Pantoprazole Sodium (Protonix) 40 mg DAILY PO 12/20/17 12:45 12/21/17 08:40 Objective Remarks GENERAL: middle aged male, lying in bed in nad. SKIN: Warm and dry. HEAD: Normocephalic. EYES: No injection or drainage. NECK: Supple, trachea midline. CARDIOVASCULAR: Regular rate and rhythm RESPIRATORY: Breath sounds equal bilaterally. No accessory muscle use. GASTROINTESTINAL: Abdomen soft, non-tender, nondistended. EXTREMITIES: No cyanosis NEUROLOGICAL: awake and alert, normal speech. 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 Hx/Workup: Patient was diagnosed with metastatic K-ela positive colorectal cancer in May 2016. At the time of admission his cancer had metastasized to the bone. He has been on multiple lines of therapy and most recently his disease was found to be metastasized to the clivus in the brain. He is currently being treated outpatient with Folfiri and Panitumumab. (2) Urinary retention ICD Codes: R33.9 - Retention of urine, unspecified Status: Resolved Plan: --Urology following, muhammad catheter in place. --1200 mL's of clear yellow urine when Muhammad catheter initially placed --CT abdomen pelvis showed stable bilateral hydroureteronephrosis. (3) Intractable pain ICD Codes: R52 - Pain, unspecified Status: Acute Plan: --12/21: continue Oramorph 60mg PO q 8 hours. start PO dilaudid 4mg q 3 hours PRN pain 1-8, continue IV for pain 9-10 -- 12/20: increase Oramorph to 60mg PO q 8 hours, increase dilaudid to 1mg IV q 2 hours PRN pain 1-8, dilaudid 1.5mg IV q 2 hours PRN pain 9-10 Assessment 57 y/o male with metastatic colorectal cancer admitted with urinary retention Plan 1. continue Oramorph 60mg PO q 8 hours 2. add dilaudid 4mg PO q 3 hours 3. continue dilaudid 1mg for pain 9-10. 4. sigmoidoscopy today under anesthesia. Attending Statement The exam, history, and the medical decision-making described in the above note were completed with the assistance of the mid-level provider. I reviewed and agree with the findings presented. I attest that I had a [id number] encounter with the patient on the same day, and personally performed and documented my assessment and findings in the medical record Had sigmoidoscopy under anesthesia Per Dr. Gannon, there is local infiltration of the tumor into the muscle urinary obstruction also likely from tumor obstruction Will keep muhammad for now. outpatient f/u with DR. Schuster continue pain control likely d/c home tomorrow if pain is controlled d/w rn o/n events reviewed Paige Serrano Dec 21, 2017 09:48 El Perez MD Dec 21, 2017 21:48
[2017-12-21 11:34] VITALS: BP 109/75; PULSE 83; RESP 18; TEMP 97.7; O2SAT 99
[2017-12-21] MEDS ORDERED: PROPOFOL 200 MG/20 ML AMP IV ONE (12:00)
[2017-12-21] MEDS ORDERED: PHENYLEPH/NS 1000 MCG/10 ML SYR IV ONE (12:00)
[2017-12-21] MEDS ORDERED: POVIDONE IODINE 5% (ANTISEPSIS KIT) 4 APPLICATIONS EACH NARE PRN (14:30)
[2017-12-21] MEDS ORDERED: LACTATED RINGER'S 1000 ML IV PRN (14:30)
[2017-12-21] MEDS ORDERED: CHLORHEXIDINE GLUCONATE 2 % 1 PACK (2 CLOTHS) TOPICAL PRN (14:30)
[2017-12-21] MEDS ORDERED: METOPROLOL TARTRATE 25 MG TAB PO PRN (14:30)
[2017-12-21] MEDS ORDERED: SODIUM CHLORID 0.9% 500 ML IV PRN (14:30)
[2017-12-21 15:04] VITALS: BP 133/89; PULSE 78; RESP 18; TEMP 97.4; O2SAT 98
[2017-12-21 20:00] VITALS: BP 122/77; PULSE 97; RESP 18; TEMP 98.5; O2SAT 98
[2017-12-21] MEDS: HYDROmorphone HCL 4 MG TAB PO PRN (20:43)
[2017-12-22 00:13] VITALS: BP 126/81; PULSE 97; RESP 16; TEMP 98.8; O2SAT 98
[2017-12-22] MEDS: MORPHINE SULFATE 15 MG CONTROLLED RELEASE TAB PO SCH ×2 (00:16→09:35)
[2017-12-22 04:33] VITALS: BP 120/79; PULSE 98; RESP 16; TEMP 97.7; O2SAT 98
[2017-12-22] MEDS: HYDROmorphone HCL 4 MG TAB PO PRN (04:41)
[2017-12-22 08:50] VITALS: BP 138/93; PULSE 87; RESP 18; TEMP 97.4; O2SAT 100
[2017-12-22] MEDS: NYSTAT/DIPHENHY/LIDO MOUTHWASH (Adult) 120ML SWISH-SWAL SCH ×2 (09:00→12:47)
[2017-12-22] MEDS: DOCUSATE SODIUM 100 MG CAP PO SCH (09:00)
[2017-12-22] MEDS: DOCUSATE SODIUM 50 MG/SENNA 8.6 MG TAB PO SCH (09:00)
[2017-12-22] MEDS: FINASTERIDE 5 MG TAB PO SCH (09:33)
[2017-12-22] MEDS: ENOXAPARIN SODIUM 40 MG/0.4 ML SYRINGE SQ SCH (09:33)
[2017-12-22] MEDS: PANTOPRAZOLE SOD 40 MG DELAYED RELEASE TAB PO SCH (09:33)
[2017-12-22] MEDS: TAMSULOSIN HCL 0.4 MG CAP PO SCH (09:34)
--- NOTE | 2017-12-22 09:54 | HHI.FF ---
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 My clinical findings support the need for the requested home health care services because: Ltd mobility - disease progression Limited ability to care for self I certify that my clinical findings support that this patient is homebound because: Unsteady gait/balance Unsafe to leave home unassisted Paige Serrano Dec 22, 2017 09:54
--- NOTE | 2017-12-22 09:56 | HHI.DCPOC ---
Discharge Care Plan Diagnosis: (1) Urinary retention (2) Rectal cancer metastasized to bone Goals to Promote Your Health * To prevent worsening of your condition and complications * To maintain your health at the optimal level Directions to Meet Your Goals Take your medications as prescribed Follow your dietary instruction Follow activity as directed Keep your appointments as scheduled Take your immunizations and boosters as scheduled If your symptoms worsen call your PCP, if no PCP go to Urgent Care Center or Emergency Room Smoking is Dangerous to Your Health. Avoid second hand smoke Call the 24-hour hour crisis hotline for domestic abuse at Paige Serrano Dec 22, 2017 09:56 El Perez MD Dec 22, 2017 13:01
--- NOTE | 2017-12-22 09:57 | HHI.DS ---
Paige Serrano 12/22/17 0956: Discharge Summary Admission Date Dec 18, 2017 at 15:52 Discharge Date: Dec 22, 2017 Admitting Diagnosis stage IV colorectal cancer, admitted with urinary retention and intractable rectal pain. 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 He had metastatic disease at the time of diagnosis and was therefore not resectable. He has undergone multiple lines of treatment with progression. He is currently receiving treatment with FOLFIRI and Panitumumab. CBC/BMP: 12/21/17 0435 12/20/17 0539 Significant Findings Laboratory Tests Test 12/20/17 05:39 12/21/17 04:35 White Blood Count 2.5 TH/MM3 (4.0-11.0) 2.8 TH/MM3 (4.0-11.0) Red Blood Count 3.86 MIL/MM3 (4.50-5.90) 3.62 MIL/MM3 (4.50-5.90) Hemoglobin 11.2 GM/DL (13.0-17.0) 10.5 GM/DL (13.0-17.0) Hematocrit 34.7 % (39.0-51.0) 32.0 % (39.0-51.0) Red Cell Distribution Width 19.6 % (11.6-17.2) 20.1 % (11.6-17.2) Platelet Count 149 TH/MM3 (150-450) Neutrophils (%) (Auto) 81.0 % (16.0-70.0) 88.2 % (16.0-70.0) Lymphocytes # (Auto) 0.3 TH/MM3 (1.0-4.8) 0.2 TH/MM3 (1.0-4.8) Creatinine 0.51 MG/DL (0.60-1.30) Total Protein 5.8 GM/DL (6.4-8.2) Albumin 2.4 GM/DL (3.4-5.0) Calcium Level 7.9 MG/DL (8.5-10.1) Alanine Aminotransferase (ALT/SGPT) 80 U/L (12-78) Potassium Level 3.4 MEQ/L (3.5-5.1) Chloride Level 109 MEQ/L (98-107) Lymphocytes (%) (Auto) 8.6 % (9.0-44.0) Imaging Last Impressions Abdomen/Pelvis CT 12/18/17 0000 Signed Impressions: Service Date/Time: Monday, December 18, 2017 20:22 - CONCLUSION: 1. Decompressed bladder secondary to Muhammad catheter with stable moderate bilateral hydroureteronephrosis. 2. Left lower quadrant diverting colostomy with stable circumferential thickening of the inferior rectum and anus, likely post radiation change. 3. Stable sclerotic bony lesions consistent with metastatic disease. 4. Stable anterior findings including hepatic steatosis and cholelithiasis. Tc Andrade MD PE at Discharge please see physical exam from progress note on date of discharge Hospital Course Mr. Mckeon was admitted on 12/18/17 after presenting with urinary retention and intractable pain to the rectum and back. Gastroenterology, Urology and Colorectal surgery were all consulted. The patients home medications were resumed. the patient was started on a pain regimen of Oxycodone and dilaudid which was titrated to relief of his pain. Urology recommended placement and maintenance of a muhammad catheter for the patient's urinary retention. He underwent sigmoidoscopy on 12/21/17. On 12/22/17 after pain became adequately controlled with his regimen of Oramorph and Dilaudid, the patient was discharged home with home healthcare and instructions for follow up in the clinic. Pt Condition on Discharge: Good Discharge Disposition: Discharge Home Discharge Instructions DIET: Follow Instructions for: As Tolerated, No Restrictions Activities you can perform: Regular-No Restrictions Activities to avoid: Concussion Sports, Contact Sports, Strenuous Activity El Perez MD 12/22/17 1302: Discharge Summary CBC/BMP: 12/21/17 0435 12/20/17 0539 Discharge Instructions Additional Information The exam, history, and the medical decision-making described in the above note were completed with the assistance of the mid-level provider. I reviewed and agree with the findings presented. I attest that I had a [id number] encounter with the patient on the same day, and personally performed and documented my assessment and findings in the medical record. Paige Serrano Dec 22, 2017 09:56 El Perez MD Dec 22, 2017 13:02
--- NOTE | 2017-12-22 09:59 | PD.ONC.PN ---
Subjective Subjective Remarks Afebrile overnight. Patient feeing much better and is eager to go home. states pain is well controlled with the Oramorph and Dilaudid combination. Objective Data Date Time Temp Pulse Resp B/P (MAP) Pulse Ox O2 Delivery O2 Flow Rate FiO2 12/22/17 04:33 97.7 98 16 120/79 (93) 98 12/22/17 00:13 98.8 97 16 126/81 (96) 98 12/21/17 20:00 98.5 97 18 122/77 (92) 98 12/21/17 15:04 97.4 78 18 133/89 (104) 98 12/21/17 14:20 97.0 85 16 105/73 (84) 96 12/21/17 11:34 97.7 83 18 109/75 (86) 99 12/22/17 12/22/17 12/22/17 07:00 15:00 23:00 Output Total 2000 ml 950 ml Balance -2000 ml -950 ml Result Diagram: 12/21/17 0435 12/20/17 0539 Administered Medications Medications (Trade) Dose Ordered Sig/Jason Route PRN Reason Start Time Stop Time Status Last Admin Dose Admin Enoxaparin Sodium (Lovenox Inj) 40 mg DAILY SQ 12/18/17 18:00 12/22/17 09:33 Multi-Ingredient Mouthwash/Gargle (Magic Mouthwash Adult Liq) 5 ml QID SWISH-SWAL 12/18/17 23:00 12/20/17 13:10 Tamsulosin HCl (Flomax) 0.4 mg Q12HR PO 12/18/17 22:15 12/22/17 09:34 Finasteride (Proscar) 5 mg DAILY PO 12/19/17 09:00 12/22/17 09:33 Promethazine HCl (Phenergan) 25 mg Q6HR PRN PO NAUSEA OR VOMITING 12/19/17 12:00 12/21/17 08:41 Hydromorphone HCl (Dilaudid Pf Inj) 1 mg Q2HR PRN IV PAIN SCALE 9 TO 10 12/20/17 12:45 12/21/17 15:12 Morphine Sulfate (Oramorph Sr) 60 mg Q8H PO 12/20/17 16:00 12/22/17 09:35 Pantoprazole Sodium (Protonix) 40 mg DAILY PO 12/20/17 12:45 12/22/17 09:33 Hydromorphone HCl (Dilaudid) 4 mg Q3H PRN PO pain1-8 12/21/17 09:30 12/22/17 04:41 Dexamethasone (Decadron) 2 mg BID@0900,1700 PO 12/21/17 17:00 12/21/17 17:42 Objective Remarks GENERAL: middle aged male, supine in bed resting. appears comfortable and in nad. SKIN: Warm and dry. HEAD: Normocephalic. EYES: No injection or drainage. NECK: Supple, trachea midline. CARDIOVASCULAR: Regular rate and rhythm RESPIRATORY: Breath sounds equal bilaterally. No accessory muscle use. GASTROINTESTINAL: Abdomen mildly distended, stoma filled with air. EXTREMITIES: No cyanosis NEUROLOGICAL: awake and alert, normal speech. Assessment/Plan Problem List: (1) Rectal cancer metastasized to bone ICD Codes: C20 - Malignant neoplasm of rectum; C79.51 - Secondary malignant neoplasm of bone Status: Acute Plan: --d/c home today Hx/Workup: Patient was diagnosed with metastatic K-ela positive colorectal cancer in May 2016. At the time of admission his cancer had metastasized to the bone. He has been on multiple lines of therapy and most recently his disease was found to be metastasized to the clivus in the brain. He is currently being treated outpatient with Folfiri and Panitumumab. (2) Urinary retention ICD Codes: R33.9 - Retention of urine, unspecified Status: Resolved Plan: --Urology following, muhammad catheter in place. --1200 mL's of clear yellow urine when Muhammad catheter initially placed --CT abdomen pelvis showed stable bilateral hydroureteronephrosis. (3) Intractable pain ICD Codes: R52 - Pain, unspecified Status: Resolved Plan: --12/22: pain controlled --12/21: continue Oramorph 60mg PO q 8 hours. start PO dilaudid 4mg q 3 hours PRN pain 1-8, continue IV for pain 9-10 -- 12/20: increase Oramorph to 60mg PO q 8 hours, increase dilaudid to 1mg IV q 2 hours PRN pain 1-8, dilaudid 1.5mg IV q 2 hours PRN pain 9-10 Assessment 57 y/o male with metastatic colorectal cancer admitted with urinary retention Plan 1. d/c home with Oramorph 60mg PO q 8 hours + dilaudid 4mg PO q 4 hours PRN breakthrough pain 2. follow up in clinic next week. 3. arrange home health care for muhammad maintenance. Attending Statement The exam, history, and the medical decision-making described in the above note were completed with the assistance of the mid-level provider. I reviewed and agree with the findings presented. I attest that I had a [id number] encounter with the patient on the same day, and personally performed and documented my assessment and findings in the medical record. D/c with Dex 4mg daily in am pain meds rx given f/u with me on 01/01/18 o/n events reviewed, labs reviewed Paige Serrano Dec 22, 2017 09:59 El Perez MD Dec 22, 2017 11:49
[2017-12-22] MEDS ORDERED: PERI PO (11:14)
[2017-12-22] MEDS: DEXAMETHASONE 0.5 MG TAB PO SCH (12:49)
[2017-12-22] MEDS ORDERED: DEXA4TAB PO (12:51)
[2017-12-22] MEDS ORDERED: PANT40TA3 PO (12:53)
[2017-12-22 13:11] VITALS: BP 122/78; PULSE 86; RESP 18; TEMP 98.2; O2SAT 100
[2017-12-22] MEDS ORDERED: SODIUM CHLORIDE 0.9% FLUSH 10 ML FLUSH IV FLUSH PRN ×3 (13:15→13:45)
--- NOTE | 2017-12-23 21:59 | MR ---
cc: Mariam GANNON AWAIS DATE: 12/21/2017 PREPROCEDURE DIAGNOSIS Metastatic rectal carcinoma. POSTOPERATIVE DIAGNOSIS Metastatic rectal carcinoma. PROCEDURE Flexible sigmoidoscopy to 30 cm. ANESTHESIA Monitored anesthesia care SURGEON Dr. Gannon OPERATIVE FINDINGS This patient has metastatic rectal cancer to the bone including the clivus bone and the brain. The patient has been experiencing more in the way of rectal and anal pains and developed urinary retention, presumably due to pressure from the tumor on the bladder neck. His urine has drained well with indwelling Painting catheter and Dr. Schuster has seen him regarding that. At sigmoidoscopy he was found to have rectal carcinoma growing almost out of the anal verge, anteriorly toward the perineum and infiltrating deeply into the muscles. Digital exam was done and the tumor lumen is open and I am able to do flexible sigmoidoscopy through the tumor. It is a long bulky tumor, however, it does not seem any larger than the last time I examined him under anesthesia some months ago. Flexible sigmoidoscopy was done to about 30 cm. The tumor is from the pelvic floor to approximately 10 cm proximal. No biopsies were done. The instrument was removed. The patient tolerated the procedure well and left the GI Lab in good condition. MD JUN Chau/CHRISTIANO /2:28 PM /9:51 PM
== END 2017-12-22 14:30 | disposition home health service (06) | DRG 948 ==
LOC: HCIN 15:52
PROVIDERS: ADMIT Internal Medicine; ATTEND Internal Medicine
PROC: 0DJD8ZZ Inspection of Lower Intestinal Tract, Via Natural or Artificial Opening Endoscopic (ICD-10-PCS; principal; 2017-12-21 14:15)
DX: G89.3 Neoplasm related pain (acute) (chronic) (principal); C79.51 Secondary malignant neoplasm of bone; C79.31 Secondary malignant neoplasm of brain; E88.09 Other disorders of plasma-protein metabolism, not elsewhere classified; C19 Malignant neoplasm of rectosigmoid junction; D64.9 Anemia, unspecified; R33.9 Retention of urine, unspecified; Z93.3 Colostomy status; N40.0 Benign prostatic hyperplasia without lower urinary tract symptoms; E87.6 Hypokalemia; Z87.891 Personal history of nicotine dependence
CPT/HCPCS: 74177; 76937; 80053; 81001; 82378; 83615; 83735; 84100; 84153; 85007; 85025; 85027; 96367; 96372; 96375; 96411; 96413; 96415; 96417; J0461; J0640; J1100; J1170; J1626; J1642; J1644; J1650; J2270; J2370; J3480; J7040; J7050; J8540; J9190; J9206; J9303; Q0169; Q9963; Q9967

== ENCOUNTER 2018-01-09 18:53 | Inpatient (IN) | payer BC ==
[~2018-01-09] VITALS: Ht 182.9 cm; Wt 98.0 kg
[~2018-01-09 18:53] MED LIST changes: +DEXA4TAB PO; -DILA2TAB4 PO; -MORP1TAB25 PO; +PANT40TA3 PO; +PERI PO
[2018-01-09 19:00] VITALS: BP 104/61; PULSE 108; RESP 16; TEMP 98.2; O2SAT 99
[2018-01-09] MEDS ORDERED: SODIUM CHLOR 0.9% 1000 ML INJ 1,000 ML IV ONE ×2 (19:01→21:00)
--- NOTE | 2018-01-09 19:07 | PD ---
HPI Chief Complaint: Syncope/Near-Syncope Time Seen by Provider: 19:01 Travel History International Travel<30 days: No Contact w/Intl Traveler<30days: No Traveled to known affect area: No History of Present Illness HPI Patient is a 57-year-old male presenting to the emergency department after a witnessed syncopal episode. Patient's states that he took a shower, got out and she noticed that he just turned white, his eyes rolled back and he began to pass out. She states that she helped him to the floor, there was no head injury. She states that he was not verbally responding for approximately 30 seconds. Patient has a history of colon cancer with metastatic disease to the bone in the brain. He is currently receiving chemotherapy every other week. Per his he has been generally weak and fatigued. No previous syncopal episode noted. Patient is denying any pain, headache, chest pain, shortness of breath now or before the syncopal episode. Symptom onset was sudden, symptom severity was moderate, no alleviating factors, symptoms might have been exacerbated due to heat of the shower. EMS stated patient's blood pressure was low, with a systolic in the 80s on their arrival. He was given a 500 cc IV fluid bolus. PFSH Past Medical History Anxiety: Yes Cancer: Yes (Colon cancer with metastases to the bone and the brain) Cardiovascular Problems: No Chemotherapy: Yes Diabetes: No Diminished Hearing: No Endocrine: No Gastrointestinal Disorders: Yes (colorectal ca ) Genitourinary: Yes (urinary retention BPH) Hepatitis: No Hiatal Hernia: No Hypertension: No Immune Disorder: No Musculoskeletal: Yes Neurologic: No Psychiatric: No Reproductive: No Respiratory: No Immunizations Current: No Migraines: Yes Radiation Therapy: Yes Thyroid Disease: No Past Surgical History Abdominal Surgery: Yes (COLOSTOMY, COLON RESECTION) AICD: No Body Medical Devices: INFUSA PORT TO RIGHT UPPER CHEST Cardiac Surgery: No Ear Surgery: No Endocrine Surgery: No Eye Surgery: No Genitourinary Surgery: Yes Gynecologic Surgery: No Joint Replacement: No Neurologic Surgery: No Oral Surgery: No Pacemaker: No Thoracic Surgery: No Other Surgery: Yes (implanted port) Social History Alcohol Use: No Tobacco Use: No Substance Use: No Allergies-Medications (Allergen,Severity, Reaction): Coded Allergies: No Known Allergies (Verified Allergy, Unknown, 10/18/17) Reported Meds & Prescriptions Reported Meds & Active Scripts Active Pantoprazole (Pantoprazole Sodium) 40 Mg Tab 40 Mg PO DAILY 30 Days Phenergan (Promethazine HCl) 25 Mg Tablet 25 Mg PO Q6H PRN Ativan (Lorazepam) 2 Mg Tab 2 Mg PO Q8HR PRN Tamsulosin (Tamsulosin HCl) 0.4 Mg Cap 0.4 Mg PO HS Reported Hydromorphone (Hydromorphone HCl) 4 Mg Tab 4 Mg PO Q4H PRN Morphabond ER 12 HR (Morphine Sulfate) 60 Mg Tab 60 Mg PO Q8 Finasteride 5 Mg Tab 5 Mg PO DAILY Do not crush. Review of Systems Except as stated in HPI: all other systems reviewed are Neg Cardiovascular: No: Chest Pain or Discomfort Respiratory: No: Shortness of Breath Neurologic: Positive: Weakness, Syncope Physical Exam Narrative GENERAL: Well-developed, well-nourished, drowsy male. Presenting in no acute distress. SKIN: Warm and dry. HEAD: Atraumatic. Normocephalic. EYES: Pupils equal and round. No scleral icterus. No injection or drainage. ENT: No nasal bleeding or discharge. Mucous membranes pink and moist. NECK: Trachea midline. No JVD. CARDIOVASCULAR: Tachycardic RESPIRATORY: No accessory muscle use. Clear to auscultation. Breath sounds equal bilaterally. GASTROINTESTINAL: Abdomen soft, non-tender, nondistended. Hepatic and splenic margins not palpable. MUSCULOSKELETAL: Extremities without clubbing, cyanosis, or edema. No obvious deformities. NEUROLOGICAL: Drowsy but arousable. No obvious cranial nerve deficits. Motor grossly within normal limits. Five out of 5 muscle strength in the arms and legs. Normal speech. PSYCHIATRIC: Appropriate mood and affect; insight and judgment normal. Data Data Last Documented VS Vital Signs Date Time Temp Pulse Resp B/P (MAP) Pulse Ox O2 Delivery O2 Flow Rate FiO2 01/09/18 19:00 108 16 104/61 (75) 99 Orders Orders Electrocardiogram (01/09/18 19:) Complete Blood Count With Diff (01/09/18 19:) Comprehensive Metabolic Panel (01/09/18 19:) Magnesium (Mg) (01/09/18 19:) Ckmb (Isoenzyme) Profile (01/09/18 19:) Troponin I (01/09/18 19:01) Chest, Single Ap (01/09/18 19:01) Ecg Monitoring (01/09/18 19:01) Iv Access Insert/Monitor (01/09/18 19:01) Oximetry (01/09/18 19:01) Sodium Chloride 0.9% Flush (Ns Flush) (01/09/18 19:15) Sodium Chlor 0.9% 1000 Ml Inj (Ns 1000 M (01/09/18 19:01) Potassium Chlor 20 Meq Premix (Kcl 20 Me (01/09/18 20:45) Potassium Chloride (Kcl) (01/09/18 20:45) Ct Pulmonary Angiogram (01/09/18 ) Sodium Chlor 0.9% 1000 Ml Inj (Ns 1000 M (01/09/18 21:00) Iohexol 350 Inj (Omnipaque 350 Inj) (01/09/18 21:10) Heparin Inj (Heparin Inj) (01/09/18 21:45) Heparin-D5w 25,000 U/250 Ml (Heparin-D5w (01/09/18 21:45) Cbc No Diff, Includes Plts (01/12/18 06:00) Act Partial Throm Time (Ptt) (01/10/18 04:31) Act Partial Throm Time (Ptt) (01/09/18 21:31) Prothrombin Time / Inr (Pt) (01/09/18 21:31) Oxygen Administration (01/09/18 21:39) Admit Order (Ed Use Only) (01/09/18 21:55) Admit To Inpatient (01/09/18 ) Vital Signs (Adult) Q4H (01/09/18 21:54) Activity Bed Rest (01/09/18 21:54) Lay Ups Assembler / Telemetry .CONTINUOUS (01/09/18 21:54) Diet Heart Healthy (01/10/18 Breakfast) Sodium Chlor 0.9% 1000 Ml Inj (Ns 1000 M (01/09/18 21:54) Sodium Chloride 0.9% Flush (Ns Flush) (01/09/18 22:00) Sodium Chloride 0.9% Flush (Ns Flush) (01/10/18 09:00) Basic Metabolic Panel (Bmp) (01/10/18 06:00) Complete Blood Count With Diff (01/10/18 06:00) Case Management Consult (01/09/18 21:54) Naloxone Inj (Narcan Inj) (01/09/18 22:00) Inpatient Certification (01/09/18 ) Labs Laboratory Tests Test 01/09/18 19:18 01/09/18 21:44 White Blood Count 3.3 TH/MM3 Red Blood Count 3.90 MIL/MM3 Hemoglobin 11.1 GM/DL Hematocrit 33.3 % Mean Corpuscular Volume 85.5 FL Mean Corpuscular Hemoglobin 28.4 PG Mean Corpuscular Hemoglobin Concent 33.2 % Red Cell Distribution Width 19.9 % Platelet Count 124 TH/MM3 Mean Platelet Volume 9.6 FL Neutrophils (%) (Auto) 75.8 % Lymphocytes (%) (Auto) 14.2 % Monocytes (%) (Auto) 9.5 % Eosinophils (%) (Auto) 0.2 % Basophils (%) (Auto) 0.3 % Neutrophils # (Auto) 2.5 TH/MM3 Lymphocytes # (Auto) 0.5 TH/MM3 Monocytes # (Auto) 0.3 TH/MM3 Eosinophils # (Auto) 0.0 TH/MM3 Basophils # (Auto) 0.0 TH/MM3 CBC Comment DIFF FINAL Differential Comment Blood Urea Nitrogen 7 MG/DL Creatinine 0.90 MG/DL Random Glucose 124 MG/DL Total Protein 5.8 GM/DL Albumin 2.4 GM/DL Calcium Level 8.1 MG/DL Magnesium Level 1.6 MG/DL Alkaline Phosphatase 110 U/L Aspartate Amino Transf (AST/SGOT) 22 U/L Alanine Aminotransferase (ALT/SGPT) 38 U/L Total Bilirubin 0.5 MG/DL Sodium Level 135 MEQ/L Potassium Level 3.0 MEQ/L Chloride Level 97 MEQ/L Carbon Dioxide Level 25.4 MEQ/L Anion Gap 13 MEQ/L Estimat Glomerular Filtration Rate 87 ML/MIN Total Creatine Kinase 45 U/L Troponin I LESS THAN 0.02 NG/ML Prothrombin Time 12.6 SEC Prothromb Time International Ratio 1.2 RATIO Activated Partial Thromboplast Time 23.3 SEC MDM Medical Decision Making Medical Screen Exam Complete: Yes Emergency Medical Condition: Yes Medical Record Reviewed: Yes Interpretation(s) Laboratory Tests Test 01/09/18 19:18 01/09/18 21:44 White Blood Count 3.3 TH/MM3 Red Blood Count 3.90 MIL/MM3 Hemoglobin 11.1 GM/DL Hematocrit 33.3 % Mean Corpuscular Volume 85.5 FL Mean Corpuscular Hemoglobin 28.4 PG Mean Corpuscular Hemoglobin Concent 33.2 % Red Cell Distribution Width 19.9 % Platelet Count 124 TH/MM3 Mean Platelet Volume 9.6 FL Neutrophils (%) (Auto) 75.8 % Lymphocytes (%) (Auto) 14.2 % Monocytes (%) (Auto) 9.5 % Eosinophils (%) (Auto) 0.2 % Basophils (%) (Auto) 0.3 % Neutrophils # (Auto) 2.5 TH/MM3 Lymphocytes # (Auto) 0.5 TH/MM3 Monocytes # (Auto) 0.3 TH/MM3 Eosinophils # (Auto) 0.0 TH/MM3 Basophils # (Auto) 0.0 TH/MM3 CBC Comment DIFF FINAL Differential Comment Blood Urea Nitrogen 7 MG/DL Creatinine 0.90 MG/DL Random Glucose 124 MG/DL Total Protein 5.8 GM/DL Albumin 2.4 GM/DL Calcium Level 8.1 MG/DL Magnesium Level 1.6 MG/DL Alkaline Phosphatase 110 U/L Aspartate Amino Transf (AST/SGOT) 22 U/L Alanine Aminotransferase (ALT/SGPT) 38 U/L Total Bilirubin 0.5 MG/DL Sodium Level 135 MEQ/L Potassium Level 3.0 MEQ/L Chloride Level 97 MEQ/L Carbon Dioxide Level 25.4 MEQ/L Anion Gap 13 MEQ/L Estimat Glomerular Filtration Rate 87 ML/MIN Total Creatine Kinase 45 U/L Troponin I LESS THAN 0.02 NG/ML Vital Signs Date Time Temp Pulse Resp B/P (MAP) Pulse Ox O2 Delivery O2 Flow Rate FiO2 01/09/18 19:00 108 16 104/61 (75) 99 Differential Diagnosis Vasovagal versus cardiac arrhythmia versus metabolic abnormality versus pulmonary embolism versus other Narrative Course Patient is a 57-year-old male presenting to the emergency department after witnessed syncopal episode. There was no head injury or loss of consciousness. Labs and imaging ordered and pending. Patient was hypotensive on EMS arrival , in the emergency department he is tachycardic and his blood pressure is stable. CBC with no acute findings Chemistry with a potassium 3.0, oral and IV replacement ordered. Chest x-ray shows no acute disease Patient continued to be tachycardic despite IV fluids. His labs did not suggest significant dehydration. Due to these factors a CT pulmonary angiogram was ordered. CT shows a small to moderate right lung pulmonary emboli involving the upper and lower lobes. Mild bibasilar atelectasis. Upper limits of normal to mildly and large paraesophageal lymph nodes. And a probable fatty liver. Heparin drip protocol initiated. Findings were discussed with my attending physician. Additionally findings were discussed with Dr. Lopez who accepted admission. Patient will be placed in the intensive care unit due to persistent tachycardia. and family member advised on findings. Patient's is very anxious and tearful regarding patient's condition. She will need constant reassurance and guidance. Critical Care Narrative Aggregate critical care time was 30 minutes. Time to perform other separately billable procedures was not included in the critical care time. My time did not include minutes spent treating any other patients simultaneously or on activities that did not directly contribute to the patient's treatment. The services I provided to this patient were to treat and/or prevent clinically significant deterioration that could result in: Respiratory failure, cardiac arrhythmias I provided critical care services requiring my management, as noted below: Chart data review, documentation time, medication orders and management, vital sign assessments/reviewing monitor data, ordering and reviewing lab tests, ordering and interpreting/reviewing x-rays and diagnostic studies, care of the patient and discussion of the patient with the admitting physicians. Diagnosis Primary Impression: Pulmonary embolism Qualified Codes: I26.99 - Other pulmonary embolism without acute cor pulmonale Additional Impressions: Syncope Qualified Codes: R55 - Syncope and collapse Metastatic cancer Admitting Information Admitting Physician Requests: Admit Condition: Stable Andria Penny Jan 09, 2018 19:07
[2018-01-09] MEDS ORDERED: HYDR4TAB PO (19:13)
[2018-01-09] MEDS ORDERED: MORP60TA61 PO (19:13)
[2018-01-09] MEDS ORDERED: SODIUM CHLORIDE 0.9% FLUSH 10 ML FLUSH IVF PRN (19:15)
[2018-01-09 19:36] LABS: AUTOMATED NEUTROPHIL # 2.5 TH/MM3 (1.8-7.7); BASOPHIL % 0.3 % (0.0-2.0); EOSINOPHIL % 0.2 % (0.0-4.0); HEMATOCRIT 33.3 % (39.0-51.0); HEMOGLOBIN 11.1 GM/DL (13.0-17.0); LYMPH % 14.2 % (9.0-44.0); LYMPHOCYTE # 0.5 TH/MM3 (1.0-4.8); MEAN CELL VOLUME 85.5 FL (80.0-100.0); MEAN CORPUSCULAR HEMOGLOBIN 28.4 PG (27.0-34.0); MEAN CORPUSCULAR HGB CONC 33.2 % (32.0-36.0); MEAN PLATELET VOLUME 9.6 FL (7.0-11.0); MONO % 9.5 % (0.0-8.0); MONOCYTE # 0.3 TH/MM3 (0-0.9); NEUT % 75.8 % (16.0-70.0); PLATELET COUNT 124 TH/MM3 (150-450); RED CELL DISTRIBUTION WIDTH 19.9 % (11.6-17.2); WHITE BLOOD COUNT 3.3 TH/MM3 (4.0-11.0)
--- NOTE | 2018-01-09 19:42 | RADRPT ---
EXAM DATE/TIME: 01/09/2018 19:20 [facility] COMPARISON: CT THORAX W CONTRAST, September 14, 2017, 20:43. INDICATIONS : Syncopal episode. MEDICAL HISTORY : Carcinoma, colon. SURGICAL HISTORY : Colostomy. ENCOUNTER: Initial ACUITY: 1 day PAIN SCORE: 0/10 LOCATION: Bilateral chest FINDINGS: A single view of the chest demonstrates the lungs to be symmetrically aerated without evidence of mas s, infiltrate or effusion. The cardiomediastinal contours are unremarkable. Osseous structures are intact. Stable subcentimeter left upper lobe granuloma. There is a right internal jugular Noeddd-t-Agqm catheter with tip in the superior vena cava. CONCLUSION: No acute cardiopulmonary disease. Clyde Santoro MD on January 09, 2018 at 19:39 Board Certified Radiologist. This report was verified electronically.
[2018-01-09 19:46] LABS: ALBUMIN 2.4 GM/DL (3.4-5.0); AST (GOT) 22 U/L (15-37); BICARBONATE 25.4 MEQ/L (21.0-32.0); BLOOD UREA NITROGEN 7 MG/DL (7-18); CALCIUM 8.1 MG/DL (8.5-10.1); CHLORIDE 97 MEQ/L (98-107); GLOMERULAR FILTRATION RATE 87 ML/MIN (>89); GLUCOSE,RANDOM 124 MG/DL (74-106); MAGNESIUM 1.6 MG/DL (1.5-2.5); SODIUM (NA) 135 MEQ/L (136-145)
[2018-01-09 19:48] LABS: ALT (GPT) 38 U/L (12-78)
[2018-01-09 19:51] LABS: ALKALINE PHOSPHATASE 110 U/L (45-117); TOTAL BILIRUBIN ADULT 0.5 MG/DL (0.2-1.0); TOTAL PROTEIN 5.8 GM/DL (6.4-8.2); TROPONIN I LESS THAN 0.02 NG/ML (0.02-0.05)
[2018-01-09] MEDS ORDERED: POTASSIUM CHLORIDE 10 MEQ CONTROLLED RELEASE TAB PO ONE (20:45)
[2018-01-09] MEDS ORDERED: POTASSIUM CHLOR 20 MEQ PREMIX 100 ML IV ONE (20:45)
[2018-01-09] MEDS ORDERED: IOHEXOL 350 MG/ML 10 ML VIAL (for RAD DIAG) IVCONTRAST ONE (21:10)
--- NOTE | 2018-01-09 21:26 | RADRPT ---
EXAM DATE/TIME: 01/09/2018 21:05 [facility] COMPARISON: No previous studies available for comparison. INDICATIONS : Syncopal episode. IV CONTRAST: 55 cc Omnipaque 350 (iohexol) IV RADIATION DOSE: 10.72 CTDIvol (mGy) MEDICAL HISTORY : Carcinoma, colon. Metastatic, brain. Metastatic, bone.Chemotherapy. SURGICAL HISTORY : Port placement. ENCOUNTER: Initial ACUITY: 1 day PAIN SCALE: 0/10 LOCATION: chest TECHNIQUE: Volumetric scanning of the chest was performed using a pulmonary embolism protocol MIP images were re constructed. Using automated exposure control and adjustment of the mA and/or kV according to patien t size, radiation dose was kept as low as reasonably achievable to obtain optimal diagnostic quality images. DICOM format image data is available electronically for review and comparison. Follow-up recommendations for detected pulmonary nodules are based at a minimum on nodule size and pa tient risk factors according to Fleischner Society Guidelines. FINDINGS: PULMONARY ARTERIES: There is a moderate sized segmental pulmonary embolus posteromedially of the right lower lobe, series 2 image 73. A very small and nonocclusive embolus involves the apical segment of the right upper lob e. No pulmonary embolus on the left. LUNGS: Mild bibasilar atelectasis. No convincing evidence of a pulmonary infarct. PLEURAE: There is no pleural thickening or pleural effusion. MEDIASTINUM: There is good visualization of the great vessels of the middle mediastinum. There posterior mediastin al lymph nodes now measure up to 12 mm in greater short axis dimension situated between the aorta and esophagus. No perceptible esophageal mass. MUSCULOSKELETAL: Within normal limits for patient age. MISCELLANEOUS: The visualized upper abdominal organs demonstrate no acute abnormality. I believe the liver is fatty infiltrated. CONCLUSION: 1. Small to moderate right lung pulmonary emboli involving the upper and lower lobes. 2. Mild bibasilar atelectasis. 3. Upper limits of normal to mildly enlarged paraesophageal lymph nodes. 4. Probable fatty liver. Clyde Santoro MD on January 09, 2018 at 21:19 Board Certified Radiologist. This report was verified electronically.
[2018-01-09] MEDS ORDERED: HEPARIN SODIUM - IV 10,000 UNITS/10 ML VIAL IV PUSH ONE (21:45)
[2018-01-09] MEDS ORDERED: HEPARIN-D5W 25,000 U/250 ML 250 ML IV PRN (21:45)
[2018-01-09] MEDS ORDERED: NALOXONE HCL 0.4 MG/ML AMP IV PUSH PRN (22:00)
[2018-01-09 22:06] LABS: INTERNATIONAL NORMALIZED RATIO 1.2 RATIO; PROTHROMBIN TIME - PATIENT 12.6 SEC (9.8-11.6)
--- NOTE | 2018-01-09 22:29 | HHI.HP ---
[facility] Primary Care Physician No Primary Care Physician Admission Diagnosis PULMONARY EMBOLISM, SYNCOPE Diagnoses: Travel History International Travel<30 Days: No Contact w/Intl Traveler <30 Da: No Traveled to Known Affected Are: No History of Present Illness History from patient with his and for the bedside. Patient reported that he came to the hospital because he had passed out in the shower today. was next to him at that time and caught him. He did not hit his head The patient denies any premonitory symptoms prior to this syncope. Specifically , patient denies any chest pain/palpitations/dizziness/focal weakness. However, patient and daughter stated the patient is mostly homebound, not walking around much. He also has not been eating or drinking well. He has metastatic rectal cancer with metastases to the bone and brain. He is currently receiving chemotherapy and last dose was last week Sunday. He in the emergency room, patient's blood pressures were around him and 100/60 According to the family, and on review of medical records, patient has baseline low blood pressure. He is not on any antihypertensives medications at home. He was also tachycardic in ER at around 120 In the emergency room, because of all the above, CT pulmonary angiogram was done which reveals pulmonary embolism. On review of systems, patient denies any symptoms. Family reports mainly of generalized weakness, homebound status, not eating or drinking well. No blood in his stool or urine. Review of Systems Except as stated in HPI: all other systems reviewed are Neg Past Family Social History Past Medical History rectal ca diagnosed in march 2016; s/p chemo then, followed by radiation in 2015 mets to brain and spine- s/p radiation in 08/2017 again to brain rectal ca 10/2016 with diverting colostomy still receiving chemotherapy- last dose was last Sunday- Dr Perez Past Surgical History diverting colostomy finger sx knee sx mediport Allergies: Coded Allergies: No Known Allergies (Verified Allergy, Unknown, 10/18/17) Family History mom- cancer- lung dad- alzeimers Social History used to smoke , quit 1993 no etoh abuse no drugs lives with family, mostly home bound and does not ambulate Physical Exam Vital Signs Vital Signs Date Time Temp Pulse Resp B/P (MAP) Pulse Ox O2 Delivery O2 Flow Rate FiO2 01/09/18 19:00 108 16 104/61 (75) 99 Physical Exam GENERAL: Patient in no acute distress. Looks to be chronically ill, weak. SKIN: No rashes, ecchymoses or lesions. Cool and dry. HEAD: Atraumatic. Normocephalic. No temporal or scalp tenderness. EYES: No scleral icterus. No injection or drainage. ENT: Nose without bleeding, purulent drainage or septal hematoma. Airway patent. NECK: Trachea midline. No JVD Supple, nontender, no meningeal signs. CARDIOVASCULAR: Regular rate and rhythm without murmurs, gallops, or rubs. RESPIRATORY: Bilaterally decreased air entry. GASTROINTESTINAL: Abdomen soft, non-tender, nondistended. No hepato-splenomegaly , or palpable masses. No guarding. MUSCULOSKELETAL: Extremities without clubbing, cyanosis. No joint tenderness, effusion, or edema noted. No calf tenderness. NEUROLOGICAL: Awake and alert. Motor and sensory grossly within normal limits. Normal speech. Laboratory Laboratory Tests Test 01/09/18 19:18 01/09/18 21:44 White Blood Count 3.3 Red Blood Count 3.90 Hemoglobin 11.1 Hematocrit 33.3 Mean Corpuscular Volume 85.5 Mean Corpuscular Hemoglobin 28.4 Mean Corpuscular Hemoglobin Concent 33.2 Red Cell Distribution Width 19.9 Platelet Count 124 Mean Platelet Volume 9.6 Neutrophils (%) (Auto) 75.8 Lymphocytes (%) (Auto) 14.2 Monocytes (%) (Auto) 9.5 Eosinophils (%) (Auto) 0.2 Basophils (%) (Auto) 0.3 Neutrophils # (Auto) 2.5 Lymphocytes # (Auto) 0.5 Monocytes # (Auto) 0.3 Eosinophils # (Auto) 0.0 Basophils # (Auto) 0.0 CBC Comment DIFF FINAL Differential Comment Blood Urea Nitrogen 7 Creatinine 0.90 Random Glucose 124 Total Protein 5.8 Albumin 2.4 Calcium Level 8.1 Magnesium Level 1.6 Alkaline Phosphatase 110 Aspartate Amino Transf (AST/SGOT) 22 Alanine Aminotransferase (ALT/SGPT) 38 Total Bilirubin 0.5 Sodium Level 135 Potassium Level 3.0 Chloride Level 97 Carbon Dioxide Level 25.4 Anion Gap 13 Estimat Glomerular Filtration Rate 87 Total Creatine Kinase 45 Troponin I LESS THAN 0.02 Prothrombin Time 12.6 Prothromb Time International Ratio 1.2 Activated Partial Thromboplast Time 23.3 Result Diagram: 01/09/18191701/09/181917 Imaging Last 48 hours Impressions Chest X-Ray 01/09/18 190 Signed Impressions: Service Date/Time: Tuesday, January 09, 2018 19:20 - CONCLUSION: No acute cardiopulmonary disease. Clyde Santoro MD Lower Extremity Ultrasound 01/09/18 0000 Signed Impressions: Service Date/Time: Tuesday, January 09, 2018 23:07 - CONCLUSION: Normal examination. Sina Meyer Jr., MD CT Angiography 01/09/18 0000 Signed Impressions: Service Date/Time: Tuesday, January 09, 2018 21:05 - CONCLUSION: 1. Small to moderate right lung pulmonary emboli involving the upper and lower lobes. 2. Mild bibasilar atelectasis. 3. Upper limits of normal to mildly enlarged paraesophageal lymph nodes. 4. Probable fatty liver. Clyde Santoro MD Caprini VTE Risk Assessment Caprini VTE Risk Assessment: Mod/High Risk (score >= 2) Caprini Risk Assessment Model Point Value = 1 Point Value = 2 Point Value = 3 Point Value = 5 Age 41-60 Minor surgery BMI > 25 kg/m2 Swollen legs Varicose veins or History of unexplained or recurrent spontaneous Oral contraceptives or hormone replacement Sepsis (< 1 month) Serious lung disease, including pneumonia (< 1 month) Abnormal pulmonary function Acute myocardial infarction Congestive heart failure (< 1 month) History of inflammatory bowel disease Medical patient at bed rest Age 61-74 Arthroscopic surgery Major open surgery (> 45 min) Laparoscopic surgery (> 45 min) Malignancy Confined to bed (> 72 hours) Immobilizing plaster cast Central venous access Age >= 75 History of VTE Family history of VTE Factor V Leiden Prothrombin [id number] Lupus anticoagulant Anticardiolipin antibodies Elevated serum homocysteine Heparin-induced thrombocytopenia Other congenital or acquired thrombophilia Stroke (< 1 month) Elective arthroplasty Hip, pelvis, or leg fracture Acute spinal cord injury (< 1 month) Prophylaxis Regimen Total Risk Factor Score Risk Level Prophylaxis Regimen 0-1 Low Early ambulation 2 Moderate Order ONE of the following: *Sequential Compression Device (SCD) *Heparin 5000 units SQ BID 3-4 Higher Order ONE of the following medications: *Heparin 5000 units SQ TID *Enoxaparin/Lovenox 40 mg SQ daily (WT < 150 kg, CrCl > 30 mL/min) *Enoxaparin/Lovenox 30 mg SQ daily (WT < 150 kg, CrCl > 10-29 mL/min) *Enoxaparin/Lovenox 30 mg SQ BID (WT < 150 kg, CrCl > 30 mL/min) AND/OR *Sequential Compression Device (SCD) 5 or more Highest Order ONE of the following medications: *Heparin 5000 units SQ TID (Preferred with Epidurals) *Enoxaparin/Lovenox 40 mg SQ daily (WT < 150 kg, CrCl > 30 mL/min) *Enoxaparin/Lovenox 30 mg SQ daily (WT < 150 kg, CrCl > 10-29 mL/min) *Enoxaparin/Lovenox 30 mg SQ BID (WT < 150 kg, CrCl > 30 mL/min) AND *Sequential Compression Device (SCD) Assessment and Plan Assessment and Plan Impression: Small to moderate right-sided pulmonary embolism. Borderline hypotension. However suspect that this is more secondary to poor oral intake/baseline status/pain medications rather than right heart strain. Tachycardia. Again, I do believe this is mostly secondary to his chronic pain. Syncopal episode. Again possible this is vasovagal from poor oral intake/ chronically ill status. Don't think that this is because of massive PE or right heart strain rectal ca diagnosed in march 2016; s/p chemo then, followed by radiation in 2015 mets to brain and spine- s/p radiation in 08/2017 again to brain rectal ca 10/2016 with diverting colostomy still receiving chemotherapy- last dose was last Sunday- Dr Perez Plan: Patient was started on heparin drip monitor pt in [facility] tele monitoring echo in am to eval for right heart strain US of UZIEL consult patient's oncologist for anticoagulation choice. Lovenox versus oral anticoagulant. GI prophylaxis on pantoprazole. DVT prophylaxis on heparin drip. Discussed Condition With Patient, daughter, at the bedside, ER physician, nursing staff Physician Certification 2 Midnight Certification Type: Admission for Inpatient Services Order for Inpatient Services Pacemaker placement Estimated LOS (days): 3 days is the estimated time the patient will need to remain in the hospital, assuming treatment plan goals are met and no additional complications. Post-Hospital Plan: Home Chante Lopez MD Jan 09, 2018 22:29
[2018-01-09] MEDS ORDERED: PROMETHAZINE HCL 25 MG TAB PO PRN (22:45)
[2018-01-09 23:00] VITALS: BP 123/68; PULSE 128; RESP 20; O2SAT 98
[2018-01-09] MEDS: MORPHINE SULFATE 60 MG CONTROLLED RELEASE TAB PO SCH (23:25)
[2018-01-09] MEDS ORDERED: HYDROmorphone HCL PF 2 MG/ML VIAL IV PUSH ONE (23:30)
--- NOTE | 2018-01-09 23:33 | RADRPT ---
EXAM DATE/TIME: 01/09/2018 23:07 [place] COMPARISON: No previous studies available for comparison. INDICATIONS : Pulmonary embolism. MEDICAL HISTORY : Benign prostatic hyperplasia, (BPH) Malignant colon cancer. Chemotherapy. Radiation therapy. Migrai vesta. Numbness. Liver mets. Anxiety. SURGICAL HISTORY : Colon resection.Colostomy. Port placement. Left hand surgery. Right knee surgery. ENCOUNTER: Initial ACUITY: 1 day PAIN SCORE: 5/10 LOCATION: Bilateral legs. TECHNIQUE: Venous ultrasound of the left and right leg was performed from the inguinal ligament to the proximal calf. Real-time, color Doppler and spectral tracing, compression and augmentation techniques were us ed. FINDINGS: RIGHT LEG: There is normal compressibility of the deep venous system from the inguinal region to the proximal ca lf. No echogenic clot is seen in the lumen of the common femoral, femoral, popliteal, and posterior tibial veins. There is a normal response of the venous system to proximal and distal augmentation an d respiration. LEFT LEG: There is normal compressibility of the deep venous system from the inguinal region to the proximal ca lf. No echogenic clot is seen in the lumen of the common femoral, femoral, popliteal, and posterior tibial veins. There is a normal response of the venous system to proximal and distal augmentation an d respiration. CONCLUSION: Normal examination. Sina Meyer Jr., MD on January 09, 2018 at 23:31 Board Certified Radiologist. This report was verified electronically.
[2018-01-09] MEDS: LORazepam 2 MG TAB PO PRN (23:34)
[2018-01-10] VITALS (12 sets, daily range): BP systolic 96–142; BP diastolic 52–83; PULSE 98–122; RESP 17–20; TEMP 96.3–97.9; O2SAT 94–100
[2018-01-10] MEDS: HYDROmorphone HCL 4 MG TAB PO PRN ×4 (00:11→23:13)
--- NOTE | 2018-01-10 00:25 | PD ---
Data Data Last Documented VS Vital Signs Date Time Temp Pulse Resp B/P (MAP) Pulse Ox O2 Delivery O2 Flow Rate FiO2 01/09/18 19:00 98.2 108 16 104/61 (75) 99 Orders Orders Electrocardiogram (01/09/18 19:01) Complete Blood Count With Diff (01/09/18 19:01) Comprehensive Metabolic Panel (01/09/18 19:01) Magnesium (Mg) (01/09/18 19:01) Ckmb (Isoenzyme) Profile (01/09/18 19:) Troponin I (01/09/18 19:) Chest, Single Ap (01/09/18 19:) Ecg Monitoring (01/09/18 19:) Iv Access Insert/Monitor (01/09/18:) Oximetry (01/09/18 19:) Sodium Chloride 0.9% Flush (Ns Flush) (01/09/18 19:15) Sodium Chlor 0.9% 1000 Ml Inj (Ns 1000 M (01/09/18 19:01) Potassium Chlor 20 Meq Premix (Kcl 20 Me (01/09/18 20:45) Potassium Chloride (Kcl) (01/09/18 20:45) Ct Pulmonary Angiogram (01/09/18 ) Sodium Chlor 0.9% 1000 Ml Inj (Ns 1000 M (01/09/18 21:00) Iohexol 350 Inj (Omnipaque 350 Inj) (01/09/18 21:10) Heparin Inj (Heparin Inj) (01/09/18 21:45) Heparin-D5w 25,000 U/250 Ml (Heparin-D5w (01/09/18 21:45) Cbc No Diff, Includes Plts (01/12/18 06:00) Act Partial Throm Time (Ptt) (01/10/18 04:31) Act Partial Throm Time (Ptt) (01/09/18 21:31) Prothrombin Time / Inr (Pt) (01/09/18 21:31) Oxygen Administration (01/09/18 21:39) Admit Order (Ed Use Only) (01/09/18 21:55) Admit To Inpatient (01/09/18 ) Vital Signs (Adult) Q4H (01/09/18 21:54) Activity Bed Rest (01/09/18 21:54) Cardiothoracic Anesthesia Technician / Telemetry .CONTINUOUS (01/09/18 21:54) Diet Heart Healthy (01/10/18 Breakfast) Sodium Chlor 0.9% 1000 Ml Inj (Ns 1000 M (01/09/18 21:54) Sodium Chloride 0.9% Flush (Ns Flush) (01/09/18 22:00) Sodium Chloride 0.9% Flush (Ns Flush) (01/10/18 09:00) Basic Metabolic Panel (Bmp) (01/10/18 06:00) Complete Blood Count With Diff (01/10/18 06:00) Case Management Consult (01/09/18 21:54) Naloxone Inj (Narcan Inj) (01/09/18 22:00) Inpatient Certification (01/09/18 ) Labs Laboratory Tests Test 01/09/18 19:18 01/09/18 21:44 White Blood Count 3.3 TH/MM3 Red Blood Count 3.90 MIL/MM3 Hemoglobin 11.1 GM/DL Hematocrit 33.3 % Mean Corpuscular Volume 85.5 FL Mean Corpuscular Hemoglobin 28.4 PG Mean Corpuscular Hemoglobin Concent 33.2 % Red Cell Distribution Width 19.9 % Platelet Count 124 TH/MM3 Mean Platelet Volume 9.6 FL Neutrophils (%) (Auto) 75.8 % Lymphocytes (%) (Auto) 14.2 % Monocytes (%) (Auto) 9.5 % Eosinophils (%) (Auto) 0.2 % Basophils (%) (Auto) 0.3 % Neutrophils # (Auto) 2.5 TH/MM3 Lymphocytes # (Auto) 0.5 TH/MM3 Monocytes # (Auto) 0.3 TH/MM3 Eosinophils # (Auto) 0.0 TH/MM3 Basophils # (Auto) 0.0 TH/MM3 CBC Comment DIFF FINAL Differential Comment Blood Urea Nitrogen 7 MG/DL Creatinine 0.90 MG/DL Random Glucose 124 MG/DL Total Protein 5.8 GM/DL Albumin 2.4 GM/DL Calcium Level 8.1 MG/DL Magnesium Level 1.6 MG/DL Alkaline Phosphatase 110 U/L Aspartate Amino Transf (AST/SGOT) 22 U/L Alanine Aminotransferase (ALT/SGPT) 38 U/L Total Bilirubin 0.5 MG/DL Sodium Level 135 MEQ/L Potassium Level 3.0 MEQ/L Chloride Level 97 MEQ/L Carbon Dioxide Level 25.4 MEQ/L Anion Gap 13 MEQ/L Estimat Glomerular Filtration Rate 87 ML/MIN Total Creatine Kinase 45 U/L Troponin I LESS THAN 0.02 NG/ML Prothrombin Time 12.6 SEC Prothromb Time International Ratio 1.2 RATIO Activated Partial Thromboplast Time 23.3 SEC [facility] Medical Record Reviewed: Yes Supervised Visit with SALVATORE: Yes Narrative Course I, Dr. Cooper, have reviewed the advance practice practitioner's documentation and am in agreement, met with the patient face to face, made the diagnosis, and the medical decision making was done by me. *My assessment and Findings: CBC & BMP Diagram 01/09/18 19:18 Total Protein 5.8 L, Albumin 2.4 L, Calcium Level 8.1 L, Magnesium Level 1.6, Alkaline Phosphatase 110, Aspartate Amino Transf (AST/SGOT) 22, Alanine Aminotransferase (ALT/SGPT) 38, Total Bilirubin 0.5 Last Impressions Chest X-Ray 01/09/18 1901 Signed Impressions: Service Date/Time: Tuesday, January 09, 2018 19:20 - CONCLUSION: No acute cardiopulmonary disease. Clyde Santoro MD Lower Extremity Ultrasound 01/09/18 0000 Signed Impressions: Service Date/Time: Tuesday, January 09, 2018 23:07 - CONCLUSION: Normal examination. Sina Meyer Jr., MD CT Angiography 01/09/18 0000 Signed Impressions: Service Date/Time: Tuesday, January 09, 2018 21:05 - CONCLUSION: 1. Small to moderate right lung pulmonary emboli involving the upper and lower lobes. 2. Mild bibasilar atelectasis. 3. Upper limits of normal to mildly enlarged paraesophageal lymph nodes. 4. Probable fatty liver. Clyde Santoro MD Heparin started. The patient will be admitted to the [facility]. d/w Dr Lopez. Diagnosis Primary Impression: Pulmonary embolism Qualified Codes: I26.99 - Other pulmonary embolism without acute cor pulmonale Additional Impressions: Syncope Qualified Codes: R55 - Syncope and collapse Metastatic cancer Admitting Information Admitting Physician Requests: Admit Condition: Stable Jamar Cooper MD Jan 10, 2018 00:25
[2018-01-10 05:02] LABS: AUTOMATED NEUTROPHIL # 2.3 TH/MM3 (1.8-7.7); BASOPHIL % 0.2 % (0.0-2.0); EOSINOPHIL % 0.3 % (0.0-4.0); HEMATOCRIT 31.6 % (39.0-51.0); HEMOGLOBIN 10.4 GM/DL (13.0-17.0); LYMPH % 14.9 % (9.0-44.0); LYMPHOCYTE # 0.5 TH/MM3 (1.0-4.8); MEAN CELL VOLUME 87.9 FL (80.0-100.0); MEAN PLATELET VOLUME 8.8 FL (7.0-11.0); MONO % 9.8 % (0.0-8.0); MONOCYTE # 0.3 TH/MM3 (0-0.9); NEUT % 74.8 % (16.0-70.0); PLATELET COUNT 110 TH/MM3 (150-450); RED CELL DISTRIBUTION WIDTH 19.6 % (11.6-17.2); WHITE BLOOD COUNT 3.1 TH/MM3 (4.0-11.0)
[2018-01-10 05:26] LABS: BICARBONATE 27.2 MEQ/L (21.0-32.0); CREATININE 0.73 MG/DL (0.60-1.30)
[2018-01-10] MEDS ORDERED: POTASSIUM CHLORIDE 20 MEQ CONTROLLED RELEASE TAB PO ONE ×2 (06:45→12:15)
[2018-01-10] MEDS: SODIUM CHLOR 0.9% 1000 ML INJ 1,000 ML IV SCH ×3 (06:49→17:54)
[2018-01-10] MEDS: FINASTERIDE 5 MG TAB PO SCH (07:58)
[2018-01-10] MEDS: PANTOPRAZOLE SOD 40 MG DELAYED RELEASE TAB PO SCH (07:58)
[2018-01-10] MEDS: MORPHINE SULFATE 60 MG CONTROLLED RELEASE TAB PO SCH ×3 (07:58→23:14)
[2018-01-10] MEDS: SODIUM CHLORIDE 0.9% FLUSH 10 ML FLUSH IV FLUSH SCH ×2 (07:59→21:52)
[2018-01-10 09:15] LABS: BANDS 31 % (0-6); LYMPHOCYTES 14 % (9-44); MONOCYTES 6 % (0-8); NEUTROPHIL # MANUAL DIFF 2.5 TH/MM3 (1.8-7.7); OVALOCYTES 1+ (NORMAL); POLYS (SEG NEUTROPHILS) 49 % (16-70); TEARDROP RBCS 1+ (NORMAL)
[2018-01-10 09:16] LABS: TOXIC GRANULATION 2+ (NORMAL)
--- NOTE | 2018-01-10 12:08 | HHI.PR ---
Subjective Remarks This is a pleasant 57 y/o Male who had syncopal episode, has not been eating or drinking well, he has Metastatic rectal cancer to the bone and Brain, currently on Chemotherapy, last dose given last week on Sunday, CT pulmonary angiography revealed Pulmonary Embolism, has rectal ca diagnosed in march 2016; s/p chemo then, followed by radiation in 08/2016 mets to brain and spine- s/p radiation in 08/2017 again to brain, rectal ca 2016 with diverting colostomy still receiving chemotherapy- last dose was last Sunday- Dr Perez 01/10: patient seen in Emergency room, stable discussed with his and Daughter, no nausea, vomit or diarrhea, then the nurse called me the patient is having rectal bleed, he is well known to Doctor Don discussed with his [employer], started On Protonix drip and asked for GI specialist consult awaiting for Hematology and active directory specialist consult. Objective Vital Signs Date Time Temp Pulse Resp B/P (MAP) Pulse Ox O2 Delivery O2 Flow Rate FiO2 01/10/18 08:02 97.6 102 20 115/83 (94) 100 Room Air 01/10/18 05:36 111 18 102/68 (79) 95 Room Air 01/10/18 03:00 118 18 108/71 (83) 97 Nasal Cannula 2.00 01/10/18 02:00 118 20 142/80 (100) 98 Nasal Cannula 2.00 01/10/18 01:00 120 20 101/69 (80) 95 Room Air 01/10/18 00:09 122 20 106/71 (83) 95 Room Air 01/09/18 23:43 98 Nasal Cannula 2.00 01/09/18 23:00 128 20 123/68 (86) 98 Room Air 01/09/18 19:00 98.2 108 16 104/61 (75) 99 I/O 01/09/18 01/09/18 01/09/18 01/10/18 01/10/18 01/10/18 07:00 15:00 23:00 07:00 15:00 23:00 Intake Total 2000 ml 100 ml Output Total 2200 ml Balance 2000 ml -2100 ml Intake IV Total 2000 ml 100 ml Output Urine Total 2200 ml Result Diagram: 01/10/18 0415 01/10/18 0415 Imaging Last Impressions Chest X-Ray 01/09/18 1901 Signed Impressions: Service Date/Time: Tuesday, January 09, 2018 19:20 - CONCLUSION: No acute cardiopulmonary disease. Clyde Santoro MD Lower Extremity Ultrasound 01/09/18 0000 Signed Impressions: Service Date/Time: Tuesday, January 09, 2018 23:07 - CONCLUSION: Normal examination. Sina Meyer Jr., MD CT Angiography 01/09/18 0000 Signed Impressions: Service Date/Time: Tuesday, January 09, 2018 21:05 - CONCLUSION: 1. Small to moderate right lung pulmonary emboli involving the upper and lower lobes. 2. Mild bibasilar atelectasis. 3. Upper limits of normal to mildly enlarged paraesophageal lymph nodes. 4. Probable fatty liver. Clyde Santoro MD Procedures None Other Results Laboratory Tests Test 01/09/18 19:18 01/09/18 21:44 01/10/18 04:15 01/10/18 10:33 Blood Urea Nitrogen 7 MG/DL 4 MG/DL Creatinine 0.90 MG/DL 0.73 MG/DL Random Glucose 124 MG/DL 129 MG/DL Total Protein 5.8 GM/DL Albumin 2.4 GM/DL Calcium Level 8.1 MG/DL 8.0 MG/DL Magnesium Level 1.6 MG/DL Alkaline Phosphatase 110 U/L Aspartate Amino Transf (AST/SGOT) 22 U/L Alanine Aminotransferase (ALT/SGPT) 38 U/L Total Bilirubin 0.5 MG/DL Sodium Level 135 MEQ/L 145 MEQ/L Potassium Level 3.0 MEQ/L 3.4 MEQ/L Chloride Level 97 MEQ/L 107 MEQ/L Carbon Dioxide Level 25.4 MEQ/L 27.2 MEQ/L Total Creatine Kinase 45 U/L Troponin I LESS THAN 0.02 NG/ML Prothrombin Time 12.6 SEC Prothromb Time International Ratio 1.2 RATIO White Blood Count 3.1 TH/MM3 Red Blood Count 3.60 MIL/MM3 Hemoglobin 10.4 GM/DL Hematocrit 31.6 % Mean Corpuscular Volume 87.9 FL Mean Corpuscular Hemoglobin 29.0 PG Mean Corpuscular Hemoglobin Concent 33.0 % Red Cell Distribution Width 19.6 % Platelet Count 110 TH/MM3 Mean Platelet Volume 8.8 FL Neutrophils (%) (Auto) 74.8 % Lymphocytes (%) (Auto) 14.9 % Monocytes (%) (Auto) 9.8 % Eosinophils (%) (Auto) 0.3 % Basophils (%) (Auto) 0.2 % Neutrophils # (Auto) 2.3 TH/MM3 Lymphocytes # (Auto) 0.5 TH/MM3 Monocytes # (Auto) 0.3 TH/MM3 Eosinophils # (Auto) 0.0 TH/MM3 Basophils # (Auto) 0.0 TH/MM3 CBC Comment AUTO DIFF Differential Total Cells Counted 100 Neutrophils % (Manual) 49 % Band Neutrophils % 31 % Lymphocytes % 14 % Monocytes % 6 % Neutrophils # (Manual) 2.5 TH/MM3 Differential Comment FINAL DIFF MANUAL Toxic Granulation 2+ Platelet Estimate LOW Platelet Morphology Comment NORMAL Tear Drop Cells 1+ Ovalocytes 1+ Anion Gap 11 MEQ/L Estimat Glomerular Filtration Rate 111 ML/MIN Activated Partial Thromboplast Time GREATER THAN 277.5 SEC Objective Remarks GENERAL: Patient in no acute distress. Looks to be chronically ill, weak. SKIN: No rashes, ecchymoses or lesions. Cool and dry. HEAD: Atraumatic. Normocephalic. No temporal or scalp tenderness. EYES: No scleral icterus. No injection or drainage. ENT: Nose without bleeding, purulent drainage or septal hematoma. Airway patent. NECK: Trachea midline. No JVD Supple, nontender, no meningeal signs. CARDIOVASCULAR: Regular rate and rhythm without murmurs, gallops, or rubs. RESPIRATORY: Bilaterally decreased air entry. GASTROINTESTINAL: Abdomen soft, non-tender, nondistended. No hepato-splenomegaly , or palpable masses. No guarding. MUSCULOSKELETAL: Extremities without clubbing, cyanosis. No joint tenderness, effusion, or edema noted. No calf tenderness. NEUROLOGICAL: Awake and alert. Motor and sensory grossly within normal limits. Normal speech. Medications and IVs Current Medications Medications (Trade) Dose Ordered Sig/Jason Route Start Time Stop Time Status Last Admin Heparin Sodium/ Dextrose 250 ml @ 18 mls/hr TITRATE PRN IV 01/09/18 21:45 01/09/18 23:20 Sodium Chloride 1,000 ml @ 100 mls/hr Q10H IV 01/09/18 21:54 01/10/18 07:59 (NS Flush) 2 ml UNSCH PRN IV FLUSH 01/09/18 22:00 (NS Flush) 2 ml BID IV FLUSH 01/10/18 09:00 (Narcan Inj) 0.4 mg UNSCH PRN IV PUSH 01/09/18 22:00 (Proscar) 5 mg DAILY PO 01/10/18 09:00 01/10/18 07:58 (Dilaudid) 4 mg Q4H PRN PO 01/09/18 22:45 01/10/18 00:11 (Ativan) 2 mg Q8HR PRN PO 01/09/18 22:45 01/09/18 23:34 (Protonix) 40 mg DAILY PO 01/10/18 09:00 01/10/18 07:58 (Phenergan) 25 mg Q6H PRN PO 01/09/18 22:45 (Flomax) 0.4 mg HS PO 01/10/18 21:00 (Oramorph Sr) 60 mg Q8H PO 01/10/18 00:00 01/10/18 07:58 A/P Assessment and Plan 1. Small to moderate right-sided pulmonary embolism. started on Heparin drip then started Rectal bleed new Hemoglobin 9.5 will continue to monitor Heparin on Hold awaiting for Hematology consult, may need IVC filter, CT angiography increased paraesophageal lymphopathy, PE Negative lower extremity US, Stage IV Colorectal cancer, with continued elevation of his CEA, 2. Chronic rectal bleed on and off in a patient with Colorectal Cancer, receiving Chemotherapy by Doctor Perez his last chemo was last Sunday meaning two days ago, he was diagnosed in March 2016. status post chemotherapy and radiation therapy 08/2016 3. syncopal episode probable secondary to hemorrhage, hypotension, Anemia symptomatic, Pulmonary Emboli and possible Metastatic disease to the Brain was started on heparin and now has again Rectal Bleed may need IVC filter. Diverting colostomy 10/2016 4. Metastatic disease to Brain and Spine, and Colon status post radiation therapy 08/2017 5. Hydronephrosis secondary to Metastatic Colon cancer worsening 6. Intractable rectal pain secondary to malignancy. GI prophylaxis PPI drip DVT prophylaxis SCD chemoprophylaxis contraindicated due to Hemorrhage Poor short term prognosis. Discussed Condition With Discussed with and Daughter. Discharge Planning Once cleared by Oncology and GI specialist. Yunier Briggs MD Jan 10, 2018 12:08
--- NOTE | 2018-01-10 12:25 | ECHRPT ---
Indication: Right heart strain/ PE with syncope CONCLUSIONS The left ventricular systolic function is normal with an estimated ejection fraction in the range of 60-65%. Wall thickness is measured at the upper limits of normal. Normal left ventricular size. BP: 102 / 68 HR: 111 Rhythm: MEASUREMENTS (Male / Female) Normal Values Technical Quality: 2D ECHO LV Diastolic Diameter PLAX 4.3 cm 4.2 - 5.9 / 3.9 - 5.3 cm LV Systolic Diameter PLAX 3.0 cm IVS Diastolic Thickness 1.1 cm 0.6 - 1.0 / 0.6 - 0.9 cm LVPW Diastolic Thickness 1.1 cm 0.6 - 1.0 / 0.6 - 0.9 cm LV Relative Wall Thickness 0.5 LVOT Diameter 2.2 cm M-MODE Aortic Root Diameter MM 3.0 cm LA Systolic Diameter MM 3.0 cm LA Ao Ratio MM 1.0 AV Cusp Separation MM 2.0 cm DOPPLER AV Peak Velocity 114.0 cm/s AV Peak Gradient 5.2 mmHg LVOT Peak Velocity 77.5 cm/s LVOT Peak Gradient 2.4 mmHg AV Area Cont Eq pk 2.6 cm Mitral E Point Velocity 66.6 cm/s Mitral A Point Velocity 80.5 cm/s Mitral E to A Ratio 0.8 PV Peak Velocity 102.0 cm/s PV Peak Gradient 4.2 mmHg FINDINGS LEFT VENTRICLE The left ventricular systolic function is normal with an estimated ejection fraction in the range of 60-65%. Wall thickness is measured at the upper limits of normal. Normal left ventricular size. RIGHT VENTRICLE Normal right ventricular size and systolic function. LEFT ATRIUM The left atrial size is normal. RIGHT ATRIUM The right atrial size is normal. ATRIAL SEPTUM Normal atrial septal thickness without atrial level shunting by limited color doppler interrogation. AORTA The aortic root and proximal ascending aorta are normal in size on limited imaging. MITRAL VALVE Structurally normal mitral valve. No mitral valve stenosis or regurgitation. AORTIC VALVE Trileaflet aortic valve. No aortic valve stenosis or regurgitation. TRICUSPID VALVE Structurally normal tricuspid valve. No tricuspid valve stenosis or regurgitation. PULMONARY VALVE The pulmonary valve is not well visualized. VESSELS The inferior vena cava is normal in size. PERICARDIUM No pericardial effusion. Kush Bae MD, FACC (Electronically Signed) Final Date:10 January 2018 12:24
[2018-01-10] MEDS ORDERED: PANTOPRAZOLE SODIUM 40 MG VIAL IV PUSH ONE (13:30)
--- NOTE | 2018-01-10 14:23 | EKG ---
Date Performed: 01/09/2018 Time Performed: 19:04:21 PTAGE: 57 years EKG: SINUS TACHYCARDIA POSSIBLE LEFT ATRIAL ENLARGEMENT INDETERMINATE AXIS POSSIBLE RIGHT VENTRI CULAR CONDUCTION DELAY MODERATE T-WAVE ABNORMALITY, CONSIDER ANTEROLATERAL ISCHEMIA MODERATE T-WAVE A BNORMALITY, CONSIDER INFERIOR ISCHEMIA ABNORMAL ECG Compared to PREVIOUS TRACING , the patient has developed a fairly prominent and diffuse nonspecific S T-T wave changes. Clinical correlation will be necessary to assess the etiology. PREVIOUS TRACIN 15.35 DOCTOR: Venita Olivas Interpretating Date/Time 01/10/2018 14:21:59
[2018-01-10] MEDS ORDERED: PANTOPRAZOLE INJ 80 MG in SODIUM CHLORIDE 0.9% INJ 100 ML IV SCH (15:00)
[2018-01-10 15:27] LABS: HEMATOCRIT 29.4 % (39.0-51.0); HEMOGLOBIN 9.5 GM/DL (13.0-17.0)
--- NOTE | 2018-01-10 16:13 | PD.CONS ---
HPI History of Present Illness This is a 57 year old male admitted on 01/09/2018 with syncopal episode . According to the record patient did not hit his head and was caught per the which broke his fall. Treat of colorectal cancer for approximately 2 years and has been treated per Dr. Gannon, and Dr. Colbert oncology. Currently patient's hemoglobin is 9.5, WBC count 3.1, heart rate is mildly tachycardic between 100 -118. Patient is currently on IV PPI, and according to the has had rectal bleeding off and on for the past 2 years during his colorectal cancer treatment regimen. Also states that patient had sigmoidoscopy a couple of weeks ago per Dr. Camarena. Currently patient has had CT angiography which shows right lung pulmonary emboli, possible increased paraesophageal lymph nodes , and possible fatty liver. Currently patient denies any nausea vomiting, he is drowsy but responds to verbal stimuli. (Sara Silva) PFSH Past Medical History rectal ca diagnosed in march 2016; s/p chemo then, followed by radiation in 2015 mets to brain and spine- s/p radiation in 08/2017 again to brain rectal ca 10/2016 with diverting colostomy still receiving chemotherapy- last dose was last Sunday- Dr Perez Past Surgical History diverting colostomy finger sx knee sx mediport (Sara Silva) Coded Allergies: No Known Allergies (Verified Allergy, Unknown, 10/18/17) Medications Administered Medications Medications (Trade) Dose Ordered Sig/Jason Route PRN Reason Start Time Stop Time Status Last Admin Dose Admin Sodium Chloride 1,000 ml @ 100 mls/hr Q10H IV 01/09/18 21:54 01/10/18 07:59 Finasteride (Proscar) 5 mg DAILY PO 01/10/18 09:00 01/10/18 07:58 Hydromorphone HCl (Dilaudid) 4 mg Q4H PRN PO PAIN 01/09/18 22:45 01/10/18 13:07 Lorazepam (Ativan) 2 mg Q8HR PRN PO SEE LABEL COMMENTS 01/09/18 22:45 01/09/18 23:34 Pantoprazole Sodium (Protonix) 40 mg DAILY PO 01/10/18 09:00 01/10/18 07:58 Morphine Sulfate (Oramorph Sr) 60 mg Q8H PO 01/10/18 00:00 01/10/18 07:58 Family History mom- cancer- lung dad- alzeimers Social History used to smoke , quit 1993 no etoh abuse no drugs lives with family, mostly home bound and does not ambulate (Sara Silva) Review of Systems Gastrointestinal: COMPLAINS OF: Bloody stools (Sara Silva) GI Exam Vitals I&O Vital Signs Date Time Temp Pulse Resp B/P (MAP) Pulse Ox O2 Delivery O2 Flow Rate FiO2 01/10/18 12:00 97.9 100 17 107/66 (80) 99 Room Air 01/10/18 10:00 98 19 118/72 (87) 97 Room Air 01/10/18 08:02 97.6 102 20 115/83 (94) 100 Room Air 01/10/18 05:36 111 18 102/68 (79) 95 Room Air 01/10/18 03:00 118 18 108/71 (83) 97 Nasal Cannula 2.00 01/10/18 02:00 118 20 142/80 (100) 98 Nasal Cannula 2.00 01/10/18 01:00 120 20 101/69 (80) 95 Room Air 01/10/18 00:09 122 20 106/71 (83) 95 Room Air 01/09/18 23:43 98 Nasal Cannula 2.00 01/09/18 23:00 128 20 123/68 (86) 98 Room Air 01/09/18 19:00 98.2 108 16 104/61 (75) 99 I/O 01/09/18 01/09/18 01/09/18 01/10/18 01/10/18 01/10/18 06:59 14:59 22:59 06:59 14:59 22:59 Intake Total 2000 ml 100 ml Output Total 2200 ml Balance 2000 ml -2100 ml Intake IV Total 2000 ml 100 ml Output Urine Total 2200 ml Imaging Last Impressions Chest X-Ray 01/09/18 1901 Signed Impressions: Service Date/Time: Tuesday, January 09, 2018 19:20 - CONCLUSION: No acute cardiopulmonary disease. Clyde Santoro MD Lower Extremity Ultrasound 01/09/18 0000 Signed Impressions: Service Date/Time: Tuesday, January 09, 2018 23:07 - CONCLUSION: Normal examination. Sina Meyer Jr., MD CT Angiography 01/09/18 0000 Signed Impressions: Service Date/Time: Tuesday, January 09, 2018 21:05 - CONCLUSION: 1. Small to moderate right lung pulmonary emboli involving the upper and lower lobes. 2. Mild bibasilar atelectasis. 3. Upper limits of normal to mildly enlarged paraesophageal lymph nodes. 4. Probable fatty liver. Clyde Santoro MD Laboratory Test 01/09/18 19:18 01/09/18 21:44 01/10/18 04:15 01/10/18 06:45 White Blood Count 3.3 TH/MM3 3.1 TH/MM3 Red Blood Count 3.90 MIL/MM3 3.60 MIL/MM3 Hemoglobin 11.1 GM/DL 10.4 GM/DL Hematocrit 33.3 % 31.6 % Mean Corpuscular Volume 85.5 FL 87.9 FL Mean Corpuscular Hemoglobin 28.4 PG 29.0 PG Mean Corpuscular Hemoglobin Concent 33.2 % 33.0 % Red Cell Distribution Width 19.9 % 19.6 % Platelet Count 124 TH/MM3 110 TH/MM3 Mean Platelet Volume 9.6 FL 8.8 FL Neutrophils (%) (Auto) 75.8 % 74.8 % Lymphocytes (%) (Auto) 14.2 % 14.9 % Monocytes (%) (Auto) 9.5 % 9.8 % Eosinophils (%) (Auto) 0.2 % 0.3 % Basophils (%) (Auto) 0.3 % 0.2 % Neutrophils # (Auto) 2.5 TH/MM3 2.3 TH/MM3 Lymphocytes # (Auto) 0.5 TH/MM3 0.5 TH/MM3 Monocytes # (Auto) 0.3 TH/MM3 0.3 TH/MM3 Eosinophils # (Auto) 0.0 TH/MM3 0.0 TH/MM3 Basophils # (Auto) 0.0 TH/MM3 0.0 TH/MM3 CBC Comment DIFF FINAL AUTO DIFF Differential Comment FINAL DIFF MANUAL Blood Urea Nitrogen 7 MG/DL 4 MG/DL Creatinine 0.90 MG/DL 0.73 MG/DL Random Glucose 124 MG/DL 129 MG/DL Total Protein 5.8 GM/DL Albumin 2.4 GM/DL Calcium Level 8.1 MG/DL 8.0 MG/DL Magnesium Level 1.6 MG/DL Alkaline Phosphatase 110 U/L Aspartate Amino Transf (AST/SGOT) 22 U/L Alanine Aminotransferase (ALT/SGPT) 38 U/L Total Bilirubin 0.5 MG/DL Sodium Level 135 MEQ/L 145 MEQ/L Potassium Level 3.0 MEQ/L 3.4 MEQ/L Chloride Level 97 MEQ/L 107 MEQ/L Carbon Dioxide Level 25.4 MEQ/L 27.2 MEQ/L Anion Gap 13 MEQ/L 11 MEQ/L Estimat Glomerular Filtration Rate 87 ML/MIN 111 ML/MIN Total Creatine Kinase 45 U/L Troponin I LESS THAN 0.02 NG/ML Prothrombin Time 12.6 SEC Prothromb Time International Ratio 1.2 RATIO Activated Partial Thromboplast Time 23.3 SEC 148.3 SEC 65.8 SEC Differential Total Cells Counted 100 Neutrophils % (Manual) 49 % Band Neutrophils % 31 % Lymphocytes % 14 % Monocytes % 6 % Neutrophils # (Manual) 2.5 TH/MM3 Toxic Granulation 2+ Platelet Estimate LOW Platelet Morphology Comment NORMAL Tear Drop Cells 1+ Ovalocytes 1+ Test 01/10/18 10:33 01/10/18 13:17 01/10/18 14:42 Activated Partial Thromboplast Time GREATER THAN 277.5 SEC 28.5 SEC Hemoglobin 9.5 GM/DL Hematocrit 29.4 % Physical Examination HEENT:normocephalic; atraumatic; speaks clearly NECK: Neck is supple, CHEST: Diminished breath sounds CARDIAC: Regular tachycardic rhythm ABDOMEN: Large, Soft, nondistended, nontender to light palpation no hepatosplenomegaly; bowel sounds soft EXTREMITIES: No clubbing, cyanosis, or edema. SKIN: Pale CHARGE WEIGHER: Lightly dose input responds to verbal stimuli (Sara Silva) Assessment and Plan Assessment: (1) Normocytic anemia ICD Codes: D64.9 - Anemia, unspecified Status: Acute (2) Rectal cancer metastasized to bone ICD Codes: C20 - Malignant neoplasm of rectum; C79.51 - Secondary malignant neoplasm of bone Status: Acute Plan Chronic rectal bleeding off and on for the past 2 years during patient's colorectal cancer. Patient long-standing history with Dr. Hannah who did sigmoidoscopy to evaluate rectal bleeding approximately 2 weeks ago. is giving most of the history and is very comfortable with Dr. Gannon's care. Patient has right pulmonary emboli treated with anticoagulants. During this period of time rectal bleeding will be monitored Noted on CT angiography increased paraesophageal lymphopathy. Current patient denies any dysphagia nausea or vomiting Plan Monitor hemoglobin and other labs Monitored for any acute worsening of his rectal bleeding PPI IV Phenergan as needed for nausea Supportive care Discussed with medical secretary receptionist to consult Dr. Hannah for GI following her in this hospital stay. Patient's is very comfortable with Dr. Camarena and prefers to stay with her on physicians. Patient was seen by myself and Dr. Pierre, note written on his behalf (Sara Silva) Physician Comments Seen and discussed with . Will follow up with you. (Adama Pierre MD) Sara iSlva Jan 10, 2018 16:13 Adama Pierre MD Jan 10, 2018 21:16
[2018-01-10] MEDS: TAMSULOSIN HCL 0.4 MG CAP PO SCH (21:52)
--- NOTE | 2018-01-10 22:49 | MB ---
cc: El Perez MD DATE OF CONSULT: 01/10/2018 REASON FOR CONSULTATION: The patient with a history of stage IV colorectal cancer who presents to the emergency room with near syncope. HISTORY OF PRESENT ILLNESS: Mr. Mckeon is a 57-year-old male who has a history of stage IV colorectal cancer. He is currently undergoing palliative systemic chemotherapy consisting of FOLFIRI and panitumumab. He unfortunately has metastatic disease to the clivus bone, metastatic disease to the pelvic area, spine as well as local recurrence of the disease in the rectum. He now presents to the emergency room after he became lightheaded and while he was getting out of the shower he fell. His was able to stop the fall, but he did end up landing on the floor. He does not remember after that. EMS was called and the patient was brought to the emergency room. The patient was found to be hypotensive with a blood pressure of 100/60. The patient underwent CT angiogram on admission which showed a small to moderate right lung pulmonary emboli involving the upper and lower lobes. Doppler ultrasound of lower extremities did not show any metastatic disease. A chest x-ray did not show any pneumonia. The patient's blood pressure has remained low in the low 100s/60s. Currently, he is in the bed. He appears comfortable. He denies any chest pain. He denies any shortness of breath, no hemoptysis. He has a Painting catheter in place which has blood in it. Patient was started on heparin GTT. The patient's and daughter are present in the room during this examination. REVIEW OF SYSTEMS: A comprehensive review of system was completed which is negative except as described in HPI. PAST MEDICAL HISTORY: History of colorectal cancer, stage IV metastasis to the brain and spine, as well as to pelvic bones, history of metastasis to the liver. PAST SURGICAL HISTORY: Diverting colostomy, history of knee surgery, port placement. FAMILY HISTORY: Reviewed. It is significant for lung cancer in the family. SOCIAL HISTORY: He quit smoking in 1993. No alcohol abuse. No drug abuse. Lives with his . MEDICATIONS: Flomax 0.4 mg p.o. at bedtime, ____ 80 mg IV, Proscar 5 mg p.o. daily, morphine sulfate 60 mg p.o. q. 8 hours, Dilaudid 4 mg p.o. q. 4 hours p.r.n., Ativan 2 mg p.o. q. 8 hours p.r.n., Phenergan 25 mg p.o. q. 6 hours p.r.n. ALLERGIES: NO KNOWN DRUG ALLERGIES. LABORATORY DATA: WBC is 3.1, hemoglobin is 10.4, platelet count is 110. Sodium is 145, potassium 3.4, chloride 107, BUN is 4, GFR is 111, calcium is 8, albumin is 2.4. PHYSICAL EXAMINATION: VITAL SIGNS: Blood pressure is 107/66, pulse is 100, temperature 97.9, O2 saturations are 99% on room air. GENERAL: Chronically ill-appearing male in no apparent distress. HEENT: Pupils are equal, round, reactive to light. EOMI. No thrush. No lesions. NECK: Supple. No JVD, no bruits, no lymphadenopathy. CHEST: Clear to auscultation bilaterally. CARDIAC: S1, S2. Regular rate and rhythm. ABDOMEN: Soft, nontender, nondistended. Bowel sounds are present. EXTREMITIES: Nonedematous. No erythema, ____, cyanosis. GENITOURINARY: Painting catheter is in place with dark color urine. IMAGING: Reviewed in the EMR. ASSESSMENT AND PLAN: This is a 57-year-old male with a past medical history of stage IV colorectal cancer. He was diagnosed in 06/2016. He has metastatic disease upfront and tumor was not resectable. He has undergone multiple lines of treatment. He has KRAS wild type disease. He has metastasis to the bone and liver. He also has metastasis to the clivus bone in the skull. He now presents to the emergency room with syncope and hypotension. 1. Pulmonary embolism due to underlying malignancy and lack of mobility. I agree with heparin GTT. He had hematuria earlier. We will continue with heparin GTT at this point. Over the long-term, we will transition him to Lovenox 1 mg/kg b.i.d. This is the preferred treatment in malignancy. Doppler ultrasound of the lower extremity did not show any blood clot. 2. Anemia secondary to malignancy and chemotherapy. We will closely monitor his hemoglobin. Check hemoglobin twice a day. We will transfuse for a hemoglobin of 8 or less. 3. Thrombocytopenia, likely from chemotherapy and acute illness. Continue to monitor. Platelet count of 110,000 at this time. 4. Hypogammaglobulinemia and malnutrition. Will ask dietitian to see this patient. Ensure t.i.d. with meals. 5. Syncope and hypotension. His blood pressure has been low. We will give him IV hydration. Due to prior history of metastasis to the clivus, we will obtain an MRI of the brain with and without contrast to reassess for any metastatic disease. Thank you for allowing me to participate in the care of this patient. I will continue to follow this patient along. El Perez MD AMK/rt , 10:10 PM , 10:48 PM MTDKareen
[2018-01-11] VITALS (8 sets, daily range): BP systolic 101–125; BP diastolic 70–97; PULSE 97–128; RESP 16–18; TEMP 97–99; O2SAT 95–98
[2018-01-11] MEDS: SODIUM CHLOR 0.9% 1000 ML INJ 1,000 ML IV SCH ×2 (05:43→20:54)
[2018-01-11] MEDS: HYDROmorphone HCL 4 MG TAB PO PRN ×5 (05:46→22:10)
[2018-01-11] MEDS: PANTOPRAZOLE SOD 40 MG DELAYED RELEASE TAB PO SCH (08:22)
[2018-01-11] MEDS: MORPHINE SULFATE 60 MG CONTROLLED RELEASE TAB PO SCH ×2 (08:23→17:53)
[2018-01-11] MEDS: FINASTERIDE 5 MG TAB PO SCH (08:23)
[2018-01-11] MEDS: SODIUM CHLORIDE 0.9% FLUSH 10 ML FLUSH IV FLUSH SCH ×2 (09:00→20:37)
[2018-01-11 09:49] LABS: BASOPHIL % 0.7 % (0.0-2.0); EOSINOPHIL % 0.7 % (0.0-4.0); HEMATOCRIT 28.8 % (39.0-51.0); HEMOGLOBIN 9.5 GM/DL (13.0-17.0); LYMPHOCYTE # 0.3 TH/MM3 (1.0-4.8); MEAN CELL VOLUME 86.5 FL (80.0-100.0); MEAN CORPUSCULAR HEMOGLOBIN 28.5 PG (27.0-34.0); MEAN CORPUSCULAR HGB CONC 32.9 % (32.0-36.0); MEAN PLATELET VOLUME 8.3 FL (7.0-11.0); MONO % 10.9 % (0.0-8.0); MONOCYTE # 0.3 TH/MM3 (0-0.9); NEUT % 76.7 % (16.0-70.0); PLATELET COUNT 97 TH/MM3 (150-450); RED BLOOD COUNT 3.33 MIL/MM3 (4.50-5.90); RED CELL DISTRIBUTION WIDTH 19.6 % (11.6-17.2); WHITE BLOOD COUNT 2.6 TH/MM3 (4.0-11.0)
[2018-01-11 10:01] LABS: ALBUMIN 2.2 GM/DL (3.4-5.0); AST (GOT) 18 U/L (15-37); BICARBONATE 24.2 MEQ/L (21.0-32.0); BLOOD UREA NITROGEN 2 MG/DL (7-18); CALCIUM 8.1 MG/DL (8.5-10.1); CHLORIDE 102 MEQ/L (98-107); GLOMERULAR FILTRATION RATE 116 ML/MIN (>89); GLUCOSE,RANDOM 112 MG/DL (74-106); SODIUM (NA) 136 MEQ/L (136-145)
[2018-01-11 10:02] LABS: ALT (GPT) 33 U/L (12-78)
[2018-01-11 10:04] LABS: ALKALINE PHOSPHATASE 102 U/L (45-117); TOTAL BILIRUBIN ADULT 0.4 MG/DL (0.2-1.0); TOTAL PROTEIN 5.5 GM/DL (6.4-8.2)
[2018-01-11 10:31] LABS: BANDS 27 % (0-6); BASOPHILS 3 % (0-2); LYMPHOCYTES 9 % (9-44); METAMYELOCYTES 1 % (0-1); MONOCYTES 7 % (0-8); NEUTROPHIL # MANUAL DIFF 2.1 TH/MM3 (1.8-7.7); OVALOCYTES 1+ (NORMAL); POLYS (SEG NEUTROPHILS) 53 % (16-70); TEARDROP RBCS 1+ (NORMAL); TOXIC GRANULATION 1+ (NORMAL)
--- NOTE | 2018-01-11 11:15 | HHI.PR ---
Subjective Remarks "i am loopy " +BM, no n/v, no abd pain Objective Vitals Vital Signs Date Time Temp Pulse Resp B/P (MAP) Pulse Ox O2 Delivery O2 Flow Rate FiO2 01/11/18 08:00 97.0 106 18 112/70 (84) 95 01/11/18 04:27 99.0 107 18 101/74 (83) 95 01/10/18 23:57 110 01/10/18 23:54 97.1 108 18 102/75 (84) 94 01/10/18 20:25 97.6 114 18 116/72 (87) 96 01/10/18 17:00 96.3 102 17 96/52 (67) 97 01/10/18 16:38 01/10/18 12:00 97.9 100 17 107/66 (80) 99 Room Air I/O 01/10/18 01/10/18 01/10/18 01/11/18 01/11/18 01/11/18 07:00 15:00 23:00 07:00 15:00 23:00 Intake Total 100 ml 764 ml Output Total 2200 ml 800 ml 950 ml Balance -2100 ml -800 ml -186 ml Intake Oral 480 ml IV Total 100 ml 284 ml Output Urine Total 2200 ml 600 ml 950 ml Drainage Total 200 ml # Bowel Movements 1 Result Diagram: 01/11/18 0935 01/11/18 0935 Imaging Last Impressions Brain MRI 01/11/18 0000 Signed Impressions: Service Date/Time: Thursday, January 11, 2018 15:59 - CONCLUSION: 1. The examination demonstrates wide spread bony metastatic disease with involvement of the clivus and upper cervical spine. 2. No findings to indicate metastatic disease to the brain parenchyma are identified. Jamar Monahan MD Chest X-Ray 01/09/18 190 Signed Impressions: Service Date/Time: Tuesday, January 09, 2018 19:20 - CONCLUSION: No acute cardiopulmonary disease. Clyde Santoro MD Lower Extremity Ultrasound 01/09/18 0000 Signed Impressions: Service Date/Time: Tuesday, January 09, 2018 23:07 - CONCLUSION: Normal examination. Sina Meyer Jr., MD CT Angiography 01/09/18 0000 Signed Impressions: Service Date/Time: Tuesday, January 09, 2018 21:05 - CONCLUSION: 1. Small to moderate right lung pulmonary emboli involving the upper and lower lobes. 2. Mild bibasilar atelectasis. 3. Upper limits of normal to mildly enlarged paraesophageal lymph nodes. 4. Probable fatty liver. Clyde Santoro MD Objective Remarks GENERAL: This is a well-nourished, well-developed patient, in no apparent distress. CARDIOVASCULAR: Regular rate and rhythm without murmurs, gallops, or rubs. RESPIRATORY: Clear to auscultation. Breath sounds equal bilaterally. No wheezes , rales, or rhonchi. GASTROINTESTINAL: Abdomen soft, non-tender, nondistended. Normal active bowel sounds MUSCULOSKELETAL: Extremities without clubbing, cyanosis, or edema. NEURO: Alert & Oriented x4 to person, place, time, situation. Moves all ext x4 A/P Assessment and Plan 1. Small to moderate right-sided pulmonary embolism. started on Heparin drip then started Rectal bleed new Hemoglobin 9.5 will continue to monitor Heparin on Hold awaiting for Hematology consult, may need IVC filter, CT angiography increased paraesophageal lymphopathy, PE Negative lower extremity US, Stage IV Colorectal cancer, with continued elevation of his CEA, 2. Chronic rectal bleed on and off in a patient with Colorectal Cancer, receiving Chemotherapy by Doctor Perez his last chemo was last Sunday meaning two days ago, he was diagnosed in March 2016. status post chemotherapy and radiation therapy 08/2016 3. syncopal episode probable secondary to hemorrhage, hypotension, Anemia symptomatic, Pulmonary Emboli and possible Metastatic disease to the Brain was started on heparin and now has again Rectal Bleed may need IVC filter. Diverting colostomy 10/2016 4. Metastatic disease to Brain and Spine, and Colon status post radiation therapy 08/2017 5. Hydronephrosis secondary to Metastatic Colon cancer worsening 6. Intractable rectal pain secondary to malignancy. GI prophylaxis PPI drip DVT prophylaxis SCD chemoprophylaxis contraindicated due to Hemorrhage 01/10: patient seen in Emergency room, stable discussed with his and Daughter, no nausea, vomit or diarrhea, then the nurse called me the patient is having rectal bleed, he is well known to Doctor Don discussed with his WINDOWS APPLICATION DEVELOPER, started On Protonix drip and asked for GI specialist consult awaiting for Hematology and garnishment specialist consult. 01/11:appreciate GI, hematology consult , hem rec MRI brain which showed --no new mets or bleeding, Switch heparin GTT to Lovenox if no hematuria, monitor over night , poss dc on sunday GI rec ff outpt with CRS Hanny Mix MD Jan 11, 2018 11:15
--- NOTE | 2018-01-11 12:19 | HHI.GIFU ---
Subjective Remarks Pt resting in bed, just got dilaudid. he is having rectal pain. seen w/ hem/ onc. (Isabel Galeana) Objective Vitals I&O Vital Signs Date Time Temp Pulse Resp B/P (MAP) Pulse Ox O2 Delivery O2 Flow Rate FiO2 01/11/18 08:00 97.0 106 18 112/70 (84) 95 01/11/18 04:27 99.0 107 18 101/74 (83) 95 01/10/18 23:57 110 01/10/18 23:54 97.1 108 18 102/75 (84) 94 01/10/18 20:25 97.6 114 18 116/72 (87) 96 01/10/18 17:00 96.3 102 17 96/52 (67) 97 01/10/18 16:38 I/O 01/10/18 01/10/18 01/10/18 01/11/18 01/11/18 01/11/18 07:00 15:00 23:00 07:00 15:00 23:00 Intake Total 100 ml 764 ml Output Total 2200 ml 800 ml 950 ml Balance -2100 ml -800 ml -186 ml Intake Oral 480 ml IV Total 100 ml 284 ml Output Urine Total 2200 ml 600 ml 950 ml Drainage Total 200 ml # Bowel Movements 1 Laboratory Laboratory Tests Test 01/10/18 13:17 01/10/18 14:42 01/11/18 09:35 Activated Partial Thromboplast Time 28.5 Hemoglobin 9.5 9.5 Hematocrit 29.4 28.8 White Blood Count 2.6 Red Blood Count 3.33 Mean Corpuscular Volume 86.5 Mean Corpuscular Hemoglobin 28.5 Mean Corpuscular Hemoglobin Concent 32.9 Red Cell Distribution Width 19.6 Platelet Count 97 Mean Platelet Volume 8.3 Neutrophils (%) (Auto) 76.7 Lymphocytes (%) (Auto) 11.0 Monocytes (%) (Auto) 10.9 Eosinophils (%) (Auto) 0.7 Basophils (%) (Auto) 0.7 Neutrophils # (Auto) 2.0 Lymphocytes # (Auto) 0.3 Monocytes # (Auto) 0.3 Eosinophils # (Auto) 0.0 Basophils # (Auto) 0.0 CBC Comment AUTO DIFF Differential Total Cells Counted 100 Neutrophils % (Manual) 53 Band Neutrophils % 27 Lymphocytes % 9 Monocytes % 7 Basophils % 3 Neutrophils # (Manual) 2.1 Metamyelocytes 1 Differential Comment FINAL DIFF MANUAL Toxic Granulation 1+ Platelet Estimate LOW Platelet Morphology Comment NORMAL Tear Drop Cells 1+ Ovalocytes 1+ Blood Urea Nitrogen 2 Creatinine 0.70 Random Glucose 112 Total Protein 5.5 Albumin 2.2 Calcium Level 8.1 Alkaline Phosphatase 102 Aspartate Amino Transf (AST/SGOT) 18 Alanine Aminotransferase (ALT/SGPT) 33 Total Bilirubin 0.4 Sodium Level 136 Potassium Level 3.0 Chloride Level 102 Carbon Dioxide Level 24.2 Anion Gap 10 Estimat Glomerular Filtration Rate 116 Imaging Last Impressions Chest X-Ray 01/09/18 1901 Signed Impressions: Service Date/Time: Tuesday, January 09, 2018 19:20 - CONCLUSION: No acute cardiopulmonary disease. Clyde Santoro MD Lower Extremity Ultrasound 01/09/18 0000 Signed Impressions: Service Date/Time: Tuesday, January 09, 2018 23:07 - CONCLUSION: Normal examination. Sina Meyer Jr., MD CT Angiography 01/09/18 0000 Signed Impressions: Service Date/Time: Tuesday, January 09, 2018 21:05 - CONCLUSION: 1. Small to moderate right lung pulmonary emboli involving the upper and lower lobes. 2. Mild bibasilar atelectasis. 3. Upper limits of normal to mildly enlarged paraesophageal lymph nodes. 4. Probable fatty liver. Clyde Santoro MD Physical Exam HEENT: PERRL; normocephalic; atraumatic; no jaundice. CHEST: CTA CARDIAC: RRR ABDOMEN: Soft, protuberant, nontender; no hepatosplenomegaly; bowel sounds are present in all four quadrants. EXTREMITIES: No clubbing, cyanosis, or edema. SKIN: Normal; no rash; no jaundice. CYTOGENETICS TECHNOLOGIST: sleepy (Isabel Galeana RADIO STATION MANAGER) Assessment and Plan Assessment: (1) Normocytic anemia ICD Codes: D64.9 - Anemia, unspecified Status: Acute (2) Rectal cancer metastasized to bone ICD Codes: C20 - Malignant neoplasm of rectum; C79.51 - Secondary malignant neoplasm of bone Status: Acute Plan Chronic rectal bleeding off and on for the past 2 years during patient's colorectal cancer. Patient long-standing history with Dr. Hannah who did sigmoidoscopy to evaluate rectal bleeding approximately 2 weeks ago. is giving most of the history and is very comfortable with Dr. Gannon's care. Patient has right pulmonary emboli treated with anticoagulants. During this period of time rectal bleeding will be monitored Noted on CT angiography increased paraesophageal lymphopathy. Current patient denies any dysphagia nausea or vomiting 01/11/18 HH relatively stable. rectal bleeding is intermittent and chronic 2/2 colorectal mass. pt hs appt to f/u with Dr Gannon in future. Plan mgmt per hem/onc notify GI of active bleeding supportive care f/u with [facility] will sign off. please reconsult if needed. Patient was seen by myself and Dr. Pierre, note written on his behalf (Isabel Galeana) Physician Comments As above, will need to follow up with [facility] service and oncology. Please notify us if needed. (Adama Pierre MD) Isabel Galeana Jan 11, 2018 12:19 Adama Pierre MD Jan 11, 2018 13:42
--- NOTE | 2018-01-11 13:57 | PD.ONC.PN ---
Subjective Subjective Remarks Afebrile overnight. Patient resting in bed in nad. and daughter at bedside. Patient just received dilaudid prior to my interview. He is lethargic but alert and oriented. remembers that he came to the hospital after passing out. denies headache or pain at present. has no more hematuria. has rectal bleeding but per and daughter who care for him at home, the bleeding is his usual amount. Objective Data Date Time Temp Pulse Resp B/P (MAP) Pulse Ox O2 Delivery O2 Flow Rate FiO2 01/11/18 12:00 97.3 115 17 119/78 (92) 97 01/11/18 08:00 97.0 106 18 112/70 (84) 95 01/11/18 04:27 99.0 107 18 101/74 (83) 95 01/10/18 23:57 110 01/10/18 23:54 97.1 108 18 102/75 (84) 94 01/10/18 20:25 97.6 114 18 116/72 (87) 96 01/10/18 17:00 96.3 102 17 96/52 (67) 97 01/10/18 16:38 01/11/18 01/11/18 01/11/18 06:59 14:59 22:59 Intake Total 764 ml Output Total 950 ml Balance -186 ml Result Diagram: 01/11/18 0935 01/11/18 0935 Laboratory Results Laboratory Tests Test 01/10/18 14:42 01/11/18 09:35 Hemoglobin 9.5 GM/DL 9.5 GM/DL Hematocrit 29.4 % 28.8 % White Blood Count 2.6 TH/MM3 Red Blood Count 3.33 MIL/MM3 Mean Corpuscular Volume 86.5 FL Mean Corpuscular Hemoglobin 28.5 PG Mean Corpuscular Hemoglobin Concent 32.9 % Red Cell Distribution Width 19.6 % Platelet Count 97 TH/MM3 Mean Platelet Volume 8.3 FL Neutrophils (%) (Auto) 76.7 % Lymphocytes (%) (Auto) 11.0 % Monocytes (%) (Auto) 10.9 % Eosinophils (%) (Auto) 0.7 % Basophils (%) (Auto) 0.7 % Neutrophils # (Auto) 2.0 TH/MM3 Lymphocytes # (Auto) 0.3 TH/MM3 Monocytes # (Auto) 0.3 TH/MM3 Eosinophils # (Auto) 0.0 TH/MM3 Basophils # (Auto) 0.0 TH/MM3 CBC Comment AUTO DIFF Differential Total Cells Counted 100 Neutrophils % (Manual) 53 % Band Neutrophils % 27 % Lymphocytes % 9 % Monocytes % 7 % Basophils % 3 % Neutrophils # (Manual) 2.1 TH/MM3 Metamyelocytes 1 % Differential Comment FINAL DIFF MANUAL Toxic Granulation 1+ Platelet Estimate LOW Platelet Morphology Comment NORMAL Tear Drop Cells 1+ Ovalocytes 1+ Blood Urea Nitrogen 2 MG/DL Creatinine 0.70 MG/DL Random Glucose 112 MG/DL Total Protein 5.5 GM/DL Albumin 2.2 GM/DL Calcium Level 8.1 MG/DL Alkaline Phosphatase 102 U/L Aspartate Amino Transf (AST/SGOT) 18 U/L Alanine Aminotransferase (ALT/SGPT) 33 U/L Total Bilirubin 0.4 MG/DL Sodium Level 136 MEQ/L Potassium Level 3.0 MEQ/L Chloride Level 102 MEQ/L Carbon Dioxide Level 24.2 MEQ/L Anion Gap 10 MEQ/L Estimat Glomerular Filtration Rate 116 ML/MIN Administered Medications Medications (Trade) Dose Ordered Sig/Jason Route PRN Reason Start Time Stop Time Status Last Admin Dose Admin Sodium Chloride 1,000 ml @ 100 mls/hr Q10H IV 01/09/18 21:54 01/11/18 05:43 Sodium Chloride (NS Flush) 2 ml BID IV FLUSH 01/10/18 09:00 01/11/18 09:00 Finasteride (Proscar) 5 mg DAILY PO 01/10/18 09:00 01/11/18 08:23 Hydromorphone HCl (Dilaudid) 4 mg Q4H PRN PO PAIN 01/09/18 22:45 01/11/18 09:30 Lorazepam (Ativan) 2 mg Q8HR PRN PO SEE LABEL COMMENTS 01/09/18 22:45 01/09/18 23:34 Pantoprazole Sodium (Protonix) 40 mg DAILY PO 01/10/18 09:00 01/11/18 08:22 Tamsulosin HCl (Flomax) 0.4 mg HS PO 01/10/18 21:00 01/10/18 21:52 Morphine Sulfate (Oramorph Sr) 60 mg Q8H PO 01/10/18 00:00 01/11/18 08:23 Pantoprazole Sodium 80 mg/ Sodium Chloride 100 ml @ 10 mls/hr CONTINUOUS IV 01/10/18 15:00 01/10/18 20:09 Objective Remarks GENERAL: Middle aged male, lying in bed resting. SKIN: Warm and dry. HEAD: Normocephalic. EYES: No injection or drainage. NECK: Supple, trachea midline. CARDIOVASCULAR: Regular rate and rhythm RESPIRATORY: Breath sounds equal bilaterally. No accessory muscle use. GASTROINTESTINAL: Abdomen soft, non-tender, nondistended. EXTREMITIES: No cyanosis NEUROLOGICAL: awake and alert, normal speech. moving all extremities. Assessment/Plan Problem List: (1) Metastatic colorectal cancer ICD Codes: C78.5 - Secondary malignant neoplasm of large intestine and rectum Plan: --will obtain MRI brain to reassess for brain mets. history of stage IV colorectal cancer. currently undergoing palliative systemic chemotherapy consisting of FOLFIRI and panitumumab. -- mets to the liver, vertebral spine, pelvic bone and to the brain (2) Normocytic anemia ICD Codes: D64.9 - Anemia, unspecified Status: Acute Plan: --Anemia secondary to malignancy and chemotherapy. --closely monitor his hemoglobin. Check hemoglobin twice a day. --transfuse for a hemoglobin of 8 or less. (3) Pulmonary embolism ICD Codes: I26.99 - Other pulmonary embolism without acute cor pulmonale Status: Acute Plan: --resume heparin gtt after MRI brain. --Doppler ultrasound of lower extremities did not show any metastatic disease. --will start on Lovenox 1mg/kg BID once close to discharge (4) Thrombocytopenia ICD Codes: D69.6 - Thrombocytopenia, unspecified Plan: --d/t chemotherapy --monitor and transfuse as needed. (5) Syncope ICD Codes: R55 - Syncope and collapse Status: Acute Plan: --likely d/t hypotension. --receiving IV hydration Assessment 57y/o male with stage IV colorectal cancer admitted with near syncope, found to have PE on CTA. Plan 1. await MRI brain 2. start heparin gtt 3. monitor CBC 4. monitor H/H closely. Attending Statement The exam, history, and the medical decision-making described in the above note were completed with the assistance of the mid-level provider. I reviewed and agree with the findings presented. I attest that I had a [id number] encounter with the patient on the same day, and personally performed and documented my assessment and findings in the medical record. MRI brain reviewed --no new mets or bleeding Switch heparin GTT to Lovenox if no hematuria d/c home on Sunday if stable Problem Qualifiers (1) Pulmonary embolism: Qualified Codes: I26.99 - Other pulmonary embolism without acute cor pulmonale (2) Syncope: Qualified Codes: R55 - Syncope and collapse Paige Serrano Jan 11, 2018 13:57 El Perez MD Jan 11, 2018 19:19
[2018-01-11 14:00] LABS: HEMATOCRIT 28.4 % (39.0-51.0); HEMOGLOBIN 9.4 GM/DL (13.0-17.0); MEAN CELL VOLUME 86.4 FL (80.0-100.0); MEAN CORPUSCULAR HEMOGLOBIN 28.4 PG (27.0-34.0); MEAN CORPUSCULAR HGB CONC 32.9 % (32.0-36.0); MEAN PLATELET VOLUME 8.7 FL (7.0-11.0); PLATELET COUNT 109 TH/MM3 (150-450); RED BLOOD COUNT 3.29 MIL/MM3 (4.50-5.90); WHITE BLOOD COUNT 2.7 TH/MM3 (4.0-11.0)
--- NOTE | 2018-01-11 16:59 | RADRPT ---
EXAM DATE/TIME: 01/11/2018 15:59 [facility] COMPARISON: MRI SCREENING SPINE W & W/O CONTRAST, September 16, 2017, 13:04. INDICATIONS : Syncope. CONTRAST: 20 cc Omniscan (gadodiamide) IV MEDICAL HISTORY : Carcinoma, colon. Metastatic, brain. Metastatic, bone SURGICAL HISTORY : Colostomy. Knee, hand. ENCOUNTER: Initial ACUITY: 1 day PAIN SCORE: 0/10 LOCATION: cranial TECHNIQUE: Multiplanar, multisequence MRI of the brain was performed both prior to and following the administrat ion of paramagnetic contrast. FINDINGS: CEREBRUM: The ventricles are normal for age. No evidence of midline shift, mass lesion, hemorrhage or acute in farction. No extraaxial fluid collections are seen. The pituitary gland and suprasellar cistern are normal in configuration. WHITE MATTER: No significant signal abnormalities are seen in the white matter. POSTERIOR FOSSA: The cerebellum and brainstem are intact. The 4th ventricle is midline. The cerebellopontine angle is unremarkable. The cerebellar tonsils are normal in position. DIFFUSION IMAGING: No focal areas of restricted diffusion are seen. No evidence of acute infarction. EXTRACRANIAL: The examination demonstrates expansion of the clivus. There is diffuse enhancement post contrast mini stration. There are numerous lesions identified within the upper cervical spine as well. Findings wou ld indicate widespread bony metastatic disease. POST-CONTRAST: No abnormal areas of parenchymal or dural enhancement. No evidence of blood-brain barrier breakdown. CONCLUSION: 1. The examination demonstrates wide spread bony metastatic disease with involvement of the clivus an d upper cervical spine. 2. No findings to indicate metastatic disease to the brain parenchyma are identified. Jamar Monahan MD on January 11, 2018 at 16:53 Board Certified Radiologist. This report was verified electronically.
[2018-01-11] MEDS ORDERED: POTASSIUM CHLORIDE INJ 30 MEQ in SODIUM CHLORIDE 0.9% INJ 100 ML IV ONE (17:00)
[2018-01-11] MEDS ORDERED: GADODIAMIDE PF 287 MG/ML 20 ML VIAL (for RAD MRI) IVCONTRAST ONE (17:43)
[2018-01-11] MEDS: HEPARIN-D5W 25,000 U/250 ML 250 ML IV PRN (17:44)
[2018-01-11] MEDS: LORazepam 2 MG TAB PO PRN (17:53)
[2018-01-11 18:20] LABS: INTERNATIONAL NORMALIZED RATIO 1.3 RATIO; PROTHROMBIN TIME - PATIENT 13.1 SEC (9.8-11.6)
[2018-01-11] MEDS ORDERED: METOPROLOL TARTRATE 5 MG/5 ML VIAL IV PUSH ONE (20:00)
[2018-01-11] MEDS: TAMSULOSIN HCL 0.4 MG CAP PO SCH (20:37)
[2018-01-12] VITALS (13 sets, daily range): BP systolic 104–119; BP diastolic 64–71; PULSE 108–134; RESP 16–18; TEMP 98.3–101.3; O2SAT 94–98
[2018-01-12] MEDS: MORPHINE SULFATE 60 MG CONTROLLED RELEASE TAB PO SCH ×3 (01:13→16:30)
[2018-01-12] MEDS: HYDROmorphone HCL 4 MG TAB PO PRN ×4 (05:21→17:39)
[2018-01-12 06:32] LABS: HEMATOCRIT 26.7 % (39.0-51.0); MEAN CELL VOLUME 86.5 FL (80.0-100.0); MEAN CORPUSCULAR HGB CONC 33.5 % (32.0-36.0); MEAN PLATELET VOLUME 8.9 FL (7.0-11.0); PLATELET COUNT 100 TH/MM3 (150-450); RED BLOOD COUNT 3.09 MIL/MM3 (4.50-5.90); RED CELL DISTRIBUTION WIDTH 19.4 % (11.6-17.2); WHITE BLOOD COUNT 2.7 TH/MM3 (4.0-11.0)
--- NOTE | 2018-01-12 08:40 | PD.ONC.PN ---
Subjective Subjective Remarks Tmax 100.6 overnight. Patient resting in room. feeling okay today. had his normal small amount of rectal bleeding. no increase in bleeding. no hematuria. Objective Data Date Time Temp Pulse Resp B/P (MAP) Pulse Ox O2 Delivery O2 Flow Rate FiO2 01/12/18 07:00 128 01/12/18 05:23 100.6 125 16 104/66 (79) 94 01/12/18 04:00 124 01/12/18 01:14 100.4 120 16 119/71 (87) 97 01/12/18 00:00 117 01/11/18 20:45 97 01/11/18 20:32 98.5 120 17 119/74 (89) 98 01/11/18 20:22 128 16 114/97 (103) 97 01/11/18 20:00 119 01/11/18 17:00 97.6 125 18 125/83 (97) 97 01/11/18 12:00 97.3 115 17 119/78 (92) 97 01/12/18 01/12/18 01/12/18 07:00 15:00 23:00 Intake Total 480 ml Output Total 3100 ml Balance -2620 ml Result Diagram: 01/12/18 0520 01/11/18 0935 Laboratory Results Laboratory Tests Test 01/11/18 09:35 01/11/18 13:45 01/11/18 17:37 01/11/18 21:30 White Blood Count 2.6 TH/MM3 2.7 TH/MM3 Red Blood Count 3.33 MIL/MM3 3.29 MIL/MM3 Hemoglobin 9.5 GM/DL 9.4 GM/DL Hematocrit 28.8 % 28.4 % Mean Corpuscular Volume 86.5 FL 86.4 FL Mean Corpuscular Hemoglobin 28.5 PG 28.4 PG Mean Corpuscular Hemoglobin Concent 32.9 % 32.9 % Red Cell Distribution Width 19.6 % 20.0 % Platelet Count 97 TH/MM3 109 TH/MM3 Mean Platelet Volume 8.3 FL 8.7 FL Neutrophils (%) (Auto) 76.7 % Lymphocytes (%) (Auto) 11.0 % Monocytes (%) (Auto) 10.9 % Eosinophils (%) (Auto) 0.7 % Basophils (%) (Auto) 0.7 % Neutrophils # (Auto) 2.0 TH/MM3 Lymphocytes # (Auto) 0.3 TH/MM3 Monocytes # (Auto) 0.3 TH/MM3 Eosinophils # (Auto) 0.0 TH/MM3 Basophils # (Auto) 0.0 TH/MM3 CBC Comment AUTO DIFF Differential Total Cells Counted 100 Neutrophils % (Manual) 53 % Band Neutrophils % 27 % Lymphocytes % 9 % Monocytes % 7 % Basophils % 3 % Neutrophils # (Manual) 2.1 TH/MM3 Metamyelocytes 1 % Differential Comment FINAL DIFF MANUAL Toxic Granulation 1+ Platelet Estimate LOW Platelet Morphology Comment NORMAL Tear Drop Cells 1+ Ovalocytes 1+ Blood Urea Nitrogen 2 MG/DL Creatinine 0.70 MG/DL Random Glucose 112 MG/DL Total Protein 5.5 GM/DL Albumin 2.2 GM/DL Calcium Level 8.1 MG/DL Alkaline Phosphatase 102 U/L Aspartate Amino Transf (AST/SGOT) 18 U/L Alanine Aminotransferase (ALT/SGPT) 33 U/L Total Bilirubin 0.4 MG/DL Sodium Level 136 MEQ/L Potassium Level 3.0 MEQ/L Chloride Level 102 MEQ/L Carbon Dioxide Level 24.2 MEQ/L Anion Gap 10 MEQ/L Estimat Glomerular Filtration Rate 116 ML/MIN Activated Partial Thromboplast Time 39.9 SEC 29.3 SEC 34.8 SEC Prothrombin Time 13.1 SEC Prothromb Time International Ratio 1.3 RATIO Fibrinogen 681 mg/dL Test 01/12/18 05:20 White Blood Count 2.7 TH/MM3 Red Blood Count 3.09 MIL/MM3 Hemoglobin 9.0 GM/DL Hematocrit 26.7 % Mean Corpuscular Volume 86.5 FL Mean Corpuscular Hemoglobin 29.0 PG Mean Corpuscular Hemoglobin Concent 33.5 % Red Cell Distribution Width 19.4 % Platelet Count 100 TH/MM3 Mean Platelet Volume 8.9 FL Activated Partial Thromboplast Time 43.6 SEC Culture Results Microbiology Date/Time Source Procedure Growth Status 01/11/18 21:30 Stool Stool Stool Occult Blood ([facility]) - Final HEMOCCULT NEGATIVE Complete Administered Medications Medications (Trade) Dose Ordered Sig/Jason Route PRN Reason Start Time Stop Time Status Last Admin Dose Admin Sodium Chloride 1,000 ml @ 100 mls/hr Q10H IV 01/09/18 21:54 01/11/18 20:54 Sodium Chloride (NS Flush) 2 ml BID IV FLUSH 3/15/18 09:00 01/11/18 20:37 Finasteride (Proscar) 5 mg DAILY PO 01/10/18 09:00 01/11/18 08:23 Hydromorphone HCl (Dilaudid) 4 mg Q4H PRN PO PAIN 01/09/18 22:45 01/12/18 05:21 Lorazepam (Ativan) 2 mg Q8HR PRN PO SEE LABEL COMMENTS 01/09/18 22:45 01/11/18 17:53 Pantoprazole Sodium (Protonix) 40 mg DAILY PO 01/10/18 09:00 01/11/18 08:22 Tamsulosin HCl (Flomax) 0.4 mg HS PO 01/10/18 21:00 01/11/18 20:37 Morphine Sulfate (Oramorph Sr) 60 mg Q8H PO 01/10/18 00:00 01/12/18 01:13 Heparin Sodium/ Dextrose 250 ml @ 18 mls/hr TITRATE PRN IV Coagulation Management 01/11/18 12:15 01/11/18 17:44 Objective Remarks GENERAL: Middle aged male, supine in bed resting. SKIN: Warm and dry. HEAD: Normocephalic. EYES: No injection or drainage. NECK: Supple, trachea midline. CARDIOVASCULAR: +S1/S2, tachy RESPIRATORY: Breath sounds equal bilaterally. No accessory muscle use. GASTROINTESTINAL: Abdomen soft, non-tender, nondistended. EXTREMITIES: No cyanosis NEUROLOGICAL: awake and alert, normal speech. moving all extremities. Assessment/Plan Assessment 57y/o male with stage IV colorectal cancer admitted with near syncope, found to have PE on CTA. Plan 1. check U/A for fever 2. continue heparin gtt today. monitor closely for bleeding. will start Lovenox tomorrow if tolerating heparin. 3. monitor CBC Attending Statement The exam, history, and the medical decision-making described in the above note were completed with the assistance of the mid-level provider. I reviewed and agree with the findings presented. I attest that I had a [id number] encounter with the patient on the same day, and personally performed and documented my assessment and findings in the medical record. having continued blood per rectum. will follow cbc to see if he can tolerate heparin without excessive or life threatening bleeding. if he has excessive blood loss would consider umbrella in spite of negative ultrasound. situation worrisome without ideal solution. spoke with . Paige Serrano Jan 12, 2018 08:40 Dylan Polanco MD Jan 12, 2018 13:11
[2018-01-12] MEDS: FINASTERIDE 5 MG TAB PO SCH (09:03)
[2018-01-12] MEDS: PANTOPRAZOLE SOD 40 MG DELAYED RELEASE TAB PO SCH (09:03)
[2018-01-12] MEDS: SODIUM CHLORIDE 0.9% FLUSH 10 ML FLUSH IV FLUSH SCH ×2 (09:05→21:52)
[2018-01-12] MEDS ORDERED: CARBOXYMETHYLCELL SOD 0.5% OPTH SOLN 15 ML BTL EACH EYE PRN (09:30)
[2018-01-12 09:44] LABS: BILIRUBIN, URINE NEG (NEG); BLOOD, URINE MOD (NEG); GLUCOSE,URINE NEG (NEG); KETONE, URINE NEG (NEG); MUCUS URINE FEW /lpf (OCC); NITRITE,URINE NEG (NEG); URINE COLOR LIGHT-YELLOW (YELLW/STRAW); URINE LEUKOCYTE ESTERASE NEG (NEG)
[2018-01-12] MEDS: LORazepam 2 MG TAB PO PRN (12:00)
[2018-01-12] MEDS: SODIUM CHLOR 0.9% 1000 ML INJ 1,000 ML IV SCH ×3 (12:01→23:17)
--- NOTE | 2018-01-12 12:36 | HHI.PR ---
Subjective Remarks Follow-up colorectal cancer/right sided pulmonary emboli/chronic rectal bleeding 01/12/18-patient seen and examined-patient spiking fevers, however denies any chest pain or shortness of breath. Not Much of an appetite. by the bedside. Brain MRI without any evidence of metastases. Denies any syncopal episode Objective Vitals Vital Signs Date Time Temp Pulse Resp B/P (MAP) Pulse Ox O2 Delivery O2 Flow Rate FiO2 01/12/18 11:32 99.2 108 18 105/70 (82) 98 01/12/18 08:57 99.7 123 16 108/68 (81) 95 01/12/18 07:00 128 01/12/18 05:23 100.6 125 16 104/66 (79) 94 01/12/18 04:00 124 01/12/18 01:14 100.4 120 16 119/71 (87) 97 01/12/18 00:00 117 01/11/18 20:45 97 01/11/18 20:32 98.5 120 17 119/74 (89) 98 01/11/18 20:22 128 16 114/97 (103) 97 01/11/18 20:00 119 01/11/18 17:00 97.6 125 18 125/83 (97) 97 I/O 01/11/18 01/11/18 01/11/18 01/12/18 01/12/18 01/12/18 07:00 15:00 23:00 07:00 15:00 23:00 Intake Total 764 ml 600 ml 240 ml 480 ml Output Total 950 ml 3400 ml 3100 ml Balance -186 ml -2800 ml 240 ml -2620 ml Intake Oral 480 ml 600 ml 240 ml 480 ml IV Total 284 ml Output Urine Total 950 ml 3400 ml 2700 ml Stool Total 400 ml # Bowel Movements 1 Result Diagram: 01/12/18 0520 01/11/18 0935 Imaging Last Impressions Brain MRI 01/11/18 0000 Signed Impressions: Service Date/Time: Thursday, January 11, 2018 15:59 - CONCLUSION: 1. The examination demonstrates wide spread bony metastatic disease with involvement of the clivus and upper cervical spine. 2. No findings to indicate metastatic disease to the brain parenchyma are identified. Jamar Monahan MD Chest X-Ray 01/09/18 1901 Signed Impressions: Service Date/Time: Tuesday, January 09, 2018 19:20 - CONCLUSION: No acute cardiopulmonary disease. Clyde Santoro MD Lower Extremity Ultrasound 01/09/18 0000 Signed Impressions: Service Date/Time: Tuesday, January 09, 2018 23:07 - CONCLUSION: Normal examination. Sina Meyer Jr., MD CT Angiography 01/09/18 0000 Signed Impressions: Service Date/Time: Tuesday, January 09, 2018 21:05 - CONCLUSION: 1. Small to moderate right lung pulmonary emboli involving the upper and lower lobes. 2. Mild bibasilar atelectasis. 3. Upper limits of normal to mildly enlarged paraesophageal lymph nodes. 4. Probable fatty liver. Clyde Snatoro MD Objective Remarks GENERAL: NAD SKIN: Warm and dry. HEAD: Normocephalic. EYES: No scleral icterus. No injection or drainage. NECK: Supple, trachea midline. No JVD or lymphadenopathy. CARDIOVASCULAR: Regular rate and rhythm without murmurs, gallops, or rubs. RESPIRATORY: Breath sounds equal bilaterally. No accessory muscle use. GASTROINTESTINAL: Abdomen soft, non-tender, nondistended. MUSCULOSKELETAL: No cyanosis, or edema. BACK: Nontender without obvious deformity. No CVA tenderness. A/P Problem List: (1) Pulmonary embolism ICD Code: I26.99 - Other pulmonary embolism without acute cor pulmonale Status: Acute (2) Metastatic cancer ICD Code: C79.9 - Secondary malignant neoplasm of unspecified site Status: Acute (3) Metastatic colorectal cancer ICD Code: C78.5 - Secondary malignant neoplasm of large intestine and rectum Assessment and Plan 57-year-old man with Pulmonary embolism Currently on heparin drip and likely switch to Lovenox subcutaneous every 12 hours 01/13/18 Appreciate input from oncology History of stage IV colorectal cancer with metastases Brain MRI 01/11/18 without any evidence of metastasis disease status post radiation therapy 08/2017 Management per oncology Chronic pain syndrome Secondary to malignancy Continue with Oramorph Syncope-resolved History of chronic rectal bleed Patient with history of colorectal cancer H&H stable Febrile episodes UA pending and treat accordingly GI prophylaxis PPI DVT prophylaxis SCD chemoprophylaxis contraindicated due to Hemorrhage Problem Qualifiers (1) Pulmonary embolism: Qualified Codes: I26.99 - Other pulmonary embolism without acute cor pulmonale Devyn Gee MD 17, 2018 12:36
[2018-01-12] MEDS ORDERED: POTASSIUM CHLORIDE 10 MEQ CONTROLLED RELEASE TAB PO ONE (12:45)
[2018-01-12] MEDS: HEPARIN-D5W 25,000 U/250 ML 250 ML IV PRN (13:16)
[2018-01-12 14:21] LABS: BICARBONATE 26.8 MEQ/L (21.0-32.0); CALCIUM 7.5 MG/DL (8.5-10.1); CREATININE 0.63 MG/DL (0.60-1.30)
[2018-01-12] MEDS ORDERED: POTASSIUM CHLOR 40 MEQ PREMIX 100 ML IV ONE (15:30)
[2018-01-12 17:00] LABS: HEMOGLOBIN 8.9 GM/DL (13.0-17.0)
--- NOTE | 2018-01-12 18:21 | EKG ---
Date Performed: 01/12/2018 Time Performed: 09:07:24 PTAGE: 57 years EKG: Sinus tachycardia. Extensive T wave changes are nonspecific Borderline ECG Compared to PREVIOUS TRACING , no change. PREVIOUS TRACIN01/09/2018 19.04 DOCTOR: Dylan Rocha Interpretating Date/Time 01/12/2018 18:18:45
[2018-01-12] MEDS ORDERED: VANCOMYCIN INJ 1,000 MG in SODIUM CHLOR 0.9% 250 ML INJ 250 ML IV SCH (21:45)
[2018-01-12] MEDS ORDERED: Vancomycin Consult Pharmacy 1 EA OTHER SCH (21:45)
[2018-01-12] MEDS: TAMSULOSIN HCL 0.4 MG CAP PO SCH (21:51)
[2018-01-12] MEDS: MAGNESIUM OXIDE 400 MG TAB PO SCH (21:51)
[2018-01-12] MEDS: ACETAMINOPHEN 325 MG TAB PO PRN (21:59)
--- NOTE | 2018-01-12 22:21 | RADRPT ---
EXAM DATE/TIME: 01/12/2018 22:02 [facility] COMPARISON: No previous studies available for comparison. INDICATIONS : Fever and congestion MEDICAL HISTORY : Carcinoma, colon. SURGICAL HISTORY : None. ENCOUNTER: Subsequent ACUITY: 1 day PAIN SCORE: 0/10 LOCATION: Bilateral chest FINDINGS: A single view of the chest demonstrates [id number] in superior vena cava. Subsegmental basilar air space disease. No effusion or pneumothorax. CONCLUSION: 1. Subsegmental basilar opacity, probably atelectasis. [id number] in superior vena cava. Sigifredo Valdovinos MD on January 12, 2018 at 22:18 Board Certified Radiologist. This report was verified electronically.
[2018-01-12 22:29] LABS: BILIRUBIN, URINE NEG (NEG); BLOOD, URINE MOD (NEG); GLUCOSE,URINE NEG (NEG); KETONE, URINE NEG (NEG); NITRITE,URINE NEG (NEG); PH, URINE 5.5 (5.0-8.5); URINE COLOR LIGHT-YELLOW (YELLW/STRAW); URINE LEUKOCYTE ESTERASE TRACE (NEG)
[2018-01-12] MEDS: CEFEPIME INJ 2,000 MG in SODIUM CHLORIDE 0.9% INJ 100 ML IV SCH (23:17)
[2018-01-13] VITALS (27 sets, daily range): BP systolic 94–129; BP diastolic 53–72; PULSE 93–138; RESP 18–20; TEMP 97.9–101.2; O2SAT 96–100
[2018-01-13] MEDS ORDERED: VANCOMYCIN INJ 2,000 MG in SODIUM CHLORID 0.9% 500 ML INJ 500 ML IV SCH ×2
[2018-01-13] MEDS: MORPHINE SULFATE 60 MG CONTROLLED RELEASE TAB PO SCH
[2018-01-13] MEDS ORDERED: SODIUM CHLOR 0.9% 1000 ML INJ 1,000 ML IV ONE ×2 (00:30→08:00)
[2018-01-13] MEDS ORDERED: diphenhydrAMINE HCL 50 MG/ML VIAL IV PUSH PRN (02:15)
[2018-01-13] MEDS: ACETAMINOPHEN 325 MG TAB PO PRN ×4 (04:59→23:40)
[2018-01-13] MEDS: CEFEPIME INJ 2,000 MG in SODIUM CHLORIDE 0.9% INJ 100 ML IV SCH ×3 (05:00→14:27)
[2018-01-13 06:03] LABS: AUTOMATED NEUTROPHIL # 1.3 TH/MM3 (1.8-7.7); BASOPHIL % 0.7 % (0.0-2.0); EOSINOPHIL % 1.6 % (0.0-4.0); HEMATOCRIT 26.2 % (39.0-51.0); HEMOGLOBIN 8.6 GM/DL (13.0-17.0); LYMPH % 20.9 % (9.0-44.0); LYMPHOCYTE # 0.4 TH/MM3 (1.0-4.8); MEAN CORPUSCULAR HEMOGLOBIN 28.5 PG (27.0-34.0); MEAN CORPUSCULAR HGB CONC 32.8 % (32.0-36.0); MEAN PLATELET VOLUME 9.3 FL (7.0-11.0); MONO % 18.1 % (0.0-8.0); MONOCYTE # 0.4 TH/MM3 (0-0.9); NEUT % 58.7 % (16.0-70.0); PLATELET COUNT 116 TH/MM3 (150-450); RED BLOOD COUNT 3.01 MIL/MM3 (4.50-5.90); RED CELL DISTRIBUTION WIDTH 19.8 % (11.6-17.2); WHITE BLOOD COUNT 2.1 TH/MM3 (4.0-11.0)
[2018-01-13 06:11] LABS: ALBUMIN 2.1 GM/DL (3.4-5.0); ALT (GPT) 26 U/L (12-78); AST (GOT) 16 U/L (15-37); BICARBONATE 24.7 MEQ/L (21.0-32.0); BLOOD UREA NITROGEN 1 MG/DL (7-18); CALCIUM 7.5 MG/DL (8.5-10.1); CHLORIDE 109 MEQ/L (98-107); CREATININE 0.57 MG/DL (0.60-1.30); GLOMERULAR FILTRATION RATE 147 ML/MIN (>89); GLUCOSE,RANDOM 98 MG/DL (74-106); SODIUM (NA) 143 MEQ/L (136-145)
[2018-01-13 06:14] LABS: ALKALINE PHOSPHATASE 90 U/L (45-117); TOTAL BILIRUBIN ADULT 0.5 MG/DL (0.2-1.0); TOTAL PROTEIN 5.5 GM/DL (6.4-8.2)
[2018-01-13] MEDS: HYDROmorphone HCL 4 MG TAB PO PRN (06:15)
[2018-01-13] MEDS: HEPARIN-D5W 25,000 U/250 ML 250 ML IV PRN (07:40)
[2018-01-13] MEDS: MAGNESIUM OXIDE 400 MG TAB PO SCH ×2 (09:33→21:45)
[2018-01-13] MEDS: FINASTERIDE 5 MG TAB PO SCH (09:33)
[2018-01-13] MEDS: PANTOPRAZOLE SOD 40 MG DELAYED RELEASE TAB PO SCH (09:33)
[2018-01-13] MEDS: metroNIDAZOLE 500 MG INJ 100 ML IV SCH ×2 (09:33→16:15)
[2018-01-13] MEDS: SODIUM CHLORIDE 0.9% FLUSH 10 ML FLUSH IV FLUSH SCH ×2 (09:36→20:02)
[2018-01-13] MEDS: MORPHINE SULFATE 2 MG/ML INJ IV PUSH PRN ×6 (09:40→23:25)
--- NOTE | 2018-01-13 09:56 | HHI.FF ---
Face to Face Verification Diagnosis: (1) Metastatic colorectal cancer Physical Therapy Order: Evaluate and Treat, Strength and gait training Home Health Nursing Order: Medical education Nursing assessment with vital signs I have seen patient Kayode Mckeon on 01/13/18. My clinical findings support the need for the requested home health care services because: Ltd mobility - disease progression I certify that my clinical findings support that this patient is homebound because: Unsteady gait/balance Paige Serrano Jan 13, 2018 09:56
--- NOTE | 2018-01-13 10:02 | PD.ONC.PN ---
Subjective Subjective Remarks Tmax 101.3 overnight. Patient resting in bed. Overnight he stated to develop hallucinations and become lethargic. his overnight dose of oramorph was held due to these symptoms. he was also tachycardic and spike fevers overnight. Objective Data Date Time Temp Pulse Resp B/P (MAP) Pulse Ox O2 Delivery O2 Flow Rate FiO2 01/13/18 09:36 100.3 01/13/18 08:15 121 01/13/18 08:00 97.9 120 18 110/68 (82) 97 01/13/18 04:12 120 01/13/18 04:00 100.3 128 20 112/64 (80) 96 01/13/18 00:13 138 01/12/18 23:49 100.6 134 18 113/68 (83) 95 01/12/18 21:59 101.3 01/12/18 20:34 113 01/12/18 20:00 100.6 119 18 107/69 (82) 98 01/12/18 15:27 98.3 115 16 104/64 (77) 98 01/12/18 11:32 99.2 108 18 105/70 (82) 98 01/12/18 11:00 111 01/13/18 01/13/18 01/13/18 07:00 15:00 23:00 Intake Total 240 ml 1000 ml Output Total 2050 ml Balance -1810 ml 1000 ml Result Diagram: 01/13/18 0500 01/13/18 0500 Laboratory Results Laboratory Tests Test 01/12/18 11:20 01/12/18 13:30 01/12/18 16:40 01/12/18 18:16 Activated Partial Thromboplast Time 47.9 SEC 45.6 SEC Blood Urea Nitrogen 2 MG/DL Creatinine 0.63 MG/DL Random Glucose 117 MG/DL Calcium Level 7.5 MG/DL Sodium Level 138 MEQ/L Potassium Level 2.9 MEQ/L Chloride Level 103 MEQ/L Carbon Dioxide Level 26.8 MEQ/L Anion Gap 8 MEQ/L Estimat Glomerular Filtration Rate 131 ML/MIN Magnesium Level 1.6 MG/DL Hemoglobin 8.9 GM/DL Hematocrit 27.0 % Test 01/12/18 22:00 01/12/18 23:30 01/13/18 05:00 Urine Color LIGHT-YELLOW Urine Turbidity CLEAR Urine pH 5.5 Urine Specific Ida 1.002 Urine Protein NEG mg/dL Urine Glucose (UA) NEG mg/dL Urine Ketones NEG mg/dL Urine Occult Blood MOD Urine Nitrite NEG Urine Bilirubin NEG Urine Urobilinogen LESS THAN 2.0 MG/DL Urine Leukocyte Esterase TRACE Urine RBC 1 /hpf Urine WBC 3 /hpf Microscopic Urinalysis Comment CULT NOT INDICATED Lactic Acid Level 0.6 mmol/L White Blood Count 2.1 TH/MM3 Red Blood Count 3.01 MIL/MM3 Hemoglobin 8.6 GM/DL Hematocrit 26.2 % Mean Corpuscular Volume 87.0 FL Mean Corpuscular Hemoglobin 28.5 PG Mean Corpuscular Hemoglobin Concent 32.8 % Red Cell Distribution Width 19.8 % Platelet Count 116 TH/MM3 Mean Platelet Volume 9.3 FL Neutrophils (%) (Auto) 58.7 % Lymphocytes (%) (Auto) 20.9 % Monocytes (%) (Auto) 18.1 % Eosinophils (%) (Auto) 1.6 % Basophils (%) (Auto) 0.7 % Neutrophils # (Auto) 1.3 TH/MM3 Lymphocytes # (Auto) 0.4 TH/MM3 Monocytes # (Auto) 0.4 TH/MM3 Eosinophils # (Auto) 0.0 TH/MM3 Basophils # (Auto) 0.0 TH/MM3 CBC Comment DIFF FINAL Differential Comment Activated Partial Thromboplast Time 41.3 SEC Blood Urea Nitrogen 1 MG/DL Creatinine 0.57 MG/DL Random Glucose 98 MG/DL Total Protein 5.5 GM/DL Albumin 2.1 GM/DL Calcium Level 7.5 MG/DL Alkaline Phosphatase 90 U/L Aspartate Amino Transf (AST/SGOT) 16 U/L Alanine Aminotransferase (ALT/SGPT) 26 U/L Total Bilirubin 0.5 MG/DL Sodium Level 143 MEQ/L Potassium Level 3.3 MEQ/L Chloride Level 109 MEQ/L Carbon Dioxide Level 24.7 MEQ/L Anion Gap 9 MEQ/L Estimat Glomerular Filtration Rate 147 ML/MIN Culture Results Microbiology Date/Time Source Procedure Growth Status 01/13/18 00:51 Blood Peripheral Aerobic Blood Culture Pending Received 01/13/18 00:51 Blood Peripheral Anaerobic Blood Culture Pending Received 01/12/18 23:00 Blood Peripheral Aerobic Blood Culture Pending Received 01/12/18 23:00 Blood Peripheral Anaerobic Blood Culture Pending Received 01/11/18 21:30 Stool Stool Stool Occult Blood ([facility]) - Final HEMOCCULT NEGATIVE Complete Administered Medications Medications (Trade) Dose Ordered Sig/Jason Route PRN Reason Start Time Stop Time Status Last Admin Dose Admin Sodium Chloride 1,000 ml @ 125 mls/hr Q8H IV 01/09/18 21:54 01/12/18 23:17 Sodium Chloride (NS Flush) 2 ml BID IV FLUSH 01/10/18 09:00 01/13/18 09:36 Finasteride (Proscar) 5 mg DAILY PO 01/10/18 09:00 01/13/18 09:33 Hydromorphone HCl (Dilaudid) 4 mg Q4H PRN PO PAIN 01/09/18 22:45 Future Hold 01/13/18 06:15 Lorazepam (Ativan) 2 mg Q8HR PRN PO SEE LABEL COMMENTS 01/09/18 22:45 01/12/18 12:00 Pantoprazole Sodium (Protonix) 40 mg DAILY PO 01/10/18 09:00 01/13/18 09:33 Promethazine HCl (Phenergan) 25 mg Q6H PRN PO NAUSEA OR VOMITING 01/09/18 22:45 01/12/18 16:29 Tamsulosin HCl (Flomax) 0.4 mg HS PO 01/10/18 21:00 01/12/18 21:51 Morphine Sulfate (Oramorph Sr) 60 mg Q8H PO 01/10/18 00:00 Future Hold 01/12/18 16:30 Heparin Sodium/ Dextrose 250 ml @ 18 mls/hr TITRATE PRN IV Coagulation Management 01/11/18 12:15 01/13/18 07:40 Magnesium Oxide (Mag-Ox) 400 mg Q12HR PO 01/12/18 21:00 01/13/18 09:33 Acetaminophen (Tylenol) 650 mg Q4H PRN PO fever 01/12/18 21:45 01/13/18 04:59 Cefepime HCl 2000 mg/Sodium Chloride 100 ml @ 200 mls/hr Q8H IV 01/12/18 22:00 01/13/18 07:15 Diphenhydramine HCl (Benadryl Inj) 25 mg Q6H PRN IV PUSH Itching/hives 01/13/18 02:15 01/13/18 02:37 Metronidazole 100 ml @ 100 mls/hr Q8H IV 01/13/18 09:00 01/13/18 09:33 Morphine Sulfate (Morphine Inj) 2 mg Q2HR PRN IV PUSH pain1-10 01/13/18 09:30 01/13/18 09:40 Objective Remarks GENERAL: Middle aged male, supine in bed, lethargic. SKIN: Warm and dry. HEAD: Normocephalic. EYES: No injection or drainage. NECK: Supple, trachea midline. CARDIOVASCULAR: +S1/S2, tachy RESPIRATORY: Breath sounds equal bilaterally. No accessory muscle use. GASTROINTESTINAL: Abdomen soft, non-tender, nondistended. EXTREMITIES: No cyanosis NEUROLOGICAL: awake, lethargic. oriented to time place and self. twitching noted in legs and arms. Assessment/Plan Assessment 57y/o male with stage IV colorectal cancer admitted with near syncope, found to have PE on CTA. Plan 1. fever + tachycardic: await blood cultures. agree with Cefepime and Vanco. Add Flagyl 2. monitor CBC, may need blood transfusion. 3. increase NS to 125cc/hr. 4. stop oramorph and PO dilaudid. give 2mg Morphine IV q 2 hours PRN pain. Attending Statement The exam, history, and the medical decision-making described in the above note were completed with the assistance of the mid-level provider. I reviewed and agree with the findings presented. I attest that I had a [id number] encounter with the patient on the same day, and personally performed and documented my assessment and findings in the medical record. overnight patient became somewhat lethargic and confused; however,patient lucid opresently, abdomen soft. hgb with mild drop. will give one unit pRBC. discussed case at length with patient and family. would recommend placing IVC filter if hgb continues to drop and will need to stop heparin. This will not protect agains thrombus above renal veins but most the the thrombi that cause PE will be below renal veins. Code status discussed with family and patient and he does not want CPR and did not realized that this has to be addressed in the chart. code status appropriately changed to reflect his desires which are entirely appropriate given circumstances. Total time at least 45 minute given probable sepsis, GI bleeding, Heparin, and advanced disease and implications regarding CPR in this setting. Visit complex. family understands severity of illness. Coye,Paige Jes PA Jan 13, 2018 10:02 Dylan Polanco MD Jan 13, 2018 13:11
[2018-01-13] MEDS ORDERED: MEPERIDINE HCL 25 MG/ML VIAL IV PUSH ONE ×2 (10:45→16:00)
[2018-01-13] MEDS: VANCOMYCIN 1,500 MG/NS 500 ML IV SCH ×4 (11:46→23:31)
--- NOTE | 2018-01-13 12:39 | HHI.PR ---
Subjective Remarks Follow-up colorectal cancer/right sided pulmonary emboli/chronic rectal bleeding 01/12/18-patient seen and examined-patient spiking fevers, however denies any chest pain or shortness of breath. Not Much of an appetite. by the bedside. Brain MRI without any evidence of metastases. Denies any syncopal episode 01/13/18-patient seen and examined, spiking fevers and patient lethargic. Sepsis picture like Objective Vitals Vital Signs Date Time Temp Pulse Resp B/P (MAP) Pulse Ox O2 Delivery O2 Flow Rate FiO2 01/13/18 11:01 100.9 126 18 117/65 (82) 99 01/13/18 09:36 100.3 01/13/18 08:15 121 01/13/18 08:00 97.9 120 18 110/68 (82) 97 01/13/18 04:12 120 01/13/18 04:00 100.3 128 20 112/64 (80) 96 01/13/18 00:13 138 01/12/18 23:49 100.6 134 18 113/68 (83) 95 01/12/18 21:59 101.3 01/12/18 20:34 113 01/12/18 20:00 100.6 119 18 107/69 (82) 98 01/12/18 15:27 98.3 115 16 104/64 (77) 98 I/O 01/12/18 01/12/18 01/12/18 01/13/18 01/13/18 01/13/18 07:00 15:00 23:00 07:00 15:00 23:00 Intake Total 480 ml 3360 ml 240 ml 1000 ml Output Total 3100 ml 5200 ml 2050 ml Balance -2620 ml -1840 ml -1810 ml 1000 ml Intake Oral 480 ml 3360 ml 240 ml IV Total 1000 ml Output Urine Total 2700 ml 4350 ml 2050 ml Stool Total 400 ml 850 ml # Bowel Movements 2 Result Diagram: 01/13/18 0500 01/13/18 0500 Imaging Last Impressions Chest X-Ray 01/12/18 0000 Signed Impressions: Service Date/Time: Friday, January 12, 2018 22:02 - CONCLUSION: 1. Subsegmental basilar opacity, probably atelectasis. [id number] in superior vena cava. Sigifredo Valdovinos MD Brain MRI 01/11/18 0000 Signed Impressions: Service Date/Time: Thursday, January 11, 2018 15:59 - CONCLUSION: 1. The examination demonstrates wide spread bony metastatic disease with involvement of the clivus and upper cervical spine. 2. No findings to indicate metastatic disease to the brain parenchyma are identified. Jamar Monahan MD Lower Extremity Ultrasound 01/09/18 0000 Signed Impressions: Service Date/Time: Tuesday, January 09, 2018 23:07 - CONCLUSION: Normal examination. Sina Meyer Jr., MD CT Angiography 01/09/18 0000 Signed Impressions: Service Date/Time: Tuesday, January 09, 2018 21:05 - CONCLUSION: 1. Small to moderate right lung pulmonary emboli involving the upper and lower lobes. 2. Mild bibasilar atelectasis. 3. Upper limits of normal to mildly enlarged paraesophageal lymph nodes. 4. Probable fatty liver. Clyde Santoro MD Objective Remarks GENERAL: lethargic SKIN: Warm and dry. HEAD: Normocephalic. EYES: No scleral icterus. No injection or drainage. NECK: Supple, trachea midline. No JVD or lymphadenopathy. CARDIOVASCULAR: Regular rate and rhythm without murmurs, gallops, or rubs. RESPIRATORY: Breath sounds equal bilaterally. No accessory muscle use. GASTROINTESTINAL: Abdomen soft, non-tender, nondistended. MUSCULOSKELETAL: No cyanosis, or edema. BACK: Nontender without obvious deformity. No CVA tenderness. A/P Problem List: (1) Pulmonary embolism ICD Code: I26.99 - Other pulmonary embolism without acute cor pulmonale Status: Acute (2) Metastatic cancer ICD Code: C79.9 - Secondary malignant neoplasm of unspecified site Status: Acute (3) Metastatic colorectal cancer ICD Code: C78.5 - Secondary malignant neoplasm of large intestine and rectum Assessment and Plan 57-year-old man with Sepsis Currently on vancomycin, cefepime and Flagyl Blood culture pending ; UA negative Chest x-ray noted and review by me Consult infectious disease specialist Pulmonary embolism Currently on heparin drip and likely switch to Lovenox subcutaneous every 12 hours 01/13/18 Appreciate input from oncology History of stage IV colorectal cancer with metastases Brain MRI 01/11/18 without any evidence of metastasis disease status post radiation therapy 08/2017 Management per oncology Chronic pain syndrome Secondary to malignancy Continue with Oramorph Syncope-resolved History of chronic rectal bleed Patient with history of colorectal cancer H&H stable GI prophylaxis PPI DVT prophylaxis SCD chemoprophylaxis contraindicated due to Hemorrhage Problem Qualifiers (1) Pulmonary embolism: Qualified Codes: I26.99 - Other pulmonary embolism without acute cor pulmonale Devyn Gee MD Jan 13, 2018 12:39
[2018-01-13] MEDS ORDERED: SODIUM CHLOR 0.9% 250 ML INJ 250 ML IV ONE (13:30)
[2018-01-13] MEDS ORDERED: MISCELLANEOUS PHARMACY INFORMATION XX PRN ×2 (16:00)
[2018-01-13] MEDS ORDERED: ASP: Other exception documentation: ( ) PRN (16:00)
[2018-01-13] MEDS: diphenhydrAMINE HCL 25 MG CAP PO PRN (17:21)
[2018-01-13] MEDS: MEROPENEM INJ 2,000 MG in SODIUM CHLORIDE 0.9% INJ 100 ML IV SCH (17:21)
--- NOTE | 2018-01-13 17:21 | MB ---
cc: Philip Padilla MD DATE OF CONSULT: REQUESTING PHYSICIAN: Devyn Gee MD REASON FOR CONSULTATION: A 57-year-old male with colorectal cancer, admitted with PE and now with sepsis. HISTORY OF PRESENT ILLNESS: This is a 57-year-old white male who presented to emergency department on 01/09/2018. The patient fell while getting out of the shower at home and apparently was not verbal for about 30 seconds. He was brought to the emergency department for evaluation. He has a history of colon cancer with metastasis to the bone. He has received chemotherapy, last of which was given 2 weeks ago. The patient had elevated heart rate on admission. His workup revealed pulmonary embolism. He was started on blood thinners. The patient's daughter and are at bedside. They report that the patient has been hallucinating from yesterday. They report that he has new rash on the face at the side of the nose and they feel that he has worse rash on his buttocks. The patient having elevated temperature and now actively is having chills. His temperature was 101.3 yesterday evening and today, it has been mostly above 100 degrees. His heart rate is elevated. Blood cultures were taken yesterday evening and have no growth so far. His white count is decreasing. Today's white count is 2.1. On admission, the white count was 3.3. The patient is somnolent. He awakens to verbal stimuli. He denies headache, nausea and vomiting. He is oriented x 3. DIAGNOSTIC DATA: Chest x-ray yesterday showed subsegmental basilar opacity. CT scan of the brain shows bony metastatic disease with involvement of the clivus and the upper cervical spine. No findings indicate disease to the brain parenchyma. CT angiogram revealed small to moderate right lung pulmonary emboli involving the upper and lower lobes. PAST MEDICAL HISTORY: Rectal cancer diagnosed 03/2016. The patient has been receiving chemotherapy. He has received radiation therapy. Diverting colostomy. Infusaport. History of knee surgery. ALLERGIES: NO KNOWN DRUG ALLERGIES. MEDICATIONS: Cefepime, vancomycin, metronidazole, Tylenol p.r.n., Proscar, Protonix, Flomax, morphine sulfate p.r.n. SOCIAL HISTORY: The patient is . No tobacco, no alcohol, no illicit drugs. FAMILY HISTORY: Noncontributory. REVIEW OF SYSTEMS: Pertinent features mentioned above. In addition, the patient notes pain in the lower extremities. PHYSICAL EXAMINATION: GENERAL: This is a well-developed male who appears chronically ill. He is in no acute distress. VITAL SIGNS: Temperature 100.1, axillary, BP 120/71, respirations 18, heart rate 117. HEENT: Head is atraumatic. Extraocular movements grossly intact. Pupils reactive to light, without icterus. No conjunctival erythema. Oropharynx, moist mucosa. NECK: Supple without adenopathy. LUNGS: Decreased breath sounds. CHEST: Patient has an Infusaport in the right chest, which appears intact and there is no evidence suggesting infection. HEART: Regular S1 and S2, without murmurs, rubs or gallops. ABDOMEN: Bowel sounds present. Soft, no tenderness appreciated. RECTAL: Not performed. EXTREMITIES: No clubbing or cyanosis. Trace edema. SKIN: Maculopapular rash at the malar area of the face on both sides and also scattered punctate erythematous macular raised areas at the right anterior shoulder and right chest and a few lesions at the left anterior upper chest. NEUROLOGIC: No gross focal finding. PSYCHIATRIC: Calm and cooperative. LABORATORY DATA: WBC 2.1, platelets 116, hemoglobin 8.6, 58% neutrophils. Creatinine 0.57, BUN 1, estimated GFR 147, sodium 143. Liver function test normal. Urinalysis unremarkable. C. difficile toxin negative. IMPRESSION: 1. Sepsis indicated by elevated temperature and elevated heart rate, along with altered mental status (patient reported to be hallucinating) and leukopenia. 2. Leukopenia. 3. Immunosuppression in patient who has received chemotherapy for rectal cancer with metastases. 4. Abnormal chest x-ray. 5. The patient with active chills, suggesting probable bacteremia. RECOMMENDATIONS: 1. Continue vancomycin. 2. Continue metronidazole. 3. Change the cefepime to meropenem. It is possible that the skin lesions could be a reaction to antibiotic. 4. Monitor blood cultures. 5. Monitor temperature and blood counts. 6. Follow clinical status for new signs of a source of infection. Thank you for this consultation. I will follow the patient's progress and cultures and will make further recommendations upon followup. Plans were discussed with the patient's and daughter. MD KEANU Turner/DARRYL , 04:23 PM , 05:19 PM
[2018-01-13] MEDS: SODIUM CHLOR 0.9% 1000 ML INJ 1,000 ML IV SCH ×2 (20:07→22:17)
[2018-01-13] MEDS: TAMSULOSIN HCL 0.4 MG CAP PO SCH (21:45)
[2018-01-13] MEDS: SODIUM CHLORIDE 0.9% FLUSH 10 ML FLUSH IV FLUSH PRN (23:25)
[2018-01-14] VITALS (25 sets, daily range): BP systolic 95–122; BP diastolic 60–74; PULSE 84–108; RESP 16–22; TEMP 97.9–100.5; O2SAT 96–99
[2018-01-14] MEDS: MORPHINE SULFATE 2 MG/ML INJ IV PUSH PRN ×4 (01:24→09:05)
[2018-01-14] MEDS: SODIUM CHLORIDE 0.9% FLUSH 10 ML FLUSH IV FLUSH PRN ×3 (01:25→05:28)
[2018-01-14] MEDS: MEROPENEM INJ 2,000 MG in SODIUM CHLORIDE 0.9% INJ 100 ML IV SCH ×3 (01:27→17:09)
[2018-01-14] MEDS: metroNIDAZOLE 500 MG INJ 100 ML IV SCH ×3 (02:09→16:00)
[2018-01-14] MEDS: HEPARIN-D5W 25,000 U/250 ML 250 ML IV PRN ×2 (03:33→23:47)
[2018-01-14] MEDS: SODIUM CHLOR 0.9% 1000 ML INJ 1,000 ML IV SCH ×3 (05:38→22:17)
[2018-01-14 06:15] LABS: BASOPHIL % 0.9 % (0.0-2.0); EOSINOPHIL # 0.1 TH/MM3 (0-0.4); EOSINOPHIL % 2.8 % (0.0-4.0); HEMATOCRIT 27.6 % (39.0-51.0); HEMOGLOBIN 9.3 GM/DL (13.0-17.0); LYMPH % 20.5 % (9.0-44.0); LYMPHOCYTE # 0.4 TH/MM3 (1.0-4.8); MEAN CELL VOLUME 85.1 FL (80.0-100.0); MEAN CORPUSCULAR HEMOGLOBIN 28.6 PG (27.0-34.0); MEAN CORPUSCULAR HGB CONC 33.6 % (32.0-36.0); MONO % 24.9 % (0.0-8.0); MONOCYTE # 0.5 TH/MM3 (0-0.9); NEUT % 50.9 % (16.0-70.0); PLATELET COUNT 122 TH/MM3 (150-450); RED BLOOD COUNT 3.25 MIL/MM3 (4.50-5.90); RED CELL DISTRIBUTION WIDTH 18.4 % (11.6-17.2); WHITE BLOOD COUNT 1.9 TH/MM3 (4.0-11.0)
[2018-01-14 06:41] LABS: ALBUMIN 1.9 GM/DL (3.4-5.0); BICARBONATE 25.1 MEQ/L (21.0-32.0); CALCIUM 7.2 MG/DL (8.5-10.1); CALCIUM-PROTEIN CORRECTED 8.3 MG/DL (8.5-10.1); CREATININE 0.48 MG/DL (0.60-1.30); TOTAL BILIRUBIN ADULT 0.4 MG/DL (0.2-1.0); TOTAL PROTEIN 5.1 GM/DL (6.4-8.2)
[2018-01-14] MEDS ORDERED: POTASSIUM CHLORIDE 20 MEQ CONTROLLED RELEASE TAB PO ONE (08:00)
[2018-01-14 08:59] LABS: BANDS 23 % (0-6); BASOPHILS 1 % (0-2); BLASTS 1 % (0-0); CORRECTED NUCLEATED RBC 1 /100 WBC (0-0); LYMPHOCYTES 18 % (9-44); MONOCYTES 31 % (0-8); NEUTROPHIL # MANUAL DIFF 0.9 TH/MM3 (1.8-7.7); NUCLEATED RED BLOOD CELL 1 (0-0); OVALOCYTES 1+ (NORMAL); POLYS (SEG NEUTROPHILS) 26 % (16-70)
[2018-01-14] MEDS: SODIUM CHLORIDE 0.9% FLUSH 10 ML FLUSH IV FLUSH SCH ×2 (09:00→19:54)
[2018-01-14] MEDS: PANTOPRAZOLE SOD 40 MG DELAYED RELEASE TAB PO SCH (09:03)
[2018-01-14] MEDS: MAGNESIUM OXIDE 400 MG TAB PO SCH ×2 (09:03→19:51)
[2018-01-14] MEDS: FINASTERIDE 5 MG TAB PO SCH (09:04)
[2018-01-14] MEDS: ACETAMINOPHEN 325 MG TAB PO PRN (09:24)
[2018-01-14] MEDS ORDERED: POTASSIUM CHLORIDE 10 MEQ CONTROLLED RELEASE TAB PO ONE (09:30)
[2018-01-14] MEDS: LORazepam 2 MG TAB PO PRN ×2 (09:42→19:51)
[2018-01-14] MEDS ORDERED: HYDROmorphone HCL PF 2 MG/ML VIAL IV PUSH ONE (10:15)
--- NOTE | 2018-01-14 10:25 | HHI.PR ---
Subjective Remarks Follow-up colorectal cancer/right sided pulmonary emboli/chronic rectal bleeding 01/12/18-patient seen and examined-patient spiking fevers, however denies any chest pain or shortness of breath. Not Much of an appetite. by the bedside. Brain MRI without any evidence of metastases. Denies any syncopal episode 01/13/18-patient seen and examined, spiking fevers and patient lethargic. Sepsis picture like 01/14/18-patient seen and examined, lethargic and shivering, family at the bedside Objective Vitals Vital Signs Date Time Temp Pulse Resp B/P (MAP) Pulse Ox O2 Delivery O2 Flow Rate FiO2 01/14/18 08:52 98.9 107 20 117/74 (88) 96 01/14/18 07:01 104 01/14/18 06:08 92 01/14/18 05:09 92 01/14/18 04:08 97 01/14/18 03:29 98.8 85 18 104/68 (80) 98 01/14/18 03:28 97.9 01/14/18 03:07 89 01/14/18 02:01 94 01/14/18 01:07 100 01/14/18 00:01 103 01/13/18 23:32 100.4 101 18 120/72 (88) 98 01/13/18 23:01 100 01/13/18 22:05 104 01/13/18 21:45 99.9 93 18 112/68 97 01/13/18 21:00 99 01/13/18 20:17 104 01/13/18 20:02 100.4 101 18 94/53 (67) 96 01/13/18 19:10 108 01/13/18 18:29 101.2 111 18 129/72 97 01/13/18 18:07 101.2 109 18 129/72 97 01/13/18 17:22 100.8 01/13/18 17:00 112 01/13/18 16:00 112 01/13/18 15:51 100.1 117 18 120/71 (87) 100 01/13/18 15:00 112 01/13/18 14:00 118 01/13/18 13:00 120 01/13/18 12:00 136 01/13/18 11:01 100.9 126 18 117/65 (82) 99 01/13/18 11:00 121 I/O 01/13/18 01/13/18 01/13/18 01/14/18 01/14/18 01/14/18 07:00 15:00 23:00 07:00 15:00 23:00 Intake Total 240 ml 1715 ml 3330 ml 1000 ml Output Total 2050 ml 4825 ml 1500 ml Balance -1810 ml 1715 ml -1495 ml -500 ml Intake Oral 240 ml 1680 ml 240 ml IV Total 1715 ml 1200 ml 760 ml Packed Cells 400 ml Blood Product IV Normal Saline Flush 50 ml Output Urine Total 2050 ml 4100 ml 1500 ml Stool Total 725 ml # Bowel Movements 2 Result Diagram: 01/14/18 0530 01/14/18 0530 Imaging Last Impressions Chest X-Ray 01/12/18 0000 Signed Impressions: Service Date/Time: Friday, January 12, 2018 22:02 - CONCLUSION: 1. Subsegmental basilar opacity, probably atelectasis. [id number] in superior vena cava. Sigifredo Valdovinos MD Brain MRI 01/11/18 0000 Signed Impressions: Service Date/Time: Thursday, January 11, 2018 15:59 - CONCLUSION: 1. The examination demonstrates wide spread bony metastatic disease with involvement of the clivus and upper cervical spine. 2. No findings to indicate metastatic disease to the brain parenchyma are identified. Jamar Monahan MD Lower Extremity Ultrasound 01/09/18 0000 Signed Impressions: Service Date/Time: Tuesday, January 09, 2018 23:07 - CONCLUSION: Normal examination. Sina Meyer Jr., MD CT Angiography 01/09/18 0000 Signed Impressions: Service Date/Time: Tuesday, January 09, 2018 21:05 - CONCLUSION: 1. Small to moderate right lung pulmonary emboli involving the upper and lower lobes. 2. Mild bibasilar atelectasis. 3. Upper limits of normal to mildly enlarged paraesophageal lymph nodes. 4. Probable fatty liver. Clyde Santoro MD Objective Remarks GENERAL: lethargic SKIN: Warm and dry. HEAD: Normocephalic. EYES: No scleral icterus. No injection or drainage. NECK: Supple, trachea midline. No JVD or lymphadenopathy. CARDIOVASCULAR: Regular rate and rhythm without murmurs, gallops, or rubs. RESPIRATORY: Breath sounds equal bilaterally. No accessory muscle use. GASTROINTESTINAL: Abdomen soft, non-tender, nondistended. MUSCULOSKELETAL: No cyanosis, or edema. BACK: Nontender without obvious deformity. No CVA tenderness. A/P Problem List: (1) Pulmonary embolism ICD Code: I26.99 - Other pulmonary embolism without acute cor pulmonale Status: Acute (2) Metastatic cancer ICD Code: C79.9 - Secondary malignant neoplasm of unspecified site Status: Acute (3) Metastatic colorectal cancer ICD Code: C78.5 - Secondary malignant neoplasm of large intestine and rectum (4) Sepsis ICD Code: A41.9 - Sepsis, unspecified organism Assessment and Plan 57-year-old man with Sepsis Currently on vancomycin, Meropenem and Flagyl Blood culture pending ; UA negative Chest x-ray without any CPD Appreciate input from infectious disease specialist Pulmonary embolism Currently on heparin drip and likely switch to Lovenox subcutaneous every 12 hours when medically stable Appreciate input from oncology History of stage IV colorectal cancer with metastases Brain MRI 01/11/18 without any evidence of metastasis disease status post radiation therapy 08/2017 Management per oncology Chronic pain syndrome Secondary to malignancy Continue with Oramorph Syncope-resolved Hypokalemia Give potassium 80 mEq now History of chronic rectal bleed Patient with history of colorectal cancer H&H stable GI prophylaxis PPI DVT prophylaxis SCD chemoprophylaxis contraindicated due to Hemorrhage Problem Qualifiers (1) Pulmonary embolism: Qualified Codes: I26.99 - Other pulmonary embolism without acute cor pulmonale Devyn Gee MD Jan 14, 2018 10:25
--- NOTE | 2018-01-14 11:46 | HHI.IDPN ---
Note Infectious Disease Note Patient is now very somnolent. He is snoring. The notes that he did not get any sleep last night. He is having pain in the rectum. Temperature is lower. Blood cultures have no growth. The white count is decreased. The ANC is around 1000. No shortness of breath. When When aroused he is very lethargic. 57-year-old white male who presented to emergency department on 01/09/2018. The patient fell while getting out of the shower at home and apparently was not verbal for about 30 seconds. He was brought to the emergency department for evaluation. He has a history of colon cancer with metastasis to the bone. He has received chemotherapy, last of which was given 2 weeks ago. The patient had elevated heart rate on admission. His workup revealed pulmonary embolism. He had elevated temperature of 101.3 on 01/12/2018 and chills. PAST MEDICAL HISTORY: Rectal cancer diagnosed 03/2016. The patient has been receiving chemotherapy. He has received radiation therapy. Diverting colostomy. Infusaport. History of knee surgery. ALLERGIES: NO KNOWN DRUG ALLERGIES. MEDICATIONS: Current Medications Medications (Trade) Dose Ordered Sig/Jason Route PRN Reason Start Time Stop Time Status Last Admin Dose Admin Sodium Chloride 1,000 ml @ 125 mls/hr Q8H IV 01/09/18 21:54 01/14/18 05:38 Sodium Chloride (NS Flush) 2 ml UNSCH PRN IV FLUSH FLUSH AFTER USING IV ACCESS 01/09/18 22:00 01/14/18 05:28 Sodium Chloride (NS Flush) 2 ml BID IV FLUSH 01/10/18 09:00 01/14/18 09:00 Naloxone HCl (Narcan Inj) 0.4 mg UNSCH PRN IV PUSH SEE LABEL COMMENTS 01/09/18 22:00 Finasteride (Proscar) 5 mg DAILY PO 01/10/18 09:00 01/14/18 09:04 Hydromorphone HCl (Dilaudid) 4 mg Q4H PRN PO PAIN 01/09/18 22:45 Future hold 01/13/18 06:15 Lorazepam (Ativan) 2 mg Q8HR PRN PO SEE LABEL COMMENTS 01/09/18 22:45 01/14/18 09:42 Pantoprazole Sodium (Protonix) 40 mg DAILY PO 01/10/18 09:00 01/14/18 09:03 Promethazine HCl (Phenergan) 25 mg Q6H PRN PO NAUSEA OR VOMITING 01/09/18 22:45 01/12/18 16:29 Tamsulosin HCl (Flomax) 0.4 mg HS PO 01/10/18 21:00 01/13/18 21:45 Heparin Sodium/ Dextrose 250 ml @ 18 mls/hr TITRATE PRN IV Coagulation Management 01/11/18 12:15 01/14/18 03:33 Carboxymethylcellulose Sodium (Refresh Tears 0.5% Opth Soln) 1 drop Q6H PRN EACH EYE dry eyes 01/12/18 09:30 Magnesium Oxide (Mag-Ox) 400 mg Q12HR PO 01/12/18 21:00 01/14/18 09:03 Acetaminophen (Tylenol) 650 mg Q4H PRN PO fever 01/12/18 21:45 01/14/18 09:24 Pharmacy Profile Note 0 ml @ 0 mls/hr UNSCH OTHER 01/12/18 21:45 Diphenhydramine HCl (Benadryl Inj) 25 mg Q6H PRN IV PUSH Itching/hives 01/13/18 02:15 01/13/18 02:37 Metronidazole 100 ml @ 100 mls/hr Q8H IV 01/13/18 09:00 01/14/18 09:34 Vancomycin HCl 1500 mg/Sodium Chloride 515 ml @ 257.5 mls/ hr Q12H IV 01/13/18 12:00 01/13/18 23:31 Miscellaneous Information SPECIFIC LAB TO BE DRAWN:VA... ONCE ONCE .XX 01/15/18 11:45 01/15/18 11:46 Acetaminophen (Tylenol) 650 mg Q4H PRN PO SEE LABEL COMMENTS 01/13/18 13:30 01/13/18 17:21 Diphenhydramine HCl (Benadryl) 25 mg Q4H PRN PO SEE LABEL COMMENTS 01/13/18 13:30 01/13/18 17:21 Miscellaneous Medication (ASP Crit: Other exception documentation) 1 UNSCH X1 PRN .XX PHARMACY DOCUMENTATION 01/13/18 16:00 01/14/18 15:59 Miscellaneous Medication ([facility] Information) 1 UNSCH X1 PRN XX PHARMACY DOCUMENTATION 01/13/18 16:00 01/14/18 15:59 Meropenem 2000 mg/ Sodium Chloride 100 ml @ 200 mls/hr Q8H IV 01/13/18 17:00 01/14/18 09:03 Miscellaneous Medication ([facility] Information) 1 UNSCH X1 PRN XX PHARMACY DOCUMENTATION 01/13/18 16:00 01/14/18 15:59 Morphine Sulfate (Oramorph Sr) 60 mg BID PO 01/14/18 10:00 OBJECTIVE: Vital Signs Date Time Temp Pulse Resp B/P (MAP) Pulse Ox O2 Delivery O2 Flow Rate FiO2 01/14/18 10:00 106 01/14/18 09:00 100 01/14/18 08:52 98.9 107 20 117/74 (88) 96 01/14/18 08:00 98 01/14/18 07:01 104 01/14/18 07:00 104 01/14/18 06:08 92 01/14/18 05:09 92 01/14/18 04:08 97 01/14/18 03:29 98.8 85 18 104/68 (80) 98 01/14/18 03:28 97.9 01/14/18 03:07 89 01/14/18 02:01 94 01/14/18 01:07 100 01/14/18 00:01 103 01/13/18 23:32 100.4 101 18 120/72 (88) 98 01/13/18 23:01 100 01/13/18 22:05 104 01/13/18 21:45 99.9 93 18 112/68 97 01/13/18 21:00 99 01/13/18 20:17 104 01/13/18 20:02 100.4 101 18 94/53 (67) 96 01/13/18 19:10 108 01/13/18 18:29 101.2 111 18 129/72 97 01/13/18 18:07 101.2 109 18 129/72 97 01/13/18 17:22 100.8 01/13/18 17:00 112 01/13/18 16:00 112 01/13/18 15:51 100.1 117 18 120/71 (87) 100 01/13/18 15:00 112 01/13/18 14:00 118 01/13/18 13:00 120 01/13/18 12:00 136 Laboratory Tests Test 01/12/18 16:40 01/13/18 05:00 01/14/18 05:30 Hemoglobin 8.9 GM/DL 8.6 GM/DL 9.3 GM/DL Hematocrit 27.0 % 26.2 % 27.6 % White Blood Count 2.1 TH/MM3 1.9 TH/MM3 Red Blood Count 3.01 MIL/MM3 3.25 MIL/MM3 Mean Corpuscular Volume 87.0 FL 85.1 FL Mean Corpuscular Hemoglobin 28.5 PG 28.6 PG Mean Corpuscular Hemoglobin Concent 32.8 % 33.6 % Red Cell Distribution Width 19.8 % 18.4 % Platelet Count 116 TH/MM3 122 TH/MM3 Mean Platelet Volume 9.3 FL 9.0 FL Neutrophils (%) (Auto) 58.7 % 50.9 % Lymphocytes (%) (Auto) 20.9 % 20.5 % Monocytes (%) (Auto) 18.1 % 24.9 % Eosinophils (%) (Auto) 1.6 % 2.8 % Basophils (%) (Auto) 0.7 % 0.9 % Neutrophils # (Auto) 1.3 TH/MM3 1.0 TH/MM3 Lymphocytes # (Auto) 0.4 TH/MM3 0.4 TH/MM3 Monocytes # (Auto) 0.4 TH/MM3 0.5 TH/MM3 Eosinophils # (Auto) 0.0 TH/MM3 0.1 TH/MM3 Basophils # (Auto) 0.0 TH/MM3 0.0 TH/MM3 CBC Comment DIFF FINAL AUTO DIFF Differential Comment FINAL DIFF MANUAL Differential Total Cells Counted 100 Neutrophils % (Manual) 26 % Band Neutrophils % 23 % Lymphocytes % 18 % Monocytes % 31 % Basophils % 1 % Neutrophils # (Manual) 0.9 TH/MM3 Nucleated Red Blood Cells 1 /100 WBC Blastocytes 1 % Platelet Estimate LOW Platelet Morphology Comment NORMAL Ovalocytes 1+ Laboratory Tests Test 01/12/18 13:30 01/12/18 23:30 01/13/18 05:00 01/13/18 14:31 Blood Urea Nitrogen 2 MG/DL 1 MG/DL Creatinine 0.63 MG/DL 0.57 MG/DL Random Glucose 117 MG/DL 98 MG/DL Calcium Level 7.5 MG/DL 7.5 MG/DL Sodium Level 138 MEQ/L 143 MEQ/L Potassium Level 2.9 MEQ/L 3.3 MEQ/L Chloride Level 103 MEQ/L 109 MEQ/L Carbon Dioxide Level 26.8 MEQ/L 24.7 MEQ/L Anion Gap 8 MEQ/L 9 MEQ/L Estimat Glomerular Filtration Rate 131 ML/MIN 147 ML/MIN Magnesium Level 1.6 MG/DL Lactic Acid Level 0.6 mmol/L Total Protein 5.5 GM/DL Albumin 2.1 GM/DL Alkaline Phosphatase 90 U/L Aspartate Amino Transf (AST/SGOT) 16 U/L Alanine Aminotransferase (ALT/SGPT) 26 U/L Total Bilirubin 0.5 MG/DL Ammonia 21 MCMOL/L Test 01/14/18 05:30 Blood Urea Nitrogen 2 MG/DL Creatinine 0.48 MG/DL Random Glucose 85 MG/DL Total Protein 5.1 GM/DL Albumin 1.9 GM/DL Calcium Level 7.2 MG/DL Alkaline Phosphatase 81 U/L Aspartate Amino Transf (AST/SGOT) 13 U/L Alanine Aminotransferase (ALT/SGPT) 21 U/L Total Bilirubin 0.4 MG/DL Sodium Level 145 MEQ/L Potassium Level 2.7 MEQ/L Chloride Level 111 MEQ/L Carbon Dioxide Level 25.1 MEQ/L Anion Gap 9 MEQ/L Estimat Glomerular Filtration Rate 180 ML/MIN Protein Corrected Calcium 8.3 MG/DL Microbiology Date/Time Source Procedure Growth Status 01/13/18 00:51 Blood Peripheral Aerobic Blood Culture - Preliminary NO GROWTH IN 1 DAY Resulted 01/13/18 00:51 Blood Peripheral Anaerobic Blood Culture - Preliminary NO GROWTH IN 1 DAY Resulted 01/12/18 23:00 Blood Peripheral Aerobic Blood Culture - Preliminary NO GROWTH IN 2 DAYS Resulted 01/12/18 23:00 Blood Peripheral Anaerobic Blood Culture - Preliminary NO GROWTH IN 2 DAYS Resulted 01/11/18 21:30 Stool Stool Stool Occult Blood ([facility]) - Final HEMOCCULT NEGATIVE Complete IMAGING: Chest X-Ray 01/12/18 0000 Signed Impressions: Service Date/Time: Friday, January 12, 2018 22:02 - CONCLUSION: 1. Subsegmental basilar opacity, probably atelectasis. [id number]-[id number] in superior vena cava. Sigifredo Valdovinos MD Brain MRI 01/11/18 0000 Signed Impressions: Service Date/Time: Thursday, January 11, 2018 15:59 - CONCLUSION: 1. The examination demonstrates wide spread bony metastatic disease with involvement of the clivus and upper cervical spine. 2. No findings to indicate metastatic disease to the brain parenchyma are identified. Jamar Monahan MD Lower Extremity Ultrasound 01/09/18 0000 Signed Impressions: Service Date/Time: Tuesday, January 09, 2018 23:07 - CONCLUSION: Normal examination. Sina Meyer Jr., MD CT Angiography 01/09/18 0000 Signed Impressions: Service Date/Time: Tuesday, January 09, 2018 21:05 - CONCLUSION: 1. Small to moderate right lung pulmonary emboli involving the upper and lower lobes. 2. Mild bibasilar atelectasis. 3. Upper limits of normal to mildly enlarged paraesophageal lymph nodes. 4. Probable fatty liver. Clyde Santoro MD PHYSICAL EXAMINATION: GENERAL: No acute distress. Somnolent. HEENT: Head is atraumatic. Extraocular movements grossly intact. Pupils reactive to light, without icterus. No conjunctival erythema. Oropharynx, moist mucosa. NECK: Supple without adenopathy. LUNGS: Decreased breath sounds bilateral. CHEST: Patient has an Infusaport in the right chest, which appears intact and there is no evidence suggesting infection. HEART: Regular S1 and S2, without murmurs, rubs or gallops. ABDOMEN: Bowel sounds present. Soft, no tenderness appreciated. EXTREMITIES: No clubbing or cyanosis. Trace edema. SKIN: No diffuse rash. NEUROLOGIC: No gross focal finding. PSYCHIATRIC: Unable to fully assess. IMPRESSION: 1. Sepsis indicated by elevated temperature and elevated heart rate, along with altered mental status (patient reported to be hallucinating) and leukopenia. No clear source. 2. Leukopenia. 3. Immunosuppression in patient who has received chemotherapy for rectal cancer with metastases. 4. Abnormal chest x-ray. 5. The patient with active chills, suggesting probable bacteremia. RECOMMENDATIONS: 1. Continue vancomycin. 2. Continue metronidazole. 3. Continue meropenem. It is possible that the previous skin lesions could be a reaction to antibiotic. 4. Monitor blood cultures. 5. Monitor temperature and blood counts. 6. Draw a new set of blood cultures if the temperature rises to 101. 7. Follow clinical course Discussed with RN. Discussed with family at bedside. Philip Padilla MD Jan 14, 2018 11:46
[2018-01-14] MEDS: MORPHINE SULFATE 60 MG CONTROLLED RELEASE TAB PO SCH ×2 (12:15→19:51)
--- NOTE | 2018-01-14 12:49 | PD.ONC.PN ---
Subjective Subjective Remarks T-max 100.4 last night Patient reports he is in much more pain. Asking to have his long-acting Oramorph resumed Patient's and daughters at bedside. Many questions were answered. Objective Data Date Time Temp Pulse Resp B/P (MAP) Pulse Ox O2 Delivery O2 Flow Rate FiO2 01/14/18 12:27 98.7 100 18 119/70 (86) 97 01/14/18 10:00 106 01/14/18 09:00 100 01/14/18 08:52 98.9 107 20 117/74 (88) 96 01/14/18 08:00 98 01/14/18 07:01 104 01/14/18 07:00 104 01/14/18 06:08 92 01/14/18 05:09 92 01/14/18 04:08 97 01/14/18 03:29 98.8 85 18 104/68 (80) 98 01/14/18 03:28 97.9 01/14/18 03:07 89 01/14/18 02:01 94 01/14/18 01:07 100 01/14/18 00:01 103 01/13/18 23:32 100.4 101 18 120/72 (88) 98 01/13/18 23:01 100 01/13/18 22:05 104 01/13/18 21:45 99.9 93 18 112/68 97 01/13/18 21:00 99 01/13/18 20:17 104 01/13/18 20:02 100.4 101 18 94/53 (67) 96 01/13/18 19:10 108 01/13/18 18:29 101.2 111 18 129/72 97 18 18:07 101.2 109 18 129/72 97 18 17:22 100.8 18 17:00 112 18 16:00 112 18 15:51 100.1 117 18 120/71 (87) 100 01/13/18 15:00 112 18 14:00 118 18 13:00 120 18 18 01/14/18 07:00 15:00 23:00 Intake Total 1000 ml 200 ml Output Total 1500 ml Balance -500 ml 200 ml Result Diagram: 01/14/1830 01/14/1830 Laboratory Results Laboratory Tests Test 01/13/18 14:31 01/14/18 05:30 01/14/18 05:40 Ammonia 21 MCMOL/L White Blood Count 1.9 TH/MM3 Red Blood Count 3.25 MIL/MM3 Hemoglobin 9.3 GM/DL Hematocrit 27.6 % Mean Corpuscular Volume 85.1 FL Mean Corpuscular Hemoglobin 28.6 PG Mean Corpuscular Hemoglobin Concent 33.6 % Red Cell Distribution Width 18.4 % Platelet Count 122 TH/MM3 Mean Platelet Volume 9.0 FL Neutrophils (%) (Auto) 50.9 % Lymphocytes (%) (Auto) 20.5 % Monocytes (%) (Auto) 24.9 % Eosinophils (%) (Auto) 2.8 % Basophils (%) (Auto) 0.9 % Neutrophils # (Auto) 1.0 TH/MM3 Lymphocytes # (Auto) 0.4 TH/MM3 Monocytes # (Auto) 0.5 TH/MM3 Eosinophils # (Auto) 0.1 TH/MM3 Basophils # (Auto) 0.0 TH/MM3 CBC Comment AUTO DIFF Differential Total Cells Counted 100 Neutrophils % (Manual) 26 % Band Neutrophils % 23 % Lymphocytes % 18 % Monocytes % 31 % Basophils % 1 % Neutrophils # (Manual) 0.9 TH/MM3 Nucleated Red Blood Cells 1 /100 WBC Differential Comment FINAL DIFF MANUAL Blastocytes 1 % Platelet Estimate LOW Platelet Morphology Comment NORMAL Ovalocytes 1+ Blood Urea Nitrogen 2 MG/DL Creatinine 0.48 MG/DL Random Glucose 85 MG/DL Total Protein 5.1 GM/DL Albumin 1.9 GM/DL Calcium Level 7.2 MG/DL Alkaline Phosphatase 81 U/L Aspartate Amino Transf (AST/SGOT) 13 U/L Alanine Aminotransferase (ALT/SGPT) 21 U/L Total Bilirubin 0.4 MG/DL Sodium Level 145 MEQ/L Potassium Level 2.7 MEQ/L Chloride Level 111 MEQ/L Carbon Dioxide Level 25.1 MEQ/L Anion Gap 9 MEQ/L Estimat Glomerular Filtration Rate 180 ML/MIN Protein Corrected Calcium 8.3 MG/DL Activated Partial Thromboplast Time 46.8 SEC Culture Results Microbiology Date/Time Source Procedure Growth Status 01/13/18 00:51 Blood Peripheral Aerobic Blood Culture - Preliminary NO GROWTH IN 1 DAY Resulted 01/13/18 00:51 Blood Peripheral Anaerobic Blood Culture - Preliminary NO GROWTH IN 1 DAY Resulted 01/12/18 23:00 Blood Peripheral Aerobic Blood Culture - Preliminary NO GROWTH IN 2 DAYS Resulted 01/12/18 23:00 Blood Peripheral Anaerobic Blood Culture - Preliminary NO GROWTH IN 2 DAYS Resulted 01/11/18 21:30 Stool Stool Stool Occult Blood ([facility]) - Final HEMOCCULT NEGATIVE Complete Administered Medications Medications (Trade) Dose Ordered Sig/Jason Route PRN Reason Start Time Stop Time Status Last Admin Dose Admin Sodium Chloride 1,000 ml @ 125 mls/hr Q8H IV 01/09/18 21:54 01/14/18 05:38 Sodium Chloride (NS Flush) 2 ml UNSCH PRN IV FLUSH FLUSH AFTER USING IV ACCESS 01/09/18 22:00 01/14/18 05:28 Sodium Chloride (NS Flush) 2 ml BID IV FLUSH 01/10/18 09:00 01/14/18 09:00 Finasteride (Proscar) 5 mg DAILY PO 01/10/18 09:00 01/14/18 09:04 Hydromorphone HCl (Dilaudid) 4 mg Q4H PRN PO PAIN 01/09/18 22:45 Future hold 01/13/18 06:15 Lorazepam (Ativan) 2 mg Q8HR PRN PO SEE LABEL COMMENTS 01/09/18 22:45 01/14/18 09:42 Pantoprazole Sodium (Protonix) 40 mg DAILY PO 01/10/18 09:00 01/14/18 09:03 Promethazine HCl (Phenergan) 25 mg Q6H PRN PO NAUSEA OR VOMITING 01/09/18 22:45 01/12/18 16:29 Tamsulosin HCl (Flomax) 0.4 mg HS PO 01/10/18 21:00 01/13/18 21:45 Heparin Sodium/ Dextrose 250 ml @ 18 mls/hr TITRATE PRN IV Coagulation Management 01/11/18 12:15 01/14/18 03:33 Magnesium Oxide (Mag-Ox) 400 mg Q12HR PO 01/12/18 21:00 01/14/18 09:03 Acetaminophen (Tylenol) 650 mg Q4H PRN PO fever 01/12/18 21:45 01/14/18 09:24 Diphenhydramine HCl (Benadryl Inj) 25 mg Q6H PRN IV PUSH Itching/hives 01/13/18 02:15 01/13/18 02:37 Metronidazole 100 ml @ 100 mls/hr Q8H IV 01/13/18 09:00 01/14/18 09:34 Vancomycin HCl 1500 mg/Sodium Chloride 515 ml @ 257.5 mls/ hr Q12H IV 01/13/18 12:00 01/13/18 23:31 Acetaminophen (Tylenol) 650 mg Q4H PRN PO SEE LABEL COMMENTS 01/13/18 13:30 01/13/18 17:21 Diphenhydramine HCl (Benadryl) 25 mg Q4H PRN PO SEE LABEL COMMENTS 01/13/18 13:30 01/13/18 17:21 Meropenem 2000 mg/ Sodium Chloride 100 ml @ 200 mls/hr Q8H IV 01/13/18 17:00 01/14/18 09:03 Morphine Sulfate (Oramorph Sr) 60 mg BID PO 01/14/18 10:00 01/14/18 12:15 Objective Remarks GENERAL: Middle aged male, supine in bed with a towel covering face. SKIN: Warm and dry. HEAD: Normocephalic. EYES: No injection or drainage. NECK: Supple, trachea midline. CARDIOVASCULAR: Tachycardia rate; normal rhythm RESPIRATORY: Breath sounds equal bilaterally. No accessory muscle use. GASTROINTESTINAL: Abdomen soft, non-tender, nondistended. EXTREMITIES: No cyanosis. Occasional twitching noted of the legs. NEUROLOGICAL: Patient mildly confused. He has just received an Ativan. Moving all extremities. Normal speech. Assessment/Plan Problem List: (1) Metastatic colorectal cancer ICD Codes: C78.5 - Secondary malignant neoplasm of large intestine and rectum Plan: --Repeat brain MRI shows no new lesions or worsening metastatic disease Hx: History of stage IV colorectal cancer. Currently undergoing palliative systemic chemotherapy consisting of FOLFIRI and panitumumab; mets to the liver, vertebral spine, pelvic bone and to the brain (2) Normocytic anemia ICD Codes: D64.9 - Anemia, unspecified Status: Acute Plan: --Anemia secondary to malignancy and chemotherapy. --closely monitor his hemoglobin. Check hemoglobin twice a day. --transfuse for a hemoglobin of 8 or less. (3) Pulmonary embolism ICD Codes: I26.99 - Other pulmonary embolism without acute cor pulmonale Status: Acute Plan: --resume heparin gtt after MRI brain. --Doppler ultrasound of lower extremities did not show any metastatic disease. --will start on Lovenox 1mg/kg BID once close to discharge (4) Thrombocytopenia ICD Codes: D69.6 - Thrombocytopenia, unspecified Plan: --d/t chemotherapy --monitor and transfuse as needed. Assessment 57y/o male with stage IV colorectal cancer admitted with near syncope, found to have PE on CTA. Plan 1. Patient with increased pain after stopping long-acting Oramorph and p.o. Dilaudid; resume these medications however will decrease Oramorph to twice daily dosing instead of 3 times daily. 2. Monitor CBC and transfuse for hemoglobin less than 8. 3. Monitor blood counts; will switch to therapeutic Lovenox dosing if CBC remains stable. Attending Statement The exam, history, and the medical decision-making described in the above note were completed with the assistance of the mid-level provider. I reviewed and agree with the findings presented. I attest that I had a uqas-[id number] encounter with the patient on the same day, and personally performed and documented my assessment and findings in the medical record. lethargic and became confused yesterday pain not under control this am low grades fever overnight Heparin GTT small amounts of rectal bleeding from the primary tumor site concern for sepsis PLAN : continue Heparin GTT for now. will closely monitor Hb. if bleeding remains an issue then anti-coagulation will not be possible. discussed with the family and explained the difficult situation. Long acting Morphine restarted and prn Dilaudid po avoid IV Dilaudid and IV Ativan agree with broad spectrum abx follow blood cultures will start Neupogen as ANC is declining Transfuse to keep Hb > 8 Replace potassium Hypoalbuminemia ensure tid phys asst consult Patient's RN present during rounds Patient's wide and 2 daughter's were also present Problem Qualifiers (1) Pulmonary embolism: Qualified Codes: I26.99 - Other pulmonary embolism without acute cor pulmonale Tina Brambila Jan 14, 2018 12:49 El Perez MD Jan 14, 2018 19:52
[2018-01-14] MEDS: VANCOMYCIN 1,500 MG/NS 500 ML IV SCH ×2 (13:06)
[2018-01-14] MEDS: HYDROmorphone HCL 4 MG TAB PO PRN ×2 (17:09→22:57)
[2018-01-14] MEDS: TAMSULOSIN HCL 0.4 MG CAP PO SCH (19:51)
[2018-01-14] MEDS: FILGRASTIM INJ 480 MCG in DEXTROSE 5% IN WATER INJ 50 ML IV SCH ×2 (22:57)
[2018-01-15] VITALS (17 sets, daily range): BP systolic 101–117; BP diastolic 70–75; PULSE 82–119; RESP 16–20; TEMP 97.1–100.7; O2SAT 96–99
[2018-01-15] MEDS: VANCOMYCIN 1,500 MG/NS 500 ML IV SCH ×4 (00:13→12:00)
[2018-01-15] MEDS: HYDROmorphone HCL 4 MG TAB PO PRN ×5 (03:15→21:32)
[2018-01-15] MEDS: metroNIDAZOLE 500 MG INJ 100 ML IV SCH ×3 (03:15→16:25)
[2018-01-15] MEDS: MEROPENEM INJ 2,000 MG in SODIUM CHLORIDE 0.9% INJ 100 ML IV SCH ×3 (04:52→18:48)
[2018-01-15] MEDS: LORazepam 2 MG TAB PO PRN ×3 (04:52→21:00)
[2018-01-15 06:22] LABS: HEMATOCRIT 27.8 % (39.0-51.0); HEMOGLOBIN 9.2 GM/DL (13.0-17.0); MEAN CELL VOLUME 86.4 FL (80.0-100.0); MEAN CORPUSCULAR HEMOGLOBIN 28.7 PG (27.0-34.0); MEAN CORPUSCULAR HGB CONC 33.2 % (32.0-36.0); MEAN PLATELET VOLUME 9.5 FL (7.0-11.0); PLATELET COUNT 140 TH/MM3 (150-450); RED BLOOD COUNT 3.22 MIL/MM3 (4.50-5.90); RED CELL DISTRIBUTION WIDTH 18.5 % (11.6-17.2)
[2018-01-15 06:45] LABS: INTERNATIONAL NORMALIZED RATIO 1.5 RATIO; PROTHROMBIN TIME - PATIENT 14.9 SEC (9.8-11.6)
[2018-01-15 06:52] LABS: CALCIUM 7.5 MG/DL (8.5-10.1); CREATININE 0.54 MG/DL (0.60-1.30)
[2018-01-15 07:10] LABS: BANDS 15 % (0-6); CORRECTED NUCLEATED RBC 2 /100 WBC (0-0); LYMPHOCYTES 8 % (9-44); METAMYELOCYTES 1 % (0-1); MONOCYTES 13 % (0-8); MYELOCYTES 2 % (0-0); NEUTROPHIL # MANUAL DIFF 2.3 TH/MM3 (1.8-7.7); NUCLEATED RED BLOOD CELL 2 (0-0); POLYS (SEG NEUTROPHILS) 59 % (16-70)
[2018-01-15 07:11] LABS: OVALOCYTES 1+ (NORMAL)
[2018-01-15] MEDS: FINASTERIDE 5 MG TAB PO SCH (08:53)
[2018-01-15] MEDS: MAGNESIUM OXIDE 400 MG TAB PO SCH ×2 (08:53→20:49)
[2018-01-15] MEDS: PANTOPRAZOLE SOD 40 MG DELAYED RELEASE TAB PO SCH (08:53)
[2018-01-15] MEDS: MORPHINE SULFATE 60 MG CONTROLLED RELEASE TAB PO SCH ×2 (08:55→20:50)
[2018-01-15] MEDS: SODIUM CHLORIDE 0.9% FLUSH 10 ML FLUSH IV FLUSH SCH ×2 (09:00→20:50)
[2018-01-15] MEDS: POTASSIUM CHLOR 40 MEQ PREMIX 100 ML IV SCH ×2 (09:30→17:13)
--- NOTE | 2018-01-15 10:57 | HHI.PR ---
Subjective Remarks Follow-up colorectal cancer/right sided pulmonary emboli/chronic rectal bleeding 01/12/18-patient seen and examined-patient spiking fevers, however denies any chest pain or shortness of breath. Not Much of an appetite. by the bedside. Brain MRI without any evidence of metastases. Denies any syncopal episode 01/13/18-patient seen and examined, spiking fevers and patient lethargic. Sepsis picture like 01/14/18-patient seen and examined, lethargic and shivering, family at the bedside 01/15/18-Chandra seen and examined, still spiking fever, shortness of breath, decrease appetite Objective Vitals Vital Signs Date Time Temp Pulse Resp B/P (MAP) Pulse Ox O2 Delivery O2 Flow Rate FiO2 01/15/18 07:22 119 01/15/18 04:48 100.7 115 16 112/70 (84) 96 01/15/18 04:00 111 01/15/18 00:00 100.3 105 16 112/73 (86) 98 01/15/18 00:00 82 01/14/18 20:39 21 01/14/18 20:00 101 01/14/18 20:00 100.5 97 16 122/73 (89) 99 01/14/18 17:00 88 01/14/18 16:20 98.8 89 22 95/60 (72) 97 01/14/18 16:00 89 01/14/18 15:00 84 01/14/18 14:00 90 01/14/18 13:00 92 01/14/18 12:27 98.7 100 18 119/70 (86) 97 01/14/18 12:00 85 01/14/18 11:00 108 I/O 01/14/18 01/14/18 01/14/18 01/15/18 01/15/18 01/15/18 07:00 15:00 23:00 07:00 15:00 23:00 Intake Total 1000 ml 700 ml 240 ml 1471.6 ml Output Total 1500 ml 3150 ml 2250 ml Balance -500 ml 700 ml -2910 ml -778.4 ml Intake Oral 240 ml 240 ml 720 ml IV Total 760 ml 700 ml 751.6 ml Output Urine Total 1500 ml 2950 ml 2000 ml Stool Total 200 ml 250 ml # Voids 2 Result Diagram: 01/15/18 0500 01/15/18 0500 Imaging Last Impressions Chest X-Ray 01/12/18 0000 Signed Impressions: Service Date/Time: Friday, January 12, 2018 22:02 - CONCLUSION: 1. Subsegmental basilar opacity, probably atelectasis. Eakczc-q-Dquu in superior vena cava. Sigifredo Valdovinos MD Brain MRI 01/11/18 0000 Signed Impressions: Service Date/Time: Thursday, January 11, 2018 15:59 - CONCLUSION: 1. The examination demonstrates wide spread bony metastatic disease with involvement of the clivus and upper cervical spine. 2. No findings to indicate metastatic disease to the brain parenchyma are identified. Jamar Monahan MD Lower Extremity Ultrasound 01/09/18 0000 Signed Impressions: Service Date/Time: Tuesday, January 09, 2018 23:07 - CONCLUSION: Normal examination. Sina Meyer Jr., MD CT Angiography 01/09/18 0000 Signed Impressions: Service Date/Time: Tuesday, January 09, 2018 21:05 - CONCLUSION: 1. Small to moderate right lung pulmonary emboli involving the upper and lower lobes. 2. Mild bibasilar atelectasis. 3. Upper limits of normal to mildly enlarged paraesophageal lymph nodes. 4. Probable fatty liver. Clyde Santoro MD Objective Remarks GENERAL: lethargic SKIN: Warm and dry. HEAD: Normocephalic. EYES: No scleral icterus. No injection or drainage. NECK: Supple, trachea midline. No JVD or lymphadenopathy. CARDIOVASCULAR: Regular rate and rhythm without murmurs, gallops, or rubs. RESPIRATORY: Breath sounds equal bilaterally. No accessory muscle use. GASTROINTESTINAL: Abdomen soft, non-tender, nondistended. MUSCULOSKELETAL: No cyanosis, or edema. BACK: Nontender without obvious deformity. No CVA tenderness. A/P Problem List: (1) Pulmonary embolism ICD Code: I26.99 - Other pulmonary embolism without acute cor pulmonale Status: Acute (2) Metastatic cancer ICD Code: C79.9 - Secondary malignant neoplasm of unspecified site Status: Acute (3) Metastatic colorectal cancer ICD Code: C78.5 - Secondary malignant neoplasm of large intestine and rectum (4) Sepsis ICD Code: A41.9 - Sepsis, unspecified organism Assessment and Plan 57-year-old man with Sepsis Currently on vancomycin, Meropenem and Flagyl Blood culture NTD ; UA negative Chest x-ray without any CPD Appreciate input from infectious disease specialist Pulmonary embolism Currently on heparin drip and likely switch to Lovenox subcutaneous every 12 hours when medically stable Appreciate input from oncology History of stage IV colorectal cancer with metastases Brain MRI 01/11/18 without any evidence of metastasis disease status post radiation therapy 08/2017 Management per oncology Chronic pain syndrome Secondary to malignancy Continue with Oramorph Syncope-resolved Hypokalemia Give potassium 80 mEq now History of chronic rectal bleed Patient with history of colorectal cancer H&H stable GI prophylaxis PPI DVT prophylaxis SCD chemoprophylaxis contraindicated due to Hemorrhage Problem Qualifiers (1) Pulmonary embolism: Qualified Codes: I26.99 - Other pulmonary embolism without acute cor pulmonale Devyn Gee MD Jan 15, 2018 10:57
[2018-01-15] MEDS ORDERED: POTASSIUM CHLORIDE 20 MEQ CONTROLLED RELEASE TAB PO ONE (11:30)
[2018-01-15] MEDS ORDERED: PHARMACY ORDERED LAB ONE (11:45)
--- NOTE | 2018-01-15 12:01 | PD.ONC.PN ---
Subjective Subjective Remarks Tmax 100.7 overnight. Patient has frontal headache this morning. has pain in rectum from tumor. continues to have small amount of rectal bleeding. Objective Data Date Time Temp Pulse Resp B/P (MAP) Pulse Ox O2 Delivery O2 Flow Rate FiO2 01/15/18 11:05 97.1 116 20 101/73 (82) 98 01/15/18 07:22 119 01/15/18 04:48 100.7 115 16 112/70 (84) 96 01/15/18 04:00 111 01/15/18 00:00 100.3 105 16 112/73 (86) 98 01/15/18 00:00 82 01/14/18 20:39 21 01/14/18 20:00 101 01/14/18 20:00 100.5 97 16 122/73 (89) 99 01/14/18 17:00 88 01/14/18 16:20 98.8 89 22 95/60 (72) 97 01/14/18 16:00 89 01/14/18 15:00 84 01/14/18 14:00 90 01/14/18 13:00 92 01/14/18 12:27 98.7 100 18 119/70 (86) 97 01/14/18 12:00 85 01/15/18 01/15/18 01/15/18 07:00 15:00 23:00 Intake Total 1471.6 ml Output Total 2250 ml Balance -778.4 ml Result Diagram: 01/15/18 0500 01/15/18 0500 Laboratory Results Laboratory Tests Test 01/15/18 05:00 White Blood Count 3.0 TH/MM3 Red Blood Count 3.22 MIL/MM3 Hemoglobin 9.2 GM/DL Hematocrit 27.8 % Mean Corpuscular Volume 86.4 FL Mean Corpuscular Hemoglobin 28.7 PG Mean Corpuscular Hemoglobin Concent 33.2 % Red Cell Distribution Width 18.5 % Platelet Count 140 TH/MM3 Mean Platelet Volume 9.5 FL CBC Comment AUTO DIFF Differential Total Cells Counted 100 Neutrophils % (Manual) 59 % Band Neutrophils % 15 % Lymphocytes % 8 % Monocytes % 13 % Eosinophils % 2 % Neutrophils # (Manual) 2.3 TH/MM3 Metamyelocytes 1 % Myelocytes 2 % Nucleated Red Blood Cells 2 /100 WBC Differential Comment FINAL DIFF MANUAL Platelet Estimate LOW Platelet Morphology Comment NORMAL Ovalocytes 1+ Prothrombin Time 14.9 SEC Prothromb Time International Ratio 1.5 RATIO Activated Partial Thromboplast Time 52.8 SEC Fibrinogen 586 mg/dL Blood Urea Nitrogen 3 MG/DL Creatinine 0.54 MG/DL Random Glucose 95 MG/DL Calcium Level 7.5 MG/DL Sodium Level 142 MEQ/L Potassium Level 3.1 MEQ/L Chloride Level 109 MEQ/L Carbon Dioxide Level 23.0 MEQ/L Anion Gap 10 MEQ/L Estimat Glomerular Filtration Rate 157 ML/MIN Culture Results Microbiology Date/Time Source Procedure Growth Status 01/13/18 00:51 Blood Peripheral Aerobic Blood Culture - Preliminary NO GROWTH IN 2 DAYS Resulted 01/13/18 00:51 Blood Peripheral Anaerobic Blood Culture - Preliminary NO GROWTH IN 2 DAYS Resulted 01/12/18 23:00 Blood Peripheral Aerobic Blood Culture - Preliminary NO GROWTH IN 3 DAYS Resulted 01/12/18 23:00 Blood Peripheral Anaerobic Blood Culture - Preliminary NO GROWTH IN 3 DAYS Resulted Administered Medications Medications (Trade) Dose Ordered Sig/Jason Route PRN Reason Start Time Stop Time Status Last Admin Dose Admin Sodium Chloride 1,000 ml @ 150 mls/hr Q6H40M IV 01/09/18 21:54 01/14/18 18:50 Sodium Chloride (NS Flush) 2 ml UNSCH PRN IV FLUSH FLUSH AFTER USING IV ACCESS 01/09/18 22:00 01/14/18 05:28 Sodium Chloride (NS Flush) 2 ml BID IV FLUSH 01/10/18 09:00 01/14/18 09:00 Finasteride (Proscar) 5 mg DAILY PO 01/10/18 09:00 01/15/18 08:53 Hydromorphone HCl (Dilaudid) 4 mg Q4H PRN PO PAIN 01/09/18 22:45 Future hold 01/15/18 08:54 Pantoprazole Sodium (Protonix) 40 mg DAILY PO 01/10/18 09:00 01/15/18 08:53 Promethazine HCl (Phenergan) 25 mg Q6H PRN PO NAUSEA OR VOMITING 01/09/18 22:45 01/12/18 16:29 Tamsulosin HCl (Flomax) 0.4 mg HS PO 01/10/18 21:00 01/14/18 19:51 Heparin Sodium/ Dextrose 250 ml @ 18 mls/hr TITRATE PRN IV Coagulation Management 01/11/18 12:15 01/14/18 23:47 Magnesium Oxide (Mag-Ox) 400 mg Q12HR PO 01/12/18 21:00 01/15/18 08:53 Acetaminophen (Tylenol) 650 mg Q4H PRN PO fever 01/12/18 21:45 01/14/18 09:24 Diphenhydramine HCl (Benadryl Inj) 25 mg Q6H PRN IV PUSH Itching/hives 01/13/18 02:15 01/13/18 02:37 Metronidazole 100 ml @ 100 mls/hr Q8H IV 01/13/18 09:00 01/15/18 08:53 Vancomycin HCl 1500 mg/Sodium Chloride 515 ml @ 257.5 mls/ hr Q12H IV 01/13/18 12:00 01/15/18 00:13 Acetaminophen (Tylenol) 650 mg Q4H PRN PO SEE LABEL COMMENTS 01/13/18 13:30 01/13/18 17:21 Diphenhydramine HCl (Benadryl) 25 mg Q4H PRN PO SEE LABEL COMMENTS 01/13/18 13:30 01/13/18 17:21 Meropenem 2000 mg/ Sodium Chloride 100 ml @ 200 mls/hr Q8H IV 01/13/18 17:00 01/15/18 08:53 Morphine Sulfate (Oramorph Sr) 60 mg BID PO 01/14/18 10:00 01/15/18 08:55 Lorazepam (Ativan) 1 mg Q8HR PRN PO SEE LABEL COMMENTS 01/14/18 16:30 01/15/18 04:52 Filgrastim 480 mcg/Dextrose 51.6 ml @ 100 mls/hr DAILY@14 IV 01/14/18 20:00 01/14/18 22:57 Objective Remarks GENERAL: Middle aged male, lying in bed, appears fatigued. SKIN: Warm and dry. HEAD: Normocephalic. EYES: No injection or drainage. NECK: Supple, trachea midline. CARDIOVASCULAR: +S1/S2, tachy RESPIRATORY: Breath sounds equal bilaterally. No accessory muscle use. GASTROINTESTINAL: Abdomen soft, non-tender, nondistended. EXTREMITIES: No cyanosis NEUROLOGICAL: awake, alert. normal speech. moving extremities. facial movements symmetric. Assessment/Plan Problem List: (1) Metastatic colorectal cancer ICD Codes: C78.5 - Secondary malignant neoplasm of large intestine and rectum Plan: --Repeat brain MRI shows no new lesions or worsening metastatic disease Hx: History of stage IV colorectal cancer. Currently undergoing palliative systemic chemotherapy consisting of FOLFIRI and panitumumab; mets to the liver, vertebral spine, pelvic bone and to the brain (2) Normocytic anemia ICD Codes: D64.9 - Anemia, unspecified Status: Acute Plan: --Anemia secondary to malignancy and chemotherapy. --closely monitor his hemoglobin. Check hemoglobin twice a day. --transfuse for a hemoglobin of 8 or less. (3) Pulmonary embolism ICD Codes: I26.99 - Other pulmonary embolism without acute cor pulmonale Status: Acute Plan: --on heparin gtt --may need to place IVC filter if continues to bleed. --Doppler ultrasound of lower extremities did not show any metastatic disease. --will start on Lovenox 1mg/kg BID once close to discharge (4) Thrombocytopenia ICD Codes: D69.6 - Thrombocytopenia, unspecified Plan: --d/t chemotherapy --monitor and transfuse as needed. Assessment 57y/o male with stage IV colorectal cancer admitted with near syncope, found to have PE on CTA. Plan 1. continue Oramorph BID 2. monitor hemoglobin 3. monitor closely for worsening rectal bleed. Attending Statement The exam, history, and the medical decision-making described in the above note were completed with the assistance of the mid-level provider. I reviewed and agree with the findings presented. I attest that I had a [id number] encounter with the patient on the same day, and personally performed and documented my assessment and findings in the medical record. Small amount of blood per rectum-- 10cc or less 2-3 times per day-thin serosanguineous discharge per patient's the bleeding is not any worse than what he was having prior to starting heparin Hb stable will transition to Lovenox tomorrow and monitor Hb over the next 24-48 hours and for any bleeding having low grade fevers //likely form PTE tachycardia also from PTE No evidence of infection. blood cultures negative will stop Vancomycin and flagyl tomorrow --d/w ID--? change meropenem to cefepime Leukopenia improving continue Neupogen for another 24 hours poor oral intake//patient's says he is drinking lots of milk Not participating in PT will try again tomorrow Increased frequency of Ativan to q6h RN present during rounds Problem Qualifiers (1) Pulmonary embolism: Qualified Codes: I26.99 - Other pulmonary embolism without acute cor pulmonale Paige Serrano Jan 15, 2018 12:01 El Perez MD Jan 15, 2018 23:55
--- NOTE | 2018-01-15 14:27 | HHI.IDPN ---
Note Infectious Disease Note Patient feels better. Reports that he had a headache at the frontal area this morning. Headache has improved. He was noted to be drowsy earlier. Still has low-grade fever. Denies aches or pains. Has drainage from the rectum. Blood cultures have no growth. W BC is increased. No shortness of breath. When 57-year-old white male who presented to emergency department on 01/09/2018. The patient fell while getting out of the shower at home and apparently was not verbal for about 30 seconds. He was brought to the emergency department for evaluation. He has a history of colon cancer with metastasis to the bone. He has received chemotherapy, last of which was given 2 weeks ago. The patient had elevated heart rate on admission. His workup revealed pulmonary embolism. He had elevated temperature of 101.3 on 01/12/2018 and chills. PAST MEDICAL HISTORY: Rectal cancer diagnosed 03/2016. The patient has been receiving chemotherapy. He has received radiation therapy. Diverting colostomy. Infusaport. History of knee surgery. ALLERGIES: NO KNOWN DRUG ALLERGIES. MEDICATIONS: Current Medications Medications (Trade) Dose Ordered Sig/Jason Route PRN Reason Start Time Stop Time Status Last Admin Dose Admin Sodium Chloride 1,000 ml @ 150 mls/hr Q6H40M IV 01/09/18 21:54 01/14/18 18:50 Sodium Chloride (NS Flush) 2 ml UNSCH PRN IV FLUSH FLUSH AFTER USING IV ACCESS 01/09/18 22:00 01/14/18 05:28 Sodium Chloride (NS Flush) 2 ml BID IV FLUSH 01/10/18 09:00 01/14/18 09:00 Naloxone HCl (Narcan Inj) 0.4 mg UNSCH PRN IV PUSH SEE LABEL COMMENTS 01/09/18 22:00 Finasteride (Proscar) 5 mg DAILY PO 01/10/18 09:00 01/15/18 08:53 Hydromorphone HCl (Dilaudid) 4 mg Q4H PRN PO PAIN 01/09/18 22:45 Future hold 01/15/18 12:26 Pantoprazole Sodium (Protonix) 40 mg DAILY PO 01/10/18 09:00 01/15/18 08:53 Promethazine HCl (Phenergan) 25 mg Q6H PRN PO NAUSEA OR VOMITING 01/09/18 22:45 01/12/18 16:29 Tamsulosin HCl (Flomax) 0.4 mg HS PO 01/10/18 21:00 01/14/18 19:51 Heparin Sodium/ Dextrose 250 ml @ 18 mls/hr TITRATE PRN IV Coagulation Management 01/11/18 12:15 01/14/18 23:47 Carboxymethylcellulose Sodium (Refresh Tears 0.5% Opth Soln) 1 drop Q6H PRN EACH EYE dry eyes 01/12/18 09:30 Magnesium Oxide (Mag-Ox) 400 mg Q12HR PO 01/12/18 21:00 01/15/18 08:53 Acetaminophen (Tylenol) 650 mg Q4H PRN PO fever 01/12/18 21:45 01/14/18 09:24 Pharmacy Profile Note 0 ml @ 0 mls/hr UNSCH OTHER 01/12/18 21:45 Diphenhydramine HCl (Benadryl Inj) 25 mg Q6H PRN IV PUSH Itching/hives 01/13/18 02:15 01/13/18 02:37 Metronidazole 100 ml @ 100 mls/hr Q8H IV 01/13/18 09:00 01/15/18 08:53 Vancomycin HCl 1500 mg/Sodium Chloride 515 ml @ 257.5 mls/ hr Q12H IV 01/13/18 12:00 01/15/18 12:00 Acetaminophen (Tylenol) 650 mg Q4H PRN PO SEE LABEL COMMENTS 01/13/18 13:30 01/13/18 17:21 Diphenhydramine HCl (Benadryl) 25 mg Q4H PRN PO SEE LABEL COMMENTS 01/13/18 13:30 01/13/18 17:21 Meropenem 2000 mg/ Sodium Chloride 100 ml @ 200 mls/hr Q8H IV 01/13/18 17:00 01/15/18 08:53 Morphine Sulfate (Oramorph Sr) 60 mg BID PO 01/14/18 10:00 01/15/18 08:55 Lorazepam (Ativan) 1 mg Q8HR PRN PO SEE LABEL COMMENTS 01/14/18 16:30 01/15/18 12:25 Filgrastim 480 mcg/Dextrose 51.6 ml @ 100 mls/hr DAILY@14 IV 3/19/18 20:00 01/14/18 22:57 Potassium Chloride 100 ml @ 25 mls/hr Q4H IV 01/15/18 09:30 01/15/18 17:29 01/15/18 09:30 OBJECTIVE: Vital Signs Date Time Temp Pulse Resp B/P (MAP) Pulse Ox O2 Delivery O2 Flow Rate FiO2 01/15/18 11:05 97.1 116 20 101/73 (82) 98 01/15/18 07:22 119 01/15/18 04:48 100.7 115 16 112/70 (84) 96 01/15/18 04:00 111 01/15/18 00:00 100.3 105 16 112/73 (86) 98 01/15/18 00:00 82 01/14/18 20:39 21 01/14/18 20:00 101 01/14/18 20:00 100.5 97 16 122/73 (89) 99 01/14/18 17:00 88 01/14/18 16:20 98.8 89 22 95/60 (72) 97 01/14/18 16:00 89 01/14/18 15:00 84 Laboratory Tests Test 01/14/18 05:30 01/15/18 05:00 White Blood Count 1.9 TH/MM3 3.0 TH/MM3 Red Blood Count 3.25 MIL/MM3 3.22 MIL/MM3 Hemoglobin 9.3 GM/DL 9.2 GM/DL Hematocrit 27.6 % 27.8 % Mean Corpuscular Volume 85.1 FL 86.4 FL Mean Corpuscular Hemoglobin 28.6 PG 28.7 PG Mean Corpuscular Hemoglobin Concent 33.6 % 33.2 % Red Cell Distribution Width 18.4 % 18.5 % Platelet Count 122 TH/MM3 140 TH/MM3 Mean Platelet Volume 9.0 FL 9.5 FL Neutrophils (%) (Auto) 50.9 % Lymphocytes (%) (Auto) 20.5 % Monocytes (%) (Auto) 24.9 % Eosinophils (%) (Auto) 2.8 % Basophils (%) (Auto) 0.9 % Neutrophils # (Auto) 1.0 TH/MM3 Lymphocytes # (Auto) 0.4 TH/MM3 Monocytes # (Auto) 0.5 TH/MM3 Eosinophils # (Auto) 0.1 TH/MM3 Basophils # (Auto) 0.0 TH/MM3 CBC Comment AUTO DIFF AUTO DIFF Differential Total Cells Counted 100 100 Neutrophils % (Manual) 26 % 59 % Band Neutrophils % 23 % 15 % Lymphocytes % 18 % 8 % Monocytes % 31 % 13 % Basophils % 1 % Neutrophils # (Manual) 0.9 TH/MM3 2.3 TH/MM3 Nucleated Red Blood Cells 1 /100 WBC 2 /100 WBC Differential Comment FINAL DIFF MANUAL FINAL DIFF MANUAL Blastocytes 1 % Platelet Estimate LOW LOW Platelet Morphology Comment NORMAL NORMAL Ovalocytes 1+ 1+ Eosinophils % 2 % Metamyelocytes 1 % Myelocytes 2 % Laboratory Tests Test 01/13/18 14:31 01/14/18 05:30 01/15/18 05:00 Ammonia 21 MCMOL/L Blood Urea Nitrogen 2 MG/DL 3 MG/DL Creatinine 0.48 MG/DL 0.54 MG/DL Random Glucose 85 MG/DL 95 MG/DL Total Protein 5.1 GM/DL Albumin 1.9 GM/DL Calcium Level 7.2 MG/DL 7.5 MG/DL Alkaline Phosphatase 81 U/L Aspartate Amino Transf (AST/SGOT) 13 U/L Alanine Aminotransferase (ALT/SGPT) 21 U/L Total Bilirubin 0.4 MG/DL Sodium Level 145 MEQ/L 142 MEQ/L Potassium Level 2.7 MEQ/L 3.1 MEQ/L Chloride Level 111 MEQ/L 109 MEQ/L Carbon Dioxide Level 25.1 MEQ/L 23.0 MEQ/L Anion Gap 9 MEQ/L 10 MEQ/L Estimat Glomerular Filtration Rate 180 ML/MIN 157 ML/MIN Protein Corrected Calcium 8.3 MG/DL Microbiology Date/Time Source Procedure Growth Status 01/13/18 00:51 Blood Peripheral Aerobic Blood Culture - Preliminary NO GROWTH IN 2 DAYS Resulted 01/13/18 00:51 Blood Peripheral Anaerobic Blood Culture - Preliminary NO GROWTH IN 2 DAYS Resulted 01/12/18 23:00 Blood Peripheral Aerobic Blood Culture - Preliminary NO GROWTH IN 3 DAYS Resulted 01/12/18 23:00 Blood Peripheral Anaerobic Blood Culture - Preliminary NO GROWTH IN 3 DAYS Resulted IMAGING: Chest X-Ray 01/12/18 0000 Signed Impressions: Service Date/Time: Friday, January 12, 2018 22:02 - CONCLUSION: 1. Subsegmental basilar opacity, probably atelectasis. [id number] in superior vena cava. Sigifredo Valdovinos MD Brain MRI 01/11/18 0000 Signed Impressions: Service Date/Time: Thursday, January 11, 2018 15:59 - CONCLUSION: 1. The examination demonstrates wide spread bony metastatic disease with involvement of the clivus and upper cervical spine. 2. No findings to indicate metastatic disease to the brain parenchyma are identified. Jamar Monahan MD Lower Extremity Ultrasound 01/09/18 0000 Signed Impressions: Service Date/Time: Tuesday, January 09, 2018 23:07 - CONCLUSION: Normal examination. Sina Meyer Jr., MD CT Angiography 01/09/18 0000 Signed Impressions: Service Date/Time: Tuesday, January 09, 2018 21:05 - CONCLUSION: 1. Small to moderate right lung pulmonary emboli involving the upper and lower lobes. 2. Mild bibasilar atelectasis. 3. Upper limits of normal to mildly enlarged paraesophageal lymph nodes. 4. Probable fatty liver. Clyde Santoro MD PHYSICAL EXAMINATION: GENERAL: No acute distress. Awake and alert. HEENT: No icterus. No conjunctival erythema. Oropharynx, moist mucosa. NECK: Supple without adenopathy. LUNGS: Decreased breath sounds. CHEST: Patient has an [id number] in the right chest, which appears intact and there is no evidence suggesting infection. HEART: Regular S1 and S2, without murmurs, rubs or gallops. ABDOMEN: Bowel sounds present. Soft, no tenderness. EXTREMITIES: No clubbing or cyanosis. Trace edema. SKIN: No diffuse rash. NEUROLOGIC: No gross focal finding. PSYCHIATRIC: Calm and cooperative. IMPRESSION: 1. Sepsis indicated by elevated temperature and elevated heart rate, along with altered mental status (patient reported to be hallucinating) and leukopenia. No clear source. Blood culture negative to date. 2. Leukopenia. 3. Immunosuppression in patient who has received chemotherapy for rectal cancer with metastases. 4. Abnormal chest x-ray. 5. Pulmonary embolism. 6. Fever. Could be due to infection. Also pulmonary embolism could cause fever. Looks clinically improved. RECOMMENDATIONS: 1. Continue vancomycin. 2. Continue metronidazole. 3. Continue meropenem. 4. Monitor blood cultures. 5. Monitor temperature and blood counts. 6. Follow clinical course Discussed with family at bedside. Philip Padilla MD Jan 15, 2018 14:27
[2018-01-15] MEDS: FILGRASTIM INJ 480 MCG in DEXTROSE 5% IN WATER INJ 50 ML IV SCH ×2 (16:15)
[2018-01-15 18:04] LABS: SODIUM,RANDOM URINE 50 MEQ/L
[2018-01-15 18:23] LABS: OSMOLALITY,URINE 138 MOSM/KG (300-1300)
[2018-01-15] MEDS: SODIUM CHLOR 0.9% 1000 ML INJ 1,000 ML IV SCH ×2 (18:49→20:09)
[2018-01-15] MEDS: TAMSULOSIN HCL 0.4 MG CAP PO SCH (20:48)
[2018-01-15] MEDS: HEPARIN-D5W 25,000 U/250 ML 250 ML IV PRN (22:32)
[2018-01-16] VITALS (9 sets, daily range): BP systolic 106–161; BP diastolic 48–89; PULSE 76–119; RESP 16–20; TEMP 97.5–98.8; O2SAT 92–100
[2018-01-16] MEDS: VANCOMYCIN INJ 2,000 MG in SODIUM CHLORID 0.9% 500 ML INJ 500 ML IV SCH ×2 (00:15→12:59)
[2018-01-16] MEDS: HYDROmorphone HCL 4 MG TAB PO PRN ×5 (01:59→20:39)
[2018-01-16] MEDS: metroNIDAZOLE 500 MG INJ 100 ML IV SCH ×3 (01:59→17:13)
[2018-01-16] MEDS: LORazepam 2 MG TAB PO PRN ×3 (04:24→22:02)
[2018-01-16] MEDS: MEROPENEM INJ 2,000 MG in SODIUM CHLORIDE 0.9% INJ 100 ML IV SCH ×3 (04:24→18:21)
[2018-01-16] MEDS: SODIUM CHLOR 0.9% 1000 ML INJ 1,000 ML IV SCH ×3 (04:24→17:01)
[2018-01-16 06:50] LABS: HEMATOCRIT 27.5 % (39.0-51.0); HEMOGLOBIN 9.1 GM/DL (13.0-17.0); MEAN CELL VOLUME 86.8 FL (80.0-100.0); MEAN CORPUSCULAR HEMOGLOBIN 28.8 PG (27.0-34.0); MEAN CORPUSCULAR HGB CONC 33.2 % (32.0-36.0); MEAN PLATELET VOLUME 8.8 FL (7.0-11.0); PLATELET COUNT 125 TH/MM3 (150-450); RED BLOOD COUNT 3.16 MIL/MM3 (4.50-5.90); RED CELL DISTRIBUTION WIDTH 19.2 % (11.6-17.2); WHITE BLOOD COUNT 6.5 TH/MM3 (4.0-11.0)
[2018-01-16 07:00] LABS: BICARBONATE 24.8 MEQ/L (21.0-32.0); CALCIUM 7.5 MG/DL (8.5-10.1); CREATININE 0.5 MG/DL (0.60-1.30)
[2018-01-16 08:19] LABS: BANDS 49 % (0-6); BLASTS 2 % (0-0); CORRECTED NUCLEATED RBC 3 /100 WBC (0-0); LYMPHOCYTES 7 % (9-44); METAMYELOCYTES 7 % (0-1); MONOCYTES 11 % (0-8); MYELOCYTES 4 % (0-0); NUCLEATED RED BLOOD CELL 3 (0-0); OVALOCYTES 1+ (NORMAL); POLYS (SEG NEUTROPHILS) 17 % (16-70); TEARDROP RBCS 1+ (NORMAL)
[2018-01-16 08:20] LABS: POLYCHROMASIA 2.6 % (0.0-1.9)
[2018-01-16] MEDS: MORPHINE SULFATE 60 MG CONTROLLED RELEASE TAB PO SCH ×2 (08:29→20:39)
[2018-01-16] MEDS: PANTOPRAZOLE SOD 40 MG DELAYED RELEASE TAB PO SCH (08:30)
[2018-01-16] MEDS: MAGNESIUM OXIDE 400 MG TAB PO SCH ×2 (08:30→20:39)
[2018-01-16] MEDS: FINASTERIDE 5 MG TAB PO SCH (08:30)
[2018-01-16] MEDS: SODIUM CHLORIDE 0.9% FLUSH 10 ML FLUSH IV FLUSH SCH ×2 (10:17→20:41)
--- NOTE | 2018-01-16 10:28 | HHI.PR ---
Subjective Remarks Follow-up colorectal cancer/right sided pulmonary emboli/chronic rectal bleeding 01/12/18-patient seen and examined-patient spiking fevers, however denies any chest pain or shortness of breath. Not Much of an appetite. by the bedside. Brain MRI without any evidence of metastases. Denies any syncopal episode 01/13/18-patient seen and examined, spiking fevers and patient lethargic. Sepsis picture like 01/14/18-patient seen and examined, lethargic and shivering, family at the bedside 01/15/18-Chandra seen and examined, still spiking fever, shortness of breath, decrease appetite 01/16/18-patient seen and examined, afebrile and doing well. Feels like he has started to turn the corner. Objective Vitals Vital Signs Date Time Temp Pulse Resp B/P (MAP) Pulse Ox O2 Delivery O2 Flow Rate FiO2 01/16/18 08:00 98.3 104 18 112/74 (87) 100 01/16/18 04:00 98.8 107 18 126/48 (74) 94 01/16/18 04:00 104 01/16/18 00:12 98.5 109 16 126/72 (90) 100 01/16/18 00:00 106 01/15/18 22:33 16 01/15/18 20:40 99.1 103 16 110/72 (85) 99 01/15/18 20:00 103 01/15/18 17:13 98.6 105 20 117/75 (89) 99 01/15/18 17:00 104 01/15/18 16:00 108 01/15/18 15:00 112 01/15/18 14:00 106 01/15/18 13:00 102 01/15/18 12:00 108 01/15/18 12:00 108 01/15/18 11:05 97.1 116 20 101/73 (82) 98 01/15/18 11:00 110 I/O 01/15/18 01/15/18 01/15/18 01/16/18 01/16/18 01/16/18 07:00 15:00 23:00 07:00 15:00 23:00 Intake Total 1471.6 ml 575 ml 1603 ml 3884 ml Output Total 2250 ml 2425 ml 3500 ml Balance -778.4 ml 575 ml -822 ml 384 ml Intake Oral 720 ml 1192 ml 2880 ml IV Total 751.6 ml 575 ml 411 ml 1004 ml Output Urine Total 2000 ml 2425 ml 3500 ml Stool Total 250 ml Result Diagram: 01/16/1842901/16/18429 Objective Remarks GENERAL: lethargic SKIN: Warm and dry. HEAD: Normocephalic. EYES: No scleral icterus. No injection or drainage. NECK: Supple, trachea midline. No JVD or lymphadenopathy. CARDIOVASCULAR: Regular rate and rhythm without murmurs, gallops, or rubs. RESPIRATORY: Breath sounds equal bilaterally. No accessory muscle use. GASTROINTESTINAL: Abdomen soft, non-tender, nondistended. MUSCULOSKELETAL: No cyanosis, or edema. BACK: Nontender without obvious deformity. No CVA tenderness. A/P Problem List: (1) Pulmonary embolism ICD Code: I26.99 - Other pulmonary embolism without acute cor pulmonale Status: Acute (2) Metastatic cancer ICD Code: C79.9 - Secondary malignant neoplasm of unspecified site Status: Acute (3) Metastatic colorectal cancer ICD Code: C78.5 - Secondary malignant neoplasm of large intestine and rectum (4) Sepsis ICD Code: A41.9 - Sepsis, unspecified organism Assessment and Plan 57-year-old man with Sepsis-improving Currently on vancomycin, Meropenem and Flagyl Blood culture NTD ; UA negative Chest x-ray without any CPD Appreciate input from infectious disease specialist Leukocytosis Resolved Pulmonary embolism Currently on heparin drip and likely switch to Lovenox subcutaneous every 12 hours when medically stable Appreciate input from oncology History of stage IV colorectal cancer with metastases Brain MRI 01/11/18 without any evidence of metastasis disease status post radiation therapy 08/2017 Management per oncology Chronic pain syndrome Secondary to malignancy Continue with Oramorph Syncope-resolved Hypokalemia Improving with replacement History of chronic rectal bleed Patient with history of colorectal cancer H&H stable GI prophylaxis PPI DVT prophylaxis SCD chemoprophylaxis contraindicated due to Hemorrhage Problem Qualifiers (1) Pulmonary embolism: Qualified Codes: I26.99 - Other pulmonary embolism without acute cor pulmonale Devyn Gee MD Jan 16, 2018 10:28
--- NOTE | 2018-01-16 12:05 | PD.ONC.PN ---
Subjective Subjective Remarks Afebrile overnight. Patient resting in bed in nad. minimal rectal bleeding. feeling fatigued. denies headache. and daughter at bedside. Objective Data Date Time Temp Pulse Resp B/P (MAP) Pulse Ox O2 Delivery O2 Flow Rate FiO2 01/16/18 11:30 98.7 119 18 140/89 (106) 99 01/16/18 08:00 98.3 104 18 112/74 (87) 100 01/16/18 04:00 98.8 107 18 126/48 (74) 94 01/16/18 04:00 104 01/16/18 00:12 98.5 109 16 126/72 (90) 100 01/16/18 00:00 106 01/15/18 22:33 16 01/15/18 20:40 99.1 103 16 110/72 (85) 99 01/15/18 20:00 103 01/15/18 17:13 98.6 105 20 117/75 (89) 99 01/15/18 17:00 104 01/15/18 16:00 108 01/15/18 15:00 112 01/15/18 14:00 106 01/15/18 13:00 102 01/16/18 01/16/18 01/16/18 07:00 15:00 23:00 Intake Total 3884 ml Output Total 3500 ml Balance 384 ml Result Diagram: 01/16/18 0430 01/16/18 0430 Laboratory Results Laboratory Tests Test 01/15/18 12:03 01/15/18 17:35 01/16/18 04:30 Vancomycin Level Trough 10.2 MCG/ML Urine Osmolality 138 MOSM/KG Urine Random Sodium 50 MEQ/L White Blood Count 6.5 TH/MM3 Red Blood Count 3.16 MIL/MM3 Hemoglobin 9.1 GM/DL Hematocrit 27.5 % Mean Corpuscular Volume 86.8 FL Mean Corpuscular Hemoglobin 28.8 PG Mean Corpuscular Hemoglobin Concent 33.2 % Red Cell Distribution Width 19.2 % Platelet Count 125 TH/MM3 Mean Platelet Volume 8.8 FL CBC Comment AUTO DIFF Differential Total Cells Counted 100 Neutrophils % (Manual) 17 % Band Neutrophils % 49 % Lymphocytes % 7 % Monocytes % 11 % Eosinophils % 3 % Neutrophils # (Manual) 5.0 TH/MM3 Metamyelocytes 7 % Myelocytes 4 % Nucleated Red Blood Cells 3 /100 WBC Differential Comment FINAL DIFF MANUAL Blastocytes 2 % Platelet Estimate LOW Platelet Morphology Comment NORMAL Polychromasia 2.6 % Tear Drop Cells 1+ Ovalocytes 1+ Activated Partial Thromboplast Time 53.1 SEC Blood Urea Nitrogen 2 MG/DL Creatinine 0.50 MG/DL Random Glucose 83 MG/DL Calcium Level 7.5 MG/DL Sodium Level 145 MEQ/L Potassium Level 3.4 MEQ/L Chloride Level 111 MEQ/L Carbon Dioxide Level 24.8 MEQ/L Anion Gap 9 MEQ/L Estimat Glomerular Filtration Rate 171 ML/MIN Administered Medications Medications (Trade) Dose Ordered Sig/Jason Route PRN Reason Start Time Stop Time Status Last Admin Dose Admin Sodium Chloride 1,000 ml @ 150 mls/hr Q6H40M IV 01/09/18 21:54 01/16/18 04:24 Sodium Chloride (NS Flush) 2 ml UNSCH PRN IV FLUSH FLUSH AFTER USING IV ACCESS 01/09/18 22:00 01/14/18 05:28 Sodium Chloride (NS Flush) 2 ml BID IV FLUSH 01/10/18 09:00 01/16/18 10:17 Finasteride (Proscar) 5 mg DAILY PO 01/10/18 09:00 01/16/18 08:30 Hydromorphone HCl (Dilaudid) 4 mg Q4H PRN PO PAIN 01/09/18 22:45 Future hold 01/16/18 10:15 Pantoprazole Sodium (Protonix) 40 mg DAILY PO 01/10/18 09:00 01/16/18 08:30 Promethazine HCl (Phenergan) 25 mg Q6H PRN PO NAUSEA OR VOMITING 01/09/18 22:45 01/12/18 16:29 Tamsulosin HCl (Flomax) 0.4 mg HS PO 01/10/18 21:00 01/15/18 20:48 Magnesium Oxide (Mag-Ox) 400 mg Q12HR PO 01/12/18 21:00 01/16/18 08:30 Acetaminophen (Tylenol) 650 mg Q4H PRN PO fever 01/12/18 21:45 01/14/18 09:24 Diphenhydramine HCl (Benadryl Inj) 25 mg Q6H PRN IV PUSH Itching/hives 01/13/18 02:15 01/13/18 02:37 Metronidazole 100 ml @ 100 mls/hr Q8H IV 01/13/18 09:00 01/16/18 08:28 Acetaminophen (Tylenol) 650 mg Q4H PRN PO SEE LABEL COMMENTS 01/13/18 13:30 01/13/18 17:21 Diphenhydramine HCl (Benadryl) 25 mg Q4H PRN PO SEE LABEL COMMENTS 01/13/18 13:30 01/13/18 17:21 Meropenem 2000 mg/ Sodium Chloride 100 ml @ 200 mls/hr Q8H IV 01/13/18 17:00 01/16/18 10:16 Morphine Sulfate (Oramorph Sr) 60 mg BID PO 01/14/18 10:00 01/16/18 08:29 Filgrastim 480 mcg/Dextrose 51.6 ml @ 100 mls/hr DAILY@14 IV 01/14/18 20:00 01/15/18 16:15 Vancomycin HCl 2000 mg/Sodium Chloride 520 ml @ 257.5 mls/ hr Q12H IV 01/16/18 00:00 01/16/18 00:15 Lorazepam (Ativan) 1 mg Q6H PRN PO ANXIETY 01/15/18 19:30 01/16/18 11:24 Objective Remarks GENERAL: Middle aged male, lying in bed resting. SKIN: Warm and dry. HEAD: Normocephalic. EYES: No injection or drainage. NECK: Supple, trachea midline. CARDIOVASCULAR: +S1/S2, tachy RESPIRATORY: Breath sounds equal bilaterally. No accessory muscle use. GASTROINTESTINAL: Abdomen soft, non-tender, nondistended. EXTREMITIES: No cyanosis NEUROLOGICAL: awake but fatigued. normal speech. oriented and alert. Assessment/Plan Problem List: (1) Metastatic colorectal cancer ICD Codes: C78.5 - Secondary malignant neoplasm of large intestine and rectum Plan: --Repeat brain MRI shows no new lesions or worsening metastatic disease Hx: History of stage IV colorectal cancer. Currently undergoing palliative systemic chemotherapy consisting of FOLFIRI and panitumumab; mets to the liver, vertebral spine, pelvic bone and to the brain (2) Normocytic anemia ICD Codes: D64.9 - Anemia, unspecified Status: Acute Plan: --Anemia secondary to malignancy and chemotherapy. --closely monitor his hemoglobin. Check hemoglobin twice a day. --transfuse for a hemoglobin of 8 or less. (3) Pulmonary embolism ICD Codes: I26.99 - Other pulmonary embolism without acute cor pulmonale Status: Acute Plan: --01/16: stop heparin, cap Lovenox dose at 80mg SQ BID --Doppler ultrasound of lower extremities did not show any metastatic disease. (4) Thrombocytopenia ICD Codes: D69.6 - Thrombocytopenia, unspecified Plan: --d/t chemotherapy --monitor and transfuse as needed. Assessment 57y/o male with stage IV colorectal cancer admitted with near syncope, found to have PE on CTA. Plan 1. stop heparin 2. start Lovenox, cap dose at 80mg SQ BID 3. monitor hgb Attending Statement The exam, history, and the medical decision-making described in the above note were completed with the assistance of the mid-level provider. I reviewed and agree with the findings presented. I attest that I had a ibdi-vo-esta encounter with the patient on the same day, and personally performed and documented my assessment and findings in the medical record. No significant rectal bleeding overnight Heparin stopped. Lovenox 80m BID started monitor for bleeding/daily cbc no fevers overnight will stop Vancomycin and Flagyl tomorrow--ID following anal/rectal irritation/inflammed--->lidocaine jelly has helped with the burning sensation rash on lower extremity---> drug rash? apply triamcinolone to reduce pruritus treatment to be continued outpatient for KRAS wild type stage IV colorectal cancer will check CEA and LDH in am encourage oral intake patient's and daughter present during rounds complicated patient with multiple ongoing issues Problem Qualifiers (1) Pulmonary embolism: Qualified Codes: I26.99 - Other pulmonary embolism without acute cor pulmonale Paige Serrano Jan 16, 2018 12:05 El Perez MD Jan 16, 2018 23:07
--- NOTE | 2018-01-16 12:21 | HHI.IDPN ---
Note Infectious Disease Note Patient feels better. No headache. He was given Dilaudid because of pain in the rectum that occurred after Physical therapy. Temperature improved. No new symptoms. Blood cultures negative. WBC improving with Neupogen. 57-year-old white male who presented to emergency department on 01/09/2018. The patient fell while getting out of the shower at home and apparently was not verbal for about 30 seconds. He was brought to the emergency department for evaluation. He has a history of colon cancer with metastasis to the bone. He has received chemotherapy, last of which was given 2 weeks ago. The patient had elevated heart rate on admission. His workup revealed pulmonary embolism. He had elevated temperature of 101.3 on 01/12/2018 and chills. PAST MEDICAL HISTORY: Rectal cancer diagnosed 03/2016. The patient has been receiving chemotherapy. He has received radiation therapy. Diverting colostomy. Infusaport. History of knee surgery. ALLERGIES: NO KNOWN DRUG ALLERGIES. MEDICATIONS: Current Medications Medications (Trade) Dose Ordered Sig/Jason Route PRN Reason Start Time Stop Time Status Last Admin Dose Admin Sodium Chloride 1,000 ml @ 150 mls/hr Q6H40M IV 01/09/18 21:54 01/16/18 04:24 Sodium Chloride (NS Flush) 2 ml UNSCH PRN IV FLUSH FLUSH AFTER USING IV ACCESS 01/09/18 22:00 01/14/18 05:28 Sodium Chloride (NS Flush) 2 ml BID IV FLUSH 01/10/18 09:00 01/16/18 10:17 Naloxone HCl (Narcan Inj) 0.4 mg UNSCH PRN IV PUSH SEE LABEL COMMENTS 01/09/18 22:00 Finasteride (Proscar) 5 mg DAILY PO 01/10/18 09:00 01/16/18 08:30 Hydromorphone HCl (Dilaudid) 4 mg Q4H PRN PO PAIN 01/09/18 22:45 Future hold 01/16/18 10:15 Pantoprazole Sodium (Protonix) 40 mg DAILY PO 01/10/18 09:00 01/16/18 08:30 Promethazine HCl (Phenergan) 25 mg Q6H PRN PO NAUSEA OR VOMITING 01/09/18 22:45 01/12/18 16:29 Tamsulosin HCl (Flomax) 0.4 mg HS PO 01/10/18 21:00 01/15/18 20:48 Carboxymethylcellulose Sodium (Refresh Tears 0.5% Opth Soln) 1 drop Q6H PRN EACH EYE dry eyes 01/12/18 09:30 Magnesium Oxide (Mag-Ox) 400 mg Q12HR PO 01/12/18 21:00 01/16/18 08:30 Acetaminophen (Tylenol) 650 mg Q4H PRN PO fever 01/12/18 21:45 01/14/18 09:24 Pharmacy Profile Note 0 ml @ 0 mls/hr UNSCH OTHER 01/12/18 21:45 Diphenhydramine HCl (Benadryl Inj) 25 mg Q6H PRN IV PUSH Itching/hives 01/13/18 02:15 01/13/18 02:37 Metronidazole 100 ml @ 100 mls/hr Q8H IV 01/13/18 09:00 01/16/18 08:28 Acetaminophen (Tylenol) 650 mg Q4H PRN PO SEE LABEL COMMENTS 01/13/18 13:30 01/13/18 17:21 Diphenhydramine HCl (Benadryl) 25 mg Q4H PRN PO SEE LABEL COMMENTS 01/13/18 13:30 01/13/18 17:21 Meropenem 2000 mg/ Sodium Chloride 100 ml @ 200 mls/hr Q8H IV 01/13/18 17:00 01/16/18 10:16 Morphine Sulfate (Oramorph Sr) 60 mg BID PO 01/14/18 10:00 01/16/18 08:29 Filgrastim 480 mcg/Dextrose 51.6 ml @ 100 mls/hr DAILY@14 IV 01/14/18 20:00 01/15/18 16:15 Vancomycin HCl 2000 mg/Sodium Chloride 520 ml @ 257.5 mls/ hr Q12H IV 01/16/18 00:00 01/16/18 00:15 Miscellaneous Information SPECIFIC LAB TO BE DRAWN:VANCOMYCIN TROUGH DATE TO... ONCE ONCE .XX 01/17/18 11:45 01/17/18 11:46 Lorazepam (Ativan) 1 mg Q6H PRN PO ANXIETY 01/15/18 19:30 01/16/18 11:24 Enoxaparin Sodium (Lovenox Inj) 80 mg Q12H SQ 01/16/18 12:00 UNV OBJECTIVE: Vital Signs Date Time Temp Pulse Resp B/P (MAP) Pulse Ox O2 Delivery O2 Flow Rate FiO2 01/16/18 11:30 98.7 119 18 140/89 (106) 99 01/16/18 08:00 98.3 104 18 112/74 (87) 100 01/16/18 04:00 98.8 107 18 126/48 (74) 94 01/16/18 04:00 104 01/16/18 00:12 98.5 109 16 126/72 (90) 100 01/16/18 00:00 106 01/15/18 22:33 16 01/15/18 20:40 99.1 103 16 110/72 (85) 99 01/15/18 20:00 103 01/15/18 17:13 98.6 105 20 117/75 (89) 99 01/15/18 17:00 104 01/15/18 16:00 108 01/15/18 15:00 112 01/15/18 14:00 106 01/15/18 13:00 102 Laboratory Tests Test 01/15/18 05:00 01/16/18 04:30 White Blood Count 3.0 TH/MM3 6.5 TH/MM3 Red Blood Count 3.22 MIL/MM3 3.16 MIL/MM3 Hemoglobin 9.2 GM/DL 9.1 GM/DL Hematocrit 27.8 % 27.5 % Mean Corpuscular Volume 86.4 FL 86.8 FL Mean Corpuscular Hemoglobin 28.7 PG 28.8 PG Mean Corpuscular Hemoglobin Concent 33.2 % 33.2 % Red Cell Distribution Width 18.5 % 19.2 % Platelet Count 140 TH/MM3 125 TH/MM3 Mean Platelet Volume 9.5 FL 8.8 FL CBC Comment AUTO DIFF AUTO DIFF Differential Total Cells Counted 100 100 Neutrophils % (Manual) 59 % 17 % Band Neutrophils % 15 % 49 % Lymphocytes % 8 % 7 % Monocytes % 13 % 11 % Eosinophils % 2 % 3 % Neutrophils # (Manual) 2.3 TH/MM3 5.0 TH/MM3 Metamyelocytes 1 % 7 % Myelocytes 2 % 4 % Nucleated Red Blood Cells 2 /100 WBC 3 /100 WBC Differential Comment FINAL DIFF MANUAL FINAL DIFF MANUAL Platelet Estimate LOW LOW Platelet Morphology Comment NORMAL NORMAL Ovalocytes 1+ 1+ Blastocytes 2 % Polychromasia 2.6 % Tear Drop Cells 1+ Laboratory Tests Test 01/15/18 05:00 01/16/18 04:30 Blood Urea Nitrogen 3 MG/DL 2 MG/DL Creatinine 0.54 MG/DL 0.50 MG/DL Random Glucose 95 MG/DL 83 MG/DL Calcium Level 7.5 MG/DL 7.5 MG/DL Sodium Level 142 MEQ/L 145 MEQ/L Potassium Level 3.1 MEQ/L 3.4 MEQ/L Chloride Level 109 MEQ/L 111 MEQ/L Carbon Dioxide Level 23.0 MEQ/L 24.8 MEQ/L Anion Gap 10 MEQ/L 9 MEQ/L Estimat Glomerular Filtration Rate 157 ML/MIN 171 ML/MIN IMAGING: Chest X-Ray 01/12/18 0000 Signed Impressions: Service Date/Time: Friday, January 12, 2018 22:02 - CONCLUSION: 1. Subsegmental basilar opacity, probably atelectasis. [id number] in superior vena cava. Sigifredo Valdovinos MD Brain MRI 01/11/18 0000 Signed Impressions: Service Date/Time: Thursday, January 11, 2018 15:59 - CONCLUSION: 1. The examination demonstrates wide spread bony metastatic disease with involvement of the clivus and upper cervical spine. 2. No findings to indicate metastatic disease to the brain parenchyma are identified. Jamar Monahan MD Lower Extremity Ultrasound 01/09/18 0000 Signed Impressions: Service Date/Time: Tuesday, January 09, 2018 23:07 - CONCLUSION: Normal examination. Sina Meyer Jr., MD CT Angiography 01/09/18 0000 Signed Impressions: Service Date/Time: Tuesday, January 09, 2018 21:05 - CONCLUSION: 1. Small to moderate right lung pulmonary emboli involving the upper and lower lobes. 2. Mild bibasilar atelectasis. 3. Upper limits of normal to mildly enlarged paraesophageal lymph nodes. 4. Probable fatty liver. Clyde Santoro MD PHYSICAL EXAMINATION: GENERAL: No acute distress. Appears drowsy from pain medication. HEENT: No icterus. No conjunctival erythema. Oropharynx: moist mucosa. NECK: Supple without adenopathy. LUNGS: Clear breath sounds. CHEST: [id number] in the right chest without evidence of infection. HEART: Regular S1 and S2, no murmurs, rubs or gallops. ABDOMEN: Bowel sounds present. Soft, no tenderness. EXTREMITIES: No clubbing or cyanosis. Trace edema. SKIN: No diffuse rash. NEUROLOGIC: No gross focal finding. PSYCHIATRIC: Calm and cooperative. IMPRESSION: 1. Sepsis indicated by elevated temperature and elevated heart rate, along with altered mental status (patient reported to be hallucinating) and leukopenia on admission. No clear source. Blood culture negative. 2. Leukopenia. 3. Immunosuppression in patient who has received chemotherapy for rectal cancer with metastases. 4. Abnormal chest x-ray. 5. Pulmonary embolism. 6. Fever. Could be due to infection. Also pulmonary embolism could cause fever. Looks clinically improved. RECOMMENDATIONS: 1. Continue vancomycin. 2. Continue metronidazole. 3. Continue meropenem. 4. Chest x-ray today. 5. Monitor temperature and blood counts. 6. Follow clinical course Antibiotics taper if he remains afebrile for 48 hours and no new evidence suggesting infection. Discussed with family at bedside. Philip Padilla MD Jan 16, 2018 12:21
[2018-01-16] MEDS: ENOXAPARIN SODIUM 80 MG/0.8 ML SYRINGE SQ SCH (12:58)
[2018-01-16] MEDS: FILGRASTIM INJ 480 MCG in DEXTROSE 5% IN WATER INJ 50 ML IV SCH ×2 (14:50)
[2018-01-16] MEDS: TAMSULOSIN HCL 0.4 MG CAP PO SCH (20:39)
[2018-01-16] MEDS ORDERED: TRIAMCINOLONE ACETONIDE 0.1% CREAM 15 GM TOPICAL ONE (23:00)
[2018-01-17] VITALS (21 sets, daily range): BP systolic 92–120; BP diastolic 66–82; PULSE 96–124; RESP 16–20; TEMP 97.7–99.4; O2SAT 96–99
[2018-01-17] MEDS: VANCOMYCIN INJ 2,000 MG in SODIUM CHLORID 0.9% 500 ML INJ 500 ML IV SCH ×2 (00:11→13:51)
[2018-01-17] MEDS: LIDOCAINE 2% JELLY 30 ML TUBE TOPICAL PRN ×2 (00:18→09:46)
[2018-01-17] MEDS: ENOXAPARIN SODIUM 80 MG/0.8 ML SYRINGE SQ SCH ×2 (00:19→12:34)
[2018-01-17] MEDS: metroNIDAZOLE 500 MG INJ 100 ML IV SCH ×2 (01:57→09:48)
[2018-01-17] MEDS: MEROPENEM INJ 2,000 MG in SODIUM CHLORIDE 0.9% INJ 100 ML IV SCH ×2 (01:57→12:37)
[2018-01-17] MEDS: LORazepam 2 MG TAB PO PRN (05:29)
[2018-01-17 06:18] LABS: HEMATOCRIT 28.2 % (39.0-51.0); HEMOGLOBIN 9.2 GM/DL (13.0-17.0); MEAN CELL VOLUME 86.6 FL (80.0-100.0); MEAN CORPUSCULAR HEMOGLOBIN 28.3 PG (27.0-34.0); MEAN CORPUSCULAR HGB CONC 32.7 % (32.0-36.0); MEAN PLATELET VOLUME 9.3 FL (7.0-11.0); PLATELET COUNT 104 TH/MM3 (150-450); RED BLOOD COUNT 3.25 MIL/MM3 (4.50-5.90); RED CELL DISTRIBUTION WIDTH 18.4 % (11.6-17.2); WHITE BLOOD COUNT 15.7 TH/MM3 (4.0-11.0)
[2018-01-17] MEDS: TRIAMCINOLONE ACETONIDE 0.1% CREAM 15 GM TOPICAL SCH ×2 (09:00→12:00)
[2018-01-17] MEDS: MAGNESIUM OXIDE 400 MG TAB PO SCH ×2 (09:47→21:42)
[2018-01-17] MEDS: FINASTERIDE 5 MG TAB PO SCH (09:47)
[2018-01-17] MEDS: PANTOPRAZOLE SOD 40 MG DELAYED RELEASE TAB PO SCH (09:47)
[2018-01-17] MEDS: MORPHINE SULFATE 60 MG CONTROLLED RELEASE TAB PO SCH ×2 (09:48→21:41)
[2018-01-17] MEDS: SODIUM CHLORIDE 0.9% FLUSH 10 ML FLUSH IV FLUSH SCH ×2 (09:49→21:41)
--- NOTE | 2018-01-17 10:34 | HHI.PR ---
Subjective Remarks Follow-up colorectal cancer/right sided pulmonary emboli/chronic rectal bleeding 01/12/18-patient seen and examined-patient spiking fevers, however denies any chest pain or shortness of breath. Not Much of an appetite. by the bedside. Brain MRI without any evidence of metastases. Denies any syncopal episode 01/13/18-patient seen and examined, spiking fevers and patient lethargic. Sepsis picture like 01/14/18-patient seen and examined, lethargic and shivering, family at the bedside 01/15/18-Chandra seen and examined, still spiking fever, shortness of breath, decrease appetite 01/16/18-patient seen and examined, afebrile and doing well. Feels like he has started to turn the corner. 01/17/18-patient seen and examined, currently afebrile, was able to tolerate by mouth yesterday without any complication of nausea or vomiting Objective Vitals Vital Signs Date Time Temp Pulse Resp B/P (MAP) Pulse Ox O2 Delivery O2 Flow Rate FiO2 01/17/18 07:10 99.1 117 18 108/79 (89) 97 01/17/18 05:23 98.1 110 20 119/66 (83) 97 01/17/18 04:16 110 01/17/18 00:12 97.7 109 18 118/74 (89) 96 01/17/18 00:06 115 01/16/18 21:35 18 01/16/18 21:35 18 01/16/18 20:43 97.5 107 18 106/74 (85) 99 01/16/18 20:00 104 01/16/18 16:00 98.8 104 18 140/60 (86) 98 01/16/18 12:00 98.0 76 20 161/71 (101) 92 01/16/18 11:30 98.7 119 18 140/89 (106) 99 I/O 01/16/18 01/16/18 01/16/18 01/17/18 01/17/18 01/17/18 06:59 14:59 22:59 06:59 14:59 22:59 Intake Total 3884 ml 240 ml 480 ml Output Total 3500 ml 5300 ml 1650 ml Balance 384 ml -5060 ml -1170 ml Intake Oral 2880 ml 240 ml 480 ml IV Total 1004 ml Output Urine Total 3500 ml 5300 ml 1650 ml Drainage Total 0 ml Result Diagram: 01/17/18 0535 01/16/18 0430 Imaging Last Impressions Chest X-Ray 01/12/18 0000 Signed Impressions: Service Date/Time: Friday, January 12, 2018 22:02 - CONCLUSION: 1. Subsegmental basilar opacity, probably atelectasis. [id number] in superior vena cava. Sigifredo Valdovinos MD Brain MRI 01/11/18 0000 Signed Impressions: Service Date/Time: Thursday, January 11, 2018 15:59 - CONCLUSION: 1. The examination demonstrates wide spread bony metastatic disease with involvement of the clivus and upper cervical spine. 2. No findings to indicate metastatic disease to the brain parenchyma are identified. Jamar Monahan MD Lower Extremity Ultrasound 01/09/18 0000 Signed Impressions: Service Date/Time: Tuesday, January 09, 2018 23:07 - CONCLUSION: Normal examination. Sina Meyer Jr., MD CT Angiography 01/09/18 0000 Signed Impressions: Service Date/Time: Tuesday, January 09, 2018 21:05 - CONCLUSION: 1. Small to moderate right lung pulmonary emboli involving the upper and lower lobes. 2. Mild bibasilar atelectasis. 3. Upper limits of normal to mildly enlarged paraesophageal lymph nodes. 4. Probable fatty liver. Clyde Santoro MD Objective Remarks GENERAL: NAD SKIN: Warm and dry. HEAD: Normocephalic. EYES: No scleral icterus. No injection or drainage. NECK: Supple, trachea midline. No JVD or lymphadenopathy. CARDIOVASCULAR: Regular rate and rhythm without murmurs, gallops, or rubs. RESPIRATORY: Breath sounds equal bilaterally. No accessory muscle use. GASTROINTESTINAL: Abdomen soft, non-tender, nondistended. MUSCULOSKELETAL: No cyanosis, or edema. BACK: Nontender without obvious deformity. No CVA tenderness. A/P Problem List: (1) Pulmonary embolism ICD Code: I26.99 - Other pulmonary embolism without acute cor pulmonale Status: Acute (2) Metastatic cancer ICD Code: C79.9 - Secondary malignant neoplasm of unspecified site Status: Acute (3) Metastatic colorectal cancer ICD Code: C78.5 - Secondary malignant neoplasm of large intestine and rectum (4) Sepsis ICD Code: A41.9 - Sepsis, unspecified organism Assessment and Plan 57-year-old man with Sepsis-improving Currently on vancomycin, Meropenem and Flagyl Blood culture NTD ; UA negative Chest x-ray without any CPD Currently afebrile Appreciate input from infectious disease specialist Leukocytosis Resolved Pulmonary embolism Currently on Lovenox subcutaneous every 12 hours . Status post heparin drip Appreciate input from oncology History of stage IV colorectal cancer with metastases Brain MRI 01/11/18 without any evidence of metastasis disease status post radiation therapy 08/2017 Management per oncology Chronic pain syndrome Secondary to malignancy Continue with Oramorph Syncope-resolved Hypokalemia Improving with replacement History of chronic rectal bleed Patient with history of colorectal cancer H&H stable GI prophylaxis PPI DVT prophylaxis SCD chemoprophylaxis contraindicated due to Hemorrhage Problem Qualifiers (1) Pulmonary embolism: Qualified Codes: I26.99 - Other pulmonary embolism without acute cor pulmonale Devyn Gee MD Jan 17, 2018 10:34
[2018-01-17] MEDS ORDERED: PHARMACY ORDERED LAB ONE (11:45)
--- NOTE | 2018-01-17 11:49 | PD.ONC.PN ---
Subjective Subjective Remarks T-max 99.1 Patient reports he is currently pain-free Reports he is sleepy No bleeding Objective Data Date Time Temp Pulse Resp B/P (MAP) Pulse Ox O2 Delivery O2 Flow Rate FiO2 01/17/18 07:10 99.1 117 18 108/79 (89) 97 01/17/18 05:23 98.1 110 20 119/66 (83) 97 01/17/18 04:16 110 01/17/18 00:12 97.7 109 18 118/74 (89) 96 01/17/18 00:06 115 01/16/18 21:35 18 01/16/18 21:35 18 01/16/18 20:43 97.5 107 18 106/74 (85) 99 01/16/18 20:00 104 01/16/18 16:00 98.8 104 18 140/60 (86) 98 01/16/18 12:00 98.0 76 20 161/71 (101) 92 01/17/18 01/17/18 01/17/18 07:00 15:00 23:00 Intake Total 240 ml Output Total 550 ml Balance -310 ml Result Diagram: 01/17/18 0535 01/16/18 0430 Laboratory Results Laboratory Tests Test 01/17/18 05:35 White Blood Count 15.7 TH/MM3 Red Blood Count 3.25 MIL/MM3 Hemoglobin 9.2 GM/DL Hematocrit 28.2 % Mean Corpuscular Volume 86.6 FL Mean Corpuscular Hemoglobin 28.3 PG Mean Corpuscular Hemoglobin Concent 32.7 % Red Cell Distribution Width 18.4 % Platelet Count 104 TH/MM3 Mean Platelet Volume 9.3 FL Activated Partial Thromboplast Time 36.9 SEC Lactate Dehydrogenase 501 U/L Carcinoembryonic Antigen 181.7 NG/ML Administered Medications Medications (Trade) Dose Ordered Sig/Jason Route PRN Reason Start Time Stop Time Status Last Admin Dose Admin Sodium Chloride 1,000 ml @ 42 mls/hr [id number] IV 01/09/18 21:54 01/16/18 17:01 Sodium Chloride (NS Flush) 2 ml UNSCH PRN IV FLUSH FLUSH AFTER USING IV ACCESS 01/09/18 22:00 01/14/18 05:28 Sodium Chloride (NS Flush) 2 ml BID IV FLUSH 01/10/18 09:00 01/17/18 09:49 Finasteride (Proscar) 5 mg DAILY PO 01/10/18 09:00 01/17/18 09:47 Hydromorphone HCl (Dilaudid) 4 mg Q4H PRN PO PAIN 01/09/18 22:45 Future hold 01/16/18 20:39 Pantoprazole Sodium (Protonix) 40 mg DAILY PO 01/10/18 09:00 01/17/18 09:47 Promethazine HCl (Phenergan) 25 mg Q6H PRN PO NAUSEA OR VOMITING 01/09/18 22:45 01/12/18 16:29 Tamsulosin HCl (Flomax) 0.4 mg HS PO 01/10/18 21:00 01/16/18 20:39 Magnesium Oxide (Mag-Ox) 400 mg Q12HR PO 01/12/18 21:00 01/17/18 09:47 Acetaminophen (Tylenol) 650 mg Q4H PRN PO fever 01/12/18 21:45 01/14/18 09:24 Diphenhydramine HCl (Benadryl Inj) 25 mg Q6H PRN IV PUSH Itching/hives 01/13/18 02:15 01/13/18 02:37 Metronidazole 100 ml @ 100 mls/hr Q8H IV 01/13/18 09:00 01/17/18 09:48 Acetaminophen (Tylenol) 650 mg Q4H PRN PO SEE LABEL COMMENTS 01/13/18 13:30 01/13/18 17:21 Diphenhydramine HCl (Benadryl) 25 mg Q4H PRN PO SEE LABEL COMMENTS 01/13/18 13:30 01/13/18 17:21 Meropenem 2000 mg/ Sodium Chloride 100 ml @ 200 mls/hr Q8H IV 01/13/18 17:00 01/17/18 01:57 Morphine Sulfate (Oramorph Sr) 60 mg BID PO 01/14/18 10:00 01/17/18 09:48 Filgrastim 480 mcg/Dextrose 51.6 ml @ 100 mls/hr DAILY@14 IV 01/14/18 20:00 Future Hold 01/16/18 14:50 Vancomycin HCl 2000 mg/Sodium Chloride 520 ml @ 257.5 mls/ hr Q12H IV 01/16/18 00:00 01/17/18 00:11 Lorazepam (Ativan) 1 mg Q6H PRN PO ANXIETY 01/15/18 19:30 01/17/18 05:29 Enoxaparin Sodium (Lovenox Inj) 80 mg Q12H SQ 01/16/18 13:00 01/17/18 00:19 Triamcinolone Acetonide (Aristocort 0.1% Cream) 1 applic Q6HR TOPICAL 01/17/18 09:00 01/17/18 09:00 Lidocaine HCl (Xylocaine 2% Jelly) 1 applic BID PRN TOPICAL pain 01/16/18 23:00 01/17/18 09:46 Objective Remarks GENERAL: Middle aged male, supine in bed in no obvious distress SKIN: Warm and dry. HEAD: Normocephalic. EYES: No injection or drainage. NECK: Supple, trachea midline. CARDIOVASCULAR: Tachycardia rate; normal rhythm RESPIRATORY: Breath sounds equal bilaterally. No accessory muscle use. GASTROINTESTINAL: Abdomen soft, non-tender, nondistended. EXTREMITIES: No cyanosis. No edema NEUROLOGICAL: Normal speech. Moving all extremities. Assessment/Plan Problem List: (1) Metastatic colorectal cancer ICD Codes: C78.5 - Secondary malignant neoplasm of large intestine and rectum Plan: --Repeat brain MRI shows no new lesions or worsening metastatic disease Hx: History of stage IV colorectal cancer. Currently undergoing palliative systemic chemotherapy consisting of FOLFIRI and panitumumab; mets to the liver, vertebral spine, pelvic bone and to the brain (2) Normocytic anemia ICD Codes: D64.9 - Anemia, unspecified Status: Acute Plan: --Anemia secondary to malignancy and chemotherapy. --closely monitor his hemoglobin. Check hemoglobin twice a day. --transfuse for a hemoglobin of 8 or less. (3) Pulmonary embolism ICD Codes: I26.99 - Other pulmonary embolism without acute cor pulmonale Status: Acute Plan: --01/16: stop heparin, cap Lovenox dose at 80mg SQ BID --Doppler ultrasound of lower extremities did not show any DVT. (4) Thrombocytopenia ICD Codes: D69.6 - Thrombocytopenia, unspecified Plan: --d/t chemotherapy --monitor and transfuse as needed. Assessment 57y/o male with stage IV colorectal cancer admitted with near syncope, found to have PE on CTA. Plan 1. Continue Lovenox at 80 mg subcu twice daily 2. Noted leukocytosis; this is due to recent Neupogen 3. Appreciate ID input Attending Statement The exam, history, and the medical decision-making described in the above note were completed with the assistance of the mid-level provider. I reviewed and agree with the findings presented. I attest that I had a [id number] encounter with the patient on the same day, and personally performed and documented my assessment and findings in the medical record. no significant bleeding on therapeutic dose Lovenox for PE Hb stable tachycardic likely from PE in anticipation of drop of Hb with chemotherapy next week,will give 1 unit of pRBC' stop all antibiotics low grades fever likely from PE no evidence of infection thus far had episodes of confusion due to hospital delirium expose to sunlight ambulate during the day monitor temperature curve may be able to discharge home tomorrow Problem Qualifiers (1) Pulmonary embolism: Qualified Codes: I26.99 - Other pulmonary embolism without acute cor pulmonale Tina Brambila Jan 17, 2018 11:49 El Perez MD Jan 17, 2018 22:32
[2018-01-17 14:46] LABS: ALBUMIN 1.9 GM/DL (3.4-5.0); AST (GOT) 22 U/L (15-37); BICARBONATE 25.3 MEQ/L (21.0-32.0); BLOOD UREA NITROGEN 3 MG/DL (7-18); CALCIUM 8.2 MG/DL (8.5-10.1); CHLORIDE 108 MEQ/L (98-107); CREATININE 0.54 MG/DL (0.60-1.30); GLOMERULAR FILTRATION RATE 157 ML/MIN (>89); GLUCOSE,RANDOM 136 MG/DL (74-106); SODIUM (NA) 142 MEQ/L (136-145)
[2018-01-17 14:47] LABS: ALT (GPT) 17 U/L (12-78)
[2018-01-17 14:49] LABS: ALKALINE PHOSPHATASE 124 U/L (45-117); TOTAL BILIRUBIN ADULT 0.2 MG/DL (0.2-1.0)
--- NOTE | 2018-01-17 15:57 | HHI.IDPN ---
Note Infectious Disease Note Patient is sleepy. reports that he has been sleeping often none today. No complaints. As usual pain associated with the rectum. Afebrile. Blood cultures negative. 57-year-old white male who presented to emergency department on 01/09/2018. The patient fell while getting out of the shower at home and apparently was not verbal for about 30 seconds. He was brought to the emergency department for evaluation. He has a history of colon cancer with metastasis to the bone. He has received chemotherapy, last of which was given 2 weeks ago. The patient had elevated heart rate on admission. His workup revealed pulmonary embolism. He had elevated temperature of 101.3 on 01/12/2018 and chills. PAST MEDICAL HISTORY: Rectal cancer diagnosed 03/2016. The patient has been receiving chemotherapy. He has received radiation therapy. Diverting colostomy. Infusaport. History of knee surgery. ALLERGIES: NO KNOWN DRUG ALLERGIES. MEDICATIONS: Current Medications Medications (Trade) Dose Ordered Sig/Jason Route PRN Reason Start Time Stop Time Status Last Admin Dose Admin Sodium Chloride 1,000 ml @ 42 mls/hr [id number] IV 01/09/18 21:54 01/16/18 17:01 Sodium Chloride (NS Flush) 2 ml UNSCH PRN IV FLUSH FLUSH AFTER USING IV ACCESS 01/09/18 22:00 01/14/18 05:28 Sodium Chloride (NS Flush) 2 ml BID IV FLUSH 01/10/18 09:00 01/17/18 09:49 Naloxone HCl (Narcan Inj) 0.4 mg UNSCH PRN IV PUSH SEE LABEL COMMENTS 01/09/18 22:00 Finasteride (Proscar) 5 mg DAILY PO 01/10/18 09:00 01/17/18 09:47 Hydromorphone HCl (Dilaudid) 4 mg Q4H PRN PO PAIN 01/09/18 22:45 Future hold 01/16/18 20:39 Pantoprazole Sodium (Protonix) 40 mg DAILY PO 01/10/18 09:00 01/17/18 09:47 Promethazine HCl (Phenergan) 25 mg Q6H PRN PO NAUSEA OR VOMITING 01/09/18 22:45 01/12/18 16:29 Tamsulosin HCl (Flomax) 0.4 mg HS PO 01/10/18 21:00 01/16/18 20:39 Carboxymethylcellulose Sodium (Refresh Tears 0.5% Opth Soln) 1 drop Q6H PRN EACH EYE dry eyes 01/12/18 09:30 Magnesium Oxide (Mag-Ox) 400 mg Q12HR PO 01/12/18 21:00 01/17/18 09:47 Acetaminophen (Tylenol) 650 mg Q4H PRN PO fever 01/12/18 21:45 01/14/18 09:24 Pharmacy Profile Note 0 ml @ 0 mls/hr UNSCH OTHER 01/12/18 21:45 Diphenhydramine HCl (Benadryl Inj) 25 mg Q6H PRN IV PUSH Itching/hives 01/13/18 02:15 01/13/18 02:37 Metronidazole 100 ml @ 100 mls/hr Q8H IV 01/13/18 09:00 01/17/18 09:48 Acetaminophen (Tylenol) 650 mg Q4H PRN PO SEE LABEL COMMENTS 01/13/18 13:30 01/13/18 17:21 Diphenhydramine HCl (Benadryl) 25 mg Q4H PRN PO SEE LABEL COMMENTS 01/13/18 13:30 01/13/18 17:21 Meropenem 2000 mg/ Sodium Chloride 100 ml @ 200 mls/hr Q8H IV 01/13/18 17:00 01/17/18 12:37 Morphine Sulfate (Oramorph Sr) 60 mg BID PO 01/14/18 10:00 01/17/18 09:48 Filgrastim 480 mcg/Dextrose 51.6 ml @ 100 mls/hr DAILY@14 IV 01/14/18 20:00 Future Hold 01/16/18 14:50 Vancomycin HCl 2000 mg/Sodium Chloride 520 ml @ 257.5 mls/ hr Q12H IV 01/16/18 00:00 01/17/18 13:51 Lorazepam (Ativan) 1 mg Q6H PRN PO ANXIETY 01/15/18 19:30 01/17/18 05:29 Enoxaparin Sodium (Lovenox Inj) 80 mg Q12H SQ 01/16/18 13:00 01/17/18 12:34 Triamcinolone Acetonide (Aristocort 0.1% Cream) 1 applic Q6HR TOPICAL 01/17/18 09:00 01/17/18 09:00 Lidocaine HCl (Xylocaine 2% Jelly) 1 applic BID PRN TOPICAL pain 01/16/18 23:00 01/17/18 09:46 Miscellaneous Information SPECIFIC LAB TO BE DRAWN:VANCO TROUGH DATE TO... ONCE ONCE .XX 01/18/18 11:45 01/18/18 11:46 OBJECTIVE: Vital Signs Date Time Temp Pulse Resp B/P (MAP) Pulse Ox O2 Delivery O2 Flow Rate FiO2 01/16/18 11:30 98.7 119 18 140/89 (106) 99 01/16/18 08:00 98.3 104 18 112/74 (87) 100 01/16/18 04:00 98.8 107 18 126/48 (74) 94 01/16/18 04:00 104 01/16/18 00:12 98.5 109 16 126/72 (90) 100 01/16/18 00:00 106 01/15/18 22:33 16 01/15/18 20:40 99.1 103 16 110/72 (85) 99 01/15/18 20:00 103 01/15/18 17:13 98.6 105 20 117/75 (89) 99 01/15/18 17:00 104 01/15/18 16:00 108 01/15/18 15:00 112 01/15/18 14:00 106 01/15/18 13:00 102 Laboratory Tests Test 01/16/18 04:30 01/17/18 05:35 White Blood Count 6.5 TH/MM3 15.7 TH/MM3 Red Blood Count 3.16 MIL/MM3 3.25 MIL/MM3 Hemoglobin 9.1 GM/DL 9.2 GM/DL Hematocrit 27.5 % 28.2 % Mean Corpuscular Volume 86.8 FL 86.6 FL Mean Corpuscular Hemoglobin 28.8 PG 28.3 PG Mean Corpuscular Hemoglobin Concent 33.2 % 32.7 % Red Cell Distribution Width 19.2 % 18.4 % Platelet Count 125 TH/MM3 104 TH/MM3 Mean Platelet Volume 8.8 FL 9.3 FL CBC Comment AUTO DIFF Differential Total Cells Counted 100 Neutrophils % (Manual) 17 % Band Neutrophils % 49 % Lymphocytes % 7 % Monocytes % 11 % Eosinophils % 3 % Neutrophils # (Manual) 5.0 TH/MM3 Metamyelocytes 7 % Myelocytes 4 % Nucleated Red Blood Cells 3 /100 WBC Differential Comment FINAL DIFF MANUAL Blastocytes 2 % Platelet Estimate LOW Platelet Morphology Comment NORMAL Polychromasia 2.6 % Tear Drop Cells 1+ Ovalocytes 1+ Laboratory Tests Test 01/16/18 04:30 01/17/18 05:35 01/17/18 12:58 Blood Urea Nitrogen 2 MG/DL 3 MG/DL Creatinine 0.50 MG/DL 0.54 MG/DL Random Glucose 83 MG/DL 136 MG/DL Calcium Level 7.5 MG/DL 8.2 MG/DL Sodium Level 145 MEQ/L 142 MEQ/L Potassium Level 3.4 MEQ/L 3.4 MEQ/L Chloride Level 111 MEQ/L 108 MEQ/L Carbon Dioxide Level 24.8 MEQ/L 25.3 MEQ/L Anion Gap 9 MEQ/L 9 MEQ/L Estimat Glomerular Filtration Rate 171 ML/MIN 157 ML/MIN Lactate Dehydrogenase 501 U/L Carcinoembryonic Antigen 181.7 NG/ML Total Protein 5.0 GM/DL Albumin 1.9 GM/DL Alkaline Phosphatase 124 U/L Aspartate Amino Transf (AST/SGOT) 22 U/L Alanine Aminotransferase (ALT/SGPT) 17 U/L Total Bilirubin 0.2 MG/DL IMAGING: Chest X-Ray 01/12/18 0000 Signed Impressions: Service Date/Time: Friday, January 12, 2018 22:02 - CONCLUSION: 1. Subsegmental basilar opacity, probably atelectasis. Atelkp-[id number]-Vlax in superior vena cava. Sigifredo Valdovinos MD Brain MRI 01/11/18 0000 Signed Impressions: Service Date/Time: Thursday, January 11, 2018 15:59 - CONCLUSION: 1. The examination demonstrates wide spread bony metastatic disease with involvement of the clivus and upper cervical spine. 2. No findings to indicate metastatic disease to the brain parenchyma are identified. Jamar Monahan MD Lower Extremity Ultrasound 01/09/18 0000 Signed Impressions: Service Date/Time: Tuesday, January 09, 2018 23:07 - CONCLUSION: Normal examination. Sina Meyer Jr., MD CT Angiography 01/09/18 0000 Signed Impressions: Service Date/Time: Tuesday, January 09, 2018 21:05 - CONCLUSION: 1. Small to moderate right lung pulmonary emboli involving the upper and lower lobes. 2. Mild bibasilar atelectasis. 3. Upper limits of normal to mildly enlarged paraesophageal lymph nodes. 4. Probable fatty liver. Clyde Santoro MD PHYSICAL EXAMINATION: GENERAL: No acute distress. Somnolent. HEENT: No icterus. No conjunctival erythema. Oropharynx: moist mucosa. NECK: No adenopathy or swelling. LUNGS: Clear breath sounds. CHEST: Atmuc-W-rzps in the right chest without evidence of infection. HEART: Regular S1 and S2, no murmurs, rubs or gallops. ABDOMEN: Bowel sounds present. Soft, no tenderness. EXTREMITIES: No clubbing or cyanosis. No edema. SKIN: No diffuse rash. NEUROLOGIC: No gross focal finding. PSYCHIATRIC: Calm and cooperative. IMPRESSION: 1. Sepsis indicated by elevated temperature and elevated heart rate, along with altered mental status (patient reported to be hallucinating) and leukopenia on admission. No clear source. Blood culture negative. Temperature improved. 2. Leukopenia. White blood cell count elevated with Neupogen. 3. Immunosuppression in patient who has received chemotherapy for rectal cancer with metastases. 4. Abnormal chest x-ray. Probable atelectasis. 5. Pulmonary embolism. 6. Fever. Could be due to infection. Also pulmonary embolism could cause fever. Appears stable. RECOMMENDATIONS: 1. Stop vancomycin. 2. Stop metronidazole. 3. Stop meropenem. 4. Monitor temperature. 5. Follow clinical course I forgot to order the x-ray yesterday. However his lung exam is unremarkable and therefore will hold off for now. Discussed with RN. Discussed with family at bedside. Philip Padilla MD Jan 17, 2018 15:57
[2018-01-17] MEDS: diphenhydrAMINE HCL 25 MG CAP PO PRN (18:36)
[2018-01-17] MEDS: ACETAMINOPHEN 325 MG TAB PO PRN (18:37)
[2018-01-17] MEDS: TAMSULOSIN HCL 0.4 MG CAP PO SCH (21:42)
[2018-01-18] VITALS (21 sets, daily range): BP systolic 107–134; BP diastolic 69–87; PULSE 85–117; RESP 16–20; TEMP 96.6–100.1; O2SAT 98–100
[2018-01-18] MEDS: TRIAMCINOLONE ACETONIDE 0.1% CREAM 15 GM TOPICAL SCH ×5 (00:25→20:01)
[2018-01-18] MEDS: SODIUM CHLOR 0.9% 1000 ML INJ 1,000 ML IV SCH (00:25)
[2018-01-18] MEDS: ENOXAPARIN SODIUM 80 MG/0.8 ML SYRINGE SQ SCH ×3 (00:25→23:04)
[2018-01-18] MEDS: LORazepam 2 MG TAB PO PRN ×2 (00:29→23:04)
[2018-01-18] MEDS: LIDOCAINE 2% JELLY 30 ML TUBE TOPICAL PRN (05:07)
[2018-01-18] MEDS: HYDROmorphone HCL 4 MG TAB PO PRN ×2 (05:29→14:47)
[2018-01-18 06:10] LABS: AUTOMATED NEUTROPHIL # 15.8 TH/MM3 (1.8-7.7); BASOPHIL # 0.1 TH/MM3 (0-0.2); BASOPHIL % 0.6 % (0.0-2.0); EOSINOPHIL # 0.4 TH/MM3 (0-0.4); EOSINOPHIL % 2.3 % (0.0-4.0); HEMATOCRIT 31.4 % (39.0-51.0); HEMOGLOBIN 10.4 GM/DL (13.0-17.0); LYMPH % 4.2 % (9.0-44.0); LYMPHOCYTE # 0.8 TH/MM3 (1.0-4.8); MEAN CELL VOLUME 86.5 FL (80.0-100.0); MEAN CORPUSCULAR HEMOGLOBIN 28.7 PG (27.0-34.0); MEAN CORPUSCULAR HGB CONC 33.2 % (32.0-36.0); MONO % 8.3 % (0.0-8.0); MONOCYTE # 1.6 TH/MM3 (0-0.9); NEUT % 84.6 % (16.0-70.0); PLATELET COUNT 107 TH/MM3 (150-450); RED BLOOD COUNT 3.64 MIL/MM3 (4.50-5.90); RED CELL DISTRIBUTION WIDTH 17.9 % (11.6-17.2); WHITE BLOOD COUNT 18.7 TH/MM3 (4.0-11.0)
[2018-01-18] MEDS: FINASTERIDE 5 MG TAB PO SCH (09:00)
[2018-01-18] MEDS: SODIUM CHLORIDE 0.9% FLUSH 10 ML FLUSH IV FLUSH SCH ×2 (09:00→19:59)
[2018-01-18] MEDS: MAGNESIUM OXIDE 400 MG TAB PO SCH ×2 (09:00→19:58)
[2018-01-18] MEDS: PANTOPRAZOLE SOD 40 MG DELAYED RELEASE TAB PO SCH (09:00)
[2018-01-18] MEDS: MORPHINE SULFATE 60 MG CONTROLLED RELEASE TAB PO SCH ×2 (09:00→19:57)
[2018-01-18 10:47] LABS: BANDS 21 % (0-6); CORRECTED NUCLEATED RBC 1 /100 WBC (0-0); LYMPHOCYTES 9 % (9-44); METAMYELOCYTES 1 % (0-1); MONOCYTES 8 % (0-8); MYELOCYTES 16 % (0-0); NEUTROPHIL # MANUAL DIFF 15.5 TH/MM3 (1.8-7.7); NUCLEATED RED BLOOD CELL 1 (0-0); POLYS (SEG NEUTROPHILS) 41 % (16-70); PROMYELOCYTES 4 % (0-0); TOXIC GRANULATION 2+ (NORMAL)
[2018-01-18 10:48] LABS: KERATOCYTES OCC (NORMAL); OVALOCYTES 1+ (NORMAL); TEARDROP RBCS 1+ (NORMAL)
[2018-01-18] MEDS: LEVOFLOXACIN 750 MG TAB PO SCH (11:32)
--- NOTE | 2018-01-18 11:44 | HHI.PR ---
Subjective Remarks Follow-up colorectal cancer/right sided pulmonary emboli/chronic rectal bleeding 01/12/18-patient seen and examined-patient spiking fevers, however denies any chest pain or shortness of breath. Not Much of an appetite. by the bedside. Brain MRI without any evidence of metastases. Denies any syncopal episode 01/13/18-patient seen and examined, spiking fevers and patient lethargic. Sepsis picture like 01/14/18-patient seen and examined, lethargic and shivering, family at the bedside 01/15/18-Chandra seen and examined, still spiking fever, shortness of breath, decrease appetite 01/16/18-patient seen and examined, afebrile and doing well. Feels like he has started to turn the corner. 01/17/18-patient seen and examined, currently afebrile, was able to tolerate by mouth yesterday without any complication of nausea or vomiting 01/18/18-patient seen and examined, Tmax 100.8 at 8 AM, some shortness of breath otherwise stable. Currently off antibiotics. Family by the bedside Objective Vitals Vital Signs Date Time Temp Pulse Resp B/P (MAP) Pulse Ox O2 Delivery O2 Flow Rate FiO2 01/18/18 11:00 96 01/18/18 10:00 104 01/18/18 09:00 108 01/18/18 08:00 100.1 91 18 124/81 (95) 99 01/18/18 08:00 106 01/18/18 07:00 102 01/18/18 04:45 98.4 99 20 133/77 (95) 99 01/18/18 00:35 97.6 87 20 119/83 (95) 100 01/18/18 00:01 90 01/17/18 21:40 98.4 96 18 112/78 99 01/17/18 21:40 98.4 96 18 112/78 (89) 99 01/17/18 20:21 98.6 108 16 120/78 96 01/17/18 20:03 108 01/17/18 19:00 100 01/17/18 18:00 100 01/17/18 17:00 108 01/17/18 16:30 99.4 120 18 92/66 (75) 98 01/17/18 16:00 108 3/22/18 15:00 106 01/17/18 14:00 104 01/17/18 12:00 110 I/O 01/17/18 01/17/18 01/17/18 01/18/18 01/18/18 01/18/18 07:00 15:00 23:00 07:00 15:00 23:00 Intake Total 240 ml 700 ml 2139 ml Output Total 550 ml 3950 ml 2900 ml 1225 ml Balance -310 ml -3250 ml -761 ml -1225 ml Intake Oral 240 ml 720 ml IV Total 700 ml 999 ml Packed Cells 400 ml Blood Product IV Normal Saline Flush 20 ml Output Urine Total 550 ml 3950 ml 2700 ml 1225 ml Stool Total 200 ml Result Diagram: 01/18/18 0456 01/17/18 1258 Imaging Last Impressions Chest X-Ray 01/12/18 0000 Signed Impressions: Service Date/Time: Friday, January 12, 2018 22:02 - CONCLUSION: 1. Subsegmental basilar opacity, probably atelectasis. Hbujxk-o-Pogl in superior vena cava. Sigifredo Valdovinos MD Brain MRI 01/11/18 0000 Signed Impressions: Service Date/Time: Thursday, January 11, 2018 15:59 - CONCLUSION: 1. The examination demonstrates wide spread bony metastatic disease with involvement of the clivus and upper cervical spine. 2. No findings to indicate metastatic disease to the brain parenchyma are identified. Jamar Monahan MD Lower Extremity Ultrasound 01/09/18 0000 Signed Impressions: Service Date/Time: Tuesday, January 09, 2018 23:07 - CONCLUSION: Normal examination. Sina Meyer Jr., MD CT Angiography 01/09/18 0000 Signed Impressions: Service Date/Time: Tuesday, January 09, 2018 21:05 - CONCLUSION: 1. Small to moderate right lung pulmonary emboli involving the upper and lower lobes. 2. Mild bibasilar atelectasis. 3. Upper limits of normal to mildly enlarged paraesophageal lymph nodes. 4. Probable fatty liver. Clyde Santoro MD Objective Remarks GENERAL: NAD SKIN: Warm and dry. HEAD: Normocephalic. EYES: No scleral icterus. No injection or drainage. NECK: Supple, trachea midline. No JVD or lymphadenopathy. CARDIOVASCULAR: Regular rate and rhythm without murmurs, gallops, or rubs. RESPIRATORY: Breath sounds equal bilaterally. No accessory muscle use. GASTROINTESTINAL: Abdomen soft, non-tender, nondistended. MUSCULOSKELETAL: No cyanosis, or edema. BACK: Nontender without obvious deformity. No CVA tenderness. A/P Problem List: (1) Pulmonary embolism ICD Code: I26.99 - Other pulmonary embolism without acute cor pulmonale Status: Acute (2) Metastatic cancer ICD Code: C79.9 - Secondary malignant neoplasm of unspecified site Status: Acute (3) Metastatic colorectal cancer ICD Code: C78.5 - Secondary malignant neoplasm of large intestine and rectum (4) Sepsis ICD Code: A41.9 - Sepsis, unspecified organism Assessment and Plan 57-year-old man with Sepsis-Resolved Off antibiotics including vancomycin, Meropenem and Flagyl since 01/17/18 Blood culture NTD ; UA negative Appreciate input from infectious disease specialist Secondary to febrile episode today 01/18/18, will check chest x-ray and treat accordingly Dyspnea Check CXR Duo Neb PRN HLIV Pulmonary embolism Currently on Lovenox subcutaneous every 12 hours . Status post heparin drip Appreciate input from oncology History of stage IV colorectal cancer with metastases Brain MRI 01/11/18 without any evidence of metastasis disease status post radiation therapy 08/2017 Management per oncology Chronic pain syndrome Secondary to malignancy Continue with Oramorph Syncope-resolved Hypokalemia Improving with replacement History of chronic rectal bleed Patient with history of colorectal cancer H&H stable GI prophylaxis PPI DVT prophylaxis SCD chemoprophylaxis contraindicated due to Hemorrhage Problem Qualifiers (1) Pulmonary embolism: Qualified Codes: I26.99 - Other pulmonary embolism without acute cor pulmonale Devny Gee MD Jan 18, 2018 11:44
[2018-01-18] MEDS ORDERED: RESP: ALBUTEROL 2.5 MG/IPRATROPIUM 0.5 MG NEB (PRN) NEB (11:45)
[2018-01-18] MEDS ORDERED: PHARMACY ORDERED LAB ONE (11:45)
[2018-01-18] MEDS ORDERED: POTASSIUM CHLORIDE 10 MEQ CONTROLLED RELEASE TAB PO ONE (11:45)
--- NOTE | 2018-01-18 12:12 | RADRPT ---
EXAM DATE/TIME: 01/18/2018 11:51 [facility] COMPARISON: CHEST SINGLE AP, January 09, 2018, 19:20. CT PULMONARY ANGIOGRAM, January 09, 2018, 21:05. CHEST SINGLE AP, January 12, 2018, 22:02. INDICATIONS : Short of breath, evaluate infiltrate MEDICAL HISTORY : Carcinoma, colon. SURGICAL HISTORY : infusaport ENCOUNTER: Subsequent ACUITY: 1 week PAIN SCORE: 10/10 LOCATION: Bilateral chest FINDINGS: Portable AP view of the chest demonstrates a normal-sized cardiac silhouette. Right chest wall Infuse -a-Port remains present. EKG lines overlie the patient. There are linear opacities at both lung bases similar to the prior study. No pleural effusion, airspace consolidation, or pneumothorax is identifi ed. There is a stable 5 mm nodule in the left upper lung zone. Bones and soft tissues demonstrate no acute finding. CONCLUSION: 1. Stable chest x-ray with bibasilar atelectasis. 2. Stable nodular density overlying the left upper hemithorax. This most likely represents increased density within a rib since no pulmonary nodule is identified on the recent chest CT. Clyde Vee MD on January 18, 2018 at 12:07 Board Certified Radiologist. This report was verified electronically.
--- NOTE | 2018-01-18 18:19 | PD.ONC.PN ---
Subjective Subjective Remarks low grade fever this am not getting out of the bed had questions regarding the Painting catheter. Patient was unable to f/u with urology outpatient. states that she was told that a curved or Coude catheter may be better for him due to obstruction no increased bleeding Objective Data Date Time Temp Pulse Resp B/P (MAP) Pulse Ox O2 Delivery O2 Flow Rate FiO2 01/18/18 16:00 100 01/18/18 16:00 98.0 102 16 130/72 (91) 99 01/18/18 14:00 96 01/18/18 13:00 96 01/18/18 12:00 97.6 91 16 107/69 (82) 98 01/18/18 12:00 90 01/18/18 11:00 96 01/18/18 10:00 104 01/18/18 09:00 108 01/18/18 08:00 100.1 91 18 124/81 (95) 99 01/18/18 08:00 106 01/18/18 07:00 102 01/18/18 04:45 98.4 99 20 133/77 (95) 99 01/18/18 00:35 97.6 87 20 119/83 (95) 100 01/18/18 00:01 90 01/17/18 21:40 98.4 96 18 112/78 99 01/17/18 21:40 98.4 96 18 112/78 (89) 99 01/17/18 20:21 98.6 108 16 120/78 96 01/17/18 20:03 108 01/17/18 19:00 100 01/18/18 01/18/18 01/18/18 07:00 15:00 23:00 Intake Total 2139 ml Output Total 2900 ml 1225 ml Balance -761 ml -1225 ml Result Diagram: 01/18/18 0456 01/17/18 1258 Laboratory Results Laboratory Tests Test 01/18/18 04:56 White Blood Count 18.7 TH/MM3 Red Blood Count 3.64 MIL/MM3 Hemoglobin 10.4 GM/DL Hematocrit 31.4 % Mean Corpuscular Volume 86.5 FL Mean Corpuscular Hemoglobin 28.7 PG Mean Corpuscular Hemoglobin Concent 33.2 % Red Cell Distribution Width 17.9 % Platelet Count 107 TH/MM3 Mean Platelet Volume 10.0 FL Neutrophils (%) (Auto) 84.6 % Lymphocytes (%) (Auto) 4.2 % Monocytes (%) (Auto) 8.3 % Eosinophils (%) (Auto) 2.3 % Basophils (%) (Auto) 0.6 % Neutrophils # (Auto) 15.8 TH/MM3 Lymphocytes # (Auto) 0.8 TH/MM3 Monocytes # (Auto) 1.6 TH/MM3 Eosinophils # (Auto) 0.4 TH/MM3 Basophils # (Auto) 0.1 TH/MM3 CBC Comment AUTO DIFF Differential Total Cells Counted 100 Neutrophils % (Manual) 41 % Band Neutrophils % 21 % Lymphocytes % 9 % Monocytes % 8 % Neutrophils # (Manual) 15.5 TH/MM3 Metamyelocytes 1 % Myelocytes 16 % Promyelocytes 4 % Nucleated Red Blood Cells 1 /100 WBC Differential Comment FINAL DIFF MANUAL Toxic Granulation 2+ Platelet Estimate LOW Platelet Morphology Comment NORMAL Tear Drop Cells 1+ Ovalocytes 1+ Keratocytes OCC Imaging Studies Last 24 hours Impressions Chest X-Ray 01/18/18 0000 Signed Impressions: Service Date/Time: Thursday, January 18, 2018 11:51 - CONCLUSION: 1. Stable chest x-ray with bibasilar atelectasis. 2. Stable nodular density overlying the left upper hemithorax. This most likely represents increased density within a rib since no pulmonary nodule is identified on the recent chest CT. Clyde Vee MD Administered Medications Medications (Trade) Dose Ordered Sig/Jason Route PRN Reason Start Time Stop Time Status Last Admin Dose Admin Sodium Chloride (NS Flush) 2 ml UNSCH PRN IV FLUSH FLUSH AFTER USING IV ACCESS 01/09/18 22:00 01/14/18 05:28 Sodium Chloride (NS Flush) 2 ml BID IV FLUSH 01/10/18 09:00 01/18/18 09:00 Finasteride (Proscar) 5 mg DAILY PO 01/10/18 09:00 01/18/18 09:00 Hydromorphone HCl (Dilaudid) 4 mg Q4H PRN PO PAIN 01/09/18 22:45 Future hold 01/18/18 14:47 Pantoprazole Sodium (Protonix) 40 mg DAILY PO 01/10/18 09:00 01/18/18 09:00 Promethazine HCl (Phenergan) 25 mg Q6H PRN PO NAUSEA OR VOMITING 01/09/18 22:45 01/12/18 16:29 Tamsulosin HCl (Flomax) 0.4 mg HS PO 01/10/18 21:00 01/17/18 21:42 Magnesium Oxide (Mag-Ox) 400 mg Q12HR PO 01/12/18 21:00 01/18/18 09:00 Acetaminophen (Tylenol) 650 mg Q4H PRN PO fever 01/12/18 21:45 01/14/18 09:24 Diphenhydramine HCl (Benadryl Inj) 25 mg Q6H PRN IV PUSH Itching/hives 01/13/18 02:15 01/13/18 02:37 Morphine Sulfate (Oramorph Sr) 60 mg BID PO 01/14/18 10:00 01/18/18 09:00 Filgrastim 480 mcg/Dextrose 51.6 ml @ 100 mls/hr DAILY@14 IV 01/14/18 20:00 Future Hold 01/16/18 14:50 Lorazepam (Ativan) 1 mg Q6H PRN PO ANXIETY 01/15/18 19:30 01/18/18 00:29 Enoxaparin Sodium (Lovenox Inj) 80 mg Q12H SQ 01/16/18 13:00 01/18/18 11:32 Triamcinolone Acetonide (Aristocort 0.1% Cream) 1 applic Q6HR TOPICAL 01/17/18 09:00 01/18/18 11:39 Lidocaine HCl (Xylocaine 2% Jelly) 1 applic BID PRN TOPICAL pain 01/16/18 23:00 01/18/18 05:07 Levofloxacin (Levaquin) 750 mg DAILY PO 01/18/18 09:45 01/18/18 11:32 Objective Remarks GENERAL: nad SKIN: Warm and dry.. LYMPHATIC: No adenopathy. CARDIOVASCULAR: Regular rate and rhythm without murmurs. RESPIRATORY: Breath sounds equal bilaterally. No accessory muscle use. GASTROINTESTINAL: Abdomen soft, non-tender, nondistended. EXTREMITIES: No cyanosis, or edema. Assessment/Plan Problem List: (1) Metastatic colorectal cancer ICD Codes: C78.5 - Secondary malignant neoplasm of large intestine and rectum Plan: --Repeat brain MRI shows no new lesions or worsening metastatic disease Hx: History of stage IV colorectal cancer. Currently undergoing palliative systemic chemotherapy consisting of FOLFIRI and panitumumab; mets to the liver, vertebral spine, pelvic bone and to the brain (2) Normocytic anemia ICD Codes: D64.9 - Anemia, unspecified Status: Acute Plan: --Anemia secondary to malignancy and chemotherapy. --closely monitor his hemoglobin. Check hemoglobin twice a day. --transfuse for a hemoglobin of 8 or less. (3) Pulmonary embolism ICD Codes: I26.99 - Other pulmonary embolism without acute cor pulmonale Status: Acute Plan: --01/16: stop heparin, cap Lovenox dose at 80mg SQ BID --Doppler ultrasound of lower extremities did not show any DVT. (4) Thrombocytopenia ICD Codes: D69.6 - Thrombocytopenia, unspecified Plan: --d/t chemotherapy --monitor and transfuse as needed. Assessment 57y/o male with stage IV colorectal cancer admitted with near syncope, found to have PE on CTA. Plan 1. Pulmonary embolism - continue lovenox - no bleeding - Hb stable 2. Urinary obstruction with chronic Painting - Patient and family wants to have a curved or coude catheter placed - Nursing is not able to place this catheter - will ask Urology to see patient 3. Anemia - stable - s/p 1 unit of pRBC 4. Hypokalemia - replace potassium 5. Stage IV Colorectal cancer - outpatient treatment 6. Poor oral intake/insomnia - trial of steroids 7. Low grade fevers--no obvious infection - blood cultures negative/chest Xay negative - check UA today - ? due to to PTE 8. Poor mobility - PT case management consult-- home PT 3 times/week and health health with [facility] Ok to d/c home tomorrow if stable and no high fevers Problem Qualifiers (1) Pulmonary embolism: Qualified Codes: I26.99 - Other pulmonary embolism without acute cor pulmonale El Perez MD Jan 18, 2018 18:19
--- NOTE | 2018-01-18 18:54 | HHI.IDPN ---
Note Infectious Disease Note Patient is awake and alert and feels better. No complaints. Feels his appetite is better. Eating. Low-grade fever this morning. Temp is now improved. Has usual pain associated with the rectum. Afebrile. Blood cultures negative. 57-year-old white male who presented to emergency department on 01/09/2018. The patient fell while getting out of the shower at home and apparently was not verbal for about 30 seconds. He was brought to the emergency department for evaluation. He has a history of colon cancer with metastasis to the bone. He has received chemotherapy, last of which was given 2 weeks ago. The patient had elevated heart rate on admission. His workup revealed pulmonary embolism. He had elevated temperature of 101.3 on 01/12/2018 and chills. PAST MEDICAL HISTORY: Rectal cancer diagnosed 03/2016. The patient has been receiving chemotherapy. He has received radiation therapy. Diverting colostomy. Infusaport. History of knee surgery. ALLERGIES: NO KNOWN DRUG ALLERGIES. MEDICATIONS: Current Medications Medications (Trade) Dose Ordered Sig/Jason Route PRN Reason Start Time Stop Time Status Last Admin Dose Admin Sodium Chloride (NS Flush) 2 ml UNSCH PRN IV FLUSH FLUSH AFTER USING IV ACCESS 01/09/18 22:00 01/14/18 05:28 Sodium Chloride (NS Flush) 2 ml BID IV FLUSH 01/10/18 09:00 01/18/18 09:00 Naloxone HCl (Narcan Inj) 0.4 mg UNSCH PRN IV PUSH SEE LABEL COMMENTS 01/09/18 22:00 Finasteride (Proscar) 5 mg DAILY PO 01/10/18 09:00 01/18/18 09:00 Hydromorphone HCl (Dilaudid) 4 mg Q4H PRN PO PAIN 01/09/18 22:45 Future hold 01/18/18 14:47 Pantoprazole Sodium (Protonix) 40 mg DAILY PO 01/10/18 09:00 01/18/18 09:00 Promethazine HCl (Phenergan) 25 mg Q6H PRN PO NAUSEA OR VOMITING 01/09/18 22:45 01/12/18 16:29 Tamsulosin HCl (Flomax) 0.4 mg HS PO 01/10/18 21:00 01/17/18 21:42 Carboxymethylcellulose Sodium (Refresh Tears 0.5% Opth Soln) 1 drop Q6H PRN EACH EYE dry eyes 01/12/18 09:30 Magnesium Oxide (Mag-Ox) 400 mg Q12HR PO 01/12/18 21:00 01/18/18 09:00 Acetaminophen (Tylenol) 650 mg Q4H PRN PO fever 01/12/18 21:45 01/14/18 09:24 Diphenhydramine HCl (Benadryl Inj) 25 mg Q6H PRN IV PUSH Itching/hives 01/13/18 02:15 01/13/18 02:37 Morphine Sulfate (Oramorph Sr) 60 mg BID PO 01/14/18 10:00 01/18/18 09:00 Lorazepam (Ativan) 1 mg Q6H PRN PO ANXIETY 01/15/18 19:30 01/18/18 00:29 Enoxaparin Sodium (Lovenox Inj) 80 mg Q12H SQ 01/16/18 13:00 01/18/18 11:32 Triamcinolone Acetonide (Aristocort 0.1% Cream) 1 applic Q6HR TOPICAL 01/17/18 09:00 01/18/18 11:39 Lidocaine HCl (Xylocaine 2% Jelly) 1 applic BID PRN TOPICAL pain 01/16/18 23:00 01/18/18 05:07 Levofloxacin (Levaquin) 750 mg DAILY PO 01/18/18 09:45 01/18/18 11:32 Albuterol/ Ipratropium (Duoneb Neb) 1 ampule Q2HR NEB PRN NEB SOB/WHEEZING 01/18/18 11:45 Dexamethasone (Decadron) 4 mg Q12HR PO 01/18/18 21:00 UNV Dexamethasone (Decadron) 4 mg ONCE ONCE PO 01/18/18 18:30 01/18/18 18:31 UNV OBJECTIVE: Vital Signs Date Time Temp Pulse Resp B/P (MAP) Pulse Ox O2 Delivery O2 Flow Rate FiO2 01/18/18 16:00 100 01/18/18 16:00 98.0 102 16 130/72 (91) 99 01/18/18 14:00 96 01/18/18 13:00 96 01/18/18 12:00 97.6 91 16 107/69 (82) 98 01/18/18 12:00 90 01/18/18 11:00 96 01/18/18 10:00 104 01/18/18 09:00 108 01/18/18 08:00 100.1 91 18 124/81 (95) 99 01/18/18 08:00 106 01/18/18 07:00 102 01/18/18 04:45 98.4 99 20 133/77 (95) 99 01/18/18 00:35 97.6 87 20 119/83 (95) 100 01/18/18 00:01 90 01/17/18 21:40 98.4 96 18 112/78 99 01/17/18 21:40 98.4 96 18 112/78 (89) 99 01/17/18 20:21 98.6 108 16 120/78 96 01/17/18 20:03 108 01/17/18 19:00 100 Laboratory Tests Test 01/17/18 05:35 01/18/18 04:56 White Blood Count 15.7 TH/MM3 18.7 TH/MM3 Red Blood Count 3.25 MIL/MM3 3.64 MIL/MM3 Hemoglobin 9.2 GM/DL 10.4 GM/DL Hematocrit 28.2 % 31.4 % Mean Corpuscular Volume 86.6 FL 86.5 FL Mean Corpuscular Hemoglobin 28.3 PG 28.7 PG Mean Corpuscular Hemoglobin Concent 32.7 % 33.2 % Red Cell Distribution Width 18.4 % 17.9 % Platelet Count 104 TH/MM3 107 TH/MM3 Mean Platelet Volume 9.3 FL 10.0 FL Neutrophils (%) (Auto) 84.6 % Lymphocytes (%) (Auto) 4.2 % Monocytes (%) (Auto) 8.3 % Eosinophils (%) (Auto) 2.3 % Basophils (%) (Auto) 0.6 % Neutrophils # (Auto) 15.8 TH/MM3 Lymphocytes # (Auto) 0.8 TH/MM3 Monocytes # (Auto) 1.6 TH/MM3 Eosinophils # (Auto) 0.4 TH/MM3 Basophils # (Auto) 0.1 TH/MM3 CBC Comment AUTO DIFF Differential Total Cells Counted 100 Neutrophils % (Manual) 41 % Band Neutrophils % 21 % Lymphocytes % 9 % Monocytes % 8 % Neutrophils # (Manual) 15.5 TH/MM3 Metamyelocytes 1 % Myelocytes 16 % Promyelocytes 4 % Nucleated Red Blood Cells 1 /100 WBC Differential Comment FINAL DIFF MANUAL Toxic Granulation 2+ Platelet Estimate LOW Platelet Morphology Comment NORMAL Tear Drop Cells 1+ Ovalocytes 1+ Keratocytes OCC Laboratory Tests Test 01/17/18 05:35 01/17/18 12:58 Lactate Dehydrogenase 501 U/L Carcinoembryonic Antigen 181.7 NG/ML Blood Urea Nitrogen 3 MG/DL Creatinine 0.54 MG/DL Random Glucose 136 MG/DL Total Protein 5.0 GM/DL Albumin 1.9 GM/DL Calcium Level 8.2 MG/DL Alkaline Phosphatase 124 U/L Aspartate Amino Transf (AST/SGOT) 22 U/L Alanine Aminotransferase (ALT/SGPT) 17 U/L Total Bilirubin 0.2 MG/DL Sodium Level 142 MEQ/L Potassium Level 3.4 MEQ/L Chloride Level 108 MEQ/L Carbon Dioxide Level 25.3 MEQ/L Anion Gap 9 MEQ/L Estimat Glomerular Filtration Rate 157 ML/MIN IMAGING: Chest X-Ray 01/18/18 0000 Signed Impressions: Service Date/Time: Thursday, January 18, 2018 11:51 - CONCLUSION: 1. Stable chest x-ray with bibasilar atelectasis. 2. Stable nodular density overlying the left upper hemithorax. This most likely represents increased density within a rib since no pulmonary nodule is identified on the recent chest CT. Clyde Vee MD Chest X-Ray 01/12/18 0000 Signed Impressions: Service Date/Time: Friday, January 12, 2018 22:02 - CONCLUSION: 1. Subsegmental basilar opacity, probably atelectasis. [id number] in superior vena cava. Sigifredo Valdovinos MD Brain MRI 01/11/18 0000 Signed Impressions: Service Date/Time: Thursday, January 11, 2018 15:59 - CONCLUSION: 1. The examination demonstrates wide spread bony metastatic disease with involvement of the clivus and upper cervical spine. 2. No findings to indicate metastatic disease to the brain parenchyma are identified. Jamar Monahan MD Lower Extremity Ultrasound 01/09/18 0000 Signed Impressions: Service Date/Time: Tuesday, January 09, 2018 23:07 - CONCLUSION: Normal examination. Sina Meyer Jr., MD CT Angiography 01/09/18 0000 Signed Impressions: Service Date/Time: Tuesday, January 09, 2018 21:05 - CONCLUSION: 1. Small to moderate right lung pulmonary emboli involving the upper and lower lobes. 2. Mild bibasilar atelectasis. 3. Upper limits of normal to mildly enlarged paraesophageal lymph nodes. 4. Probable fatty liver. Clyde Santoro MD PHYSICAL EXAMINATION: GENERAL: No acute distress. Awake and alert. HEENT: No icterus. No conjunctival erythema. Oropharynx: moist mucosa. NECK: No adenopathy or swelling. LUNGS: Clear slightly decreased breath sounds. CHEST: [id number] in the right chest without evidence of infection. HEART: Regular S1 and S2, no murmurs, rubs or gallops. ABDOMEN: Bowel sounds present. Soft, no tenderness. EXTREMITIES: No clubbing or cyanosis. No edema. SKIN: No diffuse rash. NEUROLOGIC: No gross focal finding. PSYCHIATRIC: Calm and cooperative. IMPRESSION: 1. Sepsis indicated by elevated temperature and elevated heart rate, along with altered mental status (patient reported to be hallucinating) and leukopenia on admission. No clear source. Blood culture negative. Temperature improved. 2. Leukopenia. White blood cell count elevated with Neupogen. 3. Immunosuppression in patient who has received chemotherapy for rectal cancer with metastases. 4. Abnormal chest x-ray. Probable atelectasis. 5. Pulmonary embolism. 6. Fever. No infection discovered so far. Also pulmonary embolism could cause fever. Temperature is better. Patient had just one low-grade fever this morning. Appears stable. RECOMMENDATIONS: P.O. Levaquin 750 mg 5 days. Okay to discharge from my standpoint. Discussed with patient's . I will sign off now. Philip Padilla MD Jan 18, 2018 18:54
[2018-01-18] MEDS ORDERED: LEVA750T9 PO (18:56)
[2018-01-18] MEDS: TAMSULOSIN HCL 0.4 MG CAP PO SCH (19:58)
[2018-01-18] MEDS ORDERED: DEXAMETHASONE 4 MG TAB PO ONE (20:00)
[2018-01-19] VITALS (10 sets, daily range): BP systolic 112–132; BP diastolic 77–88; PULSE 83–106; RESP 16–18; TEMP 97.6–98.4; O2SAT 96–100
[2018-01-19] MEDS: LORazepam 2 MG TAB PO PRN ×2 (05:00→17:43)
[2018-01-19] MEDS: TRIAMCINOLONE ACETONIDE 0.1% CREAM 15 GM TOPICAL SCH ×2 (05:11→12:10)
[2018-01-19 06:16] LABS: AUTOMATED NEUTROPHIL # 13.4 TH/MM3 (1.8-7.7); BASOPHIL # 0.1 TH/MM3 (0-0.2); BASOPHIL % 0.7 % (0.0-2.0); EOSINOPHIL # 0.2 TH/MM3 (0-0.4); EOSINOPHIL % 1.6 % (0.0-4.0); HEMATOCRIT 32.3 % (39.0-51.0); HEMOGLOBIN 10.6 GM/DL (13.0-17.0); LYMPH % 4.4 % (9.0-44.0); LYMPHOCYTE # 0.7 TH/MM3 (1.0-4.8); MEAN CELL VOLUME 87.3 FL (80.0-100.0); MEAN CORPUSCULAR HEMOGLOBIN 28.7 PG (27.0-34.0); MEAN CORPUSCULAR HGB CONC 32.9 % (32.0-36.0); MONO % 4.7 % (0.0-8.0); MONOCYTE # 0.7 TH/MM3 (0-0.9); NEUT % 88.6 % (16.0-70.0); PLATELET COUNT 92 TH/MM3 (150-450); RED CELL DISTRIBUTION WIDTH 17.9 % (11.6-17.2); WHITE BLOOD COUNT 15.2 TH/MM3 (4.0-11.0)
[2018-01-19 06:49] LABS: BICARBONATE 24.7 MEQ/L (21.0-32.0); CALCIUM 8.6 MG/DL (8.5-10.1); CREATININE 0.7 MG/DL (0.60-1.30)
[2018-01-19] MEDS ORDERED: DEXAMETHASONE 4 MG TAB PO SCH (09:00)
[2018-01-19 09:46] LABS: BANDS 24 % (0-6); CORRECTED NUCLEATED RBC 1 /100 WBC (0-0); LYMPHOCYTES 9 % (9-44); METAMYELOCYTES 12 % (0-1); MONOCYTES 4 % (0-8); MYELOCYTES 7 % (0-0); NEUTROPHIL # MANUAL DIFF 12.9 TH/MM3 (1.8-7.7); NUCLEATED RED BLOOD CELL 1 (0-0); OVALOCYTES 1+ (NORMAL); POLYS (SEG NEUTROPHILS) 40 % (16-70); PROMYELOCYTES 2 % (0-0); TEARDROP RBCS 1+ (NORMAL)
[2018-01-19] MEDS: ENOXAPARIN SODIUM 80 MG/0.8 ML SYRINGE SQ SCH (10:24)
[2018-01-19] MEDS: LEVOFLOXACIN 750 MG TAB PO SCH (10:25)
[2018-01-19] MEDS: MAGNESIUM OXIDE 400 MG TAB PO SCH (10:26)
[2018-01-19] MEDS: PANTOPRAZOLE SOD 40 MG DELAYED RELEASE TAB PO SCH (10:26)
[2018-01-19] MEDS: FINASTERIDE 5 MG TAB PO SCH (10:27)
[2018-01-19] MEDS: SODIUM CHLORIDE 0.9% FLUSH 10 ML FLUSH IV FLUSH SCH (10:28)
[2018-01-19] MEDS: MORPHINE SULFATE 60 MG CONTROLLED RELEASE TAB PO SCH (12:08)
--- NOTE | 2018-01-19 12:14 | HHI.DS ---
Discharge Summary Admission Date Jan 09, 2018 at 21:56 Discharge Date: Jan 19, 2018 Admitting Diagnosis PULMONARY EMBOLISM, SYNCOPE (1) Pulmonary embolism ICD Code: I26.99 - Other pulmonary embolism without acute cor pulmonale Status: Acute (2) Metastatic cancer ICD Code: C79.9 - Secondary malignant neoplasm of unspecified site Status: Acute (3) Metastatic colorectal cancer ICD Code: C78.5 - Secondary malignant neoplasm of large intestine and rectum (4) Sepsis ICD Code: A41.9 - Sepsis, unspecified organism (5) Urinary retention due to benign prostatic hyperplasia ICD Code: N28.89 - Other specified disorders of kidney and ureter; R33.8 - Other retention of urine Status: Acute Procedures None Brief History - From Admission HPI from the admitting physician History from patient with his and for the bedside. Patient reported that he came to the hospital because he had passed out in the shower today. was next to him at that time and caught him. He did not hit his head The patient denies any premonitory symptoms prior to this syncope. Specifically , patient denies any chest pain/palpitations/dizziness/focal weakness. However, patient and daughter stated the patient is mostly homebound, not walking around much. He also has not been eating or drinking well. He has metastatic rectal cancer with metastases to the bone and brain. He is currently receiving chemotherapy and last dose was last week Sunday. He in the emergency room, patient's blood pressures were around him and 100/60 According to the family, and on review of medical records, patient has baseline low blood pressure. He is not on any antihypertensives medications at home. He was also tachycardic in ER at around 120 In the emergency room, because of all the above, CT pulmonary angiogram was done which reveals pulmonary embolism. On review of systems, patient denies any symptoms. Family reports mainly of generalized weakness, homebound status, not eating or drinking well. No blood in his stool or urine. CBC/BMP: 01/19/18 0500 01/19/18 0500 Significant Findings Laboratory Tests Test 01/17/18 05:35 01/17/18 12:58 01/18/18 04:56 01/19/18 05:00 White Blood Count 15.7 TH/MM3 (4.0-11.0) 18.7 TH/MM3 (4.0-11.0) 15.2 TH/MM3 (4.0-11.0) Red Blood Count 3.25 MIL/MM3 (4.50-5.90) 3.64 MIL/MM3 (4.50-5.90) 3.70 MIL/MM3 (4.50-5.90) Hemoglobin 9.2 GM/DL (13.0-17.0) 10.4 GM/DL (13.0-17.0) 10.6 GM/DL (13.0-17.0) Hematocrit 28.2 % (39.0-51.0) 31.4 % (39.0-51.0) 32.3 % (39.0-51.0) Red Cell Distribution Width 18.4 % (11.6-17.2) 17.9 % (11.6-17.2) 17.9 % (11.6-17.2) Platelet Count 104 TH/MM3 (150-450) 107 TH/MM3 (150-450) 92 TH/MM3 (150-450) Activated Partial Thromboplast Time 36.9 SEC (24.3-30.1) Lactate Dehydrogenase 501 U/L (87-241) Carcinoembryonic Antigen 181.7 NG/ML (0.2-5.0) Blood Urea Nitrogen 3 MG/DL (7-18) 3 MG/DL (7-18) Creatinine 0.54 MG/DL (0.60-1.30) Random Glucose 136 MG/DL (74-106) 194 MG/DL (74-106) Total Protein 5.0 GM/DL (6.4-8.2) Albumin 1.9 GM/DL (3.4-5.0) Calcium Level 8.2 MG/DL (8.5-10.1) Alkaline Phosphatase 124 U/L (45-117) Potassium Level 3.4 MEQ/L (3.5-5.1) Chloride Level 108 MEQ/L (98-107) Neutrophils (%) (Auto) 84.6 % (16.0-70.0) 88.6 % (16.0-70.0) Lymphocytes (%) (Auto) 4.2 % (9.0-44.0) 4.4 % (9.0-44.0) Monocytes (%) (Auto) 8.3 % (0.0-8.0) Neutrophils # (Auto) 15.8 TH/MM3 (1.8-7.7) 13.4 TH/MM3 (1.8-7.7) Lymphocytes # (Auto) 0.8 TH/MM3 (1.0-4.8) 0.7 TH/MM3 (1.0-4.8) Monocytes # (Auto) 1.6 TH/MM3 (0-0.9) Band Neutrophils % 21 % (0-6) 24 % (0-6) Neutrophils # (Manual) 15.5 TH/MM3 (1.8-7.7) 12.9 TH/MM3 (1.8-7.7) Myelocytes 16 % (0-0) 7 % (0-0) Promyelocytes 4 % (0-0) 2 % (0-0) Nucleated Red Blood Cells 1 /100 WBC (0-0) 1 /100 WBC (0-0) Toxic Granulation 2+ (NORMAL) Platelet Estimate LOW (NORMAL) LOW (NORMAL) Tear Drop Cells 1+ (NORMAL) 1+ (NORMAL) Ovalocytes 1+ (NORMAL) 1+ (NORMAL) Metamyelocytes 12 % (0-1) Imaging Last Impressions Chest X-Ray 01/18/18 0000 Signed Impressions: Service Date/Time: Thursday, January 18, 2018 11:51 - CONCLUSION: 1. Stable chest x-ray with bibasilar atelectasis. 2. Stable nodular density overlying the left upper hemithorax. This most likely represents increased density within a rib since no pulmonary nodule is identified on the recent chest CT. Clyde Vee MD Brain MRI 01/11/18 0000 Signed Impressions: Service Date/Time: Thursday, January 11, 2018 15:59 - CONCLUSION: 1. The examination demonstrates wide spread bony metastatic disease with involvement of the clivus and upper cervical spine. 2. No findings to indicate metastatic disease to the brain parenchyma are identified. Jamar Monahan MD Lower Extremity Ultrasound 01/09/18 0000 Signed Impressions: Service Date/Time: Tuesday, January 09, 2018 23:07 - CONCLUSION: Normal examination. Sina Meyer Jr., MD CT Angiography 01/09/18 0000 Signed Impressions: Service Date/Time: Tuesday, January 09, 2018 21:05 - CONCLUSION: 1. Small to moderate right lung pulmonary emboli involving the upper and lower lobes. 2. Mild bibasilar atelectasis. 3. Upper limits of normal to mildly enlarged paraesophageal lymph nodes. 4. Probable fatty liver. Clyde Santoro MD PE at Discharge GENERAL: NAD SKIN: Warm and dry. HEAD: Normocephalic. EYES: No scleral icterus. No injection or drainage. NECK: Supple, trachea midline. No JVD or lymphadenopathy. CARDIOVASCULAR: Regular rate and rhythm without murmurs, gallops, or rubs. RESPIRATORY: Breath sounds equal bilaterally. No accessory muscle use. GASTROINTESTINAL: Abdomen soft, non-tender, nondistended. MUSCULOSKELETAL: No cyanosis, or edema. BACK: Nontender without obvious deformity. No CVA tenderness. Pt update on day of discharge Patient reports he is feeling okay. No new issues. Discussed discharge planning at length with the patient's and daughter at bedside. They had a lot of questions about the Painting catheter. Hospital Course 57-year-old man admitted and treated for the following. Sepsis was indicated on on admission secondary to elevated temperature, elevated heart rate, change in mental status and leukopenia. No clear source. Blood cultures were negative and the patient's temperature improved. Patient was treated with IV antibiotics empirically under the guidance of infectious disease. He is discharged home on Levaquin orally for 5 more days. Pulmonary embolism Currently on Lovenox subcutaneous every 12 hours . Status post heparin drip. Patient was followed by oncology. He will continue on Lovenox. He is to follow-up outpatient with oncology History of stage IV colorectal cancer with metastases Brain MRI 01/11/18 without any evidence of metastasis disease status post radiation therapy 08/2017 Management per oncology. He will follow-up outpatient. Chronic pain syndrome Secondary to malignancy Continue with Oramorph Urinary retention: Patient was seen by urology. He is advised to continue the Painting catheter. Per urology, Painting can be replaced with a coud catheter per family's wishes in 3 weeks. Per urology this be done by home health nursing. Syncope-resolved History of chronic rectal bleed Patient with history of colorectal cancer H&H stable Pt Condition on Discharge: Good Discharge Disposition: Disch w/ Home Health Serv Discharge Time: > 30 minutes Discharge Instructions DIET: Follow Instructions for: Heart Healthy Diet Activities you can perform: Regular-No Restrictions Follow up Referrals: Oncology - 1 Week with El Perez MD New Medications: Levofloxacin (Levaquin) 750 Mg Tablet 750 MG PO DAILY for Infection for 5 Days, #5 TAB 0 Refills Dexamethasone (Dexamethasone) 4 Mg Tab 4 MG PO Q12HR, #20 TAB Enoxaparin Inj (Lovenox Inj) 80 mg/0.8 ML Syr 80 MG SQ Q12H, #60 INJECTION Lidocaine Topical (Lidocaine Topical) 2 % Jel 1 APPLIC TOPICAL BID PRN for pain, #1 TUBE Triamcinolone Topical (Triamcinolone Topical) 0.1% Cream 1 APPLIC TOPICAL Q6HR, #1 TUBE Continued Medications: Finasteride (Finasteride) 5 Mg Tab 5 MG PO DAILY for Manage Prostate Problems, #30 TAB 0 Refills Do not crush. Hydromorphone (Hydromorphone) 4 Mg Tab 4 MG PO Q4H PRN for PAIN, TAB 0 Refills Lorazepam (Ativan) 2 Mg Tab 2 MG PO Q8HR PRN for SEE LABEL COMMENTS, #60 TAB Morphine Sulfate ER 12 HR (Morphabond ER 12 HR) 60 Mg Tab 60 MG PO Q8, TAB 0 Refills Pantoprazole (Pantoprazole) 40 Mg Tab 40 MG PO DAILY for prophylaxis for 30 Days, #30 TAB Promethazine (Phenergan) 25 Mg Tablet 25 MG PO Q6H PRN for NAUSEA OR VOMITING, #20 TAB 0 Refills Tamsulosin (Tamsulosin) 0.4 Mg Cap 0.4 MG PO HS for Manage Prostate Problems, #30 CAP 0 Refills Noemi Trammell MD Jan 19, 2018 12:14
--- NOTE | 2018-01-19 12:41 | MB ---
cc: Jay Jay Ronquillo MD DATE: 01/19/2018 REASON FOR CONSULT: Urinary retention. HISTORY OF PRESENT ILLNESS: The patient is a 57-year-old male with a history of metastatic rectal cancer to both his bone and brain, currently on chemotherapy, presented to the emergency room on 01/09/2018 after having a syncopal episode and falling in the shower. Once in the ER, he had a CT pulmonary angiogram performed which did reveal a pulmonary embolism. The patient was admitted for further evaluation. The patient has had a urinary catheter for almost 6 weeks now, was initially placed 6 weeks ago after he was unable to urinate due to invasion of his rectal cancer and enlarged prostate. On initial insertion of the Painting catheter, per the patient, there were no issues. However, when the catheter was changed approximately 10 days ago on admission to the ER, it caused significant trauma. The patient and his family requested that a urology consult be placed. Discussed coude catheter placement. The patient states prior to 6 weeks ago he denies any problems urinating. Denied blood in his urine, only got up 1-2 times at night. Denies history of kidney stones or urinary tract infections. He currently denies any nausea, vomiting, abdominal pain, flank pain, fevers, or chills. PAST MEDICAL HISTORY: Significant for rectal cancer, status post chemo and radiation. PAST SURGICAL HISTORY: He has had a diverting colostomy, circumcision, finger surgery, knee surgery. ALLERGIES: NO KNOWN DRUG ALLERGIES. FAMILY HISTORY: Denies urolithiasis, genitourinary disease. SOCIAL HISTORY: Quit smoking in 1993. Denies illicit drugs or alcohol abuse. Lives with the family, is mostly homebound, does not ambulate. REVIEW OF SYSTEMS: See HPI, otherwise unremarkable. PHYSICAL EXAMINATION: VITAL SIGNS: Temperature 98.4, pulse 105, blood pressure 117/78, respiration rate 16, saturating 100% on room air. GENERAL: He is alert and oriented x3, no apparent distress, pleasant and cooperative gentleman who appears his stated age. HEENT: Head is normocephalic, atraumatic. Eyes: No scleral icterus. Extraocular muscles intact. NECK: Supple. Trachea is midline. No JVD. SKIN: No ulcers or rashes. Mucous membranes are cool and moist. LUNGS: Clear to auscultation bilaterally. No wheezes, rales or rhonchi. HEART: Regular rate and rhythm. No murmurs, gallops, rubs. ABDOMEN: Soft, nontender, nondistended, positive bowel sounds. GENITOURINARY: His penis is circumcised. Testes descended bilaterally, normal size and consistency, without mass. The patient has a Painting catheter draining clear yellow urine. RECTAL EXAM: Not indicated. EXTREMITIES: Nontender. No clubbing, cyanosis or edema. NEUROLOGIC: Cranial nerves II-XII intact. Strength 5/5 in all 4 extremities. LABORATORY DATA: White count of 15.2, hemoglobin 10.6, hematocrit 32.3, platelet count 92. Sodium 140, potassium 4.2, chloride 105, bicarbonate 24.7, BUN 3, creatinine 0.7. Urinalysis completely negative. IMAGING: CT angiography was reviewed. Per radiologist report, the patient has pulmonary embolism. ASSESSMENT: The patient is a 57-year-old male with metastatic rectal cancer with chronic urinary retention. PLAN: Recommend continued Painting catheter at this time. From urology standpoint, it is okay to replace the catheter with a coude catheter when it is due for next exchange in approximately 3 weeks from now. However, I did explain to the family that the coude catheter is just a special catheter for passing in guys with large prostates and does not necessarily drain better or painless as any catheter can cause the same amount of pain. The family understands this and would like to proceed with a coude catheter exchange at the appropriate time in 3 weeks, which is okay from the urology standpoint. Nursing staff or home health nurse is able to place a coude catheter. Thank you for this consult. Please call with any questions. Available as needed. Jay Jay Ronquillo MD [facility]/DARRYL , 11:56 AM , 12:40 PM
[2018-01-19] MEDS: HYDROmorphone HCL 4 MG TAB PO PRN (13:28)
[2018-01-19] MEDS ORDERED: ENOX80P SQ (13:55)
[2018-01-19] MEDS ORDERED: TRIA.1%T TOPICAL (13:55)
[2018-01-19] MEDS ORDERED: DEXA4TAB PO (13:55)
[2018-01-19] MEDS ORDERED: LIDO2GEL12 TOPICAL (13:55)
[2018-01-19] MEDS ORDERED: SODIUM CHLORIDE 0.9% FLUSH 10 ML FLUSH IV FLUSH PRN (17:15)
--- NOTE | 2018-01-19 17:19 | PD.ONC.PN ---
Subjective Subjective Remarks Afebrile overnight Patient resting in bed awake Ready to go home Patient and family report he has a very difficult time with pain with travel Objective Data Date Time Temp Pulse Resp B/P (MAP) Pulse Ox O2 Delivery O2 Flow Rate FiO2 01/19/18 12:00 95 01/19/18 11:40 98.4 105 16 117/78 (91) 100 01/19/18 08:30 98.0 83 18 132/88 (103) 100 01/19/18 08:15 86 01/19/18 04:55 97.6 89 16 112/77 (89) 96 01/19/18 03:00 90 01/19/18 02:00 90 01/19/18 01:00 98 01/19/18 00:13 106 01/19/18 00:00 97.8 92 16 128/82 (97) 100 01/18/18 23:00 100 01/18/18 22:00 98 01/18/18 21:00 92 01/18/18 20:11 85 01/18/18 20:06 96.6 86 16 134/87 (103) 100 01/18/18 19:00 98 01/18/18 19:00 96 01/18/18 18:00 100 01/19/18 01/19/18 01/19/18 07:00 15:00 23:00 Output Total 2400 ml Balance -2400 ml Result Diagram: 01/19/18 0500 01/19/18 0500 Laboratory Results Laboratory Tests Test 01/19/18 05:00 White Blood Count 15.2 TH/MM3 Red Blood Count 3.70 MIL/MM3 Hemoglobin 10.6 GM/DL Hematocrit 32.3 % Mean Corpuscular Volume 87.3 FL Mean Corpuscular Hemoglobin 28.7 PG Mean Corpuscular Hemoglobin Concent 32.9 % Red Cell Distribution Width 17.9 % Platelet Count 92 TH/MM3 Mean Platelet Volume 10.0 FL Neutrophils (%) (Auto) 88.6 % Lymphocytes (%) (Auto) 4.4 % Monocytes (%) (Auto) 4.7 % Eosinophils (%) (Auto) 1.6 % Basophils (%) (Auto) 0.7 % Neutrophils # (Auto) 13.4 TH/MM3 Lymphocytes # (Auto) 0.7 TH/MM3 Monocytes # (Auto) 0.7 TH/MM3 Eosinophils # (Auto) 0.2 TH/MM3 Basophils # (Auto) 0.1 TH/MM3 CBC Comment AUTO DIFF Differential Total Cells Counted 100 Neutrophils % (Manual) 40 % Band Neutrophils % 24 % Lymphocytes % 9 % Monocytes % 4 % Eosinophils % 2 % Neutrophils # (Manual) 12.9 TH/MM3 Metamyelocytes 12 % Myelocytes 7 % Promyelocytes 2 % Nucleated Red Blood Cells 1 /100 WBC Differential Comment FINAL DIFF MANUAL Platelet Estimate LOW Platelet Morphology Comment NORMAL Tear Drop Cells 1+ Ovalocytes 1+ Blood Urea Nitrogen 3 MG/DL Creatinine 0.70 MG/DL Random Glucose 194 MG/DL Calcium Level 8.6 MG/DL Sodium Level 140 MEQ/L Potassium Level 4.2 MEQ/L Chloride Level 105 MEQ/L Carbon Dioxide Level 24.7 MEQ/L Anion Gap 10 MEQ/L Estimat Glomerular Filtration Rate 116 ML/MIN Administered Medications Medications (Trade) Dose Ordered Sig/Jason Route PRN Reason Start Time Stop Time Status Last Admin Dose Admin Sodium Chloride (NS Flush) 2 ml UNSCH PRN IV FLUSH FLUSH AFTER USING IV ACCESS 01/09/18 22:00 01/14/18 05:28 Sodium Chloride (NS Flush) 2 ml BID IV FLUSH 01/10/18 09:00 01/19/18 10:28 Finasteride (Proscar) 5 mg DAILY PO 01/10/18 09:00 01/19/18 10:27 Hydromorphone HCl (Dilaudid) 4 mg Q4H PRN PO PAIN 01/09/18 22:45 Future hold 01/19/18 13:28 Pantoprazole Sodium (Protonix) 40 mg DAILY PO 01/10/18 09:00 01/19/18 10:26 Promethazine HCl (Phenergan) 25 mg Q6H PRN PO NAUSEA OR VOMITING 01/09/18 22:45 01/12/18 16:29 Tamsulosin HCl (Flomax) 0.4 mg HS PO 01/10/18 21:00 01/18/18 19:58 Magnesium Oxide (Mag-Ox) 400 mg Q12HR PO 01/12/18 21:00 01/19/18 10:26 Acetaminophen (Tylenol) 650 mg Q4H PRN PO fever 01/12/18 21:45 01/14/18 09:24 Diphenhydramine HCl (Benadryl Inj) 25 mg Q6H PRN IV PUSH Itching/hives 01/13/18 02:15 01/13/18 02:37 Morphine Sulfate (Oramorph Sr) 60 mg BID PO 01/14/18 10:00 01/19/18 12:08 Lorazepam (Ativan) 1 mg Q6H PRN PO ANXIETY 01/15/18 19:30 01/19/18 05:00 Enoxaparin Sodium (Lovenox Inj) 80 mg Q12H SQ 01/16/18 13:00 01/19/18 10:24 Triamcinolone Acetonide (Aristocort 0.1% Cream) 1 applic Q6HR TOPICAL 01/17/18 09:00 01/19/18 12:10 Lidocaine HCl (Xylocaine 2% Jelly) 1 applic BID PRN TOPICAL pain 01/16/18 23:00 01/18/18 05:07 Levofloxacin (Levaquin) 750 mg DAILY PO 01/18/18 09:45 01/19/18 10:25 Dexamethasone (Decadron) 4 mg Q12HR PO 01/19/18 09:00 01/19/18 10:27 Objective Remarks GENERAL: Middle aged male, supine in bed in no obvious distress SKIN: Warm and dry. HEAD: Normocephalic. EYES: No injection or drainage. NECK: Supple, trachea midline. CARDIOVASCULAR: Tachycardia rate; normal rhythm RESPIRATORY: Breath sounds equal bilaterally. No accessory muscle use. GASTROINTESTINAL: Abdomen soft, non-tender, nondistended. EXTREMITIES: No cyanosis. No edema NEUROLOGICAL: Normal speech. Moving all extremities. Assessment/Plan Problem List: (1) Metastatic colorectal cancer ICD Codes: C78.5 - Secondary malignant neoplasm of large intestine and rectum Plan: --Repeat brain MRI shows no new lesions or worsening metastatic disease Hx: History of stage IV colorectal cancer. Currently undergoing palliative systemic chemotherapy consisting of FOLFIRI and panitumumab; mets to the liver, vertebral spine, pelvic bone and to the brain (2) Normocytic anemia ICD Codes: D64.9 - Anemia, unspecified Status: Acute Plan: --Anemia secondary to malignancy and chemotherapy. --closely monitor his hemoglobin. Check hemoglobin twice a day. --transfuse for a hemoglobin of 8 or less. (3) Pulmonary embolism ICD Codes: I26.99 - Other pulmonary embolism without acute cor pulmonale Status: Acute Plan: --01/16: stop heparin, cap Lovenox dose at 80mg SQ BID --Doppler ultrasound of lower extremities did not show any DVT. (4) Thrombocytopenia ICD Codes: D69.6 - Thrombocytopenia, unspecified Plan: --d/t chemotherapy --monitor and transfuse as needed. Assessment 57y/o male with stage IV colorectal cancer admitted with near syncope, found to have PE on CTA. Plan 1. Continue Lovenox at therapeutic dosing with 80 mg subcu twice daily 2. Clear for discharge from oncology standpoint Problem Qualifiers (1) Pulmonary embolism: Qualified Codes: I26.99 - Other pulmonary embolism without acute cor pulmonale Tina Brambila Jan 19, 2018 17:19
== END 2018-01-19 18:25 | disposition home health service (06) | DRG 871 ==
LOC: NEPE 18:53 → NEDA 21:56 → NEDH 01-10 02:04 → N06B 01-10 16:34 → HCIN 01-11 16:32
PROVIDERS: ADMIT Family Medicine; ATTEND Family Medicine
PROC: 30233N1 Transfusion of Nonautologous Red Blood Cells into Peripheral Vein, Percutaneous Approach (ICD-10-PCS; principal; 2018-01-13)
DX: A41.9 Sepsis, unspecified organism (principal); I26.99 Other pulmonary embolism without acute cor pulmonale; C78.7 Secondary malignant neoplasm of liver and intrahepatic bile duct; C79.31 Secondary malignant neoplasm of brain; C79.51 Secondary malignant neoplasm of bone; D80.1 Nonfamilial hypogammaglobulinemia; K92.2 Gastrointestinal hemorrhage, unspecified; E46 Unspecified protein-calorie malnutrition; J98.11 Atelectasis; C19 Malignant neoplasm of rectosigmoid junction; R44.3 Hallucinations, unspecified; N13.30 Unspecified hydronephrosis; R55 Syncope and collapse; I95.9 Hypotension, unspecified; D69.59 Other secondary thrombocytopenia; D64.81 Anemia due to antineoplastic chemotherapy; D63.0 Anemia in neoplastic disease; T45.1X5A Adverse effect of antineoplastic and immunosuppressive drugs, initial encounter; Y92.9 Unspecified place or not applicable; F41.9 Anxiety disorder, unspecified; N40.1 Benign prostatic hyperplasia with lower urinary tract symptoms; R33.8 Other retention of urine; K76.0 Fatty (change of) liver, not elsewhere classified; R00.0 Tachycardia, unspecified; Z87.891 Personal history of nicotine dependence; Z92.3 Personal history of irradiation; W18.2XXA Fall in (into) shower or empty bathtub, initial encounter; Y93.E1 Activity, personal bathing and showering; Z80.1 Family history of malignant neoplasm of trachea, bronchus and lung; R21 Rash and other nonspecific skin eruption; R41.82 Altered mental status, unspecified; G89.3 Neoplasm related pain (acute) (chronic); G89.4 Chronic pain syndrome; E87.6 Hypokalemia
CPT/HCPCS: 36430; 70553; 71045; 71275; 80048; 80053; 80202; 81001; 82140; 82272; 82378; 82550; 83605; 83615; 83735; 83935; 84300; 84484; 85007; 85014; 85018; 85025; 85027; 85384; 85610; 85730; 86850; 86900; 86901; 86920; 87040; 87493; 93005; 93306; 93970; 94150; 96360; A9579; C9113; J0692; J1170; J1200; J1442; J1642; J1644; J1650; J2175; J2185; J2270; J3370; J3480; J7030; J7040; J7050; J8540; P9016; Q0169; Q9967